=== PATIENT | male | born 1945 | race Caucasian/White ===

== ENCOUNTER 2016-06-16 13:46 | Emergency (ER) | payer MEDICARE, OTHER ==
[2016-06-16 14:13] VITALS: BP 124/55
[2016-06-16] MEDS ORDERED: methylPREDNISolone 125 MG* 2 ML VIAL IV ONE (15:58)
[2016-06-16] MEDS ORDERED: fentaNYL* 50 MCG/ML 2 ML VIAL (100 MCG VIAL) IV SLOW PU ONE (15:58)
[2016-06-16] MEDS ORDERED: fentaNYL PATCH 25 MCG/HR TRANSDERM ONE (15:58)
[2016-06-16] MEDS ORDERED: fentaNYL Patch Check Q Shift 1 NOTE SCH (19:00)
--- NOTE | 2016-06-16 22:25 | ED ---
Arleen Curtis Rebecca, scribed for Saqib Meier MD on 06/16/16 at 1510 . Complex/Multi-Sys Presentation - HPI Summary HPI Summary: Pt is a 70 y/o M BIBA who presents to ED c/o diffuse arthritic joint pain. Pain has been chronic and constant since the 1969's, particularly worse bilaterally in the hand, elbow, ankle and hip joints. Pain is currently severe, ranked 10/ 10 and typical of his prior arthritic pain. Has tried Methotrexate, Oxycodone, Extra Strength Excedrin and Prednisone in the past. 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 Oxycodone is very slightly alleviating sx. Sx aggravated by nothing. Denies any CP, fever or red-hot joints. PMHx reactive arthritis. Grip is Dr. Mac, who referred pt to ED today. Pt repeatedly reported that he has major responsibilities at home such as taking care of his and cat and their house. - History Of Current Complaint Chief Complaint: EDGeneral Hx Obtained From: Patient Onset/Duration: Gradual Onset, Lasting Weeks - over 40 years, Still Present Timing: Constant Severity Currently: Severe Severity Initially: Severe Location: Pain At: - Diffuse arthritic joint pain Character: Throbbing Aggravating Factor(s): Nothing Alleviating Factor(s): Oxycodone Associated Signs And Symptoms: Positive: Other - Denies red-hot joint pain. Negative: Fever Related History: Similar Episode/Diagnosed As: - Prior arthritic flareups - Allergies/Home Medications Allergies/Adverse Reactions: Allergies Allergy/AdvReac Type Severity Reaction Status Date / Time Penicillins Allergy Hives Verified 10/31/13 09:40 PMH/Surg Hx/FS Hx/Imm Hx Endocrine/Hematology History: Denies: Hx Diabetes, Hx Sickle Cell Disease Cardiovascular History: Reports: Hx Hypertension Denies: Hx Pacemaker/ICD, Other Cardiovascular Problems/Disorders Respiratory History: Denies: Other Respiratory Problems/Disorders GI History: Denies: Other GI Disorders - Gall stones, cholecystitis History: Denies: Hx Renal Disease, Other Problems/Disorders Musculoskeletal History: 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" Sensory History: Reports: Hx Contacts or Glasses Denies: Hx Cataracts, Hx Eye Injury, Hx Hearing Aid Opthamlomology History: Reports: Hx Contacts or Glasses Denies: Hx Cataracts, Hx Eye Injury Psychiatric History: Denies: Hx Panic Disorder - Surgical History Surgery Procedure, Year, and Place: CHOLECYSTOSTOMY TUBE - DRAIN INFECTION - 2014 Hx Anesthesia Reactions: Yes - BONE SPUR IN NECK -DIFFICULT TO INTUBATE Infectious Disease History: No Infectious Disease History: Denies: Traveled Outside the [place] in Last 30 Days - Family History Known Family History: Positive: Hypertension - Social History Alcohol Use: Occasionally Alcohol Amount: ONCE A MONTH Substance Use Type: Reports: None Smoking Status (MU): Current Every Day Smoker Type: Cigars Amount Used/How Often: 5 cigars/week Length of Time of Smoking/Using Tobacco: 8 YRS Have You Smoked in the Last Year: Yes Review of Systems Negative: Fever Negative: Chest Pain Positive: Arthralgia - Diffuse arthritic pain, Other - Denies red-hot joints All Other Systems Reviewed And Are Negative: Yes Physical Exam - Summary Physical Exam Summary: General: Pleasant, alert HEENT: Moist mucosa Neck: soft, supple, no adenopathy, no edema Heart: S1, S2, RRR, no murmurs, rubs, or gallops Lungs: Clear to auscultation, breathing comfortable, no wheezes or rales Abdominal: Soft, flat, nontender Extremities: No edema, no calf tenderness. Obvious discomfort with movements of all the joints, particularly of the ankles, toes, hands and wrists. Neuro: Alert and oriented x 3 Psych: Logical, coherent Triage Information Reviewed: Yes Vital Signs On Initial Exam: Initial Vitals Temp Pulse Resp BP Pulse Ox 100.4 F 59 19 124/55 96 06/16/16 14:05 06/16/16 14:05 06/16/16 14:05 06/16/16 14:05 06/16/16 14:05 Vital Signs Reviewed: Yes Diagnostics - Vital Signs Vital Signs Temp Pulse Resp BP Pulse Ox 06/16/16 14:05 100.4 F 59 19 124/55 96 - Laboratory Lab Statement: Any lab studies that have been ordered have been reviewed, and results considered in the medical decision making process. Re-Evaluation - Re-Evaluation First Eval Re-Evaluation Time: 17:12 Change: Unchanged Comment: Updated patient on his status and the current plan to treat him in the ED and eventually D/C pt. Discussed the conversation with Dr. Mac and he agrees to follow up with him in the next day or two. Second Eval Re-Evaluation Time: 20:01 Change: Improved Comment: Reports an improvement of pain. Discussed conversation with Dr. Mac and the current D/C plan. Counseled pt on Fentanyl patch and Prednisone use. Complex Multi-Symp Course/Dx Assessment/Plan: He has recurrent reactive arthritis. This is consistent with prior episodes. No signs of infection or septic arthritis. Essentially, this is a dilemma of improving the flareup and controlling his pain. We've counseled him on how to add a fentanyl patch to his regiment and PO meds for break through. He will also take Prednisone on an extended course, to be determined by Dr. Mac. For now, dispensed 30 tabs. Fever low grade on vitals but no clinical signs of infection. - Diagnoses Differential Diagnoses/HQI/PQRI: Sepsis, Urinary Tract Infection Provider Diagnoses: Reactive arthritis - Physician Notifications Discussed Care Of Patient With: Dr. Mac, military technology manager, who reviewed the case and states that a course of Prednisone may be in order at this point, agrees to follow up with pt expeditiously. Time Discussed With Above Provider: 16:00 Discharge - Discharge Plan Condition: Fair Disposition: HOME Prescriptions: fentaNYL PATCH 25 MCG/HR* [Duragesic PATCH 25 Mcg/Hr*] 25 mcg TRANSDERM Q72H # 10 patch MDD 1 predniSONE TAB* [Deltasone TAB*] 40 mg PO DAILY #30 tab Patient Education Materials: Arthralgia (ED), Swollen Joint (ED) Referrals: No Primary Care Phys,NOPCP [Primary Care Provider] - Additional Instructions: Please follow up with Dr Mac as we discussed. He can see you tomorrow. The documentation as recorded by the Arleen nuñez Rebecca accurately reflects the service I personally performed and the decisions made by me, Saqib Meier MD.
== END 2016-06-16 20:46 | disposition home or self-care (01) ==
LOC: ED 13:46
DX: M02.30 Reiter's disease, unspecified site (principal); F17.210 Nicotine dependence, cigarettes, uncomplicated
CPT/HCPCS: 96374; 96375; 99282; A9270-GY; J2930; J3010

== ENCOUNTER 2016-07-16 17:09 | Inpatient (IN) | payer MEDICARE, OTHER ==
[2016-07-16 18:37] LABS: Hematocrit 34 % (42-52); Hemoglobin 11.1 g/dl (14.0-18.0); Mean Corpuscular HGB Conc 32 g/dl (31-36); Mean Corpuscular Hemoglobin 27 pg (27-31); Mean Corpuscular Volume 84 fL (80-94); Mean Platelet Volume 8 um3 (7.4-10.4); Red Blood Count 4.09 10^6/ul (4.0-5.4); Red Cell Distribution Width 16 % (10.5-15); White Blood Count 15.6 10^3/ul (3.5-10.8)
[2016-07-16] MEDS: NS 0.9% 1000 ML* 2,000 ML IV ONE ×2 (18:37→21:12)
[2016-07-16 18:38] LABS: Add Diff/Slide Review? Slide Review Added; Comments Flag Yes
[2016-07-16 18:52] LABS: Albumin 3.2 g/dL (3.2-5.2); BUN/Creatinine Ratio 27.2 (8-20); C Reactive Protein 90.14 mg/L (< 5.00); Calcium 8.6 mg/dL (8.6-10.3); EGFR African American 51.7 (>60); EGFR Non-African American 40.2 (>60); Globulin 3.9 g/dL (2-4); Magnesium 2.2 mg/dL (1.9-2.7); Total Bilirubin 0.8 mg/dL (0.2-1.0); Total Protein 7.1 g/dL (6.4-8.9)
[2016-07-16 18:55] LABS: Troponin I 0.03 ng/mL (<0.04)
--- NOTE | 2016-07-16 19:06 | ED ---
Complex/Multi-Sys Presentation - HPI Summary HPI Summary: Patient is brought in by a friend for weakness and pain. The patient has not been eating or drinking well, and is complaining that his normal pain medications are not handling his pain. 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 He is cared for by the whipper Dr. Montiel, who has him on prednisone, oxycodone and a fentynyl patch for pain. The friend says the patient has been caring for his , who is being treated for cancer with chemo and radiation. The patient becomes tearful and says he is exhausted and doesn't have help to care for his . His friend says he doesn't appear to be caring for himself. It took his friend 2 hours to get him to stand today. Temperature 100.2. No CP, SOB, BRICEÑO or abdominal pain. His pain is most intense in his bilateral wrists, hand, ankles and feet. 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 Hx From Patient Unobtainable Due To: Other - poor historian, tangential and irritable Onset/Duration: Gradual Onset Timing: Constant Severity Currently: Severe Severity Initially: Severe Character: Sharp - hypersensitivity to light touch Aggravating Factor(s): touch or movement Associated Signs And Symptoms: Positive: Agitation, Decreased Oral Intake Related History: Similar Episode/Diagnosed As: - Apr 2016 - Allergies/Home Medications Allergies/Adverse Reactions: Allergies Allergy/AdvReac Type Severity Reaction Status Date / Time Penicillins Allergy Hives Verified 10/31/13 09:40 Home Medications: Home Medications Finasteride 5 mg PO QAM 07/16/16 [History Confirmed 07/17/16] Oxycodone HCl 10 MG 10 mg PO Q4HR 07/16/16 [History Confirmed 07/17/16] PMH/Surg Hx/FS Hx/Imm Hx Endocrine/Hematology History: Denies: Hx Diabetes, Hx Sickle Cell Disease Cardiovascular History: Reports: Hx Hypertension Denies: Hx Pacemaker/ICD, Other Cardiovascular Problems/Disorders Respiratory History: Denies: Other Respiratory Problems/Disorders GI History: Reports: Hx Gall Bladder Disease History: Denies: Hx Renal Disease, Other Problems/Disorders Musculoskeletal History: 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" Sensory History: Reports: Hx Contacts or Glasses Denies: Hx Cataracts, Hx Eye Injury, Hx Hearing Aid Opthamlomology History: Reports: Hx Contacts or Glasses Denies: Hx Cataracts, Hx Eye Injury Psychiatric History: Denies: Hx Panic Disorder - Surgical History Surgery Procedure, Year, and Place: CHOLECYSTOSTOMY TUBE - DRAIN INFECTION - 2014 Hx Anesthesia Reactions: Yes - BONE SPUR IN NECK -DIFFICULT TO INTUBATE Infectious Disease History: No Infectious Disease History: Denies: Traveled Outside the [place] in Last 30 Days - Family History Known Family History: Positive: Hypertension - Social History Occupation: Unemployed Lives: With Family Alcohol Use: Occasionally Alcohol Amount: ONCE A MONTH Substance Use Type: Reports: None Smoking Status (MU): Current Every Day Smoker Type: Cigars Amount Used/How Often: 5 cigars/week Length of Time of Smoking/Using Tobacco: 8 YRS Have You Smoked in the Last Year: Yes Cessation Counseling: Patient Advised to Stop Review of Systems Negative: Fever, Chills Negative: Sore Throat, Ear Ache Negative: Chest Pain Negative: Shortness Of Breath, Cough Negative: Vomiting, Diarrhea, Nausea Positive: no symptoms reported Positive: Arthralgia, Myalgia Negative: Rash, Bruising Positive: Weakness - subjective. Negative: Paresthesia, Numbness All Other Systems Reviewed And Are Negative: Yes Physical Exam - Summary Physical Exam Summary: Patient is unkempt, and smells of urine. Triage Information Reviewed: Yes Vital Signs On Initial Exam: Initial Vitals Temp Pulse Resp BP Pulse Ox 100.2 F 75 20 137/73 97 07/16/16 17:22 07/16/16 17:22 07/16/16 17:22 07/16/16 17:22 07/16/16 17:22 Vital Signs Reviewed: Yes Appearance: Positive: Well-Appearing, Pain Distress, Obese Skin: Positive: Warm, Skin Color Reflects Adequate Perfusion, Dry, Tender - hypersensitive to light touch in bilateral wrist, hands, ankles and feet., Soft Head/Face: Positive: Normal Head/Face Inspection Eyes: Positive: EOMI, KELVIN, Conjunctiva Clear ENT: Positive: Hearing grossly normal Neck: Positive: Supple, Nontender Respiratory/Lung Sounds: Positive: Clear to Auscultation, Breath Sounds Present Cardiovascular: Positive: RRR Abdomen Description: Positive: Nontender, Soft. Negative: CVA Tenderness (R), CVA Tenderness (L), Distended, Guarding Bowel Sounds: Positive: Present Musculoskeletal: Positive: Pain @ - severe pain with light touch to bilateral feet, ankles, wrists and hands. Neurological: Positive: Sensory/Motor Intact, Alert, Oriented to Person Place, Time - tangential, CN Intact II-III, NV Bundle Intact Distally, Unable to Assess Gait Psychiatric: Positive: Affect/Mood Appropriate - patient is irritable AVPU Assessment: Alert - [place] Coma Scale Coma Scale Total: 15 Diagnostics - Vital Signs Vital Signs Temp Pulse Resp BP Pulse Ox 07/16/16 18:30 71 120/66 95 07/16/16 17:22 100.2 F 75 20 137/73 97 - Laboratory Lab Results: Lab Results 07/16/16 07/16/16 07/16/16 Range/Units 18:25 18:25 18:25 WBC 15.6 H (3.5-10.8) 10^3/ul RBC 4.09 (4.0-5.4) 10^6/ul Hgb 11.1 L (14.0-18.0) g/dl Hct 34 L (42-52) % MCV 84 (80-94) fL MCH 27 (27-31) pg MCHC 32 (31-36) g/dl RDW 16 H (10.5-15) % Plt Count 177 (150-450) 10^3/ul MPV 8 (7.4-10.4) um3 Neut % (Auto) 79.0 (38-83) % Lymph % (Auto) 12.9 L (25-47) % [place] % (Auto) 7.3 (1-9) % Eos % (Auto) 0.2 (0-6) % Baso % (Auto) 0.6 (0-2) % Absolute Neuts (auto) 12.3 H (1.5-7.7) 10^3/ul Absolute Lymphs (auto) 2.0 (1.0-4.8) 10^3/ul Absolute Monos (auto) 1.1 H (0-0.8) 10^3/ul Absolute Eos (auto) 0 (0-0.6) 10^3/ul Absolute Basos (auto) 0.1 (0-0.2) 10^3/ul Absolute Nucleated RBC 0.01 10^3/ul Nucleated RBC % 0.1 Sodium 128 L (133-145) mmol/L Potassium 5.0 (3.5-5.0) mmol/L Chloride 98 L (101-111) mmol/L Carbon Dioxide 22 (22-32) mmol/L Anion Gap 8 (2-11) mmol/L BUN 46 H (6-24) mg/dL Creatinine 1.69 H (0.67-1.17) mg/dL Est GFR ( Amer) 51.7 (>60) Est GFR (Non-Af Amer) 40.2 (>60) BUN/Creatinine Ratio 27.2 H (8-20) Glucose 98 (70-100) mg/dL Lactic Acid 0.6 (0.5-2.0) mmol/L Uric Acid Pending Calcium 8.6 (8.6-10.3) mg/dL Magnesium 2.2 (1.9-2.7) mg/dL Total Bilirubin 0.80 (0.2-1.0) mg/dL AST 28 (13-39) U/L ALT 29 (7-52) U/L Alkaline Phosphatase 60 (34-104) U/L Troponin I 0.03 (<0.04) ng/mL C-Reactive Protein 90.14 H (< 5.00) mg/L Total Protein 7.1 (6.4-8.9) g/dL Albumin 3.2 (3.2-5.2) g/dL Globulin 3.9 (2-4) g/dL Albumin/Globulin Ratio 0.8 L (1-3) TSH Pending Result Diagrams: 07/16/16 18:25 07/16/16 18:25 Lab Statement: Any lab studies that have been ordered have been reviewed, and results considered in the medical decision making process. Complex Multi-Symp Course/Dx Course Of Treatment: Patient refuses to move for his chest x-ray to be performed. He will be admitted for IV antibiotics and observation. - Diagnoses Differential Diagnoses/HQI/PQRI: Aspiration, Closed Cranial Trauma, CVA, Sepsis , Urinary Tract Infection Provider Diagnoses: UTI (urinary tract infection) - Physician Notifications Discussed Care Of Patient With: Dr. Rausch, ED attending; Dr. Amaya, [facility] medicine. Time Discussed With Above Provider: 20:00 Instructed by Provider To: Admit As Inpatient Discharge - Discharge Plan Condition: Stable Disposition: ADMITTED TO [facility]
[2016-07-16 19:22] LABS: Uric Acid 8.7 mg/dL (4.4-7.6)
[2016-07-16 19:31] LABS: TSH (Thyroid Stimulating Horm) 0.5 mcIU/mL (0.34-5.60)
[2016-07-16 19:54] LABS: Urine Bacteria 1+ (Absent); Urine Bilirubin Negative (Negative); Urine Glucose Negative (Negative); Urine Nitrite Positive (Negative)
--- NOTE | 2016-07-16 20:37 | HP ---
H&P (Free Text) History and Physical: PCP: Dr Greenberg Date/Time of Evaluation: 07/16/20162029 CC: generalized pain HPI: Mr Pineda is a 70YO obese male who is a very poor & tangential historian. 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 As I was examining him, he reports his hands are very painful due to arthritis and that "if you touch my hand again, I won't be responsible for what happens." He then removes his own L hand from underneath the blanket which is obviously painful and states, "OK you're not listening. Get out." and refused to speak further or submit to further exam. Per ED records he presented for uncontrolled arthritis pain of the legs and hands, but was unable to tolerate having XRYs taken and was found to have an elevated WBC count and a UTI. The remainder of the history was obtained from the medical record. 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; full 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 status FamHx: positive for CAD, DM ROS: as above, otherwise reviewed and all were negative Constitutional: NAD, normally developed, morbidly obese white male vitals: Vital Signs Temp 37.9 C 07/16/16 17:22 Pulse 82 07/16/16 19:50 Resp 20 07/16/16 17:22 BP 157/103 07/16/16 20:00 Pulse Ox 97 07/16/16 19:50 Intake & Output 07/15/16 07/16/16 07/16/16 23:59 11:59 23:59 Intake Total 1000 Balance 1000 Weight 129.274 kg Intake: IV Fluids 1000 HEENM: atraumatic; sclera/conjunctiva: non-icteric/clear; hearing: clinically intact; oropharynx: clear, mucosa moist Neck: refused exam Pulmonary: refused exam CV: trace B ankle edema; otherwise refused exam Abdominal: refused exam Lymph: refused exam Musculoskeletal: general: grossly intact; gait: refused exam Integumental: normal appearance and texture Psychiatric orientation: AA&O to PP, uncertain to ST affect: irritable mood: uncooperative, unpleasant eye contact: poor content: unreliable, tangential memory: unable to assess responses: timely insight: poor Testing: Lab Results 07/16/16 07/16/16 07/16/16 Range/Units 18:25 18:25 18:25 WBC 15.6 H (3.5-10.8) 10^3/ul RBC 4.09 (4.0-5.4) 10^6/ul Hgb 11.1 L (14.0-18.0) g/dl Hct 34 L (42-52) % MCV 84 (80-94) fL MCH 27 (27-31) pg MCHC 32 (31-36) g/dl RDW 16 H (10.5-15) % Plt Count 177 (150-450) 10^3/ul MPV 8 (7.4-10.4) um3 Neut % (Auto) 79.0 (38-83) % Lymph % (Auto) 12.9 L (25-47) % [place] % (Auto) 7.3 (1-9) % Eos % (Auto) 0.2 (0-6) % Baso % (Auto) 0.6 (0-2) % Absolute Neuts (auto) 12.3 H (1.5-7.7) 10^3/ul Absolute Lymphs (auto) 2.0 (1.0-4.8) 10^3/ul Absolute Monos (auto) 1.1 H (0-0.8) 10^3/ul Absolute Eos (auto) 0 (0-0.6) 10^3/ul Absolute Basos (auto) 0.1 (0-0.2) 10^3/ul Absolute Nucleated RBC 0.01 10^3/ul Nucleated RBC % 0.1 Sodium 128 L (133-145) mmol/L Potassium 5.0 (3.5-5.0) mmol/L Chloride 98 L (101-111) mmol/L Carbon Dioxide 22 (22-32) mmol/L Anion Gap 8 (2-11) mmol/L BUN 46 H (6-24) mg/dL Creatinine 1.69 H (0.67-1.17) mg/dL Est GFR ( Amer) 51.7 (>60) Est GFR (Non-Af Amer) 40.2 (>60) BUN/Creatinine Ratio 27.2 H (8-20) Glucose 98 (70-100) mg/dL Lactic Acid 0.6 (0.5-2.0) mmol/L Uric Acid 8.7 H (4.4-7.6) mg/dL Calcium 8.6 (8.6-10.3) mg/dL Magnesium 2.2 (1.9-2.7) mg/dL Total Bilirubin 0.80 (0.2-1.0) mg/dL AST 28 (13-39) U/L ALT 29 (7-52) U/L Alkaline Phosphatase 60 (34-104) U/L Troponin I 0.03 (<0.04) ng/mL C-Reactive Protein 90.14 H (< 5.00) mg/L Total Protein 7.1 (6.4-8.9) g/dL Albumin 3.2 (3.2-5.2) g/dL Globulin 3.9 (2-4) g/dL Albumin/Globulin Ratio 0.8 L (1-3) TSH 0.50 (0.34-5.60) mcIU/mL Urine Color Urine Appearance Urine pH (5-9) Ur Specific [place] (1.010-1.030) Urine Protein (Negative) Urine Ketones (Negative) Urine Blood (Negative) Urine Nitrate (Negative) Urine Bilirubin (Negative) Urine Urobilinogen (Negative) Ur Leukocyte Esterase (Negative) Urine WBC (Auto) (Absent) Urine RBC (Auto) (Absent) Ur Squamous Epith Cells (Absent) Urine Bacteria (Absent) Urine Glucose (Negative) 03/09/17 Range/Units 19:35 WBC (3.5-10.8) 10^3/ul RBC (4.0-5.4) 10^6/ul Hgb (14.0-18.0) g/dl Hct (42-52) % MCV (80-94) fL MCH (27-31) pg MCHC (31-36) g/dl RDW (10.5-15) % Plt Count (150-450) 10^3/ul MPV (7.4-10.4) um3 Neut % (Auto) (38-83) % Lymph % (Auto) (25-47) % [place] % (Auto) (1-9) % Eos % (Auto) (0-6) % Baso % (Auto) (0-2) % Absolute Neuts (auto) (1.5-7.7) 10^3/ul Absolute Lymphs (auto) (1.0-4.8) 10^3/ul Absolute Monos (auto) (0-0.8) 10^3/ul Absolute Eos (auto) (0-0.6) 10^3/ul Absolute Basos (auto) (0-0.2) 10^3/ul Absolute Nucleated RBC 10^3/ul Nucleated RBC % Sodium (133-145) mmol/L Potassium (3.5-5.0) mmol/L Chloride (101-111) mmol/L Carbon Dioxide (22-32) mmol/L Anion Gap (2-11) mmol/L BUN (6-24) mg/dL Creatinine (0.67-1.17) mg/dL Est GFR ( Amer) (>60) Est GFR (Non-Af Amer) (>60) BUN/Creatinine Ratio (8-20) Glucose (70-100) mg/dL Lactic Acid (0.5-2.0) mmol/L Uric Acid (4.4-7.6) mg/dL Calcium (8.6-10.3) mg/dL Magnesium (1.9-2.7) mg/dL Total Bilirubin (0.2-1.0) mg/dL AST (13-39) U/L ALT (7-52) U/L Alkaline Phosphatase (34-104) U/L Troponin I (<0.04) ng/mL C-Reactive Protein (< 5.00) mg/L Total Protein (6.4-8.9) g/dL Albumin (3.2-5.2) g/dL Globulin (2-4) g/dL Albumin/Globulin Ratio (1-3) TSH (0.34-5.60) mcIU/mL Urine Color Yellow Urine Appearance Cloudy Urine pH 5.0 (5-9) Ur Specific [place] 1.014 (1.010-1.030) Urine Protein Negative (Negative) Urine Ketones Negative (Negative) Urine Blood Negative (Negative) Urine Nitrate Positive H (Negative) Urine Bilirubin Negative (Negative) Urine Urobilinogen Negative (Negative) Ur Leukocyte Esterase 3+ H (Negative) Urine WBC (Auto) 3+(>20/hpf) H (Absent) Urine RBC (Auto) Trace(0-2/hpf) (Absent) Ur Squamous Epith Cells Present H (Absent) Urine Bacteria 1+ H (Absent) Urine Glucose Negative (Negative) Impression: 70M presenting for uncontrolled OA pain with finding of UTI & leukocytosis DIAGNOSIS & PLAN Primary UTI : IV levofloxacin : IVFs : observation for initiation of ABX OA pain, not intractable : pain control : continue fentanyl patch Secondary HTN : review meds once reconciled Rosemary syndrome : continue prednisone PO BPH : continue finasteride Admission Rational: observation for initiation of ABX for UTI DVTp: heparin SQ Code Status: full HCP:
[2016-07-16] MEDS ORDERED: Nicotine Inhaler* 10 MG AMP INH PRN (21:05)
[2016-07-16] MEDS ORDERED: Acetaminophen TAB* 325 MG PO PRN (21:05)
[2016-07-16] MEDS ORDERED: traMADol TAB* 50 MG PO PRN (21:05)
[2016-07-16] MEDS ORDERED: hydrALAZINE IV* 20 MG/ML VIAL IV PRN (21:05)
[2016-07-16] MEDS ORDERED: Melatonin (NF) 3 MG TAB PO PRN (21:05)
[2016-07-16] MEDS ORDERED: Ondansetron INJ* 2 MG/ML VIAL IV PRN (21:05)
[2016-07-16] MEDS ORDERED: Mouth Piece, Nicotine* 1 EACH CARTRIDGE INH PRN (21:19)
[2016-07-16] MEDS: HYDROmorphone INJ* 1 MG/ML CARPUJECT SYRINGE IV PRN (22:31)
[2016-07-16] MEDS: cefTRIAXone VIAL(*) 1,000 MG in NS 0.9% 50 ML* 50 ML IVPB SCH (22:31)
[2016-07-16] MEDS: NS 0.9% 1000 ML* 1,000 ML IV SCH (22:44)
[2016-07-17] MEDS: oxyCODONE TAB* 5 MG TAB PO PRN ×3 (00:14→11:26)
[2016-07-17] MEDS ORDERED: fentaNYL PATCH 25 MCG/HR TRANSDERM SCH (02:00)
[2016-07-17] MEDS: Heparin VIAL(*) 5000 UNITS/ML VIAL (FIVE THOUSAND) SUBCUT SCH ×3 (06:14→21:04)
[2016-07-17] MEDS: Omeprazole CAP* 20 MG PO SCH (06:14)
[2016-07-17] MEDS: fentaNYL Patch Check Q Shift 1 NOTE SCH ×2 (07:37→20:35)
[2016-07-17] MEDS: NS 0.9% 1000 ML* 1,000 ML IV SCH ×2 (08:05→08:09)
[2016-07-17] MEDS: HYDROmorphone INJ* 1 MG/ML CARPUJECT SYRINGE IV PRN (08:06)
[2016-07-17] MEDS: Finasteride TAB* 5 MG PO SCH (08:07)
[2016-07-17] MEDS: Metoprolol Succinate XL TAB* 50 MG PO SCH (08:07)
[2016-07-17] MEDS: Docusate CAP* 100 MG PO SCH ×2 (08:07→21:04)
[2016-07-17] MEDS ORDERED: predniSONE TAB* 20 MG PO SCH (09:00)
--- NOTE | 2016-07-17 10:16 | PN ---
Subjective Date of Service: 07/17/16 Interval History: Patient says that at home he was unable to stand up due to arthralgia. He hasn' t tried to get out of bed today yet. No x/o. Objective Active Medications: Acetaminophen (Tylenol Tab*) 650 mg PO Q6H PRN PRN Reason: FEVER/PAIN Device (Nicotine Mouth Piece*) 1 each INH ONCE PRN PRN Reason: CRAVINGS Docusate Sodium (Colace Cap*) 200 mg PO BID [facility] Last Admin: 07/17/16 08:07 Dose: 200 mg Fentanyl (Duragesic Patch 25 Mcg/Hr*) 25 mcg TRANSDERM Q72H [facility] Last Admin: 07/17/16 02:04 Dose: 25 mcg Finasteride (Proscar Tab*) 5 mg PO QAM [facility] Last Admin: 07/17/16 08:07 Dose: 5 mg Heparin Sodium (Porcine) (Heparin Vial(*)) 5,000 units SUBCUT Q8HR [facility] Last Admin: 07/17/16 06:14 Dose: 5,000 units Hydralazine HCl (Apresoline Iv*) 10 mg IV Q4H PRN PRN Reason: Systolic >170 Hydromorphone HCl (Dilaudid Iv*) 0.5 mg IV Q4H PRN PRN Reason: PAIN Last Admin: 07/17/16 08:06 Dose: 0.5 mg Ceftriaxone Sodium 1,000 mg/ (Sodium Chloride) 50 mls @ 200 mls/hr IVPB Q24H [facility] Last Admin: 07/16/16 22:31 Dose: 200 mls/hr Melatonin (Melatonin (Nf)) 3 mg PO BEDTIME PRN; Protocol PRN Reason: Sleep Metoprolol Succinate (Toprol Xl Tab*) 50 mg PO DAILY [facility] Last Admin: 07/17/16 08:07 Dose: 50 mg Nicotine (Nicotine Inhaler*) 10 mg INH Q2H PRN PRN Reason: CRAVING Omeprazole (Prilosec Cap*) 20 mg PO DAILY@0600 [facility] Last Admin: 07/17/16 06:14 Dose: 20 mg Ondansetron HCl (Zofran Inj*) 4 mg IV Q6H PRN PRN Reason: NAUSEA Oxycodone HCl (Roxycodone Tab*) 5 mg PO Q4H PRN PRN Reason: PAIN Last Admin: 07/17/16 06:14 Dose: 5 mg Pharmacy Profile Note (Fentanyl Patch Check Q Shift) 1 note N/A 0700,1900 [facility] Last Admin: 07/17/16 07:37 Dose: 1 note Prednisone (Deltasone Tab*) 40 mg PO DAILY [facility] Last Admin: 07/17/16 08:07 Dose: 40 mg Tramadol HCl (Ultram*) 50 mg PO Q6H PRN PRN Reason: PAIN Last Admin: 07/17/16 08:06 Dose: 50 mg Vital Signs 07/16/16 07/16/16 07/16/16 20:30 21:25 22:31 Temperature 98.7 F Pulse Rate 83 78 Respiratory 20 18 Rate Blood Pressure 129/67 129/67 (mmHg) O2 Sat by Pulse 94 Oximetry 07/16/16 07/16/16 07/17/16 22:48 22:50 00:14 Temperature 98.0 F Pulse Rate 74 Respiratory 18 20 16 Rate Blood Pressure 136/63 (mmHg) O2 Sat by Pulse 99 Oximetry 07/17/16 07/17/16 07/17/16 00:31 02:04 02:14 Temperature Pulse Rate Respiratory 16 20 20 Rate Blood Pressure (mmHg) O2 Sat by Pulse Oximetry 07/17/16 07/17/16 07/17/16 04:17 06:14 07:59 Temperature 98.2 F Pulse Rate 62 Respiratory 16 18 18 Rate Blood Pressure 103/47 (mmHg) O2 Sat by Pulse 97 Oximetry 07/17/16 08:06 Temperature Pulse Rate Respiratory 16 Rate Blood Pressure (mmHg) O2 Sat by Pulse Oximetry Oxygen Devices in Use Now: None Appearance: Alert, partly up in bed. In good spirits. Looks comfortable. Eyes: No Scleral Icterus Ears/Nose/Mouth/Throat: Clear Oropharnyx, Mucous Membranes Moist Neck: NL Appearance and Movements; NL JVP, No Thyroid Enlargement, Masses Respiratory: Symmetrical Chest Expansion and Respiratory Effort, Clear to Auscultation, Clear to Percussion Abdominal: NL Sounds; No Tenderness; No Distention, No Hepatosplenomegaly, - Extremities: No Edema, No Clubbing, Cyanosis, - - mulitple joint deformities/ swelling. Skin: No Rash or Ulcers, No Nodules or Sclerosis, - Neurological: Alert and Oriented x 3, NL Sensation Result Diagrams: 07/16/16 18:25 07/16/16 18:25 Additional Lab and Data: Lab Results 07/16/16 07/16/16 07/16/16 Range/Units 18:25 18:25 18:25 WBC 15.6 H (3.5-10.8) 10^3/ul RBC 4.09 (4.0-5.4) 10^6/ul Hgb 11.1 L (14.0-18.0) g/dl Hct 34 L (42-52) % MCV 84 (80-94) fL MCH 27 (27-31) pg MCHC 32 (31-36) g/dl RDW 16 H (10.5-15) % Plt Count 177 (150-450) 10^3/ul MPV 8 (7.4-10.4) um3 Neut % (Auto) 79.0 (38-83) % Lymph % (Auto) 12.9 L (25-47) % [place] % (Auto) 7.3 (1-9) % Eos % (Auto) 0.2 (0-6) % Baso % (Auto) 0.6 (0-2) % Absolute Neuts (auto) 12.3 H (1.5-7.7) 10^3/ul Absolute Lymphs (auto) 2.0 (1.0-4.8) 10^3/ul Absolute Monos (auto) 1.1 H (0-0.8) 10^3/ul Absolute Eos (auto) 0 (0-0.6) 10^3/ul Absolute Basos (auto) 0.1 (0-0.2) 10^3/ul Absolute Nucleated RBC 0.01 10^3/ul Nucleated RBC % 0.1 Sodium 128 L (133-145) mmol/L Potassium 5.0 (3.5-5.0) mmol/L Chloride 98 L (101-111) mmol/L Carbon Dioxide 22 (22-32) mmol/L Anion Gap 8 (2-11) mmol/L BUN 46 H (6-24) mg/dL Creatinine 1.69 H (0.67-1.17) mg/dL Est GFR ( Amer) 51.7 (>60) Est GFR (Non-Af Amer) 40.2 (>60) BUN/Creatinine Ratio 27.2 H (8-20) Glucose 98 (70-100) mg/dL Lactic Acid 0.6 (0.5-2.0) mmol/L Uric Acid Pending Calcium 8.6 (8.6-10.3) mg/dL Magnesium 2.2 (1.9-2.7) mg/dL Total Bilirubin 0.80 (0.2-1.0) mg/dL AST 28 (13-39) U/L ALT 29 (7-52) U/L Alkaline Phosphatase 60 (34-104) U/L Troponin I 0.03 (<0.04) ng/mL C-Reactive Protein 90.14 H (< 5.00) mg/L Total Protein 7.1 (6.4-8.9) g/dL Albumin 3.2 (3.2-5.2) g/dL Globulin 3.9 (2-4) g/dL Albumin/Globulin Ratio 0.8 L (1-3) TSH Pending Assess/Plan/Problems-Billing Assessment: - Patient Problems (1) Urinary tract infection Current Visit: Yes Status: Acute Comment: Possible UTI. PVR by bladder scan ordered. Continue ceftriaxone. 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 I spoke with Dr. Mac who will see pt 07/17. The plan was to taper prednisone, but this possibly will need to be changed. Continue fentqnyl patch. Oxycodone 5 mg q 4 hr PRN. (3) HTN (hypertension) Current Visit: Yes Status: Acute Code(s): I10 - ESSENTIAL (PRIMARY) HYPERTENSION SNOMED Code(s): 83914495 Comment: Continue metoprolol. (4) BPH (benign prostatic hyperplasia) Current Visit: No Status: Chronic Code(s): N40.0 - BENIGN PROSTATIC HYPERPLASIA WITHOUT LOWER URINRY TRACT SYMP SNOMED Code(s): 181555674 Comment: Continue finasteride.
[2016-07-17] MEDS ORDERED: oxyCODONE TAB* 5 MG TAB PO PRN (10:20)
--- NOTE | 2016-07-17 14:51 | CONSULT ---
Consult Consult: See full dictated note. Mr. 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 He was admitted with diffuse pain, subjective weakness, swelling of his joints and inability to mobilize. He is slightly improved now, but he still has synovitis of his PIP joints and MCP joints. He is undergoing OT evaluation. As an outpatient, he was treated with Methotrexate and Humira. He has used prednisone on occasion for flares. As he is having a flare today, consider increasing his prednisone to 60mg daily ; this will need to be tapered over the next 1 to 2 weeks. 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
[2016-07-17 15:47] LABS: Hematocrit 32 % (42-52); Hemoglobin 10.4 g/dl (14.0-18.0); Mean Corpuscular HGB Conc 32 g/dl (31-36); Mean Corpuscular Hemoglobin 27 pg (27-31); Mean Corpuscular Volume 84 fL (80-94); Mean Platelet Volume 7 um3 (7.4-10.4); Red Blood Count 3.87 10^6/ul (4.0-5.4); Red Cell Distribution Width 16 % (10.5-15); White Blood Count 16.4 10^3/ul (3.5-10.8)
[2016-07-17 16:02] LABS: BUN/Creatinine Ratio 27.4 (8-20); Calcium 8.6 mg/dL (8.6-10.3); EGFR African American 73.9 (>60); EGFR Non-African American 57.5 (>60); Potassium 4.8 mmol/L (3.5-5.0)
--- NOTE | 2016-07-17 16:29 | RAD ---
INDICATION: Gout versus psoriatic arthritis COMPARISON: None TECHNIQUE: 3 views of each hand were obtained. FINDINGS: There is osteopenia. There is IP and MCP joint space narrowing laterally there is bony spur patient about the IP joint of the left and right thumb. There is minor, bilateral, first carpometacarpal osteoarthritis with narrowing and mild sclerosis. There are no bony erosive changes to suggest an inflammatory component. IMPRESSION: MILD, BILATERAL, SYMMETRIC OSTEOARTHRITIS. NO BONY EROSIVE CHANGE
[2016-07-17 16:38] LABS: Erythrocyte Sed Rate 93 mm/Hr (0-40)
[2016-07-17] MEDS ORDERED: predniSONE TAB* 20 MG PO ONE (17:37)
--- NOTE | 2016-07-17 21:27 | CONS ---
CONSULTATION REPORT: DATE OF CONSULT: 07/17/16 CONSULTING PHYSICIAN: Dr. Ibanez. REASON FOR CONSULTATION: Evaluate for flare of inflammatory arthritis. HISTORY OF PRESENT ILLNESS: Mr. Pineda is a 70-year-old male with a history of reactive arthritis with features of psoriatic arthritis that is longstanding in nature. He has a history of an inflammatory process involving his hands with his PIP joints. He has been in chronic pain. He has also been under a lot of stress recently as his has suffered from some health issues. As an outpatient, he has been on Iliana 40 mg every 2 weeks which he noted that he is adherent to and for pain control, he has been on fentanyl patch, which was started on a recent ER visit. He is also on hydroxychloroquine and methotrexate. He has been admitted with severe pain, significant restriction, and inability to ambulate. He has been on prednisone which he has taken doses between 10 and 40 mg daily as an outpatient, but he was also found to have a UTI and he is currently being treated with IV levofloxacin. He is noticing some mild improvement, but he still has a lot restriction and pain in his joints. He is currently having occupational therapy. He notes that his hands have been very sensitive and it is difficult to control his pain even when they are lightly touched. He continues to have significant symptoms with restriction and swelling of his joint. In terms of his history, it dates back to 1970 in terms of his musculoskeletal symptoms. He initially was felt to be gout many years ago. Subsequently, he was diagnosed with the Rosemary syndrome or reactive arthritis. I felt based on his labs and x-rays even though there is some paucity of skin disease that he had features of psoriatic arthritis as he had some telescoping of his digits with synovitis. In 2013 of note, he had a severe gallbladder problem with an infection leading to an ICU admission and he was treated with IV antibiotics. He was given oral antibiotics on discharge and this seemed to help his arthritis. For a year, he had no significant pain; however, when I saw him beginning in July of last year, he was complaining of significant joint discomfort and swelling of his joints. More recently, his joint pain has been difficult to get under control. In part, I think there has been a lot of stress related to his 's illness and that has lowered his defenses perhaps a little bit, but he also has had dramatic swelling of his joints. He has had involvement of his feet as well as his spine, but these are improved right now, but he still is very weak. PAST MEDICAL PROBLEMS: Include: 1. Cholecystitis. 2. Renal insufficiency. 3. Reactive arthritis with now psoriatic arthritis. 4. Hypertension. SURGICAL HISTORY: None. HOSPITALIZATIONS: Include this one. Also, there was a hospitalization in 2014 for a cholecystectomy and he had cardiac complications as well as infectious complications. CURRENT MEDICATIONS: He is on: 1. Nicotine patch. 2. Omeprazole. 3. Ondansetron. 4. Oxycodone which has been filled as an outpatient. 5. Fentanyl patch every 72 hours. 6. Also ceftriaxone. 7. Acetaminophen. 8. Prednisone 40 mg daily. ALLERGIES: Include PENICILLIN. FAMILY HISTORY: Notable for his maternal grandfather of a myocardial infarction and otherwise, no cardiac problems. SOCIAL HISTORY: He lives with his . 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 He has smoked in the past, but he has cut down on this. He occasionally consumes alcohol, but only rarely, no more than 2 cups of regular coffee per day. REVIEW OF SYSTEMS: He has been sleeping well. Eyes: Denies discharge, dryness , or irritation. ENT: He denies dry mouth or swallowing problems. Cardiac: Denies chest wall pain or shortness of breath. Respiratory: Denies cough, congestion, or night sweats. GI: Denies abdominal pain, anorexia, or colitis. Musculoskeletal: He has had deformities from his arthritis. Skin: He denies any rash or Raynaud's. He has had no nail changes recently, but his hands are often cold. Neurologic: He has had some diffuse weakness and difficulty with ambulation, but no headaches or lightheadedness. Other 14-point review of systems were reviewed and were otherwise negative. PHYSICAL EXAM: He is pleasant, in no acute distress. Temperature is 37.9 degrees Celsius, pulse of 82, blood pressure 157/103. He is afebrile. Pulse ox 97%. In general, he is pleasant, in no acute distress, sitting up. Lungs are clear to auscultation bilaterally. Cardiovascular exam revealed a regular rate and rhythm. Normal S1 and S2. Extremities: Minimal edema. Mild venostasis changes. Abdomen: Soft, nontender, nondistended. No organomegaly. No hepatosplenomegaly. Lymph: No adenopathy. Musculoskeletal: He had mild osteoarthritic deformities of the knees. He also had PIP synovitis, 2+ in his PIP joints as well as the MCP joints with mild MCP varus deformities as well as subluxation of the carpometacarpal joint. Integument: No rash. He did have some mild pitting of the nails. Psychiatric: Alert and oriented. Endocrine: No glandular swelling. : No CVA tenderness. He had, as noted above, synovitis of the proximal interphalangeal joint as well as DIP joins and MCP joints. It was quite prominent with some redness over the third PIP joint. Otherwise, cranial nerves II through XII are intact. Motor strength was intact with 4+/5 strength in the quad region. DIAGNOSTIC STUDIES/LAB DATA: He had a white count of 15.6, hemoglobin of 11.1, hematocrit 34,000, creatinine of 1.69, BUN 46. Uric acid of 8.7. Prior x-rays included a wrist x-ray, which showed osteoarthritis. Hand films have been requested in May 2016, but not done. MRI of the cervical spine in 2014 revealed degenerative disk changes, multilevel neuroforaminal narrowing , and right- sided disk protrusion with osteophytes at C6 and C7. His creatinine was 1.54 in January. Currently, methotrexate is on hold. ASSESSMENT: He has a flare of reactive arthritis with features of psoriatic arthritis. Also consider gouty arthropathy. We will check hand x-rays which have been ordered as an outpatient. Consider switching his biologic to Remicade as an outpatient. In the meantime, the prednisone will be increased to 60 mg daily to help the flare that he is going through. In regards to his renal insufficiency, hold NSAIDs or other nephrotoxic agents. I will check for the pattern of erosive disease on hand films and I would also follow the inflammatory markers although in part it could be related to his urinary tract infection. Agree with a trial of physical therapy and occupational therapy. Would also check a vitamin D given that he has been on chronic steroids as well. We will continue to follow daily. [id number]/[facility] #: [id number] [facility]
[2016-07-17] MEDS: cefTRIAXone VIAL(*) 1,000 MG in NS 0.9% 50 ML* 50 ML IVPB SCH (21:35)
[2016-07-18] MEDS: Heparin VIAL(*) 5000 UNITS/ML VIAL (FIVE THOUSAND) SUBCUT SCH ×3 (07:45→21:58)
[2016-07-18] MEDS: Docusate CAP* 100 MG PO SCH ×2 (08:29→21:13)
[2016-07-18] MEDS: Metoprolol Succinate XL TAB* 50 MG PO SCH (08:30)
[2016-07-18] MEDS: predniSONE TAB* 20 MG PO SCH (08:30)
[2016-07-18 08:31] LABS: Hematocrit 31 % (42-52); Mean Corpuscular HGB Conc 32 g/dl (31-36); Mean Corpuscular Hemoglobin 27 pg (27-31); Mean Corpuscular Volume 84 fL (80-94); Mean Platelet Volume 8 um3 (7.4-10.4); Red Blood Count 3.67 10^6/ul (4.0-5.4); Red Cell Distribution Width 16 % (10.5-15); White Blood Count 15.5 10^3/ul (3.5-10.8)
[2016-07-18] MEDS: Finasteride TAB* 5 MG PO SCH (08:31)
[2016-07-18] MEDS: Omeprazole CAP* 20 MG PO SCH (08:32)
[2016-07-18 08:43] LABS: BUN/Creatinine Ratio 27.1 (8-20); Calcium 8.7 mg/dL (8.6-10.3); EGFR African American 78.3 (>60); EGFR Non-African American 60.9 (>60); Potassium 4.7 mmol/L (3.5-5.0)
[2016-07-18] MEDS: fentaNYL Patch Check Q Shift 1 NOTE SCH ×2 (08:46→20:02)
[2016-07-18] MEDS: Levofloxacin 500 MG IVPREMIX(* 500 MG/100 ML BAG IVPB SCH (10:17)
--- NOTE | 2016-07-18 10:25 | CONSULT ---
Consult Consult: Progress Note Consult follow up note Patient: GOKUL FUNES /Age: 06 1945 70 Medical Record#: [id number] Admission Date: 07/16/16 Provider: Norm Mac Chief complaint: Joint pain Subjective Date of Service: 07/18/16 Interval History: Patient says that he is overall improved; there is still some swelling in his PIP joints; he has been working with PT and OT. He still has some restriction in his hands but he is much better.. He hasn't tried to get out of bed today yet. No x/o. Objective Active Medications: Acetaminophen (Tylenol Tab*) 650 mg PO Q6H PRN PRN Reason: FEVER/PAIN Device (Nicotine Mouth Piece*) 1 each INH ONCE PRN PRN Reason: CRAVINGS Docusate Sodium (Colace Cap*) 200 mg PO BID [facility] Last Admin: 07/17/16 08:07 Dose: 200 mg Fentanyl (Duragesic Patch 25 Mcg/Hr*) 25 mcg TRANSDERM Q72H [facility] Last Admin: 07/17/16 02:04 Dose: 25 mcg Finasteride (Proscar Tab*) 5 mg PO QAM [facility] Last Admin: 07/17/16 08:07 Dose: 5 mg Heparin Sodium (Porcine) (Heparin Vial(*)) 5,000 units SUBCUT Q8HR [facility] Last Admin: 07/17/16 06:14 Dose: 5,000 units Hydralazine HCl (Apresoline Iv*) 10 mg IV Q4H PRN PRN Reason: Systolic >170 Hydromorphone HCl (Dilaudid Iv*) 0.5 mg IV Q4H PRN PRN Reason: PAIN Last Admin: 07/17/16 08:06 Dose: 0.5 mg Ceftriaxone Sodium 1,000 mg/ (Sodium Chloride) 50 mls @ 200 mls/hr IVPB Q24H [facility] Last Admin: 07/16/16 22:31 Dose: 200 mls/hr Melatonin (Melatonin (Nf)) 3 mg PO BEDTIME PRN; Protocol PRN Reason: Sleep Metoprolol Succinate (Toprol Xl Tab*) 50 mg PO DAILY [facility] Last Admin: 07/17/16 08:07 Dose: 50 mg Nicotine (Nicotine Inhaler*) 10 mg INH Q2H PRN PRN Reason: CRAVING Omeprazole (Prilosec Cap*) 20 mg PO DAILY@0600 [facility] Last Admin: 07/17/16 06:14 Dose: 20 mg Ondansetron HCl (Zofran Inj*) 4 mg IV Q6H PRN Progress Note GOKUL FUNES [id number] 07/16/16 PRN Reason: NAUSEA Oxycodone HCl (Roxycodone Tab*) 5 mg PO Q4H PRN PRN Reason: PAIN Last Admin: 07/17/16 06:14 Dose: 5 mg Pharmacy Profile Note (Fentanyl Patch Check Q Shift) 1 note N/A 0700,1900 [facility] Last Admin: 07/17/16 07:37 Dose: 1 note Prednisone (Deltasone Tab*) 40 mg PO DAILY [facility] Last Admin: 07/17/16 08:07 Dose: 40 mg Tramadol HCl (Ultram*) 50 mg PO Q6H PRN PRN Reason: PAIN Last Admin: 07/17/16 08:06 Dose: 50 mg Vital Signs 07/16/16 07/16/16 20:30 21:25 22:31 Temperature 98.7 F Pulse Rate 83 78 Respiratory 20 18 Rate Blood Pressure 129/67 129/67 (mmHg) O2 Sat by Pulse 94 Oximetry 07/16/16 07/17/16 22:48 22:50 00:14 Temperature 98.0 F Pulse Rate 74 Respiratory 18 20 16 Rate Blood Pressure 136/63 (mmHg) O2 Sat by Pulse 99 Oximetry 07/17/16 07/17/16 00:31 02:04 02:14 Temperature Pulse Rate Respiratory 16 20 20 Rate Blood Pressure (mmHg) O2 Sat by Pulse Oximetry 07/17/16 07/17/16 04:17 06:14 07:59 Temperature 98.2 F Pulse Rate 62 Progress Note GOKUL FUNES [id number] 07/16/16 Respiratory 16 18 18 Rate Blood Pressure 103/47 (mmHg) O2 Sat by Pulse 97 Oximetry 07/17/16 08:06 Temperature Pulse Rate Respiratory 16 Rate Blood Pressure ( mmHg) O2 Sat by Pulse Oximetry Oxygen Devices in Use Now: None Appearance: Alert, partly up in bed. In good spirits. Looks comfortable. Eyes: No Scleral Icterus Ears/Nose/Mouth/Throat: Clear Oropharnyx, Mucous Membranes Moist Neck: NL Appearance and Movements; NL JVP, No Thyroid Enlargement, Masses Respiratory: Symmetrical Chest Expansion and Respiratory Effort, Clear to Auscultation, Clear to Percussion Abdominal: NL Sounds; No Tenderness; No Distention, No Hepatosplenomegaly, - Extremities: No Edema, No Clubbing, Cyanosis, - - Musculoskeletal: PIP joint 1 plus synovitis along the 4th PIP joint bilaterally and 1 plus synovitis of 3rd IP joint; mulitple joint deformities/swelling. Skin: No Rash or Ulcers, No Nodules or Sclerosis, - Neurological: Alert and Oriented x 3, NL Sensation Result Diagrams: 18:25 18:25 Additional Lab and Data: Lab Results 07/16/16 07/16/16 07/16/16 Range/Units 18:25 18:25 18:25 WBC 15.6 H (3.5-10.8) 10^3/ul RBC 4.09 (4.0-5.4) 10^6/ul Hgb 11.1 L (14.0-18.0) g/dl Hct 34 L (42-52) % MCV 84 (80-94) fL MCH 27 (27-31) pg MCHC 32 (31-36) g/dl RDW 16 H (10.5-15) % Plt Count 177 (150-450) 10^3/ul Progress Note GOKUL FUNES [id number] 07/16/16 MPV 8 (7.4-10.4) um3 Neut % (Auto) 79.0 (38-83) % Lymph % (Auto) 12.9 L (25-47) % [place] % (Auto) 7.3 (1-9) % Eos % (Auto) 0.2 (0-6) % Baso % (Auto) 0.6 (0-2) % Absolute Neuts (auto) 12.3 H (1.5-7.7) 10^3/ul Absolute Lymphs (auto) 2.0 (1.0-4.8) 10^3/ul Absolute Monos (auto) 1.1 H (0-0.8) 10^3/ul Absolute Eos (auto) 0 (0-0.6) 10^3/ul Absolute Basos (auto) 0.1 (0-0.2) 10^3/ul Absolute Nucleated RBC 0.01 10^3/ul Nucleated RBC % 0.1 Sodium 128 L (133-145) mmol/L Potassium 5.0 (3.5-5.0) mmol/L Chloride 98 L (101-111) mmol/L Carbon Dioxide 22 (22-32) mmol/L Anion Gap 8 (2-11) mmol/L BUN 46 H (6-24) mg/dL Creatinine 1.69 H (0.67-1.17) mg/dL Est GFR ( Amer) 51.7 (>60) Est GFR (Non-Af Amer) 40.2 (>60) BUN/Creatinine Ratio 27.2 H (8-20) Glucose 98 (70-100) mg/dL Lactic Acid 0.6 (0.5-2.0) mmol/L Uric Acid Pending Calcium 8.6 (8.6-10.3) mg/dL Magnesium 2.2 (1.9-2.7) mg/dL Total Bilirubin 0.80 (0.2-1.0) mg/dL AST 28 (13-39) U/L ALT 29 (7-52) U/L Alkaline Phosphatase 60 (34-104) U/L Troponin I 0.03 (<0.04) ng/mL C-Reactive Protein 90.14 H (< 5.00) mg/L Total Protein 7.1 (6.4-8.9) g/dL Albumin 3.2 (3.2-5.2) g/dL Globulin 3.9 (2-4) g/dL Albumin/Globulin Ratio 0.8 L (1-3) TSH Pending Assess/Plan/Problems Assessment: - Patient Problems (1) Joint synovitis. I have personally reviewed his hand films (which we had been trying to get as an outpatient), which in my opinion showed small erosions with overhanging ledges along his 1st IP joint. Although no joint was swollen enough today to aspirate for confirmation, I think that this chronic hand deformities and elevated uric acid are at least in part consistent with gouty arthropathy. He has not completely benefited from immunosuppressive therapy. I advised a trial of low dose allopurinol; he is already on a high dose of steroids so this should cover any gout flare that occur while on it; discussed side effects including rash and GI effects; we will initiate a low dose of allopurinol 100mg daily. Low purine diet discussed in detail. 2) Steroid Use; Overall improved; consider tapering prednisone by 10mg every 2 days to make it a quick taper as we transition to allopurinol. 3)Psoriatic arthritis/ reactive arthritis: Humira has not helped; prior to trying Remicade we will see if Allopurinol helps his symptoms. He is not on Methotrexate and at this point I advised him to avoid taking it as we will approach this as gout. 4) Chronic pain syndrome: on Fentanyl 5) UTI: continue antibiotics and supportive care
--- NOTE | 2016-07-18 17:48 | PN ---
Subjective Date of Service: 07/18/16 Interval History: Patient is feeling better today. Objective Active Medications: Acetaminophen (Tylenol Tab*) 650 mg PO Q6H PRN PRN Reason: FEVER/PAIN Allopurinol (Zyloprim Tab*) 100 mg PO DAILY [facility] Device (Nicotine Mouth Piece*) 1 each INH ONCE PRN PRN Reason: CRAVINGS Docusate Sodium (Colace Cap*) 200 mg PO BID [facility] Last Admin: 07/18/16 08:29 Dose: 200 mg Fentanyl (Duragesic Patch 25 Mcg/Hr*) 25 mcg TRANSDERM Q72H [facility] Last Admin: 07/17/16 02:04 Dose: 25 mcg Finasteride (Proscar Tab*) 5 mg PO QAM [facility] Last Admin: 07/18/16 08:31 Dose: 5 mg Heparin Sodium (Porcine) (Heparin Vial(*)) 5,000 units SUBCUT Q8HR [facility] Last Admin: 07/18/16 14:33 Dose: 5,000 units Hydralazine HCl (Apresoline Iv*) 10 mg IV Q4H PRN PRN Reason: Systolic >170 Levofloxacin/Dextrose (Levaquin 500 Mg Ivpremix(*)) 500 mg in 100 mls @ 100 mls /hr IVPB Q24H [facility] Last Admin: 07/18/16 10:17 Dose: 100 mls/hr Melatonin (Melatonin (Nf)) 3 mg PO BEDTIME PRN; Protocol PRN Reason: Sleep Metoprolol Succinate (Toprol Xl Tab*) 50 mg PO DAILY [facility] Last Admin: 07/18/16 08:30 Dose: 50 mg Nicotine (Nicotine Inhaler*) 10 mg INH Q2H PRN PRN Reason: CRAVING Omeprazole (Prilosec Cap*) 20 mg PO DAILY@0600 [facility] Last Admin: 07/18/16 08:32 Dose: Not Given Ondansetron HCl (Zofran Inj*) 4 mg IV Q6H PRN PRN Reason: NAUSEA Oxycodone HCl (Roxycodone Tab*) 5 mg PO Q3H PRN PRN Reason: PAIN Last Admin: 07/17/16 11:26 Dose: 5 mg Pharmacy Profile Note (Fentanyl Patch Check Q Shift) 1 note N/A 0700,1900 [facility] Last Admin: 07/18/16 08:46 Dose: 1 note Prednisone (Deltasone Tab*) 60 mg PO DAILY WITH [facility] Last Admin: 07/18/16 08:30 Dose: 60 mg Vital Signs 07/17/16 07/17/16 07/18/16 19:45 20:12 08:00 Temperature 97.5 F Pulse Rate 56 Respiratory 18 12 16 Rate Blood Pressure 130/60 (mmHg) O2 Sat by Pulse 96 Oximetry 07/18/16 07/18/16 08:25 09:26 Temperature 97.8 F Pulse Rate 49 68 Respiratory 18 Rate Blood Pressure 150/64 (mmHg) O2 Sat by Pulse 97 Oximetry Oxygen Devices in Use Now: None Appearance: Elderly man lying in bed in NAD Eyes: No Scleral Icterus Ears/Nose/Mouth/Throat: NL Teeth, Lips, Gums Neck: No Thyroid Enlargement, Masses Respiratory: Clear to Auscultation Cardiovascular: - - S1S2 denisha Abdominal: NL Sounds; No Tenderness; No Distention, No Hepatosplenomegaly Lymphatic: No Cervical Adenopathy Extremities: No Edema Skin: No Rash or Ulcers Neurological: Alert and Oriented x 3 Result Diagrams: 07/18/16 07:52 07/18/16 07:59 Additional Lab and Data: Lab Results 07/16/16 07/16/16 07/16/16 Range/Units 18:25 18:25 18:25 WBC 15.6 H (3.5-10.8) 10^3/ul RBC 4.09 (4.0-5.4) 10^6/ul Hgb 11.1 L (14.0-18.0) g/dl Hct 34 L (42-52) % MCV 84 (80-94) fL MCH 27 (27-31) pg MCHC 32 (31-36) g/dl RDW 16 H (10.5-15) % Plt Count 177 (150-450) 10^3/ul MPV 8 (7.4-10.4) um3 Neut % (Auto) 79.0 (38-83) % Lymph % (Auto) 12.9 L (25-47) % [place] % (Auto) 7.3 (1-9) % Eos % (Auto) 0.2 (0-6) % Baso % (Auto) 0.6 (0-2) % Absolute Neuts (auto) 12.3 H (1.5-7.7) 10^3/ul Absolute Lymphs (auto) 2.0 (1.0-4.8) 10^3/ul Absolute Monos (auto) 1.1 H (0-0.8) 10^3/ul Absolute Eos (auto) 0 (0-0.6) 10^3/ul Absolute Basos (auto) 0.1 (0-0.2) 10^3/ul Absolute Nucleated RBC 0.01 10^3/ul Nucleated RBC % 0.1 Sodium 128 L (133-145) mmol/L Potassium 5.0 (3.5-5.0) mmol/L Chloride 98 L (101-111) mmol/L Carbon Dioxide 22 (22-32) mmol/L Anion Gap 8 (2-11) mmol/L BUN 46 H (6-24) mg/dL Creatinine 1.69 H (0.67-1.17) mg/dL Est GFR ( Amer) 51.7 (>60) Est GFR (Non-Af Amer) 40.2 (>60) BUN/Creatinine Ratio 27.2 H (8-20) Glucose 98 (70-100) mg/dL Lactic Acid 0.6 (0.5-2.0) mmol/L Uric Acid Pending Calcium 8.6 (8.6-10.3) mg/dL Magnesium 2.2 (1.9-2.7) mg/dL Total Bilirubin 0.80 (0.2-1.0) mg/dL AST 28 (13-39) U/L ALT 29 (7-52) U/L Alkaline Phosphatase 60 (34-104) U/L Troponin I 0.03 (<0.04) ng/mL C-Reactive Protein 90.14 H (< 5.00) mg/L Total Protein 7.1 (6.4-8.9) g/dL Albumin 3.2 (3.2-5.2) g/dL Globulin 3.9 (2-4) g/dL Albumin/Globulin Ratio 0.8 L (1-3) TSH Pending Assess/Plan/Problems-Billing Assessment: 70 year old admitted with worsening arthritic pain and uti. - Patient Problems (1) Arthritis Current Visit: Yes Status: Acute Code(s): M19.90 - UNSPECIFIED OSTEOARTHRITIS, UNSPECIFIED SITE SNOMED Code(s): 0255794 Comment: Reactive arthritis and Dr. shukla increased patient's prednisone to 60 mg. Feels better today. (2) Urinary tract infection Current Visit: Yes Status: Acute Comment: + Pseudomonas. Changed to Levaquin (3) HTN (hypertension) Current Visit: Yes Status: Acute Code(s): I10 - ESSENTIAL (PRIMARY) HYPERTENSION SNOMED Code(s): 32721413 Comment: Borderline control. Continue current treatment and adjust meds accordingly. (4) BPH (benign prostatic hyperplasia) Current Visit: No Status: Chronic Code(s): N40.0 - BENIGN PROSTATIC HYPERPLASIA WITHOUT LOWER URINRY TRACT SYMP SNOMED Code(s): 211761516 Comment: Stable.Continue finasteride. (5) DVT prophylaxis Current Visit: No Status: Acute Code(s): SDF8623 - SNOMED Code(s): 581201706 Comment: hep SQ (6) Full code status Current Visit: Yes Status: Acute Code(s): Z78.9 - OTHER SPECIFIED HEALTH STATUS SNOMED Code(s): 807105900
[2016-07-19] MEDS: Heparin VIAL(*) 5000 UNITS/ML VIAL (FIVE THOUSAND) SUBCUT SCH (05:33)
[2016-07-19] MEDS: Omeprazole CAP* 20 MG PO SCH (05:33)
[2016-07-19] MEDS: oxyCODONE TAB* 5 MG TAB PO PRN ×2 (08:43→12:45)
[2016-07-19] MEDS: predniSONE TAB* 20 MG PO SCH (08:45)
[2016-07-19] MEDS: Finasteride TAB* 5 MG PO SCH (08:45)
[2016-07-19] MEDS: Docusate CAP* 100 MG PO SCH (08:46)
[2016-07-19] MEDS: Metoprolol Succinate XL TAB* 50 MG PO SCH (08:46)
[2016-07-19] MEDS ORDERED: Allopurinol TAB* 100 MG PO SCH (09:00)
[2016-07-19 09:37] VITALS: BP 154/58
[2016-07-19] MEDS: Levofloxacin 500 MG IVPREMIX(* 500 MG/100 ML BAG IVPB SCH (09:53)
--- NOTE | 2016-07-19 23:52 | DS ---
DISCHARGE SUMMARY: DATE OF ADMISSION: 07/16/16 DATE OF DISCHARGE: 07/19/16 PCP: Jarett Barnett MD ADMISSION DIAGNOSES: 1. Urinary tract infection. 2. Reactive arthritis. 3. Hypertension. 4. Benign prostatic hypertrophy. DISCHARGE DIAGNOSES: 1. Urinary tract infection. 2. Reactive arthritis. 3. Hypertension. 4. Benign prostatic hypertrophy. HOSPITAL COURSE: The patient is a 70-year-old gentleman who presented to [facility] with a chief complaint of painful hands that says it is worse than usual. He has a history of reactive arthritis, but says that it is much worse at this time. He was also found while being evaluated to have a UTI , was placed on Levaquin. Rheumatology saw the patient. Also increased his prednisone. The patient improved dramatically over the next couple of days. His infection was caused by pseudomonas and he was placed on Levaquin. The patient was stable for discharge on 07/19/16. PHYSICAL EXAMINATION: On the date of discharge, a well-developed, well- nourished gentleman, sitting up in bed, in no acute distress. Vital signs: Temperature 97.6 degrees, heart rate 62 beats per minute, respiratory rate 21 breaths per minute, pulse ox 99%, blood pressure 154/58. HEENT: Normocephalic , atraumatic. Pupils equal, round, and reactive to light. Moist mucous membranes. Neck: Supple. No JVD, no bruits, no palpable thyroid, no lymphadenopathy. Chest: Clear to auscultation and percussion bilaterally. Cardiovascular Exam: S1, S2 appreciated. Abdomen: Positive bowel sounds in all 4 quadrants. Soft, nontender, nondistended. Extremities: No cyanosis, clubbing or edema. Neuro: Alert and oriented x3. Moves all extremities. Skin : No rashes or abnormalities. STUDIES DONE WHILE IN THE HOSPITAL: Hand x-ray, 07/17/16. Impression: Mild bilateral symmetrical osteoarthritis, no bony erosive change. DISCHARGE MEDICATIONS: 1. Finasteride 5 mg daily. 2. Oxycodone 10 mg every 4 hours. 4. Metoprolol succinate 50 mg daily. 5. Duragesic patch 25 mcg an hour. 6. Prednisone 60 mg daily, to be tapered by Dr. Mac as an outpatient. 7. Levaquin 500 mg daily for 8 more days. 8. Allopurinol 100 mg daily. DISCHARGE PLAN: The patient will be discharged home. He will follow up with the PCP within one week. He is to follow up with Dr. Mac within one week as well. The patient should return to the ED if symptoms recur. TIME SPENT: Over 40 minutes was spent on this discharge, more than 25 minutes of which was spent in direct [id number] contact with the patient in evaluation , physical exam, counseling and coordination of care. CC: Jarett Barnett MD; Dr. Mac * [id number]/[facility] #: [id number] MTDD
== END 2016-07-19 17:13 | disposition home or self-care (01) | DRG 546 ==
LOC: ED 17:09 → MED 20:28 → OBSVTOIN 07-17 09:00
PROVIDERS: ADMIT Hospitalist; ATTEND Internal Medicine
DX: M02.30 Reiter's disease, unspecified site (principal); N39.0 Urinary tract infection, site not specified; N18.4 Chronic kidney disease, stage 4 (severe); I13.0 Hypertensive heart and chronic kidney disease with heart failure and stage 1 through stage 4 chronic kidney disease, or unspecified chronic kidney disease; I50.9 Heart failure, unspecified; Z68.41 Body mass index [BMI] 40.0-44.9, adult; B96.5 Pseudomonas (aeruginosa) (mallei) (pseudomallei) as the cause of diseases classified elsewhere; F17.210 Nicotine dependence, cigarettes, uncomplicated; E66.01 Morbid (severe) obesity due to excess calories; N40.0 Benign prostatic hyperplasia without lower urinary tract symptoms; M65.9 Synovitis and tenosynovitis, unspecified; M19.042 Primary osteoarthritis, left hand; M19.041 Primary osteoarthritis, right hand; G89.4 Chronic pain syndrome; L40.50 Arthropathic psoriasis, unspecified; Z88.0 Allergy status to penicillin; Z82.49 Family history of ischemic heart disease and other diseases of the circulatory system; Z72.89 Other problems related to lifestyle; Z83.3 Family history of diabetes mellitus; Z90.49 Acquired absence of other specified parts of digestive tract; Z79.52 Long term (current) use of systemic steroids
CPT/HCPCS: 36415; 80048; 80053; 81003; 81015; 83605; 83735; 84443; 84484; 84550; 85025; 85652; 86140; 87077; 87086; 87186; 99406; A9270-GY; G0378; J0696; J1170; J1644; J1956; J7512

== ENCOUNTER 2016-07-21 12:30 | Inpatient (IN) | payer MEDICARE, OTHER ==
[2016-07-21 13:25] LABS: Hematocrit 34 % (42-52); Hemoglobin 11.1 g/dl (14.0-18.0); Mean Corpuscular HGB Conc 33 g/dl (31-36); Mean Corpuscular Hemoglobin 28 pg (27-31); Mean Corpuscular Volume 84 fL (80-94); Mean Platelet Volume 7 um3 (7.4-10.4); Red Blood Count 4.03 10^6/ul (4.0-5.4); Red Cell Distribution Width 17 % (10.5-15); White Blood Count 15.6 10^3/ul (3.5-10.8)
[2016-07-21 13:30] LABS: Add Diff/Slide Review? Slide Review Added; Comments Flag Yes
[2016-07-21 13:55] LABS: Urine Bacteria Absent (Absent); Urine Bilirubin Negative (Negative); Urine Glucose Negative (Negative); Urine Nitrite Negative (Negative)
[2016-07-21 14:06] LABS: Albumin 3.1 g/dL (3.2-5.2); BUN/Creatinine Ratio 26.6 (8-20); C Reactive Protein 138.33 mg/L (< 5.00); Calcium 8.9 mg/dL (8.6-10.3); EGFR African American 57.6 (>60); EGFR Non-African American 44.8 (>60); Globulin 3.4 g/dL (2-4); Total Bilirubin 0.7 mg/dL (0.2-1.0); Total Protein 6.5 g/dL (6.4-8.9)
[2016-07-21] MEDS ORDERED: Ondansetron INJ* 2 MG/ML VIAL IV PRN (15:10)
[2016-07-21] MEDS ORDERED: NS 0.9% 1000 ML* 1,000 ML IV ONE (15:10)
[2016-07-21] MEDS ORDERED: Acetaminophen TAB* 325 MG PO PRN (15:10)
[2016-07-21] MEDS ORDERED: Morphine INJ* 2 MG/ML 1 ML SYRINGE IV PRN (15:10)
[2016-07-21] MEDS ORDERED: oxyCODONE TAB* 5 MG TAB PO PRN (15:13)
--- NOTE | 2016-07-21 15:51 | RAD ---
INDICATION: Leukocytosis, back pain. COMPARISON: Comparison is made with a prior chest x-ray study from November 05, 2014. TECHNIQUE: A portable view of the chest was obtained. The left costophrenic angle is cut off on the film limiting the study. FINDINGS: Cardiac and mediastinal contours appear to be within normal limits. The lungs are clear. No pleural effusion is seen. IMPRESSION: NO EVIDENCE FOR ACUTE DISEASE.
[2016-07-21] MEDS ORDERED: predniSONE TAB* 20 MG PO SCH (16:00)
[2016-07-21] MEDS ORDERED: fentaNYL PATCH 25 MCG/HR TRANSDERM SCH (16:00)
[2016-07-21] MEDS: Allopurinol TAB* 100 MG PO SCH (16:23)
[2016-07-21] MEDS: Finasteride TAB* 5 MG PO SCH (16:23)
[2016-07-21] MEDS: predniSONE TAB* 20 MG PO SCH (16:23)
[2016-07-21] MEDS: Cefepime(*) 2 GM in NS 0.9% 50 ML* 50 ML IVPB SCH (17:23)
[2016-07-21] MEDS: NS 0.9% 1000 ML* 1,000 ML IV SCH (17:24)
--- NOTE | 2016-07-21 18:01 | RAD ---
INDICATION: Urinary tract infection. COMPARISON: Comparison is made with a prior renal ultrasound from November 05, 2014. TECHNIQUE: Multiple real-time images of the kidneys were obtained. FINDINGS: The kidneys are normal in size shape and echogenicity. The right kidney measured 10.3 x 5.4 x 6.1 cm and the left kidney measured 10.8 x 5.5 x 4.5 cm. No hydronephrosis is seen. There is suggestion of a small amount of perinephric fluid adjacent to the left kidney. There is a small complex cyst in the midportion of the left kidney measuring 1.0 x 0.8 x 0.8 cm. This is not seen on the prior study. IMPRESSION: 1. NO EVIDENCE FOR HYDRONEPHROSIS. 2. SMALL COMPLEX LEFT RENAL CYST. RECOMMEND A FOLLOW-UP RENAL ULTRASOUND IN 6 MONTHS TIME TO DEMONSTRATE STABILITY.
[2016-07-21] MEDS: fentaNYL Patch Check Q Shift 1 NOTE SCH (19:17)
--- NOTE | 2016-07-21 20:39 | ED ---
Karina Curtis Anna, scribed for Mitchel Mendoza MD on 07/21/16 at 1258 . Abdominal Pain/Male - HPI Summary HPI Summary: Patient is a 70 y/o male BIBA to [facility] presenting with gradual onset of constant left CVA pain that began a few days ago. He cant get up or feed himself because of the pain. He reports that he has had reactive arthritis since 1970, sometimes in remission, which he thinks has flared up. When his arthritis flares up, he reports he cant pull himself around and has difficulty ambulating. His left foot is swollen and has been for weeks. His left hand becomes particularly difficult to move because of pain when his arthritis flares up. He was seen in the hospital for a UTI and discharged 07/19/2016, for which he has been taking Levaquin. - History of Current Complaint Chief Complaint: EDFlankPain Stated Complaint: FLANK PAIN Time Seen by Provider: 07/21/16 12:34 Hx Obtained From: Patient Onset/Duration: Gradual Onset - Allergies/Home Medications Allergies/Adverse Reactions: Allergies Allergy/AdvReac Type Severity Reaction Status Date / Time Penicillins Allergy Hives Verified 10/31/13 09:40 Home Medications: Home Medications Finasteride TAB* [Proscar TAB*] 5 mg PO QAM 07/21/16 [History Confirmed 07/21/16 ] Folic Acid TAB* [Folvite TAB*] 1 mg PO DAILY 07/21/16 [History Confirmed ] Metoprolol Succinate XL TAB* [Toprol XL TAB*] 25 mg PO BEDTIME 07/21/16 [ History Confirmed 07/21/16] PMH/Surg Hx/FS Hx/Imm Hx Endocrine/Hematology History: Denies: Hx Diabetes, Hx Sickle Cell Disease Cardiovascular History: Reports: Hx Hypertension Denies: Hx Pacemaker/ICD, Other Cardiovascular Problems/Disorders Respiratory History: Reports: Hx Pneumonia - at 3 Denies: Other Respiratory Problems/Disorders GI History: Reports: Hx Gall Bladder Disease Denies: Other GI Disorders - Gall stones, cholecystitis History: Denies: Hx Renal Disease, Other Problems/Disorders Musculoskeletal History: 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" Sensory History: Reports: Hx Contacts or Glasses, Hx Hearing Problem - [place] Denies: Hx Cataracts, Hx Eye Injury, Hx Hearing Aid Opthamlomology History: Reports: Hx Contacts or Glasses Denies: Hx Cataracts, Hx Eye Injury Psychiatric History: Denies: Hx Panic Disorder - Surgical History Surgery Procedure, Year, and Place: CHOLECYSTOSTOMY TUBE - DRAIN INFECTION - 2014 Hx Anesthesia Reactions: Yes - BONE SPUR IN NECK -DIFFICULT TO INTUBATE Infectious Disease History: No Infectious Disease History: Denies: Traveled Outside the [place] in Last 30 Days - Family History Known Family History: Positive: Hypertension - Social History Occupation: Retired Lives: With Family Alcohol Use: Occasionally Alcohol Amount: ONCE A MONTH Substance Use Type: Reports: None Smoking Status (MU): Current Every Day Smoker Type: Cigars Amount Used/How Often: 5 cigars/week Length of Time of Smoking/Using Tobacco: 8 YRS Have You Smoked in the Last Year: Yes Review of Systems Positive: Abdominal Pain - Left CVA pain Positive: Arthralgia, Edema - left foot, baseline All Other Systems Reviewed And Are Negative: Yes Physical Exam Triage Information Reviewed: Yes Vital Signs On Initial Exam: Initial Vitals Temp Pulse Resp BP Pulse Ox 97.8 F 63 16 134/81 98 07/21/16 12:48 07/21/16 12:48 07/21/16 12:48 07/21/16 12:48 07/21/16 12:48 Vital Signs Reviewed: Yes Appearance: Positive: Well-Appearing, No Pain Distress, Obese Skin: Positive: Warm, Skin Color Reflects Adequate Perfusion, Dry Head/Face: Positive: Normal Head/Face Inspection Eyes: Positive: Normal ENT: Positive: Normal ENT inspection Neck: Positive: Supple, Nontender Respiratory/Lung Sounds: Positive: Clear to Auscultation, Breath Sounds Present Cardiovascular: Positive: RRR Abdomen Description: Positive: Soft Bowel Sounds: Positive: Present Musculoskeletal: Positive: Normal Neurological: Positive: Normal Psychiatric: Positive: Affect/Mood Appropriate Diagnostics - Vital Signs Vital Signs Temp Pulse Resp BP Pulse Ox 07/21/16 12:48 97.8 F 63 16 134/81 98 - Laboratory Lab Results: Lab Results 07/21/16 07/21/16 07/21/16 Range/Units 13:15 13:15 13:22 WBC 15.6 H (3.5-10.8) 10^3/ul RBC 4.03 (4.0-5.4) 10^6/ul Hgb 11.1 L (14.0-18.0) g/dl Hct 34 L (42-52) % MCV 84 (80-94) fL MCH 28 (27-31) pg MCHC 33 (31-36) g/dl RDW 17 H (10.5-15) % Plt Count 173 (150-450) 10^3/ul MPV 7 L (7.4-10.4) um3 Neut % (Auto) 96.0 H (38-83) % Lymph % (Auto) 2.9 L (25-47) % [place] % (Auto) 1.1 (1-9) % Eos % (Auto) 0 (0-6) % Baso % (Auto) 0 (0-2) % Absolute Neuts (auto) 14.9 H (1.5-7.7) 10^3/ul Absolute Lymphs (auto) 0.5 L (1.0-4.8) 10^3/ul Absolute Monos (auto) 0.2 (0-0.8) 10^3/ul Absolute Eos (auto) 0 (0-0.6) 10^3/ul Absolute Basos (auto) 0 (0-0.2) 10^3/ul Absolute Nucleated RBC 0 10^3/ul Nucleated RBC % 0 Sodium 130 L (133-145) mmol/L Potassium 5.0 (3.5-5.0) mmol/L Chloride 101 (101-111) mmol/L Carbon Dioxide 23 (22-32) mmol/L Anion Gap 6 (2-11) mmol/L BUN 41 H (6-24) mg/dL Creatinine 1.54 H (0.67-1.17) mg/dL Est GFR ( Amer) 57.6 (>60) Est GFR (Non-Af Amer) 44.8 (>60) BUN/Creatinine Ratio 26.6 H (8-20) Glucose 175 H (70-100) mg/dL Calcium 8.9 (8.6-10.3) mg/dL Total Bilirubin 0.70 (0.2-1.0) mg/dL AST 70 H (13-39) U/L ALT 75 H (7-52) U/L Alkaline Phosphatase 97 (34-104) U/L C-Reactive Protein 138.33 H (< 5.00) mg/L Total Protein 6.5 (6.4-8.9) g/dL Albumin 3.1 L (3.2-5.2) g/dL Globulin 3.4 (2-4) g/dL Albumin/Globulin Ratio 0.9 L (1-3) Urine Color Yellow Urine Appearance Clear Urine pH 5.0 (5-9) Ur Specific [place] 1.014 (1.010-1.030) Urine Protein Negative (Negative) Urine Ketones Negative (Negative) Urine Blood Negative (Negative) Urine Nitrate Negative (Negative) Urine Bilirubin Negative (Negative) Urine Urobilinogen Negative (Negative) Ur Leukocyte Esterase 1+ H (Negative) Urine WBC (Auto) 3+(>20/hpf) H (Absent) Urine RBC (Auto) Absent (Absent) Ur Squamous Epith Cells Present H (Absent) Urine Bacteria Absent (Absent) Urine Glucose Negative (Negative) Urine Ascorbic Acid * H (Negative) Result Diagrams: 07/21/16 13:15 07/21/16 13:15 Lab Statement: Any lab studies that have been ordered have been reviewed, and results considered in the medical decision making process. Abdominal Pain Fem Course/Dx - Diagnoses Provider Diagnoses: REACTIVE ARTHRITIS, UTI (urinary tract infection) - Provider Notifications Discussed Care Of Patient With: Dr. Andrew (hospitalist) at 1410. Agrees to accept patient for admission. Discharge - Discharge Plan Condition: Stable Disposition: ADMITTED TO [facility] documentation as recorded by the Karina nuñez Anna accurately reflects the service I personally performed and the decisions made by , Mitchel Mendoza MD.
[2016-07-21] MEDS: Metoprolol Succinate XL TAB* 25 MG PO SCH (22:05)
[2016-07-21] MEDS: Heparin VIAL(*) 5000 UNITS/ML VIAL (FIVE THOUSAND) SUBCUT SCH (22:06)
--- NOTE | 2016-07-21 22:21 | HP ---
HISTORY AND PHYSICAL: DATE OF ADMISSION: 07/21/16 PRIMARY CARE PROVIDER: Dr. Barnett. ATTENDING PHYSICIAN: Dr. Jay Jay Andrew* (this report is being dictated by Matthew Noland NP) CHIEF COMPLAINT: 1. Hand pain. 2. Flank pain. HISTORY OF PRESENT ILLNESS: Mr. Pineda is a 70-year-old male patient with history of reactive arthritis. He recently was just discharged 2 days ago with similar complaints with the exception of the flank pain is now new. He was seen by Dr. Mac. He was found ultimately to have a UTI that grew out pseudomonas, it was sensitive to Levaquin, which he was sent home on, but despite this, him being treated appropriately and him having his steroids increased, he still continued to have hand pain. He could not open his pill bottles. He said he started having some flank pain on both sides and kidney pain is what he calls it. He was concerned because he could not physically take his medications and he felt like he was getting worse. So, he decided to come in to the hospital today to be evaluated. He says that he did not have any chest pain or shortness of breath. There has been no nausea or vomiting. He has had no abdominal discomfort and he denies having any dysuria or frequency. There has been no change in his urinary pattern. He was concerned and was evaluated in the ER today and it was noted that his renal function appeared to be slightly worse. In addition of this, his white cell count is about 15,000 and his CRP was going up. So the hospitalist service was asked to evaluate and admission. PAST MEDICAL HISTORY: Significant for: 1. Reactive arthritis. 2. Hypertension. 3. Cardiomyopathy. 4. Osteoarthritis. 5. BPH. 6. Last echo was from 3 years ago that I have access to, it shows an EF of 55% to 60%. PAST SURGICAL HISTORY: Denied. HOME MEDICATIONS: According to a list in his phone, include: 1. Prednisone 60 mg daily, recently increased. 2. Oxycodone 10 mg every 4 hours as needed. 3. Fentanyl 25 mcg transdermally every 72 hours. 4. Toprol-XL 25 mg at bedtime, 50 mg in the morning. 5. Levaquin 500 mg daily. 6. Folic acid 1 mg daily. 7. Proscar 5 mg daily. 8. Allopurinol 100 mg daily. ALLERGIES TO MEDICATIONS: PENICILLIN. FAMILY HISTORY: His mother had esophageal cancer. Father had a history of COPD. SOCIAL HISTORY: He used to be a cigar smoker, one cigar a day. He does not drink alcohol. Surrogate decision maker is his , Elyssa. REVIEW OF SYSTEMS: There is no documented fevers. No significant weight changes. He denied having any double vision. No ear discharge. He denies having any rhinorrhea. No sore throat. No thyroid enlargement. Denied having any chest pain. There is no orthopnea. There is no nocturnal dyspnea. There is no abdominal pain. There was some flank pain. He denied having any dysuria. There was no frequency. There was no seizure. No loss of consciousness. No pruritus. No skin ulcerations. Review of 14 systems was completed, all others negative. PHYSICAL EXAMINATION GENERAL: At this time, Mr. Pineda is a 70-year-old male patient, he is sitting in the ER stretcher. He does not appear to be in any acute distress. HEENT: Head is atraumatic and normocephalic. Eyes: EOMs are intact. Sclerae anicteric and not pale. Throat: Oral mucosa appeared to be dry. No oropharyngeal erythema. NECK: Supple. LUNGS: Clear to auscultation bilaterally. No wheezes, rales, or rhonchi. HEART: Heart sounds S1 and S2. Regular rate and rhythm. No murmurs, rubs, or gallops. ABDOMEN: Soft and flat. BACK: There was no CVA tenderness. EXTREMITIES: Pulses are 2+ throughout. He is able to move all four extremities with 5/5 strength. SKIN: Intact. NEUROLOGIC: The patient is awake, he is alert, he is oriented x3. Tongue midline, offset platemaker were equal, no gross focal deficits. LABORATORY DATA: The labs today revealed a WBC of 15.6, RBC of 4.03, hemoglobin of 11.1, hematocrit of 34, platelet count of 173. The sodium was 130 , potassium 5.0, chloride 101, bicarb of 23, BUN 41, his creatinine was 1.54. At discharge it was 1.18. His glucose was 175, his calcium 8.9, total bili 0.7 , AST 70, ALT 75. His CRP was 138, albumin was 3.1. Urine showed 1+ leukocyte esterases, 2+ wbc. Old medical records were reviewed. ASSESSMENT AND PLAN: Mr. Pineda is a 70-year-old male patient, coming into the ER today with complaints of flank pain and worsening hand pain. On evaluation in the ER, it was noted that his CRP was up and his kidney function was up as well. He will be admitted under observation status for: 1. Reactive arthritis. Again, probably secondary to the urinary tract infection. We will go ahead and continue him on 50 mg prednisone, touch base with Dr. Mac in the morning to see if we should be doing any other steroid treatment. We will go ahead and I have switched his antibiotics to cefepime to see if this will help him. With IV antibiotics and steroids the last time, he improved dramatically and we will continue his allopurinol per the recommendations on Dr. Mac's last consultation and we will continue to follow. I am hopeful that the fact that he had not been able to take his pills in the last 24 hours, that this may be the culprit, and with reinstating them, he may feel better. 2. Acute renal failure. We will go ahead and hydrate the patient. We will get a FENa and I am also going to get a renal ultrasound to assess for any hydronephrosis. Should there be any issues, obviously we will get a Urology consult. 3. Hypertension. Continue his metoprolol as prescribed. 4. History of cardiomyopathy. Last EF was normal. We will follow. 5. Osteoarthritis. Will follow with Dr. Mac. 6. Benign prostatic hypertrophy. Continue with Flomax and Proscar. 7. Leukocytosis. Probably secondary to the prednisone that is at 60 mg, but I am going to go ahead and panculture him. He is not having any respiratory symptoms at this point that would make me believe he has a pneumonia, but he has certainly been compromised. So I am going to get a chest x-ray just to make sure that we are not missing anything like in pneumonia, which I do not think that we will be. We will get blood cultures, urine cultures in addition to this. We will hydrate the patient and we will continue him on cefepime. We will continue to follow. 8. DVT prophylaxis. He is high risk. We have placed him on heparin subcu. 9. Fluid, electrolyte, nutrition. He can have a regular diet. 10. Code status. Full code. TIME SPENT: Time spent on the admission was 60 minutes; greater than half the time was spent [id number] with the patient obtaining my history and physical; other half the time was spent going over the plan of care with the patient and implementing the plan of care. I discussed the plan of care with my attending, Dr. Andrew; he is in agreement. MATTHEW NOLAND NP CC: Dr. Barnett* [id number]/[facility] #: [id number] [place]RISTIAN[place]
[2016-07-22] MEDS: Cefepime(*) 2 GM in NS 0.9% 50 ML* 50 ML IVPB SCH ×2 (03:56→17:08)
[2016-07-22] MEDS: NS 0.9% 1000 ML* 1,000 ML IV SCH ×2 (04:08→15:13)
[2016-07-22] MEDS: Metoprolol Succinate XL TAB* 50 MG PO SCH (09:13)
[2016-07-22] MEDS: predniSONE TAB* 20 MG PO SCH (09:13)
[2016-07-22] MEDS: Finasteride TAB* 5 MG PO SCH (09:13)
[2016-07-22] MEDS: Allopurinol TAB* 100 MG PO SCH (09:14)
[2016-07-22] MEDS: Folic Acid TAB* 1 MG PO SCH (09:14)
[2016-07-22] MEDS: Heparin VIAL(*) 5000 UNITS/ML VIAL (FIVE THOUSAND) SUBCUT SCH ×3 (09:33→21:34)
[2016-07-22] MEDS: fentaNYL Patch Check Q Shift 1 NOTE SCH ×2 (09:35→20:30)
[2016-07-22 09:55] LABS: Hematocrit 31 % (42-52); Hemoglobin 10.2 g/dl (14.0-18.0); Mean Corpuscular HGB Conc 33 g/dl (31-36); Mean Corpuscular Hemoglobin 27 pg (27-31); Mean Corpuscular Volume 84 fL (80-94); Mean Platelet Volume 8 um3 (7.4-10.4); Red Blood Count 3.73 10^6/ul (4.0-5.4); Red Cell Distribution Width 17 % (10.5-15)
[2016-07-22 10:06] LABS: Albumin 2.8 g/dL (3.2-5.2); BUN/Creatinine Ratio 26.1 (8-20); Calcium 8.7 mg/dL (8.6-10.3); Direct Bilirubin 0.3 mg/dL (0.03-0.18); EGFR African American 77.5 (>60); EGFR Non-African American 60.3 (>60); Globulin 3.6 g/dL (2-4); Indirect Bilirubin 0.4 mg/dL (0.3-1.0); Potassium 4.1 mmol/L (3.5-5.0); Total Bilirubin 0.7 mg/dL (0.2-1.0); Total Protein 6.4 g/dL (6.4-8.9)
--- NOTE | 2016-07-22 16:43 | PN ---
Subjective Date of Service: 07/22/16 Interval History: Pain in hands somewhat better. Flank pain gone. No new c/o. Objective Active Medications: Acetaminophen (Tylenol Tab*) 650 mg PO Q4H PRN PRN Reason: FEVER/PAIN Allopurinol (Zyloprim Tab*) 100 mg PO DAILY [facility] Last Admin: 07/22/16 09:14 Dose: 100 mg Fentanyl (Duragesic Patch 25 Mcg/Hr*) 25 mcg TRANSDERM Q72H [facility] Last Admin: 07/21/16 16:23 Dose: 25 mcg Finasteride (Proscar Tab*) 5 mg PO QAM [facility] Last Admin: 07/22/16 09:13 Dose: 5 mg Folic Acid (Folvite Tab*) 1 mg PO DAILY [facility] Last Admin: 07/22/16 09:14 Dose: 1 mg Heparin Sodium (Porcine) (Heparin Vial(*)) 5,000 units SUBCUT Q8HR [facility] Last Admin: 07/22/16 09:33 Dose: 5,000 units Metoprolol Succinate (Toprol Xl Tab*) 50 mg PO DAILY [facility] Last Admin: 07/22/16 09:13 Dose: 50 mg Metoprolol Succinate (Toprol Xl Tab*) 25 mg PO BEDTIME [facility] Last Admin: 07/21/16 22:05 Dose: 25 mg Morphine Sulfate (Morphine Inj (Syringe)*) 2 mg IV Q4H PRN PRN Reason: PAIN - MILD Ondansetron HCl (Zofran Inj*) 4 mg IV Q6H PRN PRN Reason: NAUSEA Oxycodone HCl (Roxycodone Tab*) 10 mg PO Q4HR PRN PRN Reason: PAIN Pharmacy Profile Note (Fentanyl Patch Check Q Shift) 1 note N/A 0700,1900 [facility] Last Admin: 07/22/16 09:35 Dose: 1 note Prednisone (Deltasone Tab*) 60 mg PO DAILY WITH MEAL [facility] Last Admin: 07/22/16 09:13 Dose: 60 mg Tamsulosin HCl (Flomax Cap*) 0.4 mg PO DAILY [facility] Vital Signs 07/21/16 07/21/16 07/21/16 19:23 20:00 23:27 Temperature 97.8 F Pulse Rate 52 Respiratory 16 20 20 Rate Blood Pressure 153/66 (mmHg) O2 Sat by Pulse 98 Oximetry 07/22/16 08:00 Temperature Pulse Rate Respiratory 20 Rate Blood Pressure (mmHg) O2 Sat by Pulse Oximetry Oxygen Devices in Use Now: None Appearance: Alert, partly up in bed. In good spirits, looks comfortable. Eyes: No Scleral Icterus Respiratory: Symmetrical Chest Expansion and Respiratory Effort, Clear to Auscultation, Clear to Percussion Cardiovascular: NL Sounds; No Murmurs; No JVD, RRR, No Edema, - Extremities: No Edema, No Clubbing, Cyanosis, - - Some i;nterphalangeal joint swelling Skin: No Rash or Ulcers, No Nodules or Sclerosis, - Neurological: Alert and Oriented x 3, NL Sensation Result Diagrams: 07/22/16 09:28 07/22/16 09:28 Additional Lab and Data: Lab Results 07/21/16 07/21/16 07/21/16 Range/Units 13:15 13:15 13:22 WBC 15.6 H (3.5-10.8) 10^3/ul RBC 4.03 (4.0-5.4) 10^6/ul Hgb 11.1 L (14.0-18.0) g/dl Hct 34 L (42-52) % MCV 84 (80-94) fL MCH 28 (27-31) pg MCHC 33 (31-36) g/dl RDW 17 H (10.5-15) % Plt Count 173 (150-450) 10^3/ul MPV 7 L (7.4-10.4) um3 Neut % (Auto) 96.0 H (38-83) % Lymph % (Auto) 2.9 L (25-47) % [place] % (Auto) 1.1 (1-9) % Eos % (Auto) 0 (0-6) % Baso % (Auto) 0 (0-2) % Absolute Neuts (auto) 14.9 H (1.5-7.7) 10^3/ul Absolute Lymphs (auto) 0.5 L (1.0-4.8) 10^3/ul Absolute Monos (auto) 0.2 (0-0.8) 10^3/ul Absolute Eos (auto) 0 (0-0.6) 10^3/ul Absolute Basos (auto) 0 (0-0.2) 10^3/ul Absolute Nucleated RBC 0 10^3/ul Nucleated RBC % 0 Sodium 130 L (133-145) mmol/L Potassium 5.0 (3.5-5.0) mmol/L Chloride 101 (101-111) mmol/L Carbon Dioxide 23 (22-32) mmol/L Anion Gap 6 (2-11) mmol/L BUN 41 H (6-24) mg/dL Creatinine 1.54 H (0.67-1.17) mg/dL Est GFR ( Amer) 57.6 (>60) Est GFR (Non-Af Amer) 44.8 (>60) BUN/Creatinine Ratio 26.6 H (8-20) Glucose 175 H (70-100) mg/dL Calcium 8.9 (8.6-10.3) mg/dL Total Bilirubin 0.70 (0.2-1.0) mg/dL AST 70 H (13-39) U/L ALT 75 H (7-52) U/L Alkaline Phosphatase 97 (34-104) U/L C-Reactive Protein 138.33 H (< 5.00) mg/L Total Protein 6.5 (6.4-8.9) g/dL Albumin 3.1 L (3.2-5.2) g/dL Globulin 3.4 (2-4) g/dL Albumin/Globulin Ratio 0.9 L (1-3) Urine Color Yellow Urine Appearance Clear Urine pH 5.0 (5-9) Ur Specific [place] 1.014 (1.010-1.030) Urine Protein Negative (Negative) Urine Ketones Negative (Negative) Urine Blood Negative (Negative) Urine Nitrate Negative (Negative) Urine Bilirubin Negative (Negative) Urine Urobilinogen Negative (Negative) Ur Leukocyte Esterase 1+ H (Negative) Urine WBC (Auto) 3+(>20/hpf) H (Absent) Urine RBC (Auto) Absent (Absent) Ur Squamous Epith Cells Present H (Absent) Urine Bacteria Absent (Absent) Urine Glucose Negative (Negative) Urine Ascorbic Acid * H (Negative) Assess/Plan/Problems-Billing Assessment: - Patient Problems (1) Arthritis Current Visit: No Status: Acute Code(s): M19.90 - UNSPECIFIED OSTEOARTHRITIS , UNSPECIFIED SITE SNOMED Code(s): 2925196 Comment: Reactive arthritis and Dr. Mac increased patient's prednisone to 60 mg. Feels better 07/22. I will try to reach Dr. Mac about this. (2) HTN (hypertension) Current Visit: No Status: Acute Code(s): I10 - ESSENTIAL (PRIMARY) HYPERTENSION SNOMED Code(s): 66673802 Comment: Continue metoprolol.
--- NOTE | 2016-07-22 18:12 | CONSULT ---
Consult Consult: Mr. Pineda is a 70 year old man known to me with a history of reactive arthritis/gout, recently discharged for a UTI, now readmitted for similiar symptoms. His inflammatory arthritis is improved. I therefore decreased his prednisone to 30mg daily. I recommend tapering this by 10mg every 3 days until he is finished with this taper. For reduction of his uric acid, he should maintain allopurinol 100mg daily and uric acid should be followed.
[2016-07-22] MEDS: Tamsulosin CAP* 0.4 MG PO SCH (18:25)
[2016-07-22] MEDS: Metoprolol Succinate XL TAB* 25 MG PO SCH (21:00)
--- NOTE | 2016-07-22 22:28 | CONS ---
CONSULTATION: DATE OF CONSULT: 07/22/16 JANITOR HELPER PHYSICIAN: Dr. Ibanez. REASON FOR CONSULT: Polyarthritis. HISTORY OF PRESENT ILLNESS: Mr. Pineda is a 70-year-old male, well known to me , with a longstanding history of reactive arthritis with features of psoriatic arthritis and gout. He was recently discharged for complications of a urinary tract infection as well as a flare of his polyarthritis. He has been under extreme emotional distress as his was found to have malignancy, which seems to have progressed. In terms of his arthropathy, he did note some improvement with prednisone which was started during his prior admission at 60 mg daily with a goal of gradually reducing his dose. However, he had called me yesterday stating that he could not get up or feed himself because of the intense pain. He was also worried about recurrence of his urinary tract symptoms as he also reported flank pain. As noted above, he has a longstanding history of reactive arthritis dating back to 1969, occasionally has been doing well, but more recently, he has had significant flares. He has tried several disease-modifying agents for this including methotrexate, which he is currently not taking as well as Humira 40 mg every 2 weeks which is also on hold given his recent urinary tract infection. More recently, it was felt that he had radiographic features consistent with gout and his elevated uric acid supported this as well, so he was started on allopurinol 100 mg daily during his prior admission. He has noted some improvement but more recently, he could not pull himself up or get around. He had difficulty ambulating. He also had some swelling in the left foot, but this has improved today. His left hand was also very swollen and his right hand was swollen too and he had difficulty moving because of the flare-up of his arthritis. As noted above, he was discharged on the of this month, but then readmitted on the . I have been asked to evaluate and manage his steroid therapy. He is currently feeling better on prednisone 60 mg daily and I have been asked to assist with the taper. He has been able to ambulate currently and he is currently planning to visit his , who is also in the hospital with complications of breast cancer. He has been taking Levaquin as an outpatient. PAST SURGICAL HISTORY: Includes a infection in 2013. He had a history of a bone spur in his neck which was difficult to intubate, which had an anesthesia reaction, but this was in the distant past. No recent infectious history. No recent travel outside of the [place] in the last 30 days. HOME MEDICATIONS: Include: 1. Finasteride 5 mg daily. 2. Folic acid 1 mg daily. 3. Metoprolol 25 mg daily. 4. He is also on allopurinol 100 mg daily. 5. Prednisone taper which as an outpatient, he was down to 30 mg daily. ALLERGIES: Include PENICILLIN. FAMILY HISTORY: Notable for hypertension. SOCIAL HISTORY: He is retired. Lives with his family. Occasional alcohol use once a month. No substance abuse. He does smoke cigars and he was advised to cut down. He only smokes about 5 cigars per week and it has been going on for about 8 years. REVIEW OF SYSTEMS: Endocrine: Denies diabetes or history of sickle cell disease. Hematologic: No bruising or bleeding. Cardiovascular: Denies any pacemaker placement or cardiovascular problems. Respiratory: He does have a history of pneumonia at the age of 3. He also in the distant past had a septic complication of a gallbladder issue, but otherwise he feels well now with no respiratory complaints or disorders. GI: He has a history of gallbladder disease, but denies other GI disorders. No cholecystitis. : He has had recent urinary tract infection, but has no recent complications. Musculoskeletal: As noted above with reactive arthritis. Neurologic history: No recent cataracts, eye injuries, or hearing aids. Ophthalmologic: He has a history of glasses, but denies history of cataracts or eye injury. Psychiatric history: Denies history of panic disorder. He has been under some distress related to his 's illness. Endocrine: No glandular swelling or lymph node swelling. Vascular: As noted above. Other 14-point review of systems were reviewed and were otherwise negative. Otherwise, all other review of systems were reviewed and were otherwise negative. PHYSICAL EXAM: Temperature of 97.8, pulse of 63, respiratory rate of 16, blood pressure 134/81, pulse ox 98%. In general, he was pleasant, in no acute distress, ambulating. Skin was warm, adequate perfusion, dry. Head: Normo- cephalic, atraumatic. Eyes: Pupils equal, round, and reactive to light and accommodate. Eyes were intact. ENT: Normal ENT inspection. Neck: Supple with no lymphadenopathy. Lymph: No adenopathy. Lungs: Clear to auscultation bilaterally. Positive breath sounds. No organomegaly. Cardiovascular exam revealed a regular rate and rhythm. Normal S1 and S2. No S3 or S4. Abdomen: Soft, nontender, nondistended. Positive bowel sounds with no organomegaly. No distention. Musculoskeletal: Notable for extensive deformities in the PIP joints and DIP joints. No active synovitis or redness of the joints. He had mild knee restriction. Neurologic: Nonfocal. Motor strength was 5/5 in the upper and lower extremities. Cranial nerves II through XII are intact. Psychiatric: Normal affect. DIAGNOSTIC STUDIES/LAB DATA: He had a white count of 15.6, hemoglobin of 11.1, hematocrit of 34,000, platelet count of 173,000. Urinalysis was negative except for 3+ wbc's. He had a creatinine of 1.54. ASSESSMENT: 1. Reactive polyarthritis: Recently felt to have a gouty component. He is much improved. I would recommend decreasing his prednisone down to 30 mg daily and I have currently done this. I would recommend decreasing his prednisone by 10 mg every 3 or 4 days with a goal of titrating off of this. In regards to his uric acid, that should be followed up as he has initiated allopurinol at 100 mg daily and we should follow this carefully given his renal insufficiency with a goal of getting his uric acid less than 6. 2. Renal insufficiency: Continue supportive care. 3. Hypertension: Continue supportive care. 4. Urinary tract infection: Continue supportive management and antibiotics per Hospitalist and in terms of his psoriatic arthritis, immunosuppressive medications are on hold at this time. TIME SPENT: Time spent with the patient was greater than 60 minutes with greater than 50% of the time spent counseling the patient. [id number]/[facility] #: [id number] CHRISTIANO
[2016-07-22] MEDS ORDERED: Hydroxychloroquine TAB* 200 MG PO SCH (23:00)
[2016-07-23] MEDS: Heparin VIAL(*) 5000 UNITS/ML VIAL (FIVE THOUSAND) SUBCUT SCH ×2 (05:22→14:30)
[2016-07-23] MEDS ORDERED: predniSONE TAB* 10 MG PO ONE (08:00)
[2016-07-23 08:16] VITALS: BP 159/65
[2016-07-23] MEDS: fentaNYL Patch Check Q Shift 1 NOTE SCH (09:23)
[2016-07-23] MEDS: Metoprolol Succinate XL TAB* 50 MG PO SCH (09:59)
[2016-07-23] MEDS: Allopurinol TAB* 100 MG PO SCH (09:59)
[2016-07-23] MEDS: Finasteride TAB* 5 MG PO SCH (09:59)
[2016-07-23] MEDS: Folic Acid TAB* 1 MG PO SCH (10:00)
[2016-07-23] MEDS: Tamsulosin CAP* 0.4 MG PO SCH (10:00)
--- NOTE | 2016-07-23 11:51 | DCNOTE ---
Subjective Date of Service: 07/23/16 Interval History: Little subjective change. Walks in [place] easily. Objective Active Medications: Acetaminophen (Tylenol Tab*) 650 mg PO Q4H PRN PRN Reason: FEVER/PAIN Allopurinol (Zyloprim Tab*) 100 mg PO DAILY [facility] Last Admin: 07/23/16 09:59 Dose: 100 mg Fentanyl (Duragesic Patch 25 Mcg/Hr*) 25 mcg TRANSDERM Q72H [facility] Last Admin: 07/21/16 16:23 Dose: 25 mcg Finasteride (Proscar Tab*) 5 mg PO QAM [facility] Last Admin: 07/23/16 09:59 Dose: 5 mg Folic Acid (Folvite Tab*) 1 mg PO DAILY [facility] Last Admin: 07/23/16 10:00 Dose: 1 mg Heparin Sodium (Porcine) (Heparin Vial(*)) 5,000 units SUBCUT Q8HR [facility] Last Admin: 07/23/16 05:22 Dose: Not Given Hydroxychloroquine Sulfate (Plaquenil Tab*) 200 mg PO DAILY@2300 [facility] Last Admin: 07/22/16 21:32 Dose: 200 mg Metoprolol Succinate (Toprol Xl Tab*) 50 mg PO DAILY [facility] Last Admin: 07/23/16 09:59 Dose: 50 mg Metoprolol Succinate (Toprol Xl Tab*) 25 mg PO BEDTIME [facility] Last Admin: 07/22/16 21:00 Dose: 25 mg Morphine Sulfate (Morphine Inj (Syringe)*) 2 mg IV Q4H PRN PRN Reason: PAIN - MILD Ondansetron HCl (Zofran Inj*) 4 mg IV Q6H PRN PRN Reason: NAUSEA Oxycodone HCl (Roxycodone Tab*) 10 mg PO Q4HR PRN PRN Reason: PAIN Pharmacy Profile Note (Fentanyl Patch Check Q Shift) 1 note N/A 0700,1900 [facility] Last Admin: 07/23/16 09:23 Dose: 1 note Tamsulosin HCl (Flomax Cap*) 0.4 mg PO DAILY [facility] Last Admin: 07/23/16 10:00 Dose: 0.4 mg Vital Signs 07/22/16 07/22/16 07/23/16 19:32 20:00 07:32 Temperature 97.9 F 97.8 F Pulse Rate 58 48 Respiratory 15 18 15 Rate Blood Pressure 156/65 159/65 (mmHg) O2 Sat by Pulse 97 98 Oximetry Oxygen Devices in Use Now: None Appearance: Alert, partly up in bed. In good spirits. Looks comfortable. Eyes: No Scleral Icterus Extremities: No Edema, No Clubbing, Cyanosis, - - mild joint swelling Skin: No Rash or Ulcers, No Nodules or Sclerosis, - Neurological: Alert and Oriented x 3, NL Sensation Result Diagrams: 07/22/16 09:28 07/22/16 09:28 Additional Lab and Data: Lab Results 07/21/16 07/21/16 07/21/16 Range/Units 13:15 13:15 13:22 WBC 15.6 H (3.5-10.8) 10^3/ul RBC 4.03 (4.0-5.4) 10^6/ul Hgb 11.1 L (14.0-18.0) g/dl Hct 34 L (42-52) % MCV 84 (80-94) fL MCH 28 (27-31) pg MCHC 33 (31-36) g/dl RDW 17 H (10.5-15) % Plt Count 173 (150-450) 10^3/ul MPV 7 L (7.4-10.4) um3 Neut % (Auto) 96.0 H (38-83) % Lymph % (Auto) 2.9 L (25-47) % [place] % (Auto) 1.1 (1-9) % Eos % (Auto) 0 (0-6) % Baso % (Auto) 0 (0-2) % Absolute Neuts (auto) 14.9 H (1.5-7.7) 10^3/ul Absolute Lymphs (auto) 0.5 L (1.0-4.8) 10^3/ul Absolute Monos (auto) 0.2 (0-0.8) 10^3/ul Absolute Eos (auto) 0 (0-0.6) 10^3/ul Absolute Basos (auto) 0 (0-0.2) 10^3/ul Absolute Nucleated RBC 0 10^3/ul Nucleated RBC % 0 Sodium 130 L (133-145) mmol/L Potassium 5.0 (3.5-5.0) mmol/L Chloride 101 (101-111) mmol/L Carbon Dioxide 23 (22-32) mmol/L Anion Gap 6 (2-11) mmol/L BUN 41 H (6-24) mg/dL Creatinine 1.54 H (0.67-1.17) mg/dL Est GFR ( Amer) 57.6 (>60) Est GFR (Non-Af Amer) 44.8 (>60) BUN/Creatinine Ratio 26.6 H (8-20) Glucose 175 H (70-100) mg/dL Calcium 8.9 (8.6-10.3) mg/dL Total Bilirubin 0.70 (0.2-1.0) mg/dL AST 70 H (13-39) U/L ALT 75 H (7-52) U/L Alkaline Phosphatase 97 (34-104) U/L C-Reactive Protein 138.33 H (< 5.00) mg/L Total Protein 6.5 (6.4-8.9) g/dL Albumin 3.1 L (3.2-5.2) g/dL Globulin 3.4 (2-4) g/dL Albumin/Globulin Ratio 0.9 L (1-3) Urine Color Yellow Urine Appearance Clear Urine pH 5.0 (5-9) Ur Specific [place] 1.014 (1.010-1.030) Urine Protein Negative (Negative) Urine Ketones Negative (Negative) Urine Blood Negative (Negative) Urine Nitrate Negative (Negative) Urine Bilirubin Negative (Negative) Urine Urobilinogen Negative (Negative) Ur Leukocyte Esterase 1+ H (Negative) Urine WBC (Auto) 3+(>20/hpf) H (Absent) Urine RBC (Auto) Absent (Absent) Ur Squamous Epith Cells Present H (Absent) Urine Bacteria Absent (Absent) Urine Glucose Negative (Negative) Urine Ascorbic Acid * H (Negative) Microbiology and Other Data: Microbiology 07/21/16 15:48 Aerobic Blood Culture - Preliminary Blood Venous No Growth Day 1 Anaerobic Blood Culture - Preliminary No Growth Day 1 Assess/Plan/Problems-Billing Assessment: - Patient Problems (1) Arthritis Current Visit: No Status: Acute Code(s): M19.90 - UNSPECIFIED OSTEOARTHRITIS , UNSPECIFIED SITE SNOMED Code(s): 8746909 Comment: Dr. Mac reduced patient's prednisone to 30 mg, taper to zero in 9 days. I spoke with Dr. Mac 07/23. Uric acid level 07/24. (2) HTN (hypertension) Current Visit: No Status: Acute Code(s): I10 - ESSENTIAL (PRIMARY) HYPERTENSION SNOMED Code(s): 04910200 Comment: Continue metoprolol. (3) Renal cyst Current Visit: Yes Status: Acute Code(s): N28.1 - CYST OF KIDNEY, ACQUIRED SNOMED Code(s): 13690166 Comment: Renal cyst noted on US, fup recommended in 6 months. Status and Disposition: Discharge now. Uric acid level 07/24. Fup Dr. Mac.
--- NOTE | 2016-07-23 12:13 | PN ---
Progress Note - Progress Note Note: Time spent on discharge 50 minutes.
--- NOTE | 2016-07-23 13:33 | DS ---
DATE OF ADMISSION: 07/21/2016. DATE OF DISCHARGE: 07/23/2016. HISTORY: This 70-year-old man presented with hand pain and flank pain. He was discharged two days ago with similar complaints, but the flank pain was new on this admission. On July 16, the patient had a urine culture that grew out pseudomonas. The patient did receive Levofloxacin for this. The urine culture done on this admission on July 21 was no growth. One blood culture was reported as no growth on day one. The patient initially had his Prednisone dose increased from [address] Mac came to the hospital on July 22 and reduced his dose to 30 mg to taper by 10 mg every three days until he was off Prednisone. The patient seemed to do quite well in the hospital. He was walking around easily. He does have some pain in this hands. I transmitted a prescription for 10 mg dose of Prednisone to taper as described above. The patient will have an outpatient uric acid level on July 24. The patient had an ultrasound of the kidney which showed a small complex left renal cyst measuring 1.0 x 0.8 x 0.8 cm, not seen on the prior study. Follow- up renal ultrasound in six months' time was recommended to demonstrate stability. DISCHARGE DIAGNOSES: 1. Reactive arthritis. 2. Hypertension. 3. Renal cyst. 4. Hypouricemia. DISCHARGE MEDICATIONS: 1. Prednisone 10 mg three daily for 3 days, two daily for 3 days, then one daily for 3 days, then stop. 2. Metoprolol Succinate 50 mg daily. 3. Fentanyl patch 25 mcg per hour every 72 hours. 4. Oxycodone 10 mg every 4 hours prn. 5. Allopurinol 100 mg daily. 6. Folic acid 1 mg daily. 7. Finasteride 5 mg daily. 8. Metoprolol Succinate 25 mg at bedtime. CC: Dr. Mac* [id number]/[facility] #: [id number] [facility] HOSPITALRuth
== END 2016-07-23 15:30 | disposition home or self-care (01) | DRG 546 ==
LOC: ED 12:30 → MED 14:38
PROVIDERS: ADMIT Hospitalist; ATTEND Internal Medicine
DX: M02.30 Reiter's disease, unspecified site (principal); I42.9 Cardiomyopathy, unspecified; N17.9 Acute kidney failure, unspecified; N28.1 Cyst of kidney, acquired; I10 Essential (primary) hypertension; D72.829 Elevated white blood cell count, unspecified; M19.90 Unspecified osteoarthritis, unspecified site; N40.0 Benign prostatic hyperplasia without lower urinary tract symptoms; L40.50 Arthropathic psoriasis, unspecified; F17.210 Nicotine dependence, cigarettes, uncomplicated; R79.89 Other specified abnormal findings of blood chemistry; H91.90 Unspecified hearing loss, unspecified ear; Z80.0 Family history of malignant neoplasm of digestive organs; Z88.0 Allergy status to penicillin; Z82.5 Family history of asthma and other chronic lower respiratory diseases; Z87.01 Personal history of pneumonia (recurrent); Z82.49 Family history of ischemic heart disease and other diseases of the circulatory system; Z72.89 Other problems related to lifestyle
CPT/HCPCS: 36415; 71010; 76775; 80048; 80053; 80076; 81003; 81015; 82570; 84300; 85025; 85610; 86140; 87040; 87086; 99406; A9270-GY; J0692; J1644; J7512

== ENCOUNTER 2016-08-07 18:32 | Observation (INO) | payer MEDICARE, OTHER ==
[2016-08-07] MEDS ORDERED: NS 0.9% 1000 ML* 2,000 ML IV ONE (19:53)
[2016-08-07] MEDS ORDERED: Acetaminop/Codeine 30 MG TAB* 1 TAB (300 MG/30 MG) PO ONE (19:55)
--- NOTE | 2016-08-07 20:30 | RAD ---
HISTORY: Weakness COMPARISONS: July 21, 2016 VIEWS: 2: Frontal and lateral views of the chest. The right costophrenic angle is partially cut off FINDINGS: CARDIOMEDIASTINAL SILHOUETTE: The cardiomediastinal silhouette is normal. ALEX: The alex are normal. PLEURA: The costophrenic angles are sharp. No pleural abnormalities are noted. LUNG PARENCHYMA: The lungs are clear. ABDOMEN: The upper abdomen is clear. There is no subphrenic gas. BONES AND SOFT TISSUES: Degenerative changes are noted OTHER: None. IMPRESSION: NO ACTIVE CARDIOPULMONARY DISEASE.
[2016-08-07 20:31] LABS: Urine Bilirubin Negative (Negative); Urine Glucose Negative (Negative); Urine Nitrite Negative (Negative)
[2016-08-07 20:48] LABS: Hematocrit 33 % (42-52); Hemoglobin 10.5 g/dl (14.0-18.0); Mean Corpuscular HGB Conc 32 g/dl (31-36); Mean Corpuscular Hemoglobin 27 pg (27-31); Mean Corpuscular Volume 85 fL (80-94); Mean Platelet Volume 8 um3 (7.4-10.4); Red Blood Count 3.87 10^6/ul (4.0-5.4); Red Cell Distribution Width 17 % (10.5-15); White Blood Count 15.2 10^3/ul (3.5-10.8)
[2016-08-07 20:50] LABS: Add Diff/Slide Review? Slide Review Added; Comments Flag Yes
[2016-08-07 21:06] LABS: Troponin I 0.03 ng/mL (<0.04)
[2016-08-07 21:12] LABS: Albumin 3.1 g/dL (3.2-5.2); BUN/Creatinine Ratio 19.6 (8-20); C Reactive Protein 116.97 mg/L (< 5.00); Calcium 8.6 mg/dL (8.6-10.3); EGFR African American 60.3 (>60); EGFR Non-African American 46.9 (>60); Globulin 3.3 g/dL (2-4); Potassium 4.6 mmol/L (3.5-5.0); Total Protein 6.4 g/dL (6.4-8.9)
[2016-08-07 21:13] LABS: TSH (Thyroid Stimulating Horm) 0.68 mcIU/mL (0.34-5.60)
[2016-08-07 21:35] LABS: Immature Granulocytes 3 % (0-9); Myelocytes % 1 % (0-1); Neutrophil % 80 % (38-83); Promyelocytes % 2 %; Reactive Lymph % 1 % (0-6)
[2016-08-07 21:36] LABS: Basophilic Stippling 1+; Microcytosis 1+; Stomatocytes 2+
[2016-08-07] MEDS ORDERED: Acetaminophen TAB* 325 MG PO PRN (23:16)
[2016-08-07] MEDS ORDERED: Ondansetron INJ* 2 MG/ML VIAL IV PRN (23:16)
[2016-08-07] MEDS ORDERED: HYDROmorphone* 1 MG/ML 1 ML SYR IV SLOW PU PRN (23:17)
[2016-08-07] MEDS ORDERED: fentaNYL PATCH 25 MCG/HR TRANSDERM SCH (23:45)
--- NOTE | 2016-08-08 00:05 | ED ---
Lower Extremity - HPI Summary HPI Summary: Patient arrives to ED 2 days s/p his passing away from [place] and he states he has not been able to walk for approx 2 days. He states the reason is d/t his arthritis. He was BIBA after calling a friend and expressing that he has not gotten out of a chair in >24 hours and he urinated on himself. He states he is too weak to walk and needs to be "taken care of." He states his took care of him, and now that she is gone, he doesn't have nayone to take care of him. He has chronic arthritis and gout and takes a number of cardiac medications. He is very tearful on examination and is very short with questions. He denies depression or anxiety, denies HI/SI. He refuses MHE. Denies recent illness or other reasons his arthritis may have flared. - History of Current Complaint Chief Complaint: EDGeneral Stated Complaint: ARTHRITIS PAIN Time Seen by Provider: 08/07/16 19:05 Hx Obtained From: Patient Onset of Pain: Prior to Arrival Onset/Duration: Worse Since - wifes passing Severity Initially: Severe Severity Currently: Severe Pain Intensity: 9 Pain Scale Used: 0-10 Numeric Timing: Constant Location: Is Diffuse Associated Signs And Symptoms: Positive: Negative Aggravating Factor(s): Standing, Ambulation Alleviating Factor(s): Rest, Elevation, Nothing Able to Bear Weight: No - Risk Factors Gout Risk Factors: Age Over 40, Male, Diabetes, Hypertension, Hyperlipidemia, Obesity, Peripherial Vascular Disease DVT Risk Factors: Negative Septic Arthritis Risk Factor: Extremes of Age - Allergies/Home Medications Allergies/Adverse Reactions: Allergies Allergy/AdvReac Type Severity Reaction Status Date / Time Penicillins Allergy Hives Verified 10/31/13 09:40 PMH/Surg Hx/FS Hx/Imm Hx Previously Healthy: Yes Endocrine/Hematology History: Denies: Hx Diabetes, Hx Sickle Cell Disease Cardiovascular History: Reports: Hx Hypertension Denies: Hx Pacemaker/ICD, Other Cardiovascular Problems/Disorders Respiratory History: Reports: Hx Pneumonia - at 3 Denies: Other Respiratory Problems/Disorders GI History: Reports: Hx Gall Bladder Disease Denies: Other GI Disorders - Gall stones, cholecystitis History: Reports: Hx Benign Prostatic Hyperplasia Denies: Hx Renal Disease, Other Problems/Disorders Musculoskeletal History: 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" Sensory History: Reports: Hx Contacts or Glasses, Hx Hearing Problem - [place] Denies: Hx Cataracts, Hx Eye Injury, Hx Hearing Aid Opthamlomology History: Reports: Hx Contacts or Glasses Denies: Hx Cataracts, Hx Eye Injury Psychiatric History: Denies: Hx Panic Disorder - Surgical History Surgery Procedure, Year, and Place: CHOLECYSTOSTOMY TUBE - DRAIN INFECTION - 2014 Hx Anesthesia Reactions: Yes - BONE SPUR IN NECK -DIFFICULT TO INTUBATE Infectious Disease History: Yes Infectious Disease History: Denies: Traveled Outside the [place] in Last 30 Days - Family History Known Family History: Positive: Hypertension - Social History Occupation: Unemployed Lives: Alone Alcohol Use: Rare Alcohol Amount: ONCE A MONTH Hx Substance Use: No Substance Use Type: Reports: None Hx Tobacco Use: Yes Smoking Status (MU): Former Smoker Type: Cigars Amount Used/How Often: 5 cigars/week Length of Time of Smoking/Using Tobacco: 8 YRS Have You Smoked in the Last Year: Yes Review of Systems Positive: Fatigue Eyes: Negative ENT: Negative Cardiovascular: Negative Respiratory: Negative Gastrointestinal: Negative Positive: no symptoms reported, see HPI Positive: Arthralgia, Myalgia Skin: Negative Positive: Weakness Positive: Anxious, Depressed All Other Systems Reviewed And Are Negative: Yes Physical Exam Triage Information Reviewed: Yes Vital Signs On Initial Exam: Initial Vitals Temp Resp BP Pulse Ox 98.6 F 20 115/60 98 08/07/16 18:36 08/07/16 18:36 08/07/16 18:36 08/07/16 18:36 Vital Signs Reviewed: Yes Appearance: Positive: Ill-Appearing, Pain Distress, Obese, Thin, Signs of Trauma Skin: Positive: Warm, Skin Color Reflects Adequate Perfusion Head/Face: Positive: Normal Head/Face Inspection Eyes: Positive: EOMI, KELVIN, Conjunctiva Clear Neck: Positive: Supple, No Lymphadenopathy Respiratory/Lung Sounds: Positive: Clear to Auscultation Cardiovascular: Positive: Normal, RRR Musculoskeletal: Positive: Normal, Strength/ROM Intact Neurological: Positive: Normal, Sensory/Motor Intact, Alert, Oriented to Person Place, Time, Facial Symmetry, Speech Normal Psychiatric: Positive: Normal AVPU Assessment: Alert - [place] Coma Scale Best Eye Response: 4 - Spontaneous Best Motor Response: 6 - Obeys Commands Best Verbal Response: 5 - Oriented Coma Scale Total: 15 Diagnostics - Vital Signs Vital Signs Temp Pulse Resp BP Pulse Ox 08/07/16 18:54 99.3 F 78 16 125/65 95 08/07/16 18:36 98.6 F 20 115/60 98 - Laboratory Lab Results: Lab Results 08/07/16 08/07/16 08/07/16 Range/Units 20:20 20:20 20:20 WBC 15.2 H (3.5-10.8) 10^3/ul RBC 3.87 L (4.0-5.4) 10^6/ul Hgb 10.5 L (14.0-18.0) g/dl Hct 33 L (42-52) % MCV 85 (80-94) fL MCH 27 (27-31) pg MCHC 32 (31-36) g/dl RDW 17 H (10.5-15) % Plt Count 149 L (150-450) 10^3/ul MPV 8 (7.4-10.4) um3 Immature Gran % (Auto) 3 (0-9) % Neut % (Auto) 75.9 (38-83) % Lymph % (Auto) 15.5 L (25-47) % [place] % (Auto) 7.5 (1-9) % Eos % (Auto) 0.3 (0-6) % Baso % (Auto) 0.8 (0-2) % Absolute Neuts (auto) 11.5 H (1.5-7.7) 10^3/ul Absolute Lymphs (auto) 2.4 (1.0-4.8) 10^3/ul Absolute Monos (auto) 1.1 H (0-0.8) 10^3/ul Absolute Eos (auto) 0.1 (0-0.6) 10^3/ul Absolute Basos (auto) 0.1 (0-0.2) 10^3/ul Absolute Nucleated RBC 0.01 10^3/ul Neutrophils % 80 (38-83) % Lymphocytes % 12 L (25-47) % Reactive Lymphs % 1 (0-6) % Monocytes % 4 (0-13) % Myelocytes % 1 (0-1) % Promyelocytes % 2 % Nucleated RBC % 0 Normal RBC Morphology Not Reportable Basophilic Stippling 1+ Microcytosis 1+ Stomatocytes 2+ Sodium 130 L (133-145) mmol/L Potassium 4.6 (3.5-5.0) mmol/L Chloride 97 L (101-111) mmol/L Carbon Dioxide 26 (22-32) mmol/L Anion Gap 7 (2-11) mmol/L BUN 29 H (6-24) mg/dL Creatinine 1.48 H (0.67-1.17) mg/dL Est GFR ( Amer) 60.3 (>60) Est GFR (Non-Af Amer) 46.9 (>60) BUN/Creatinine Ratio 19.6 (8-20) Glucose 100 (70-100) mg/dL Lactic Acid 0.8 (0.5-2.0) mmol/L Calcium 8.6 (8.6-10.3) mg/dL Magnesium 2.0 (1.9-2.7) mg/dL Total Bilirubin 1.00 (0.2-1.0) mg/dL AST 21 (13-39) U/L ALT 21 (7-52) U/L Alkaline Phosphatase 49 (34-104) U/L Troponin I 0.03 (<0.04) ng/mL C-Reactive Protein 116.97 H (< 5.00) mg/L Total Protein 6.4 (6.4-8.9) g/dL Albumin 3.1 L (3.2-5.2) g/dL Globulin 3.3 (2-4) g/dL Albumin/Globulin Ratio 0.9 L (1-3) TSH 0.68 (0.34-5.60) mcIU/mL Urine Color Urine Appearance Urine pH (5-9) Ur Specific [place] (1.010-1.030) Urine Protein (Negative) Urine Ketones (Negative) Urine Blood (Negative) Urine Nitrate (Negative) Urine Bilirubin (Negative) Urine Urobilinogen (Negative) Ur Leukocyte Esterase (Negative) Urine Glucose (Negative) 08/07/16 Range/Units 20:22 WBC (3.5-10.8) 10^3/ul RBC (4.0-5.4) 10^6/ul Hgb (14.0-18.0) g/dl Hct (42-52) % MCV (80-94) fL MCH (27-31) pg MCHC (31-36) g/dl RDW (10.5-15) % Plt Count (150-450) 10^3/ul MPV (7.4-10.4) um3 Immature Gran % (Auto) (0-9) % Neut % (Auto) (38-83) % Lymph % (Auto) (25-47) % [place] % (Auto) (1-9) % Eos % (Auto) (0-6) % Baso % (Auto) (0-2) % Absolute Neuts (auto) (1.5-7.7) 10^3/ul Absolute Lymphs (auto) (1.0-4.8) 10^3/ul Absolute Monos (auto) (0-0.8) 10^3/ul Absolute Eos (auto) (0-0.6) 10^3/ul Absolute Basos (auto) (0-0.2) 10^3/ul Absolute Nucleated RBC 10^3/ul Neutrophils % (38-83) % Lymphocytes % (25-47) % Reactive Lymphs % (0-6) % Monocytes % (0-13) % Myelocytes % (0-1) % Promyelocytes % % Nucleated RBC % Normal RBC Morphology Basophilic Stippling Microcytosis Stomatocytes Sodium (133-145) mmol/L Potassium (3.5-5.0) mmol/L Chloride (101-111) mmol/L Carbon Dioxide (22-32) mmol/L Anion Gap (2-11) mmol/L BUN (6-24) mg/dL Creatinine (0.67-1.17) mg/dL Est GFR ( Amer) (>60) Est GFR (Non-Af Amer) (>60) BUN/Creatinine Ratio (8-20) Glucose (70-100) mg/dL Lactic Acid (0.5-2.0) mmol/L Calcium (8.6-10.3) mg/dL Magnesium (1.9-2.7) mg/dL Total Bilirubin (0.2-1.0) mg/dL AST (13-39) U/L ALT (7-52) U/L Alkaline Phosphatase (34-104) U/L Troponin I (<0.04) ng/mL C-Reactive Protein (< 5.00) mg/L Total Protein (6.4-8.9) g/dL Albumin (3.2-5.2) g/dL Globulin (2-4) g/dL Albumin/Globulin Ratio (1-3) TSH (0.34-5.60) mcIU/mL Urine Color Yellow Urine Appearance Clear Urine pH 7.0 (5-9) Ur Specific [place] 1.011 (1.010-1.030) Urine Protein Negative (Negative) Urine Ketones Negative (Negative) Urine Blood Negative (Negative) Urine Nitrate Negative (Negative) Urine Bilirubin Negative (Negative) Urine Urobilinogen Negative (Negative) Ur Leukocyte Esterase Negative (Negative) Urine Glucose Negative (Negative) Result Diagrams: 08/07/16 20:20 08/07/16 20:20 Lab Statement: Any lab studies that have been ordered have been reviewed, and results considered in the medical decision making process. Lower Extremity Course/Dx - Course Course Of Treatment: Counseled patient on encouragement to speak with mental health psych counselor. He refuses. Patient very tearful and somewhat short with questions. Spoke with Dr. Storm at 9pm who agrees to see patient for social admit d/t patient refusing to walk. Spole with who agrees to see him tomorrow for a consult and try to find placement on Wednesday. Patient informed and OK with plan. - Diagnoses Differential Diagnosis/HQI/PQRI: Positive: Arthritis, Bursitis, Cellulitis, Gout , Other - depression, arthritis Provider Diagnoses: Depression Discharge - Discharge Plan Condition: Stable Disposition: ADMITTED TO [facility] Discharge Disposition Comment: good. Dr. Storm agrees to admit patient.
[2016-08-08] MEDS: oxyCODONE TAB* 5 MG TAB PO PRN ×2 (03:23→08:31)
[2016-08-08] MEDS: Heparin VIAL(*) 5000 UNITS/ML VIAL (FIVE THOUSAND) SUBCUT SCH ×3 (05:32→20:12)
[2016-08-08] MEDS: fentaNYL Patch Check Q Shift 1 NOTE SCH ×2 (06:48→19:07)
[2016-08-08] MEDS: Finasteride TAB* 5 MG PO SCH (08:31)
[2016-08-08] MEDS: predniSONE TAB* 20 MG PO SCH (08:31)
[2016-08-08] MEDS: Allopurinol TAB* 100 MG PO SCH (08:32)
[2016-08-08] MEDS: Metoprolol Succinate XL TAB* 25 MG PO SCH (08:32)
[2016-08-08] MEDS: Tamsulosin CAP* 0.4 MG PO SCH (08:33)
--- NOTE | 2016-08-08 08:43 | PN ---
Subjective Date of Service: 08/08/16 Interval History: Patient seen and examined at bedside. Mr. Pineda is visibly distraught and tearful, stating, "I just lost my . I don't know what I'm going to do." He denies wanting to kill himself or harm anyone else. He states he tried to call [facility] Wednesday afternoon, but the office was already closed. He has been at home sitting in a chair, unable to get up due to weakness. He wants to see what help is available for him so he can return home. He states he has no other family but that he does have " friends." He does not want to go to a longterm and is willing to work with physical therapy. He states, "I need to plan out the rest of my life." He denies any new specific complaints, such as CP, SOB, abd pain, n/v. He does have polyarthritis and states that his hands have been "hurting so bad that I can't even push myself up." Family History: Unchanged from Admission Social History: Unchanged from Admission Past Medical History: Unchanged from Admission Objective Active Medications: Acetaminophen (Tylenol Tab*) 650 mg PO Q4H PRN PRN Reason: FEVER/PAIN Allopurinol (Zyloprim Tab*) 100 mg PO DAILY [facility] Last Admin: 08/08/16 08:32 Dose: 100 mg Fentanyl (Duragesic Patch 25 Mcg/Hr*) 25 mcg TRANSDERM Q72H [facility] Last Admin: 08/08/16 01:12 Dose: 25 mcg Finasteride (Proscar Tab*) 5 mg PO QAM [facility] Last Admin: 08/08/16 08:31 Dose: 5 mg Heparin Sodium (Porcine) (Heparin Vial(*)) 5,000 units SUBCUT Q8HR [facility] Last Admin: 08/08/16 05:32 Dose: 5,000 units Hydromorphone HCl (Dilaudid Iv*) 1 mg IV SLOW PU Q4H PRN PRN Reason: PAIN Sodium Chloride (Ns 0.9% 1000 Ml*) 1,000 mls @ 100 mls/hr IV PER RATE [facility] Metoprolol Succinate (Toprol Xl Tab*) 25 mg PO BEDTIME [facility] Metoprolol Succinate (Toprol Xl Tab*) 50 mg PO DAILY [facility] Last Admin: 08/08/16 08:32 Dose: 50 mg Ondansetron HCl (Zofran Inj*) 4 mg IV Q4H PRN PRN Reason: NAUSEA Oxycodone HCl (Roxycodone Tab*) 10 mg PO Q4H PRN PRN Reason: PAIN Last Admin: 08/08/16 08:31 Dose: 10 mg Pharmacy Profile Note (Fentanyl Patch Check Q Shift) 1 note N/A 0700,1900 [facility] Last Admin: 08/08/16 06:48 Dose: 1 note Prednisone (Deltasone Tab*) 20 mg PO DAILY WITH MEAL [facility] Last Admin: 08/08/16 08:31 Dose: 20 mg Tamsulosin HCl (Flomax Cap*) 0.8 mg PO DAILY [facility] Last Admin: 08/08/16 08:33 Dose: 0.8 mg Vital Signs 08/08/16 08/08/16 08/08/16 00:10 00:40 01:12 Temperature 98.2 F 98.2 F Pulse Rate 80 107 Respiratory 16 20 20 Rate Blood Pressure 97/54 107/44 (mmHg) O2 Sat by Pulse 97 97 Oximetry 08/08/16 08/08/16 08/08/16 01:34 03:23 05:23 Temperature Pulse Rate Respiratory 20 20 18 Rate Blood Pressure (mmHg) O2 Sat by Pulse Oximetry 08/08/16 08/08/16 07:52 08:31 Temperature 99.4 F Pulse Rate 73 Respiratory 16 18 Rate Blood Pressure 127/73 (mmHg) O2 Sat by Pulse 94 Oximetry Oxygen Devices in Use Now: None Appearance: Older male patient, tearful, lying in bed Eyes: PERRLA Ears/Nose/Mouth/Throat: Clear Oropharnyx, Mucous Membranes Moist Neck: NL Appearance and Movements; NL JVP Respiratory: Symmetrical Chest Expansion and Respiratory Effort, Clear to Auscultation Cardiovascular: NL Sounds; No Murmurs; No JVD, RRR Abdominal: NL Sounds; No Tenderness; No Distention Extremities: - - joint swelling and arthritic changes to bilateral hands Skin: No Rash or Ulcers Neurological: Alert and Oriented x 3 Lines/Tubes/Other Access: Clean, Dry and Intact Peripheral IV Nutrition: Taking PO's Result Diagrams: 08/07/16 20:20 08/07/16 20:20 Additional Lab and Data: Lab Results 08/07/16 08/07/1608/07/17 Range/Units 20:20 20:20 20:20 WBC 15.2 H (3.5-10.8) 10^3/ul RBC 3.87 L (4.0-5.4) 10^6/ul Hgb 10.5 L (14.0-18.0) g/dl Hct 33 L (42-52) % MCV 85 (80-94) fL MCH 27 (27-31) pg MCHC 32 (31-36) g/dl RDW 17 H (10.5-15) % Plt Count 149 L (150-450) 10^3/ul MPV 8 (7.4-10.4) um3 Immature Gran % (Auto) 3 (0-9) % Neut % (Auto) 75.9 (38-83) % Lymph % (Auto) 15.5 L (25-47) % [place] % (Auto) 7.5 (1-9) % Eos % (Auto) 0.3 (0-6) % Baso % (Auto) 0.8 (0-2) % Absolute Neuts (auto) 11.5 H (1.5-7.7) 10^3/ul Absolute Lymphs (auto) 2.4 (1.0-4.8) 10^3/ul Absolute Monos (auto) 1.1 H (0-0.8) 10^3/ul Absolute Eos (auto) 0.1 (0-0.6) 10^3/ul Absolute Basos (auto) 0.1 (0-0.2) 10^3/ul Absolute Nucleated RBC 0.01 10^3/ul Neutrophils % 80 (38-83) % Lymphocytes % 12 L (25-47) % Reactive Lymphs % 1 (0-6) % Monocytes % 4 (0-13) % Myelocytes % 1 (0-1) % Promyelocytes % 2 % Nucleated RBC % 0 Normal RBC Morphology Not Reportable Basophilic Stippling 1+ Microcytosis 1+ Stomatocytes 2+ Sodium 130 L (133-145) mmol/L Potassium 4.6 (3.5-5.0) mmol/L Chloride 97 L (101-111) mmol/L Carbon Dioxide 26 (22-32) mmol/L Anion Gap 7 (2-11) mmol/L BUN 29 H (6-24) mg/dL Creatinine 1.48 H (0.67-1.17) mg/dL Est GFR ( Amer) 60.3 (>60) Est GFR (Non-Af Amer) 46.9 (>60) BUN/Creatinine Ratio 19.6 (8-20) Glucose 100 (70-100) mg/dL Lactic Acid 0.8 (0.5-2.0) mmol/L Calcium 8.6 (8.6-10.3) mg/dL Magnesium 2.0 (1.9-2.7) mg/dL Total Bilirubin 1.00 (0.2-1.0) mg/dL AST 21 (13-39) U/L ALT 21 (7-52) U/L Alkaline Phosphatase 49 (34-104) U/L Troponin I 0.03 (<0.04) ng/mL C-Reactive Protein 116.97 H (< 5.00) mg/L Total Protein 6.4 (6.4-8.9) g/dL Albumin 3.1 L (3.2-5.2) g/dL Globulin 3.3 (2-4) g/dL Albumin/Globulin Ratio 0.9 L (1-3) TSH 0.68 (0.34-5.60) mcIU/mL Urine Color Urine Appearance Urine pH (5-9) Ur Specific [place] (1.010-1.030) Urine Protein (Negative) Urine Ketones (Negative) Urine Blood (Negative) Urine Nitrate (Negative) Urine Bilirubin (Negative) Urine Urobilinogen (Negative) Ur Leukocyte Esterase (Negative) Urine Glucose (Negative) 08/07/16 Range/Units 20:22 WBC (3.5-10.8) 10^3/ul RBC (4.0-5.4) 10^6/ul Hgb (14.0-18.0) g/dl Hct (42-52) % MCV (80-94) fL MCH (27-31) pg MCHC (31-36) g/dl RDW (10.5-15) % Plt Count (150-450) 10^3/ul MPV (7.4-10.4) um3 Immature Gran % (Auto) (0-9) % Neut % (Auto) (38-83) % Lymph % (Auto) (25-47) % [place] % (Auto) (1-9) % Eos % (Auto) (0-6) % Baso % (Auto) (0-2) % Absolute Neuts (auto) (1.5-7.7) 10^3/ul Absolute Lymphs (auto) (1.0-4.8) 10^3/ul Absolute Monos (auto) (0-0.8) 10^3/ul Absolute Eos (auto) (0-0.6) 10^3/ul Absolute Basos (auto) (0-0.2) 10^3/ul Absolute Nucleated RBC 10^3/ul Neutrophils % (38-83) % Lymphocytes % (25-47) % Reactive Lymphs % (0-6) % Monocytes % (0-13) % Myelocytes % (0-1) % Promyelocytes % % Nucleated RBC % Normal RBC Morphology Basophilic Stippling Microcytosis Stomatocytes Sodium (133-145) mmol/L Potassium (3.5-5.0) mmol/L Chloride (101-111) mmol/L Carbon Dioxide (22-32) mmol/L Anion Gap (2-11) mmol/L BUN (6-24) mg/dL Creatinine (0.67-1.17) mg/dL Est GFR ( Amer) (>60) Est GFR (Non-Af Amer) (>60) BUN/Creatinine Ratio (8-20) Glucose (70-100) mg/dL Lactic Acid (0.5-2.0) mmol/L Calcium (8.6-10.3) mg/dL Magnesium (1.9-2.7) mg/dL Total Bilirubin (0.2-1.0) mg/dL AST (13-39) U/L ALT (7-52) U/L Alkaline Phosphatase (34-104) U/L Troponin I (<0.04) ng/mL C-Reactive Protein (< 5.00) mg/L Total Protein (6.4-8.9) g/dL Albumin (3.2-5.2) g/dL Globulin (2-4) g/dL Albumin/Globulin Ratio (1-3) TSH (0.34-5.60) mcIU/mL Urine Color Yellow Urine Appearance Clear Urine pH 7.0 (5-9) Ur Specific [place] 1.011 (1.010-1.030) Urine Protein Negative (Negative) Urine Ketones Negative (Negative) Urine Blood Negative (Negative) Urine Nitrate Negative (Negative) Urine Bilirubin Negative (Negative) Urine Urobilinogen Negative (Negative) Ur Leukocyte Esterase Negative (Negative) Urine Glucose Negative (Negative) Microbiology and Other Data: Microbiology 08/08/16 01:00 Nasal Screen MRSA (PCR)(ARPAN) - Final Nasal Mrsa Negative Assess/Plan/Problems-Billing Assessment: Mr. Pineda is a 70 yo male with a PMH of reactive arthritis, HTN, OA, cardiomyopathy, and BPH who presented to the ED last evening with inability to ambulate and increased arthritic pain; patient's recently here at the hospital. - Patient Problems (1) Weakness Code(s): R53.1 - WEAKNESS Comment: Unclear etiology, though appears to be psychosomatic secondary to patient's grief from losing his . Patient with elevated WBC and CRP, though they are within baseline of previous labs this month, afebrile. PT consult and supportive care SW and CM following to assist with home needs or potential placement. (2) Arthritis Code(s): M19.90 - UNSPECIFIED OSTEOARTHRITIS, UNSPECIFIED SITE Comment: With history of reactive arthritis Patient's prednisone recently tapered off. Patient restarted on prednisone at 20 mg this admission. (3) HTN (hypertension) Code(s): I10 - ESSENTIAL (PRIMARY) HYPERTENSION Comment: Normotensive. Continue metoprolol. (4) Renal cyst Code(s): N28.1 - CYST OF KIDNEY, ACQUIRED Comment: Renal cyst noted on US, f/u recommended in 6 months. (5) BPH (benign prostatic hyperplasia) Code(s): N40.0 - BENIGN PROSTATIC HYPERPLASIA WITHOUT LOWER URINRY TRACT SYMP Comment: Continue tamsulosin and finasteride. (6) DVT prophylaxis Code(s): RDT1322 - Comment: SQ heparin (7) Full code status Code(s): Z78.9 - OTHER SPECIFIED HEALTH STATUS Status and Disposition: OBV admit. Anticipate discharge in 2-3 days, depending on patient's ability to demonstrate safe ambulation vs. need for NH placement.
--- NOTE | 2016-08-08 09:06 | HP ---
HISTORY AND PHYSICAL: DATE OF ADMISSION: PRIMARY CARE PHYSICIAN: Jarett Barnett MD CHIEF COMPLAINT: "I'm in pain. I can't walk and get out of my chair." HISTORY OF PRESENT ILLNESS: The patient is a 70-year-old gentleman recently discharged from [facility], who presents with a chief complaint that he cannot get out of his own chair to go the bathroom. Of note, his just a couple of days ago of cancer. He is quite depressed and readily admits he has been noncompliant and not taking his medications. He states he cannot even bend his fingers to push down and getting up out of the chair. He has a combination of increased weakness and pain. He gets teary eyed when talking about trying to get along with his life without his . He feels he can no longer care for himself. PAST MEDICAL HISTORY: He has a past medical history significant for reactive arthritis, hypertension, cardiomyopathy, osteoarthritis, and BPH. CURRENT MEDICATIONS: As follows: 1. Metoprolol succinate 25 mg at bedtime and 50 mg daily. 2. Flomax 0.8 mg daily. 3. Finasteride 5 mg in the morning. 4. Allopurinol 100 mg daily. 5. Fentanyl patch 25 mcg q.72 hours. 6. Oxycodone 10 mg every 4 hours as needed for pain. 7. Folic acid 1 mg daily. ALLERGIES: He has allergies/adverse reaction to PENICILLIN. FAMILY HISTORY: Mother has esophageal cancer. Father had COPD. SOCIAL HISTORY: Ex-cigar smoker. No alcohol. He does not have a surrogate decision maker since his 2 days ago. REVIEW OF SYSTEMS: A 14-point review of systems was completed with the patient. All pertinent positives and negatives are in the history of present illness, otherwise it is negative. PHYSICAL EXAMINATION GENERAL: A pleasant gentleman, lying in bed, in no acute distress. VITAL SIGNS: Temperature 99.3 degrees, heart rate 78 beats per minute, respiratory rate 16 breaths per minute, pulse ox 95%, and blood pressure 125/65. HEENT: Normocephalic, atraumatic. Pupils are equal, round, and reactive to light. Moist mucous membranes. NECK: Supple. No JVD, bruits, palpable thyroid, or lymphadenopathy. CHEST: Clear to auscultation and percussion bilaterally. CARDIOVASCULAR: S1, S2 appreciated. ABDOMEN: Positive bowel sounds in all 4 quadrants. Soft, nontender, and nondistended. EXTREMITIES: No cyanosis, clubbing, or edema. NEURO: Alert and oriented x3. Moves all extremities. SKIN: No rashes or other abnormalities. DIAGNOSTIC STUDIES/LAB DATA: White count 15.2, hemoglobin 10.5, hematocrit 33 , and platelets 145. His sodium 130, potassium 4.6, chloride 97, CO2 of 26, BUN 29, creatinine 1.48, and glucose 100. CRP is 116.97. Urinalysis is unremarkable. Chest x-rays shows no active cardiopulmonary disease. ASSESSMENT AND PLAN: 1. Reactive arthritis: It is unclear if the patient was taking prednisone or not on discharge. We will start him on prednisone 20 mg a day for now. We will continue his pain medications. We will ask PT to see him and ask social work to see him as he may need to be in a snf facility as he is no longer care for himself. 2. Gout: Continue allopurinol. 3. Benign prostatic hyperplasia: Continue Proscar and Flomax. 4. Hypertension: Continue metoprolol. 5. DVT prophylaxis: Heparin subcu. 6. FEN: Regular diet. 8. Code status: The patient is a full code. TIME SPENT: Over 75 minutes was spent on this H and P; more than 40 minutes of which was spent in direct [id number] contact with the patient, evaluation, physical exam, counseling, and coordination of care. CC: Jarett Barnett MD * [id number]/CPS #: [id number] [id number]
[2016-08-08] MEDS ORDERED: Simethicone CHEW TAB* 80 MG PO PRN (10:43)
[2016-08-08] MEDS ORDERED: Senna TAB PO PRN (10:43)
[2016-08-08] MEDS ORDERED: Docusate CAP* 100 MG PO PRN (10:43)
[2016-08-08] MEDS ORDERED: Magnesium Hydroxide LIQ* 30 ML UDC PO PRN (10:43)
[2016-08-08] MEDS: NS 0.9% 1000 ML* 1,000 ML IV SCH ×2 (11:00→21:06)
[2016-08-08] MEDS: Polyethylene Glycol 3350* 17 GM PACKET PO SCH (11:32)
[2016-08-08] MEDS ORDERED: Metoprolol Succinate XL TAB* 25 MG PO SCH (21:00)
[2016-08-09] MEDS: Heparin VIAL(*) 5000 UNITS/ML VIAL (FIVE THOUSAND) SUBCUT SCH (06:18)
[2016-08-09] MEDS: fentaNYL Patch Check Q Shift 1 NOTE SCH (06:57)
[2016-08-09 07:38] VITALS: BP 141/58
[2016-08-09] MEDS: Metoprolol Succinate XL TAB* 25 MG PO SCH (07:39)
[2016-08-09] MEDS: predniSONE TAB* 20 MG PO SCH (07:40)
[2016-08-09] MEDS: Finasteride TAB* 5 MG PO SCH (07:40)
[2016-08-09] MEDS: Tamsulosin CAP* 0.4 MG PO SCH (07:40)
[2016-08-09] MEDS: Allopurinol TAB* 100 MG PO SCH (07:40)
[2016-08-09] MEDS: Polyethylene Glycol 3350* 17 GM PACKET PO SCH (07:40)
[2016-08-09] MEDS: oxyCODONE TAB* 5 MG TAB PO PRN (08:46)
--- NOTE | 2016-08-09 10:38 | PN ---
Subjective Date of Service: 08/09/16 Interval History: Mr. Pineda seen ambulating in room. He is in better spirits today and states that his hands feel better. He was not previously taking his medication as prescribed and states he will call Dr. Mac for follow-up regarding his arthritis. Denies CP, SOB, abd pain, n/v. He has plans to have a ride pick him up and take him home this afternoon. No acute concerns from patient or nursing staff. Family History: Unchanged from Admission Social History: Unchanged from Admission Past Medical History: Unchanged from Admission Objective Active Medications: Acetaminophen (Tylenol Tab*) 650 mg PO Q4H PRN PRN Reason: FEVER/PAIN Allopurinol (Zyloprim Tab*) 100 mg PO DAILY [facility] Last Admin: 08/09/16 07:40 Dose: 100 mg Docusate Sodium (Colace Cap*) 100 mg PO BID PRN PRN Reason: CONSTIPATION Last Admin: 08/08/16 13:52 Dose: 100 mg Fentanyl (Duragesic Patch 25 Mcg/Hr*) 25 mcg TRANSDERM Q72H [facility] Last Admin: 08/08/16 01:12 Dose: 25 mcg Finasteride (Proscar Tab*) 5 mg PO QAM [facility] Last Admin: 08/09/16 07:40 Dose: 5 mg Heparin Sodium (Porcine) (Heparin Vial(*)) 5,000 units SUBCUT Q8HR [facility] Last Admin: 08/09/16 06:18 Dose: 5,000 units Hydromorphone HCl (Dilaudid Iv*) 1 mg IV SLOW PU Q4H PRN PRN Reason: PAIN Sodium Chloride (Ns 0.9% 1000 Ml*) 1,000 mls @ 100 mls/hr IV PER RATE [facility] Last Admin: 08/08/16 21:06 Dose: 100 mls/hr Magnesium Hydroxide (Milk Of Magnesia Liq*) 30 ml PO Q4H PRN PRN Reason: CONSTIPATION Metoprolol Succinate (Toprol Xl Tab*) 25 mg PO BEDTIME [facility] Last Admin: 08/08/16 20:12 Dose: 25 mg Metoprolol Succinate (Toprol Xl Tab*) 50 mg PO DAILY [facility] Last Admin: 08/09/16 07:39 Dose: 50 mg Ondansetron HCl (Zofran Inj*) 4 mg IV Q4H PRN PRN Reason: NAUSEA Oxycodone HCl (Roxycodone Tab*) 10 mg PO Q4H PRN PRN Reason: PAIN Last Admin: 08/09/16 08:46 Dose: 10 mg Pharmacy Profile Note (Fentanyl Patch Check Q Shift) 1 note N/A 0700,1900 [facility] Last Admin: 08/09/16 06:57 Dose: 1 note Polyethylene Glycol/Electrolytes (Miralax*) 17 gm PO DAILY [facility] Last Admin: 08/09/16 07:40 Dose: 17 gm Prednisone (Deltasone Tab*) 20 mg PO DAILY WITH MEAL [facility] Last Admin: 08/09/16 07:40 Dose: 20 mg Senna (Senokot Tab*) 2 tab PO BEDTIME PRN PRN Reason: CONSTIPATION Simethicone (Mylicon*) 80 mg PO Q6H PRN PRN Reason: DYSPEPSIA Last Admin: 08/08/16 11:33 Dose: 80 mg Tamsulosin HCl (Flomax Cap*) 0.8 mg PO DAILY [facility] Last Admin: 08/09/16 07:40 Dose: 0.8 mg Vital Signs 08/08/16 08/08/16 08/08/16 11:30 16:18 19:40 Temperature 99.2 F 98.2 F 98.2 F Pulse Rate 71 64 57 Respiratory 16 16 16 Rate Blood Pressure 132/61 140/74 137/60 (mmHg) O2 Sat by Pulse 96 98 98 Oximetry 08/08/16 08/08/16 08/09/16 20:00 23:47 03:41 Temperature 97.4 F 97.3 F Pulse Rate 51 55 Respiratory 16 16 16 Rate Blood Pressure 131/62 131/63 (mmHg) O2 Sat by Pulse 97 99 Oximetry 08/09/16 08/09/16 08/09/16 07:33 07:55 08:46 Temperature 97.5 F Pulse Rate 44 56 Respiratory 16 16 Rate Blood Pressure 141/58 (mmHg) O2 Sat by Pulse 97 Oximetry 08/09/16 10:32 Temperature Pulse Rate Respiratory 16 Rate Blood Pressure (mmHg) O2 Sat by Pulse Oximetry Oxygen Devices in Use Now: None Appearance: Male patient, lying in bed, in NAD Eyes: PERRLA Ears/Nose/Mouth/Throat: Clear Oropharnyx, Mucous Membranes Moist Neck: NL Appearance and Movements; NL JVP Respiratory: Symmetrical Chest Expansion and Respiratory Effort, Clear to Auscultation Cardiovascular: NL Sounds; No Murmurs; No JVD, RRR Abdominal: NL Sounds; No Tenderness; No Distention Extremities: No Edema, - - arthritic changes to hands Skin: No Rash or Ulcers Neurological: Alert and Oriented x 3 Lines/Tubes/Other Access: Clean, Dry and Intact Peripheral IV Nutrition: Taking PO's Result Diagrams: 08/07/16 20:20 08/07/16 20:20 Additional Lab and Data: Lab Results 08/07/16 08/07/16 08/07/16 Range/Units 20:20 20:20 20:20 WBC 15.2 H (3.5-10.8) 10^3/ul RBC 3.87 L (4.0-5.4) 10^6/ul Hgb 10.5 L (14.0-18.0) g/dl Hct 33 L (42-52) % MCV 85 (80-94) fL MCH 27 (27-31) pg MCHC 32 (31-36) g/dl RDW 17 H (10.5-15) % Plt Count 149 L (150-450) 10^3/ul MPV 8 (7.4-10.4) um3 Immature Gran % (Auto) 3 (0-9) % Neut % (Auto) 75.9 (38-83) % Lymph % (Auto) 15.5 L (25-47) % Taylor % (Auto) 7.5 (1-9) % Eos % (Auto) 0.3 (0-6) % Baso % (Auto) 0.8 (0-2) % Absolute Neuts (auto) 11.5 H (1.5-7.7) 10^3/ul Absolute Lymphs (auto) 2.4 (1.0-4.8) 10^3/ul Absolute Monos (auto) 1.1 H (0-0.8) 10^3/ul Absolute Eos (auto) 0.1 (0-0.6) 10^3/ul Absolute Basos (auto) 0.1 (0-0.2) 10^3/ul Absolute Nucleated RBC 0.01 10^3/ul Neutrophils % 80 (38-83) % Lymphocytes % 12 L (25-47) % Reactive Lymphs % 1 (0-6) % Monocytes % 4 (0-13) % Myelocytes % 1 (0-1) % Promyelocytes % 2 % Nucleated RBC % 0 Normal RBC Morphology Not Reportable Basophilic Stippling 1+ Microcytosis 1+ Stomatocytes 2+ Sodium 130 L (133-145) mmol/L Potassium 4.6 (3.5-5.0) mmol/L Chloride 97 L (101-111) mmol/L Carbon Dioxide 26 (22-32) mmol/L Anion Gap 7 (2-11) mmol/L BUN 29 H (6-24) mg/dL Creatinine 1.48 H (0.67-1.17) mg/dL Est GFR ( Amer) 60.3 (>60) Est GFR (Non-Af Amer) 46.9 (>60) BUN/Creatinine Ratio 19.6 (8-20) Glucose 100 (70-100) mg/dL Lactic Acid 0.8 (0.5-2.0) mmol/L Calcium 8.6 (8.6-10.3) mg/dL Magnesium 2.0 (1.9-2.7) mg/dL Total Bilirubin 1.00 (0.2-1.0) mg/dL AST 21 (13-39) U/L ALT 21 (7-52) U/L Alkaline Phosphatase 49 (34-104) U/L Troponin I 0.03 (<0.04) ng/mL C-Reactive Protein 116.97 H (< 5.00) mg/L Total Protein 6.4 (6.4-8.9) g/dL Albumin 3.1 L (3.2-5.2) g/dL Globulin 3.3 (2-4) g/dL Albumin/Globulin Ratio 0.9 L (1-3) TSH 0.68 (0.34-5.60) mcIU/mL Urine Color Urine Appearance Urine pH (5-9) Ur Specific [place] (1.010-1.030) Urine Protein (Negative) Urine Ketones (Negative) Urine Blood (Negative) Urine Nitrate (Negative) Urine Bilirubin (Negative) Urine Urobilinogen (Negative) Ur Leukocyte Esterase (Negative) Urine Glucose (Negative) 08/07/16 Range/Units 20:22 WBC (3.5-10.8) 10^3/ul RBC (4.0-5.4) 10^6/ul Hgb (14.0-18.0) g/dl Hct (42-52) % MCV (80-94) fL MCH (27-31) pg MCHC (31-36) g/dl RDW (10.5-15) % Plt Count (150-450) 10^3/ul MPV (7.4-10.4) um3 Immature Gran % (Auto) (0-9) % Neut % (Auto) (38-83) % Lymph % (Auto) (25-47) % Taylor % (Auto) (1-9) % Eos % (Auto) (0-6) % Baso % (Auto) (0-2) % Absolute Neuts (auto) (1.5-7.7) 10^3/ul Absolute Lymphs (auto) (1.0-4.8) 10^3/ul Absolute Monos (auto) (0-0.8) 10^3/ul Absolute Eos (auto) (0-0.6) 10^3/ul Absolute Basos (auto) (0-0.2) 10^3/ul Absolute Nucleated RBC 10^3/ul Neutrophils % (38-83) % Lymphocytes % (25-47) % Reactive Lymphs % (0-6) % Monocytes % (0-13) % Myelocytes % (0-1) % Promyelocytes % % Nucleated RBC % Normal RBC Morphology Basophilic Stippling Microcytosis Stomatocytes Sodium (133-145) mmol/L Potassium (3.5-5.0) mmol/L Chloride (101-111) mmol/L Carbon Dioxide (22-32) mmol/L Anion Gap (2-11) mmol/L BUN (6-24) mg/dL Creatinine (0.67-1.17) mg/dL Est GFR ( Amer) (>60) Est GFR (Non-Af Amer) (>60) BUN/Creatinine Ratio (8-20) Glucose (70-100) mg/dL Lactic Acid (0.5-2.0) mmol/L Calcium (8.6-10.3) mg/dL Magnesium (1.9-2.7) mg/dL Total Bilirubin (0.2-1.0) mg/dL AST (13-39) U/L ALT (7-52) U/L Alkaline Phosphatase (34-104) U/L Troponin I (<0.04) ng/mL C-Reactive Protein (< 5.00) mg/L Total Protein (6.4-8.9) g/dL Albumin (3.2-5.2) g/dL Globulin (2-4) g/dL Albumin/Globulin Ratio (1-3) TSH (0.34-5.60) mcIU/mL Urine Color Yellow Urine Appearance Clear Urine pH 7.0 (5-9) Ur Specific [place] 1.011 (1.010-1.030) Urine Protein Negative (Negative) Urine Ketones Negative (Negative) Urine Blood Negative (Negative) Urine Nitrate Negative (Negative) Urine Bilirubin Negative (Negative) Urine Urobilinogen Negative (Negative) Ur Leukocyte Esterase Negative (Negative) Urine Glucose Negative (Negative) Microbiology and Other Data: Microbiology 08/08/16 01:00 Nasal Screen MRSA (PCR)([facility]) - Final Nasal Mrsa Negative Assess/Plan/Problems-Billing Assessment: Mr. Pineda is a 70 yo male with a PMH of reactive arthritis, HTN, OA, cardiomyopathy, and BPH who presented to the ED last evening with inability to ambulate and increased arthritic pain; patient's recently here at the hospital. - Patient Problems (1) Weakness Code(s): R53.1 - WEAKNESS Comment: Improved today Unclear etiology, though appears to be psychosomatic secondary to patient's grief from losing his . Patient also reports medication non-compliance in the week leading up to and following 's . Patient with elevated WBC and CRP, though they are within baseline of previous labs this month, afebrile. PT signed off, no acute PT needs. Patient wishes to go home, CM to discuss home care. (2) Arthritis Code(s): M19.90 - UNSPECIFIED OSTEOARTHRITIS, UNSPECIFIED SITE Comment: With history of reactive arthritis Patient's prednisone recently tapered off. Patient restarted on prednisone at 20 mg this admission. Taper to 10 mg starting tomorrow; pt should follow-up with Dr. Mac. (3) HTN (hypertension) Code(s): I10 - ESSENTIAL (PRIMARY) HYPERTENSION Comment: Normotensive. Continue metoprolol. (4) Renal cyst Code(s): N28.1 - CYST OF KIDNEY, ACQUIRED Comment: Renal cyst noted on US, f/u recommended in 6 months. (5) BPH (benign prostatic hyperplasia) Code(s): N40.0 - BENIGN PROSTATIC HYPERPLASIA WITHOUT LOWER URINRY TRACT SYMP Comment: Continue tamsulosin and finasteride. (6) DVT prophylaxis Code(s): VHN4950 - Comment: SQ heparin (7) Full code status Code(s): Z78.9 - OTHER SPECIFIED HEALTH STATUS Status and Disposition: OBV admit. D/c to home.
--- NOTE | 2016-08-10 06:25 | DS ---
MEDICINE DISCHARGE SUMMARY: DATE OF ADMISSION: 08/07/16 DATE OF DISCHARGE: 08/09/16 PROVIDER: Melissa Garcia NP ATTENDING PHYSICIAN: Dr. Samantha Pittman *(as dictated by Melissa Garcia NP). PRIMARY CARE PHYSICIANS: Dr. Jarett Barnett and Dr. Ronald Mac. PRIMARY DISCHARGE DIAGNOSES: 1. Weakness. 2. Arthritis flare. 3. Medication noncompliance. SECONDARY DISCHARGE DIAGNOSES: 1. History of reactive arthritis. 2. Hypertension. 3. Cardiomyopathy. 4. Osteoarthritis. 5. Benign prostatic hypertrophy. MEDICATIONS AT DISCHARGE: 1. Prednisone 10 mg daily. A 5-day script was sent with the patient. He has been instructed to follow up with Rheumatology. 2. Metoprolol succinate XL 50 mg daily and 25 mg at bedtime. 3. Flomax 0.8 mg daily. 4. Finasteride 5 mg q.a.m. 5. Allopurinol 100 mg daily. 6. Fentanyl patch 25 mcg transdermally q.72 hours. 7. Oxycodone 10 mg q.4 hours. 8. Plaquenil 200 mg daily. 9. Folic acid 1 mg daily. HOSPITAL COURSE AND STAY: For full details, please refer to the H and P provided by Dr. Storm on 08/07/16. In summary, Mr. Pineda is a 70-year-old gentleman who was previously seen earlier in July at [facility] for arthritic pain and has recently lost his and presented with a chief complaint that he is unable to get out of his chair to get to the bathroom at home. He admitted to significant depression and noncompliance with taking his medications on the days surrounding and following his 's . He denied any SI, HI, and refused to have a mental health evaluation in the ER. However, he did express concern for his safety at home. Due to the uncertainty of whether or not the patient was taking his medications, including his prednisone from his last discharge, he was started back on 20 mg here in the hospital and continued on his usual pain medications. We had a Social Work and Physical Therapy evaluation ordered for the patient to determine if he has any acute needs for placement. The following morning, the patient was willing to talk with this provider regarding his grief and his concerns. He did express a desire to not go to a half-way or a subacute rehab. We did discuss the need for him to be able to demonstrate that he is able to safely care for himself at home, which he agrees with. He was seen by Physical Therapy and it was determined that he is safe for ambulation. Again, he did tell me that he was inconsistently taking his medications prior to his Marva's , and it appears that he was not taking them after, which most likely led to this arthritic flare. He states that he was taking pain medication as needed and would take prednisone tablet, as he thought about it, with his pain medications. On 08/09/16, the patient was notably in better spirits, was able to provide and perform his own self-care, and ambulate in the room safely. He has asked to go home and has a plan to sign on with home care services that has been arranged through case management. We discussed the need to taper him off from his prednisone as previously discussed and recommended by Dr. Mac. He states that he will call Dr. Mac this week and discuss this with him. In the meantime, I have decreased this from 20 to 10 mg and sent him home with a 5-day prescription for 10 mg of prednisone. He is to call Dr. Mac and determine whether or not he should continue the prednisone or allow it to be tapered off. He is in agreement with this plan. There are no other acute concerns. The patient was advised to see his PCP as well as given resources to discuss his grief and needs in the days following his 's . CONCERNS AT DISCHARGE: Mr. Pineda will be discharged to home on 08/09/16. He will call his PCP and Dr. Mac for followup appointments this week. DIET: Resume regular diet. ACTIVITY: As tolerated. CONDITION: Stable. DISPOSITION: To home. TIME SPENT: Time spent on this discharge was approximately 45 minutes. Again, this is only a brief summary of the patient's hospital course of stay. For full details, please refer to the full medical record. If you have any further questions or need further assistance, please feel free to contact me at . MELISSA GARCIA NP CC: Dr. Barnett; Dr. Mac* [id number]/[facility] #: [id number] CHRISTIANO
== END 2016-08-09 13:30 | disposition home or self-care (01) ==
LOC: ED 18:32 → MED 23:17
PROVIDERS: ADMIT Internal Medicine; ATTEND Internal Medicine
DX: R53.1 Weakness (principal); M19.90 Unspecified osteoarthritis, unspecified site; N40.0 Benign prostatic hyperplasia without lower urinary tract symptoms; I10 Essential (primary) hypertension; I42.9 Cardiomyopathy, unspecified; N28.1 Cyst of kidney, acquired; Z79.899 Other long term (current) drug therapy; Z87.891 Personal history of nicotine dependence
CPT/HCPCS: 36415; 71020; 80053; 81003; 83605; 83735; 84443; 84484; 85025; 86140; 87641; 96360; 96361; 96372; 99284; A9270-GY; G0378; G8978-GP-CI; G8979-GP-CI; G8980-GP-CI; J1644; J7512

== ENCOUNTER 2016-08-29 07:32 | Emergency (ER) | payer MEDICARE, OTHER ==
[2016-08-29] MEDS ORDERED: NS 0.9% 1000 ML* 1,000 ML IV ONE ×2 (11:00→12:34)
--- NOTE | 2016-08-29 11:04 | ED ---
Complaint/Male - History of Current Complaint Chief Complaint: EDUrogenitalProblems Time Seen by Provider: 08/29/16 09:53 Hx Obtained From: Patient - 70 male presents with complaints of feeling like he has a urinary infection. Patient states he has been experiencing cloudy urine for the past 8 days. He also has been urinating less frequently. Goes to the bathroom often but only a small amount of urine. Last urination was approximately around 6am. He does not have the urge to urinate now. He also complains of being dehydrated from not eating and drinking. Patient states he has been dealing with some "psychiatric issues" after losing his ~3 weeks ago. Patient has had decreased appetite and feels weak. Denies fever/chills, abdominal pain, back pain, flank pain, heamturia, and genitalia symptoms. Patient has arthrits, HTN and BPH that he takes medication for. Bowel movements have been normal. Denies any pain. Denies trouble voiding. Onset/Duration: Sudden Onset, Lasting Days, Still Present Timing: Constant Severity Initially: Mild Severity Currently: Mild Location: None Aggravating Factor(s): Voiding Alleviating Factor(s): Nothing Associated Signs And Symptoms: Dysuria - Allergies/Home Medications Allergies/Adverse Reactions: Allergies Allergy/AdvReac Type Severity Reaction Status Date / Time Penicillins Allergy Hives Verified 08/29/16 07:36 PMH/Surg Hx/FS Hx/Imm Hx Endocrine/Hematology History: Denies: Hx Diabetes, Hx Sickle Cell Disease Cardiovascular History: Reports: Hx Congestive Heart Failure, Hx Hypertension Denies: Hx Pacemaker/ICD, Other Cardiovascular Problems/Disorders Respiratory History: Reports: Hx Pneumonia - at 3 Denies: Other Respiratory Problems/Disorders GI History: Reports: Hx Gall Bladder Disease Denies: Other GI Disorders - Gall stones, cholecystitis History: Reports: Hx Benign Prostatic Hyperplasia Denies: Hx Renal Disease, Other Problems/Disorders Musculoskeletal History: 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" Sensory History: Reports: Hx Contacts or Glasses, Hx Hearing Problem - [place] Denies: Hx Cataracts, Hx Eye Injury, Hx Hearing Aid Opthamlomology History: Reports: Hx Contacts or Glasses Denies: Hx Cataracts, Hx Eye Injury Psychiatric History: Denies: Hx Panic Disorder - Surgical History Surgery Procedure, Year, and Place: CHOLECYSTOSTOMY TUBE - DRAIN INFECTION - 2014 Hx Anesthesia Reactions: Yes - BONE SPUR IN NECK -DIFFICULT TO INTUBATE - Immunization History Immunizations Up to Date: Yes Infectious Disease History: No Infectious Disease History: Denies: Hx of Known/Suspected MRSA - SUSPECT EXPOSURE FROM , Traveled Outside the [place] in Last 30 Days - Family History Known Family History: Positive: Hypertension - Social History Alcohol Use: None Alcohol Amount: ONCE A MONTH Hx Substance Use: No Substance Use Type: Reports: None Hx Tobacco Use: Yes Smoking Status (MU): Former Smoker Type: Cigars Amount Used/How Often: 5 cigars/week Length of Time of Smoking/Using Tobacco: 8 YRS Have You Smoked in the Last Year: Yes Review Of Systems Constitutional: Positive: Negative Skin: Positive: Negative Respiratory: Positive: Negative Cardiovascular: Positive: Negative Gastrointestinal: Positive: Negative Genitourinary: Positive: Dysuria, Frequency - decreased frequency, Urgency, Other - cloudy urine Musculoskeletal: Positive: Negative Neurological: Positive: Weakness - diffuse due to dehydration/depression All Other Systems Reviewed And Are Negative: Yes Physical Exam Triage Information Reviewed: Yes Vital Signs On Initial Exam: Initial Vitals Temp Pulse Resp BP Pulse Ox 96.7 F 77 18 113/70 99 08/29/16 07:37 08/29/16 07:37 08/29/16 07:37 08/29/16 07:37 08/29/16 07:37 afebrile Vital Signs Reviewed: Yes Appearance: Positive: Well-Appearing - appears very comfortable, drinking water , No Pain Distress, Well-Nourished Skin: Positive: Warm, Skin Color Reflects Adequate Perfusion, Dry Head/Face: Positive: Normal Head/Face Inspection Eyes: Positive: Normal, Conjunctiva Clear ENT: Positive: Normal ENT inspection, Hearing grossly normal, Pharynx normal Neck: Positive: Supple, Nontender, No Lymphadenopathy Respiratory/Lung Sounds: Positive: Clear to Auscultation, Breath Sounds Present. Negative: Rales, Rhonchi, Wheezes Cardiovascular: Positive: Normal, RRR, Pulses are Symmetrical in both Upper and Lower Extremities. Negative: Leg Edema Left, Leg Edema Right Abdomen Description: Positive: Nontender, No Organomegaly, Soft. Negative: Bruit, CVA Tenderness (R), CVA Tenderness (L), Distended, Guarding, Peritoneal Signs Bowel Sounds: Positive: Present Male Genital Exam: Positive: normal genitalia - per patient Musculoskeletal: Positive: Normal, Strength/ROM Intact Neurological: Positive: Normal, Sensory/Motor Intact, Alert, Oriented to Person Place, Time, CN Intact II-III, Reflexes Intact, NV Bundle Intact Distally, Normal Gait Psychiatric: Positive: Normal, Affect/Mood Appropriate AVPU Assessment: Alert Diagnostics - Vital Signs Vital Signs Temp Pulse Resp BP Pulse Ox 08/29/16 07:40 96.7 F 77 18 113/70 99 08/29/16 07:37 96.7 F 77 18 113/70 99 - Laboratory Result Diagrams: 08/29/16 11:38 08/29/16 11:38 Lab Statement: Any lab studies that have been ordered have been reviewed, and results considered in the medical decision making process. Complaint Male Course/Dx - Course Course Of Treatment: Labs, UA and bladder scan obtained. Bladder scan did show 216mL however, patient was able to urinate without a problem on his own. Given fluids. Due to no pain, no medications and imaging done at this time. Labs show UTI, H&H were low and compared to previous visits which is his norm. Does not appear to be a pyelonephritis at this time due to PE and lab findings. Patient was feeling better after treatment with fluids. Given first dose of Cipro while in ED, while finishing fluids. Patient was also eating food and states his weakness has significantly improved. Will be sent home with cipro to take until culture results obtained. Ibuprofen/Aleve for pain and discomfort. Drink plenty of fluids. Aware of worsening signs and symptoms to watch out for. - Differential Dx/Diagnosis Differential Diagnosis/HQI/PQRI: Prostatitis, Pyelonephritis, Ureteral Calculi, Urinary Tract Infection, Other Provider Diagnoses: Urinary Tract Infection
[2016-08-29 11:52] LABS: Hematocrit 31 % (42-52); Hemoglobin 10.3 g/dl (14.0-18.0); Mean Corpuscular HGB Conc 33 g/dl (31-36); Mean Corpuscular Hemoglobin 27 pg (27-31); Mean Corpuscular Volume 83 fL (80-94); Mean Platelet Volume 7 um3 (7.4-10.4); Red Blood Count 3.74 10^6/ul (4.0-5.4); Red Cell Distribution Width 17 % (10.5-15); White Blood Count 11.1 10^3/ul (3.5-10.8)
[2016-08-29 11:58] LABS: Add Diff/Slide Review? Slide Review Added; Comments Flag Yes
[2016-08-29 12:03] LABS: Urine Bacteria 2+ (Absent); Urine Bilirubin Negative (Negative); Urine Glucose Negative (Negative); Urine Nitrite Negative (Negative)
[2016-08-29 12:11] LABS: Albumin 3.1 g/dL (3.2-5.2); BUN/Creatinine Ratio 22.2 (8-20); Calcium 8.7 mg/dL (8.6-10.3); EGFR African American 52.4 (>60); EGFR Non-African American 40.8 (>60); Globulin 3.7 g/dL (2-4); Potassium 4.2 mmol/L (3.5-5.0); Total Bilirubin 0.6 mg/dL (0.2-1.0); Total Protein 6.8 g/dL (6.4-8.9)
[2016-08-29 12:22] VITALS: BP 136/66
[2016-08-29] MEDS ORDERED: Ciprofloxacin 400MG IVPREMIX(* 400 MG/200 ML BAG IVPB ONE (12:36)
--- NOTE | 2016-08-31 07:35 | PN ---
Progress Note - Progress Note Note: Patient urine culture grew Pseudoonas aeroginosa. placed on cipro at d/c will wait for final cultures.
--- NOTE | 2016-09-01 07:06 | PN ---
Progress Note - Progress Note Note: Patient placed on cipro which final cultures shows is sensitive to.
== END 2016-08-29 13:48 | disposition home or self-care (01) ==
LOC: ED 07:32
DX: N39.0 Urinary tract infection, site not specified (principal); Z87.891 Personal history of nicotine dependence; R30.0 Dysuria
CPT/HCPCS: 36415; 80053; 81003; 81015; 83605; 85025; 87077; 87086; 87186; 99283; J0744

== ENCOUNTER 2016-09-01 21:43 | Emergency (ER) | payer MEDICARE, OTHER ==
[2016-09-01] MEDS ORDERED: Ondansetron INJ* 2 MG/ML VIAL IV ONE (21:52)
[2016-09-01] MEDS ORDERED: NS 0.9% 1000 ML* 1,000 ML IV ONE (21:52)
[2016-09-01 21:57] VITALS: BP 138/86
--- NOTE | 2016-09-01 22:00 | ED ---
Gypsy Curtis Matthew, scribed for Kev Melchor MD on 09/01/16 at 2200 . Complex/Multi-Sys Presentation - HPI Summary HPI Summary: A 70 y/o male presents to the ED with arthritic pain since this morning. The pain is rated 9/10 in severity. Associated symptoms include general weakness, decreased appetite, dehydration, and nausea. The patient has chronic arthritic pain. He has a recent Hx of UTI and his last BM was 1.5 weeks ago. Per EMS, the patent uses oxycodone at home. - History Of Current Complaint Chief Complaint: EDGeneral Time Seen by Provider: 09/01/16 21:46 Hx Obtained From: Patient Onset/Duration: Lasting Hours, Still Present Timing: Constant Severity Currently: Moderate Severity Initially: Moderate Location: Pain At: - Diffuse Arthritic pain of extremities Associated Signs And Symptoms: Positive: Weakness - general, Nausea, Decreased Oral Intake, Other - Dehydration - Allergies/Home Medications Allergies/Adverse Reactions: Allergies Allergy/AdvReac Type Severity Reaction Status Date / Time Penicillins Allergy Hives Verified 08/29/16 07:36 PMH/Surg Hx/FS Hx/Imm Hx Endocrine/Hematology History: Denies: Hx Diabetes, Hx Sickle Cell Disease Cardiovascular History: Reports: Hx Congestive Heart Failure, Hx Hypertension Denies: Hx Pacemaker/ICD, Other Cardiovascular Problems/Disorders Respiratory History: Reports: Hx Pneumonia - at 3 Denies: Other Respiratory Problems/Disorders GI History: Reports: Hx Gall Bladder Disease Denies: Other GI Disorders - Gall stones, cholecystitis History: Reports: Hx Benign Prostatic Hyperplasia Denies: Hx Renal Disease, Other Problems/Disorders Musculoskeletal History: 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" Sensory History: Reports: Hx Contacts or Glasses, Hx Hearing Problem - [place] Denies: Hx Cataracts, Hx Eye Injury, Hx Hearing Aid Opthamlomology History: Reports: Hx Contacts or Glasses Denies: Hx Cataracts, Hx Eye Injury Psychiatric History: Denies: Hx Panic Disorder - Surgical History Surgery Procedure, Year, and Place: CHOLECYSTOSTOMY TUBE - DRAIN INFECTION - 2014 Hx Anesthesia Reactions: Yes - BONE SPUR IN NECK -DIFFICULT TO INTUBATE Infectious Disease History: Denies: Hx of Known/Suspected MRSA - SUSPECT EXPOSURE FROM , Traveled Outside the [place] in Last 30 Days - Family History Known Family History: Positive: Hypertension - Social History Alcohol Use: None Alcohol Amount: ONCE A MONTH Hx Substance Use: No Substance Use Type: Reports: None Hx Tobacco Use: Yes Smoking Status (MU): Former Smoker Type: Cigars Amount Used/How Often: 5 cigars/week Length of Time of Smoking/Using Tobacco: 8 YRS Have You Smoked in the Last Year: Yes Review of Systems Constitutional: Other - decreased appetite; dehydration Eyes: Negative ENT: Negative Cardiovascular: Negative Respiratory: Negative Positive: Nausea Genitourinary: Negative Positive: Myalgia - Arthritic pain of the extremities Skin: Negative Positive: Weakness - general Psychological: Normal All Other Systems Reviewed And Are Negative: Yes Physical Exam Triage Information Reviewed: Yes Vital Signs On Initial Exam: Initial Vitals Temp Pulse Resp BP Pulse Ox 99.0 F 80 17 138/86 97 09/01/16 21:52 09/01/16 21:52 09/01/16 21:52 09/01/16 21:52 09/01/16 21:52 Vital Signs Reviewed: Yes Appearance: Positive: Pain Distress - mild discomfort, Obese Skin: Positive: Warm Head/Face: Positive: Normal Head/Face Inspection Eyes: Positive: KELVIN ENT: Positive: Hearing grossly normal Neck: Positive: Supple Respiratory/Lung Sounds: Positive: Clear to Auscultation, Breath Sounds Present Cardiovascular: Positive: RRR Abdomen Description: Positive: Nontender, Soft Bowel Sounds: Positive: Present Musculoskeletal: Positive: Strength/ROM Intact Neurological: Positive: Sensory/Motor Intact, Alert, Oriented to Person Place, Time Diagnostics - Vital Signs Vital Signs Temp Pulse Resp BP Pulse Ox 09/01/16 21:52 99.0 F 80 17 138/86 97 - Laboratory Result Diagrams: 09/01/16 22:10 09/01/16 22:10 Lab Statement: Any lab studies that have been ordered have been reviewed, and results considered in the medical decision making process. Re-Evaluation - Re-Evaluation First Eval Re-Evaluation Time: 23:00 - results d/w pt, explained would need to contact pcp in am for refill of oxycodone Complex Multi-Symp Course/Dx Assessment/Plan: A 70 y/o male presents to the ED with arthritic pain since this morning. The pain is rated 9/10 in severity. Associated symptoms include general weakness, decreased appetite, dehydration, and nausea. The patient has chronic arthritic pain. He has a recent Hx of UTI and his last BM was 1.5 weeks ago. Labs were reviewed. In the ED course, the patient was given 1L of IV fluids , and Zofran. He did well in the ED and will be discharged home with PCP follow- up. - Diagnoses Provider Diagnoses: Weakness, Arthritis Discharge - Discharge Plan Condition: Stable Disposition: HOME Patient Education Materials: Weakness (ED), Arthritis (ED) Referrals: Jarett Barnett MD [Primary Care Provider] - 1 Day Additional Instructions: Please follow-up with your primary care physician tomorrow for additional prescriptions. The documentation as recorded by the Gypsy nuñez Matthew accurately reflects the service I personally performed and the decisions made by me, Kev Melchor MD.
[2016-09-01 22:27] LABS: Hematocrit 31 % (42-52); Hemoglobin 9.9 g/dl (14.0-18.0); Mean Corpuscular HGB Conc 32 g/dl (31-36); Mean Corpuscular Hemoglobin 27 pg (27-31); Mean Corpuscular Volume 83 fL (80-94); Mean Platelet Volume 7 um3 (7.4-10.4); Red Blood Count 3.73 10^6/ul (4.0-5.4); Red Cell Distribution Width 17 % (10.5-15); White Blood Count 11.5 10^3/ul (3.5-10.8)
[2016-09-01 22:36] LABS: Urine Bacteria Absent (Absent); Urine Bilirubin Negative (Negative); Urine Glucose Negative (Negative); Urine Nitrite Negative (Negative)
[2016-09-01 22:43] LABS: Albumin 3.2 g/dL (3.2-5.2); BUN/Creatinine Ratio 11.7 (8-20); Calcium 8.7 mg/dL (8.6-10.3); EGFR African American 53.9 (>60); EGFR Non-African American 41.9 (>60); Globulin 3.8 g/dL (2-4); Magnesium 1.9 mg/dL (1.9-2.7); Potassium 4.4 mmol/L (3.5-5.0); Total Bilirubin 0.5 mg/dL (0.2-1.0)
== END 2016-09-02 00:28 | disposition home or self-care (01) ==
LOC: ED 21:43
DX: M19.90 Unspecified osteoarthritis, unspecified site (principal); R53.1 Weakness; R11.0 Nausea; Z87.891 Personal history of nicotine dependence
CPT/HCPCS: 36415; 80053; 81003; 81015; 83605; 83735; 85025; 87086; 96374; 99282; J2405

== ENCOUNTER 2017-03-06 13:37 | Emergency (ER) | payer MEDICARE, OTHER ==
[2017-03-06] MEDS ORDERED: NS 0.9% 1000 ML* 1,000 ML IV SCH (14:00)
[2017-03-06 14:34] LABS: Hematocrit 36 % (42-52); Hemoglobin 11.9 g/dl (14.0-18.0); Mean Corpuscular HGB Conc 33 g/dl (31-36); Mean Corpuscular Hemoglobin 27 pg (27-31); Mean Corpuscular Volume 82 fL (80-94); Mean Platelet Volume 7 um3 (7.4-10.4); Red Blood Count 4.44 10^6/ul (4.0-5.4); Red Cell Distribution Width 17 % (10.5-15); White Blood Count 11.3 10^3/ul (3.5-10.8)
[2017-03-06 14:52] LABS: Albumin 3.6 g/dL (3.2-5.2); BUN/Creatinine Ratio 17.4 (8-20); C Reactive Protein 58.03 mg/L (< 5.00); Calcium 9.4 mg/dL (8.6-10.3); EGFR African American 68.6 (>60); EGFR Non-African American 53.3 (>60); Globulin 4.6 g/dL (2-4); Potassium 3.9 mmol/L (3.5-5.0); Total Bilirubin 0.6 mg/dL (0.2-1.0); Total Protein 8.2 g/dL (6.4-8.9)
[2017-03-06] MEDS ORDERED: Iodixanol* (CONTRAST) 320 MG/ML 100 ML SDV IV ONE (15:34)
--- NOTE | 2017-03-06 16:41 | RAD ---
CLINICAL HISTORY: Lower abdominal pain, constipation COMPARISON: October 28, 2016 TECHNIQUE: Multiple contiguous axial CT scans were obtained of the abdomen and pelvis after the administration of intravenous contrast. Coronal and sagittal multiplanar reformations are submitted for review. Oral contrast was administered. Delayed images were obtained through the abdomen and pelvis. FINDINGS: LUNG BASES: The lung bases are clear. LIVER: The liver is normal in shape, size, contour, and attenuation. BILE DUCTS: There is no intrahepatic or extrahepatic biliary dilatation. GALLBLADDER: The gallbladder is not clearly visualized. PANCREAS: The pancreas is normal, without mass or ductal dilatation. SPLEEN: Normal in size and appearance. UPPER GI TRACT: Evaluation of the gastrointestinal tract is limited by incomplete gastric distention. The upper GI tract is unremarkable. SMALL BOWEL AND MESENTERY: The small bowel is normal in contour, course, and caliber. There is no obstruction or dilatation. COLON: There is extensive diverticulosis of the descending and sigmoid colon. There is a pericolonic abscess that is adherent to the wall of bladder, similar to the previous examination but increased in size. This measures 6.5 x 4 x 3.6 cm in size. There is a gas-fluid level within the abscess. ADRENALS: Normal bilaterally. KIDNEYS: The kidneys are normal in shape, size, contour, and axis. There is no hydronephrosis or nephrolithiasis. BLADDER: As noted above, there is a peridiverticular left chest that is adherent to the wall the bladder. There is a gas-fluid level within the bladder. PELVIC ORGANS: The pelvic organs are not visualized. AORTA: There is calcific atherosclerotic disease of the abdominal aorta and its branches, without aneurysmal dilatation IVC: Unremarkable LYMPH NODES: There is no lymphadenopathy by size criteria. ABDOMINAL WALL: There is no evidence for abdominal wall hernia. BONES AND SOFT TISSUES: Degenerative changes are noted of the spine OTHER: None IMPRESSION: 1. THERE IS DIVERTICULITIS WITH A 6.5 CM PERIDIVERTICULAR ABSCESS THAT IS ADHERENT TO THE WALL THE BLADDER. THIS IS EITHER RECURRENT OR PROGRESSED WHEN COMPARED TO OCTOBER 28, 2016 EXAMINATION. THERE ARE GAS FLUID LEVELS WITHIN THE ABSCESS AND WITHIN THE BLADDER, CONCERNING FOR COMMUNICATION BETWEEN THE ABSCESS AND THE BLADDER LUMEN. 2. PRELIMINARY FINDINGS WERE DISCUSSED WITH DR. ORTEGA IN THE EMERGENCY DEPARTMENT AT APPROXIMATELY 4:36 PM ON MARCH 06, 2017.
[2017-03-06] MEDS ORDERED: Lidocaine 1%* 5 ML VIAL INJ ONE (18:24)
[2017-03-06] MEDS ORDERED: Vancomycin(*) 1,000 MG in NS 0.9% 250 ML* 250 ML IVPB ONE (18:34)
[2017-03-06] MEDS ORDERED: NS 0.9% 250 ML* 250 ML ONE (19:41)
[2017-03-06] MEDS ORDERED: Vancomycin(*) 1,000 MG - ED ONCE IVPB ONE ×2 (20:00)
[2017-03-06 20:46] LABS: Urine Bacteria 1+ (Absent); Urine Bilirubin Negative (Negative); Urine Glucose Negative (Negative); Urine Nitrite Negative (Negative)
[2017-03-06] MEDS ORDERED: Ciprofloxacin 400MG IVPREMIX(* 400 MG/200 ML BAG IVPB ONE (21:05)
--- NOTE | 2017-03-06 21:30 | ED ---
Tin Curtis Thomas, scribed for Avinash Shoemaker MD on 03/06/17 at 1359 . Abdominal Pain/Male - HPI Summary HPI Summary: The pt is a 71 y/o F presenting to the ED c/o abd pain and constipation that began three days ago. The pain is constant. The pain is described as secondary to constipation. The pain is aggravated by nothing and is alleviated by nothing. 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 Pt denies any other complaints at this time. Prior CT Abd/Pel reviewed. - History of Current Complaint Stated Complaint: ABD PAIN Time Seen by Provider: 03/06/17 13:45 Hx Obtained From: Patient Onset/Duration: Lasting Days - onset three days ago, Still Present Timing: Constant Location: Diffuse Radiates: No Character: Other: - constipation Aggravating Factor(s): Nothing Alleviating Factor(s): Nothing Associated Signs And Symptoms: Positive: Other - Constipation - Allergies/Home Medications Allergies/Adverse Reactions: Allergies Allergy/AdvReac Type Severity Reaction Status Date / Time Penicillins Allergy Hives Verified 10/28/16 13:07 PMH/Surg Hx/FS Hx/Imm Hx Previously Healthy: No Endocrine/Hematology History: Denies: Hx Diabetes, Hx Sickle Cell Disease Cardiovascular History: Reports: Hx Congestive Heart Failure, Hx Hypertension Denies: Hx Pacemaker/ICD, Other Cardiovascular Problems/Disorders Respiratory History: Reports: Hx Pneumonia - at 3 Denies: Other Respiratory Problems/Disorders GI History: Reports: Hx Gall Bladder Disease Denies: Other GI Disorders - Gall stones, cholecystitis History: Reports: Hx Benign Prostatic Hyperplasia Denies: Hx Renal Disease, Other Problems/Disorders Musculoskeletal History: 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" Sensory History: Reports: Hx Contacts or Glasses, Hx Hearing Problem - [place] Denies: Hx Cataracts, Hx Eye Injury, Hx Hearing Aid Opthamlomology History: Reports: Hx Contacts or Glasses Denies: Hx Cataracts, Hx Eye Injury Psychiatric History: Denies: Hx Panic Disorder - Surgical History Surgery Procedure, Year, and Place: CHOLECYSTOSTOMY TUBE - DRAIN INFECTION - 2013 Hx Anesthesia Reactions: Yes - BONE SPUR IN NECK -DIFFICULT TO INTUBATE Infectious Disease History: Denies: Hx of Known/Suspected MRSA - SUSPECT EXPOSURE FROM - Family History Known Family History: Positive: Hypertension - Social History Alcohol Use: Rare Alcohol Amount: ONCE A MONTH Hx Substance Use: No Substance Use Type: Reports: None Smoking Status (MU): Former Smoker Type: Cigars Amount Used/How Often: 5 cigars/week Length of Time of Smoking/Using Tobacco: 8 YRS Have You Smoked in the Last Year: Yes Review of Systems Negative: Fever Positive: Abdominal Pain, Other - Constipation All Other Systems Reviewed And Are Negative: Yes Physical Exam - Summary Physical Exam Summary: General: well-appearing, no pain distress Skin: warm, color reflects adequate perfusion, dry Head: normal Eyes: EOMI, KELVIN ENT: normal Neck: supple, nontender Respiratory: CTA, breath sounds present Cardiovascular: RRR Abdomen: soft, nontender to the anterior abdomen. Bowel: present Musculoskeletal: normal, strength/ROM intact Neurological: normal, sensory/motor intact, A&O x3 Psychological: affect/mood appropriate RECTAL: There is light brown stool, no blood is noted. Patient requested that anal canal stool not be disimpacted secondary to pain. Triage Information Reviewed: Yes Vital Signs On Initial Exam: Temp Pulse Resp BP Pulse Ox 97.7 F 69 20 136/65 99 03/06/17 13:42 03/06/17 13:42 03/06/17 13:42 03/06/17 13:42 03/06/17 13:42 Vital Signs Reviewed: Yes Diagnostics - Vital Signs Temp Pulse Resp BP Pulse Ox 97.7 F 69 20 136/65 99 03/06/17 13:42 03/06/17 13:42 03/06/17 13:42 03/06/17 13:42 03/06/17 13:42 - Laboratory Lab Results: Lab Results 03/06/17 03/06/17 03/06/17 Range/Units 14:25 14:25 14:25 WBC 11.3 H (3.5-10.8) 10^3/ul RBC 4.44 (4.0-5.4) 10^6/ul Hgb 11.9 L (14.0-18.0) g/dl Hct 36 L (42-52) % MCV 82 (80-94) fL MCH 27 (27-31) pg MCHC 33 (31-36) g/dl RDW 17 H (10.5-15) % Plt Count 261 (150-450) 10^3/ul MPV 7 L (7.4-10.4) um3 Neut % (Auto) 80.2 (38-83) % Lymph % (Auto) 12.7 L (25-47) % Shelby % (Auto) 6.6 (1-9) % Eos % (Auto) 0.1 (0-6) % Baso % (Auto) 0.4 (0-2) % Absolute Neuts (auto) 9.1 H (1.5-7.7) 10^3/ul Absolute Lymphs (auto) 1.4 (1.0-4.8) 10^3/ul Absolute Monos (auto) 0.7 (0-0.8) 10^3/ul Absolute Eos (auto) 0 (0-0.6) 10^3/ul Absolute Basos (auto) 0 (0-0.2) 10^3/ul Absolute Nucleated RBC 0 10^3/ul Nucleated RBC % 0 INR (Anticoag Therapy) 1.07 (0.89-1.11) Sodium 135 (133-145) mmol/L Potassium 3.9 (3.5-5.0) mmol/L Chloride 102 (101-111) mmol/L Carbon Dioxide 20 L (22-32) mmol/L Anion Gap 13 H (2-11) mmol/L BUN 23 (6-24) mg/dL Creatinine 1.32 H (0.67-1.17) mg/dL Est GFR ( Amer) 68.6 (>60) Est GFR (Non-Af Amer) 53.3 (>60) BUN/Creatinine Ratio 17.4 (8-20) Glucose 82 (70-100) mg/dL Lactic Acid (0.5-2.0) mmol/L Calcium 9.4 (8.6-10.3) mg/dL Total Bilirubin 0.60 (0.2-1.0) mg/dL AST 14 (13-39) U/L ALT 8 (7-52) U/L Alkaline Phosphatase 67 (34-104) U/L C-Reactive Protein 58.03 H (< 5.00) mg/L Total Protein 8.2 (6.4-8.9) g/dL Albumin 3.6 (3.2-5.2) g/dL Globulin 4.6 H (2-4) g/dL Albumin/Globulin Ratio 0.8 L (1-3) Lipase 16 (11.0-82.0) U/L Urine Color Urine Appearance Urine pH (5-9) Ur Specific Hugo (1.010-1.030) Urine Protein (Negative) Urine Ketones (Negative) Urine Blood (Negative) Urine Nitrate (Negative) Urine Bilirubin (Negative) Urine Urobilinogen (Negative) Ur Leukocyte Esterase (Negative) Urine WBC (Auto) (Absent) Urine RBC (Auto) (Absent) Urine Bacteria (Absent) Urine Glucose (Negative) 03/06/17 03/06/17 Range/Units 14:25 19:05 WBC (3.5-10.8) 10^3/ul RBC (4.0-5.4) 10^6/ul Hgb (14.0-18.0) g/dl Hct (42-52) % MCV (80-94) fL MCH (27-31) pg MCHC (31-36) g/dl RDW (10.5-15) % Plt Count (150-450) 10^3/ul MPV (7.4-10.4) um3 Neut % (Auto) (38-83) % Lymph % (Auto) (25-47) % Shelby % (Auto) (1-9) % Eos % (Auto) (0-6) % Baso % (Auto) (0-2) % Absolute Neuts (auto) (1.5-7.7) 10^3/ul Absolute Lymphs (auto) (1.0-4.8) 10^3/ul Absolute Monos (auto) (0-0.8) 10^3/ul Absolute Eos (auto) (0-0.6) 10^3/ul Absolute Basos (auto) (0-0.2) 10^3/ul Absolute Nucleated RBC 10^3/ul Nucleated RBC % INR (Anticoag Therapy) (0.89-1.11) Sodium (133-145) mmol/L Potassium (3.5-5.0) mmol/L Chloride (101-111) mmol/L Carbon Dioxide (22-32) mmol/L Anion Gap (2-11) mmol/L BUN (6-24) mg/dL Creatinine (0.67-1.17) mg/dL Est GFR ( Amer) (>60) Est GFR (Non-Af Amer) (>60) BUN/Creatinine Ratio (8-20) Glucose (70-100) mg/dL Lactic Acid 1.3 (0.5-2.0) mmol/L Calcium (8.6-10.3) mg/dL Total Bilirubin (0.2-1.0) mg/dL AST (13-39) U/L ALT (7-52) U/L Alkaline Phosphatase (34-104) U/L C-Reactive Protein (< 5.00) mg/L Total Protein (6.4-8.9) g/dL Albumin (3.2-5.2) g/dL Globulin (2-4) g/dL Albumin/Globulin Ratio (1-3) Lipase (11.0-82.0) U/L Urine Color Caitlyn Urine Appearance Turbid Urine pH 7.0 (5-9) Ur Specific Hugo 1.047 H (1.010-1.030) Urine Protein 2+(100 mg/dl) H (Negative) Urine Ketones 1+ H (Negative) Urine Blood 3+ H (Negative) Urine Nitrate Negative (Negative) Urine Bilirubin Negative (Negative) Urine Urobilinogen Positive H (Negative) Ur Leukocyte Esterase 3+ H (Negative) Urine WBC (Auto) 3+(>20/hpf) H (Absent) Urine RBC (Auto) 3+(>10/hpf) H (Absent) Urine Bacteria 1+ H (Absent) Urine Glucose Negative (Negative) Result Diagrams: 03/06/17 14:25 03/06/17 14:25 Lab Statement: Any lab studies that have been ordered have been reviewed, and results considered in the medical decision making process. - CT CT Abd/Pel CT Interpretation: Positive (See Comments) - 1. THERE IS DIVERTICULITIS WITH A 6.5 CM PERIDIVERTICULAR ABSCESS THAT IS ADHERENT TO THE WALL THE BLADDER. THIS IS EITHER RECURRENT OR PROGRESSED WHEN COMPARED TO OCTOBER 28, 2016 EXAMINATION. THERE ARE GAS FLUID LEVELS WITHIN THE ABSCESS AND WITHIN THE BLADDER, CONCERNING FOR COMMUNICATION BETWEEN THE ABSCESS AND THE BLADDER LUMEN. ED physician has reviewed this report and agrees. CT Interpretation Completed By: Radiologist Abdominal Pain Fem Course/Dx - Course Course Of Treatment: Medications reviewed. BP noted and advised to follow up with PCP. Allergies noted. DISCUSSED WITH SURGERY, DR PURVIS, AND UROLOGY, DR COURTNEY. DUE TO THE COMPLEXITY OF SUGERY NEEDED WILL TRANSFER PATIENT TO A HIGHER LEVEL OF CARE OF COLO RECTAL SURGERY AT [facility]. ACCEPTED IN TRANSFER AT [facility] BY DR MIR. CRITICAL CARE TIME LESS THAN 30 MINUTES. - Diagnoses Provider Diagnoses: Intestinovesical fistula, Colonic diverticular abscess - Provider Notifications Discussed Care Of Patient With: Edith Purvis Time Discussed With Above Provider: 18:18 Instructed by Provider To: Other - I consulted with Dr. Purvis, surgery, who recommends admission. I further consulted with Dr. Courtney, urology, at 18:30, who recommends catheter insertion, antibiotics, and relay the gravity of the situation to the surgeons. I consulted Dr. Purvis, surgery, at 18:50, who recommends transfer. I consulted again with Dr. Courtney at 20:21. Dr. Mir from [facility] accepts the patient for transfer. Discharge - Discharge Plan Condition: Stable Disposition: TRANS HIGHER LVL OF CARE FAC Discharge Disposition Comment: Transferred to [facility] Referrals: Jarett Barnett MD [Primary Care Provider] - The documentation as recorded by the Tin nuñez Thomas accurately reflects the service I personally performed and the decisions made by me, Avinash Shoemaker MD.
[2017-03-06 22:25] VITALS: BP 148/82
--- NOTE | 2017-03-09 08:32 | ED ---
Progress - Progress Note Progress Note: Pt's blood cx is (-) MRSA and Staph Aureus however (+) for staph hominis. Prelim urine cx reveals enterococcus avium >100,000. Pt was transfered to [facility]. Will forward results for comprehensive care. da Ramirez clerk, aware. Course/Dx - Course Course Of Treatment: Medications reviewed. BP noted and advised to follow up with PCP. Allergies noted. DISCUSSED WITH SURGERY, DR PURVIS, AND UROLOGY, DR COURTNEY. DUE TO THE COMPLEXITY OF SUGERY NEEDED WILL TRANSFER PATIENT TO A HIGHER LEVEL OF CARE OF COLO RECTAL SURGERY AT [facility]. ACCEPTED IN TRANSFER AT [facility] BY DR MIR. CRITICAL CARE TIME LESS THAN 30 MINUTES. - Diagnoses Provider Diagnoses: Intestinovesical fistula, Colonic diverticular abscess - Provider Notifications Time Discussed With Above Provider: 18:18 Instructed by Provider To: Other - I consulted with Dr. Purvis, surgery, who recommends admission. I further consulted with Dr. Courtney, urology, at 18:30, who recommends catheter insertion, antibiotics, and relay the gravity of the situation to the surgeons. I consulted Dr. Purvis, surgery, at 18:50, who recommends transfer. I consulted again with Dr. Courtney at 20:21. Dr. Mir from [facility] accepts the patient for transfer.
== END 2017-03-06 22:24 | disposition short-term general hospital (02) ==
LOC: ED 13:37
DX: N32.1 Vesicointestinal fistula (principal); K57.20 Diverticulitis of large intestine with perforation and abscess without bleeding; K59.00 Constipation, unspecified; I50.9 Heart failure, unspecified; I10 Essential (primary) hypertension; N40.0 Benign prostatic hyperplasia without lower urinary tract symptoms; Z88.0 Allergy status to penicillin; Z87.891 Personal history of nicotine dependence
CPT/HCPCS: 36415; 74177; 80053; 81003; 81015; 83605; 83690; 85025; 85610; 86140; 87040; 87077; 87086; 87150; 87186; 87205; 96365; 99283; J0744; J3370; Q9967

== ENCOUNTER 2017-12-09 09:58 | Inpatient (IN) | payer MEDICARE, OTHER ==
[2017-12-09 10:37] LABS: ABS Basophils 0 10^3/ul (0-0.2); ABS Eosinophils 0 10^3/ul (0-0.6); ABS Lymphocytes 1.4 10^3/ul (1.0-4.8); ABS Monocytes 1.3 10^3/ul (0-0.8); ABS Neutrophils 14.7 10^3/ul (1.5-7.7); ABS Nucleated RBC 0 10^3/ul; Eosinophil % 0 % (0-6); Hematocrit 37 % (42-52); Hemoglobin 12.4 g/dl (14.0-18.0); Lymphocyte % 7.9 % (25-47); Mean Corpuscular HGB Conc 33 g/dl (31-36); Mean Corpuscular Hemoglobin 28 pg (27-31); Mean Corpuscular Volume 84 fL (80-94); Mean Platelet Volume 7.8 um3 (7.4-10.4); Nucleated Red Blood Cells % 0; Platelet Count 122 10^3/ul (150-450); Red Cell Distribution Width 16 % (10.5-15); White Blood Count 17.3 10^3/ul (3.5-10.8)
[2017-12-09] MEDS ORDERED: Ondansetron ODT TAB* 4 MG PO ONE (10:38)
[2017-12-09] MEDS ORDERED: Morphine VIAL* 10 MG/ML 1 ML VIAL IV ONE (10:38)
--- NOTE | 2017-12-09 10:51 | ED ---
Abdominal Pain/Male - HPI Summary HPI Summary: This is joaquin Parham documenting for attending Dae Mcqueen MD. This patient is a 72 year old M BIBA to [facility] with a chief complaint of constant abdominal pain since two weeks ago. The patient rates the pain 4/10 in severity currently. The pain level has not fluctuated. Patient reports increased falls at home, loose and watery diarrhea (which does not alleviate his pain), and difficulty ambulating. Patient denies blood in stool, fever, being around others who are sick, vomiting, testicular pain, burning in pee, frequent urination, and hematuria. Patient is not on any antibiotics and does not live in a senior living.The pt has a PMHx of diverticulitis with colon resection, gallbladder infection, and no PMHx of hernia or kidney stones. - History of Current Complaint Chief Complaint: EDAbdPain Stated Complaint: ABD PAIN Hx Obtained From: Patient Onset/Duration: Sudden Onset, Lasting Weeks - 2 weeks Timing: Constant, Lasting Weeks - 2 weeks Severity Initially: Moderate Severity Currently: Moderate Pain Intensity: 4 Pain Scale Used: 0-10 Numeric Aggravating Factor(s): Nothing Alleviating Factor(s): Nothing Associated Signs And Symptoms: Positive: Diarrhea. Negative: Fever, Blood in Stool, Urinary Symptoms - denies burning in pee, frequent urination, and hematuria, Vomiting - Allergies/Home Medications Allergies/Adverse Reactions: Allergies Allergy/AdvReac Type Severity Reaction Status Date / Time Penicillins Allergy Hives Verified 12/09/17 10:10 Home Medications: Home Medications Adalimumab (NF) [Humira Pen (NF)] 40 mg SUBCUT Q14D 12/09/17 [History Confirmed 12/09/17] Allopurinol TAB* [Zyloprim 100 MG TAB*] 200 mg PO DAILY 12/09/17 [History Confirmed 12/09/17] Aspirin/Acetaminophen/Caffeine [Excedrin Extra Strength Caplet] 1 tab PO Q6HR PRN 12/09/17 [History Confirmed 12/09/17] Metoprolol Succinate XL TAB* [Toprol XL TAB*] 75 mg PO DAILY 12/09/17 [History Confirmed 12/09/17] Tamsulosin CAP* [Flomax CAP*] 0.8 mg PO DAILY 12/09/17 [History Confirmed ] PMH/Surg Hx/FS Hx/Imm Hx Endocrine/Hematology History: Denies: Hx Diabetes, Hx Sickle Cell Disease Cardiovascular History: Reports: Hx Congestive Heart Failure, Hx Hypertension Denies: Hx Pacemaker/ICD, Other Cardiovascular Problems/Disorders Respiratory History: Reports: Hx Pneumonia - at 3 Denies: Other Respiratory Problems/Disorders GI History: Reports: Hx Gall Bladder Disease Denies: Other GI Disorders - Gall stones, cholecystitis History: Reports: Hx Benign Prostatic Hyperplasia Denies: Hx Renal Disease, Other Problems/Disorders Musculoskeletal History: 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" Sensory History: Reports: Hx Contacts or Glasses, Hx Hearing Problem - [place] Denies: Hx Cataracts, Hx Eye Injury, Hx Hearing Aid Opthamlomology History: Reports: Hx Contacts or Glasses Denies: Hx Cataracts, Hx Eye Injury Psychiatric History: Denies: Hx Panic Disorder - Surgical History Surgery Procedure, Year, and Place: CHOLECYSTOSTOMY TUBE - DRAIN INFECTION - 2013 Hx Anesthesia Reactions: Yes - BONE SPUR IN NECK -DIFFICULT TO INTUBATE Infectious Disease History: No Infectious Disease History: Denies: Hx of Known/Suspected MRSA - SUSPECT EXPOSURE FROM , Traveled Outside the [place] in Last 30 Days - Family History Known Family History: Positive: Hypertension - Social History Occupation: Retired Lives: With Family Alcohol Use: Rare Alcohol Amount: ONCE A MONTH Hx Substance Use: No Substance Use Type: Reports: None Hx Tobacco Use: Yes Smoking Status (MU): Former Smoker Type: Cigars Amount Used/How Often: 5 cigars/week Length of Time of Smoking/Using Tobacco: 8 YRS Have You Smoked in the Last Year: Yes Review of Systems Negative: Fever, Chills Negative: Erythema Negative: Sore Throat Negative: Chest Pain Negative: Shortness Of Breath, Cough Positive: Abdominal Pain, Diarrhea - loose and watery, which does not alleviate his pain. Negative: Vomiting, Nausea Negative: dysuria, hematuria, pain - denies testicular pain, burning in pee, frequent urinatino Positive: Other - difficulty ambulating and increased falls at home. Negative: Myalgia, Edema Negative: Rash Negative: Other - dizziness All Other Systems Reviewed And Are Negative: Yes Physical Exam - Summary Physical Exam Summary: Constitutional: Well-developed, Well-nourished, Alert. (-) Distressed Skin: Warm, Dry HENT: Normocephalic; Atraumatic Eyes: Conjunctiva normal Neck: Musculoskeletal ROM normal neck. (-) JVD, (-) Stridor, (-) Tracheal deviation Cardio: Rhythm regular, rate normal, Heart sounds normal; Intact distal pulses; The pedal pulses are 2+ and symmetric. Radial pulses are 2+ and symmetric. (-) Murmur Pulmonary/Chest wall: Effort normal. (-) Respiratory distress, (-) Wheezes, (-) Rales Abd: Soft, (+), exquisite RLQ tenderness, (-) Distension, (-) Guarding, (-) Rebound, (-) CVA tenderness Musculoskeletal: (-) Edema Lymph: (-) Cervical adenopathy Neuro: Alert, Oriented x3, Psych: Mood and affect Normal Triage Information Reviewed: Yes Vital Signs On Initial Exam: Initial Vitals Temp Pulse Resp BP Pulse Ox 99.6 F 80 18 148/83 96 12/09/17 10:06 12/09/17 10:06 12/09/17 10:06 12/09/17 10:06 12/09/17 10:06 Vital Signs Reviewed: Yes Diagnostics - Vital Signs Vital Signs Temp Pulse Resp BP Pulse Ox 12/09/17 10:06 99.6 F 80 18 148/83 96 - Laboratory Lab Results: Lab Results 12/09/17 Range/Units 10:27 WBC 17.3 H (3.5-10.8) 10^3/ul RBC 4.40 (4.00-5.40) 10^6/ul Hgb 12.4 L (14.0-18.0) g/dl Hct 37 L (42-52) % MCV 84 (80-94) fL MCH 28 (27-31) pg MCHC 33 (31-36) g/dl RDW 16 H (10.5-15) % Plt Count 122 L (150-450) 10^3/ul MPV 7.8 (7.4-10.4) um3 Neut % (Auto) 84.6 H (38-83) % Lymph % (Auto) 7.9 L (25-47) % Bond % (Auto) 7.2 H (0-7) % Eos % (Auto) 0 (0-6) % Baso % (Auto) 0.3 (0-2) % Absolute Neuts (auto) 14.7 H (1.5-7.7) 10^3/ul Absolute Lymphs (auto) 1.4 (1.0-4.8) 10^3/ul Absolute Monos (auto) 1.3 H (0-0.8) 10^3/ul Absolute Eos (auto) 0 (0-0.6) 10^3/ul Absolute Basos (auto) 0 (0-0.2) 10^3/ul Absolute Nucleated RBC 0 10^3/ul Nucleated RBC % 0 Result Diagrams: 12/09/17 10:27 12/09/17 10:27 Lab Statement: Any lab studies that have been ordered have been reviewed, and results considered in the medical decision making process. - CT Abd/Pelvis CT CT Interpretation Completed By: Radiologist - Dilated appendix with periappendiceal infiltration of fat consistent with acute appendicitis. Multiple appendicoliths are noted. Physician has reviewed this report. - EKG No standard instances Cardiac Rate: NL - 81 BPM EKG Rhythm: Sinus Rhythm EKG Interpretation: mild ST depression in V3-V6. Reviewed by physician 2017 10:30 Re-Evaluation - Re-Evaluation 1 Re-Evaluation Time: 14:17 Comment: Updating patient on results. Abdominal Pain Fem Course/Dx - Diagnoses Provider Diagnoses: Appendicitis - Provider Notifications Discussed Care Of Patient With: Roxanne Torres - Radiology Instructed by Provider To: Other - Notified at 14:00 by radiology that the patient has appendicitis Discharge - Sign-Out/Discharge Documenting (check all that apply): Patient Departure - admit - Discharge Plan Consult Consult: 14:10 with RONALD Anthony who will see the patient in the ED
[2017-12-09 11:03] LABS: EGFR Non-African American 31.3 (>60)
[2017-12-09] MEDS ORDERED: Iodixanol* (CONTRAST) 320 MG/ML 100 ML SDV IV ONE (13:11)
[2017-12-09] MEDS ORDERED: ceFOXitin 2 GM IVPREMIX* 2 GM/50 ML BAG IVPB ONE (14:03)
--- NOTE | 2017-12-09 14:06 | RAD ---
Indication: Right lower quadrant pain and tenderness. Contrast: Administered 114.1 ml of VISAPAQUE 320 mg/ml CT of the abdomen and pelvis was performed after oral and IV contrast administration. Coronal and sagittal reconstructed images were obtained. Lung bases demonstrate no pleural fluid, nodules or masses. Heart is of normal size without evidence of pericardial effusion. The liver is normal in size. There is lobulated contour of the liver consistent with cirrhosis. Enlarged caudate lobe is noted. Common duct is not dilated. The patient is status post cholecystectomy. Pancreas demonstrates no mass or pancreatic duct dilatation. The spleen is normal in size. No adrenal lesions are noted. The kidneys demonstrate symmetric nephrograms without focal lesions or hydronephrosis. No retroperitoneal lymphadenopathy is noted. There is a dilated appendix in the right lower quadrant with periappendiceal infiltration of fat. Multiple appendicoliths are noted in the appendix. No evidence of peridiverticular abscess is noted. Small bowel demonstrates no abnormal dilatation. No hernias are noted. The urinary bladder is unremarkable. IMPRESSION: Dilated appendix with periappendiceal infiltration of fat consistent with acute appendicitis. Multiple appendicoliths are noted. There is likely cirrhosis of the liver.
[2017-12-09] MEDS ORDERED: NS 0.9% 1000 ML* 3,000 ML IV ONE (14:09)
[2017-12-09] MEDS ORDERED: Acetaminophen TAB* 325 MG PO ONE (14:18)
--- NOTE | 2017-12-09 15:56 | HP ---
CC: Dr. Jarett Barnett; Dr. Mac * DATE OF ADMISSION: 12/09/2017. ATTENDING PHYSICIAN: Dr. Kev Felix * (RONALD Altman dictating). CHIEF COMPLAINT: Right lower quadrant abdominal pain. HISTORY OF PRESENT ILLNESS: This is a 72-year-old male who states that for the past two weeks or so he has experienced right lower quadrant abdominal pain. He has difficulty giving details of the recent history secondary to interruptions of pain and hiccuping. He states that the pain has been steady and has been unassociated with any nausea or vomiting. I was unable to determine if he had had any fever or chills, or any recent change in genitourinary symptoms. He presented to the ED. See findings below. PAST MEDICAL HISTORY: Hypertension, gout, BPH, rheumatoid arthritis (followed by Dr. Mac). PAST SURGICAL HISTORY: Include what sounds like sigmoid resection with primary anastomosis for diverticular disease done at [facility], and cataract extraction. He also had undergone percutaneous drainage of acute cholecystitis, apparently in 2013. He states that he still has his gallbladder. CURRENT MEDICATIONS: 1. Finasteride 5 mg once daily. 2. Tamsulosin 0.4 mg two tablets once daily. 3. Metoprolol Succinate XL 75 mg once daily. 4. Adalimumab (Humira) 40 mg subcutaneously q.2 weeks (he is due next week). 5. Allopurinol 200 mg once daily. 6. Oxycodone 10 mg prn pain (he uses infrequently). DRUG ALLERGIES: PENICILLIN (ITCHING). FAMILY HISTORY: Negative for anesthesia problems, bleeding or clotting disorders. SOCIAL HISTORY: The patient lives alone. He is a smoker of approximately one cigar per day. He drinks a couple of alcoholic drinks per month, but denies any excess past alcohol use. He denies any other recreational drug use. REVIEW OF SYSTEMS: General: No additions to the HPI, other than that the patient was able to give limited additional information as noted above. He is followed by Dr. Mac for rheumatology. He has never undergone colonoscopy. Eyes: He did recently undergo left cataract surgery and is awaiting surgery for the right eye. PHYSICAL EXAMINATION GENERAL: Well-developed male in mild distress with interview punctuated by episodes of pain and/or hiccups. VITAL SIGNS: Height 5'9", weight 200 pounds. Temperature 100.6, blood pressure 128/68, pulse 79, respirations 20, room air saturation 96 percent. HEENT: Head atraumatic. Eyes: Right pupil small, left dilated, which he states was secondary to his recent surgery. Conjunctivae pink. Oropharynx: Mucus membranes dry. Some missing teeth, some in poor repair. No obvious intraoral abnormalities. NECK: No lymphadenopathy, thyromegaly, or masses. LUNGS: Lungs clear to auscultation. No rales or wheezes. HEART: Regular rate and rhythm. No murmur appreciated. ABDOMEN: Flat, soft with moderate to severe tenderness in the right lower quadrant at McBurney's point. There is some lesser tenderness in the right upper quadrant. Right lower quadrant is firm. Left abdomen is soft, nontender and without referred tenderness. No palpable inguinal hernias. No palpable masses. There is a well- healed lower midline incision. EXTREMITIES: No edema. There are some areas of excoriation. No evidence of infection. NEUROLOGIC: Grossly intact. LABORATORY DATA: White blood cell count 17,300 with a left shift, hemoglobin 12.4, platelet count 122, BUN 32, creatinine 2.09 (verses his baseline average of approximately 1.5), lactic acid 1.6, lipase 28, CRP 160. CT scan of the abdomen and pelvis with oral contrast was reviewed. The radiologist notes some nodular changes of the liver, possibly consistent with cirrhosis, though his history would not suggest the same. The appendix is dilated with periappendiceal inflammatory changes and at least two appendicoliths. IMPRESSION: Acute appendicitis. PLAN: Laparoscopic appendectomy pending review of work-up and exam by Dr. Felix. ADDENDUM: Further review of the past record reveals a history of cardiomyopathy. He has seen Dr Hennessy in the past. I will ask him to consult prior to surgery. RONALD ALMTAN [id number]/[facility] #: [id number] MTDRuth
[2017-12-09] MEDS ORDERED: Bupivacaine 0.25% W/EPI* 10 ML SDV ONE (16:02)
[2017-12-09] MEDS ORDERED: Morphine INJ* 2 MG/ML 1 ML SYRINGE (TWO MG - NEW SYRINGE VERSION) ONE (16:04)
[2017-12-09] MEDS ORDERED: Famotidine IV* 10 MG/ML 2 ML (20 mg) ONE (16:36)
[2017-12-09] MEDS ORDERED: Sodium Citrate/Citric Acid* 15 ML UDC ONE (16:36)
[2017-12-09] MEDS ORDERED: fentaNYL* 50 MCG/ML 2 ML VIAL (100 MCG VIAL) ONE ×3 (16:40→20:44)
[2017-12-09] MEDS ORDERED: Succinylcholine* 20 MG/ML 10 ML VIAL ONE (16:40)
[2017-12-09] MEDS ORDERED: Lidocaine 2% PF * 5 ML VIAL ONE (16:40)
[2017-12-09] MEDS ORDERED: Morphine INJ* 2 MG/ML 1 ML SYRINGE (TWO MG - NEW SYRINGE VERSION) IV PRN (16:47)
[2017-12-09] MEDS ORDERED: Sodium Citrate/Citric Acid* 15 ML UDC PO ONE (16:48)
[2017-12-09] MEDS ORDERED: Famotidine IV* 10 MG/ML 2 ML (20 mg) IV SLOW PU ONE (16:48)
[2017-12-09] MEDS ORDERED: Midazolam* 1 MG/ML 2 ML VIAL (2 MG) ONE (17:09)
[2017-12-09] MEDS ORDERED: EPHEDrine (Pressors)* 50 MG/ML VIAL ONE (17:34)
[2017-12-09] MEDS ORDERED: Ondansetron INJ* 2 MG/ML VIAL ONE (17:55)
[2017-12-09] MEDS ORDERED: Propofol* 10 MG/ML 20 ML BTL IV PUSH ONE (17:55)
[2017-12-09] MEDS ORDERED: Mivacurium Chloride* 20 MG/10 ML VIAL IV ONE (18:05)
[2017-12-09] MEDS ORDERED: Neostigmine Methylsulfate* 1 MG/ML 10 ML VIAL (1 mg/ml) ONE (18:41)
[2017-12-09] MEDS ORDERED: Glycopyrrolate IV* 0.2 MG/ML 1 ML VIAL ONE (18:41)
[2017-12-09] MEDS ORDERED: Metoprolol Tartrate IV* 1 MG/ML 5 ML VIAL ONE (18:46)
[2017-12-09] MEDS ORDERED: Naloxone* 0.4 MG/ML 1 ML VIAL IV PRN (19:24)
[2017-12-09] MEDS ORDERED: PROCHLORPERAZINE INJ 5 MG/ML 2 ML VIAL IV PRN (19:24)
[2017-12-09] MEDS ORDERED: Acetaminophen IV 1GM/100ML * 1,000 MG/100 ML VIAL IVPB ONE (19:24)
[2017-12-09] MEDS ORDERED: oxyCODONE TAB* 5 MG TAB PO PRN (19:24)
[2017-12-09] MEDS ORDERED: ceFOXitin 2 GM IVPREMIX* 2 GM/50 ML BAG IVPB SCH (20:00)
[2017-12-09] MEDS ORDERED: Acetaminophen IV 1GM/100ML * 100 ML ONE (20:25)
[2017-12-09] MEDS: fentaNYL* 50 MCG/ML 2 ML VIAL (100 MCG VIAL) IV PRN ×2 (20:45→22:15)
[2017-12-09] MEDS ORDERED: Phenylephrine IV* 40 MCG/ML 10 ML SYRINGE ONE (20:54)
[2017-12-09] MEDS ORDERED: NS 0.9% 1000 ML* 2,000 ML IV ONE (21:24)
--- NOTE | 2017-12-09 21:30 | CONS ---
CC: Dr. Hennessy; Dr. Felix; Dr. Barnett * CARDIOLOGY CONSULT: DATE OF CONSULT: 12/09/17. HISTORY OF PRESENT ILLNESS: I was asked by Dr. Felix to see this 72-year-old male patient, who presented to the hospital with right lower quadrant abdominal pain. He was found to have acute appendicitis. He is known to me from before cardiology followup. Cardiology consult was further requested to do preop risk stratification for him before he goes for his surgery, which appears to be urgent. The patient does have history of nonischemic cardiomyopathy that recovered and felt to be secondary to sepsis and cholecystitis with hospitalization back in 2013. His last echo was in May 2015, EF recovered to 50%. He does have history of trace mitral insufficiency, trace tricuspid insufficiency, and aortic valve sclerosis without significant stenosis. He has done well with his followup, last seen in my office in July 2016. He has been maintained on outpatient beta-kareem treatment. He had a cardiac catheterization in November 2013 done at [facility] in [place] secondary to his at that time severe cardiomyopathy, EF of 25% and only found him to have at most 50% noncritical disease of the right coronary artery. He does have history of systemic arterial hypertension, history of palpitations, history of PACs as well as some PVCs, but he has been cardiac almendarez hemodynamically stable. He has been active and doing his daily activities without any limiting symptoms of chest pain, shortness of breath, dizziness, syncope. No swelling of the lower extremities. No signs of congestive heart failure. He said a week ago or two, he started to have diarrhea and he started to have abdominal pain and apparently upon presentation he was found to have acute appendicitis after CT scan of the abdomen and pelvis was done today. The appendix appears to be dilated. PAST MEDICAL HISTORY: As outlined above. Other history includes cholecystitis , renal insufficiency, hypertension. Cardiac history as outlined above as well. MEDICATIONS: As an outpatient include: 1. Metoprolol succinate 75 mg daily. 2. Finasteride 5 mg once daily. 3. Allopurinol 200 mg daily. 4. Oxycodone 10 mg p.r.n. for pain. ALLERGIES: He has allergy to PENICILLIN, gives him itching. FAMILY HISTORY: No family history of premature coronary artery disease. SOCIAL HISTORY: He lives alone. He does smoke about 1 cigar per day. Couple of drinks of alcohol monthly. No history of illicit drug abuse. REVIEW OF SYSTEMS: His review of all other systems is essentially negative. PHYSICAL EXAM: He is in pain, which appears to be significant in the right lower quadrant area, but he gives no symptoms of chest pain and he is not tachypneic. His blood pressure is 137/80; temperature 99.9, initially in the emergency room 100.6; pulse 90; respiratory rate 20. Head and Neck Exam: Normocephalic, atraumatic. Ears, nose, and throat essentially benign. Neck: Supple. JVP is not elevated. No carotid bruits. No masses in the neck are appreciated. Chest: Clear to auscultation. No rales, no wheeze. No added sounds appreciated. Heart: Normal, regular, S1, S2. No added sounds. No gallops, no rubs. No significant murmurs appreciated. Abdomen: Significant tenderness in the right lower quadrant area. Soft. Positive bowel sounds. Extremities: No edema, no cyanosis, no clubbing. Skin exam is normal. Psych: Appears to be intact. BULB PACKER: No focal deficits appreciated. DIAGNOSTIC STUDIES/LAB DATA: His white blood cells of 18.3, hemoglobin 12.4, hematocrit 37, platelets 122. Sodium 134, potassium 4.2, chloride 103, BUN 32, creatinine 2.09. He does have history of renal insufficiency probably in the past. Lactic acid 1.6, CRP 160. His EKG showed him to be in sinus rhythm, heart rate 81 beats per minute. There are ST-T abnormalities borderline inferolaterally as well, which are unchanged from previous EKGs. In comparing his EKGs, there are no acute significant ST-T changes. There is a very subtle borderline isolated in V3 that was not actually appreciated on previous EKG in a borderline flattened ST segment, but that was only isolated in lead V3. The patient has no chest pain. IMPRESSION: The patient is a 72-year-old male patient with: 1. Presentation with acute appendicitis. 2. History of nonischemic cardiomyopathy with recovering EF 50% by an echo done May 2015. 3. Diffuse ST-T abnormalities, which are unchanged overtly from previous EKGs. 4. History of coronary artery disease. Cardiac cath in 2013 at most single vessel 50% mild disease of the right coronary artery. 5. Obesity. 6. Systemic arterial hypertension. 7. History of PACs and PVCs. PLAN: Currently, he has no angina and he is not in congestive heart failure. His major concern is his abdominal pain. Given that he has been cardiac almendarez stable since he has followed up and active until his acute abdominal illness and diarrhea without limiting symptoms cardiac almendarez and given the urgency for his appendicitis, I am clearing him from cardiac standpoint to proceed for his surgery. I have discussed this with Dr. Felix. Aggressive hydration and keep a close eye on his electrolytes, especially his potassium and his magnesium. Definitely beta-kareem treatment to be continued perioperatively, postoperatively IV if needed. We will monitor him closely postop for any decompensated congestive heart failure or arrhythmias. We will obtain a followup echocardiogram and his left ventricular systolic function. We will follow EKG as well and troponins. [id number]/[facility] #: [id number] [place]STIAN[place]
[2017-12-09 21:44] LABS: ABS Basophils 0.1 10^3/ul (0-0.2); ABS Eosinophils 0 10^3/ul (0-0.6); ABS Monocytes 1.1 10^3/ul (0-0.8); ABS Neutrophils 16.1 10^3/ul (1.5-7.7); ABS Nucleated RBC 0 10^3/ul; Eosinophil % 0 % (0-6); Hematocrit 27 % (42-52); Hemoglobin 8.5 g/dl (14.0-18.0); Lymphocyte % 10.3 % (25-47); Mean Corpuscular HGB Conc 32 g/dl (31-36); Mean Corpuscular Hemoglobin 28 pg (27-31); Mean Corpuscular Volume 86 fL (80-94); Mean Platelet Volume 8.1 um3 (7.4-10.4); Nucleated Red Blood Cells % 0; Platelet Count 157 10^3/ul (150-450); Red Blood Count 3.08 10^6/ul (4.00-5.40); Red Cell Distribution Width 17 % (10.5-15); White Blood Count 19.2 10^3/ul (3.5-10.8)
[2017-12-09] MEDS: Norepinephrine 16MCG/ML IVPRE* 4,000 MCG/250 ML BAG IV SCH (21:44)
[2017-12-09] MEDS ORDERED: CEFEPIME* 2 GM in Dextrose* 50 ml IV ONE (22:00)
[2017-12-09 22:01] LABS: EGFR Non-African American 30.9 (>60)
[2017-12-09] MEDS ORDERED: metroNIDAZOLE IV 500 MG/100ML* 500 MG/100 ML BAG IVPB ONE (22:30)
[2017-12-09] MEDS ORDERED: NS 0.9% 1000 ML* 1,000 ML IV ONE (23:01)
[2017-12-09] MEDS: HYDROmorphone INJ* 0.5 MG/0.5 ML SYRINGE IV PRN (23:37)
--- NOTE | 2017-12-10 01:05 | CONS ---
CC: Dr. Barnett; Dr. Felix; Dr. Ashraf * CONSULTATION REPORT: DATE OF CONSULT: 12/09/17 PRIMARY CARE PROVIDER: Dr. Barnett. REQUESTING PHYSICIAN FOR CONSULT: Dr. Felix. ATTENDING PHYSICIAN WHILE IN THE HOSPITAL: Dr. Nguyen (report dictated by Matthew Noland NP). CONSULTING NEWS INTERN: Dr. Ashraf. REASON FOR MEDICAL CONSULTATION: Evaluation of comorbid medical conditions and management. HISTORY OF PRESENT ILLNESS: I will refer you to [facility] for further details. In short, Mr. Pineda is a 72-year-old male patient. He presented to the ER today with complaints of right lower quadrant abdominal pain that he had been having for the last 2 weeks. He has been having associated diarrhea and he states that he just had not been feeling well. He ultimately was worked up in the ED, was found to have an acute appendicitis. He was taken to the OR today. Dr. Felix performed a laparoscopic appendectomy. It was noted that the appendix appeared to be perforated. There is noted to be scarring throughout the case. In addition, there was some purulent drainage as well. The patient was evaluated in the PACU. It was noted that he appeared to be hypotensive. He had just received fentanyl prior to me seeing him and he was drowsy. He did awaken to his name and respond to pain. I did ask him at one point if his abdomen was tender, but again really hard to get a good history from him as given the amount of drowsiness he is having from the recent anesthetics and the fact that he did have some fentanyl. PAST MEDICAL HISTORY: According to records include: 1. Hypertension. 2. Gout. 3. Rheumatoid arthritis. 4. BPH. 5. Cardiomyopathy in the setting of sepsis in 2013. His EF did recover to 50% in 2016. PAST SURGICAL HISTORY: 1. He has had a sigmoid colon resection. 2. Cataract extraction. 3. Percutaneous draining of the gallbladder. 4. Laparoscopic appendectomy. HOME MEDICATIONS: According to the preop labs include: 1. Humira 40 mg subcu every 14 days. 2. Excedrin 1 tablet every 6 hours as needed. 3. Allopurinol 200 mg p.o. daily. 4. Flomax 0.8 mg p.o. daily. 5. Proscar 5 mg daily. 6. Oxycodone 10 mg every 4 hours as needed. 7. Toprol XL 75 mg p.o. daily. ALLERGIES TO MEDICATIONS: Include PENICILLIN. FAMILY HISTORY: Unable to be obtained. SOCIAL HISTORY: He does smoke cigars daily. He rarely drinks alcohol. Surrogate decision maker is unable to be obtained at this point. REVIEW OF SYSTEMS: Unable to be obtained directly from the patient given his current mentation. PHYSICAL EXAM: Vital signs again when he initially presented to the ER reveals 149/72. Initially, in PACU, he was 124/71 and then he drifted down to the low 100s/90s and then again in the ED, in 70s. Despite 160 mcg of phenylephrine, he only came up to 84/53. Respirations are 20, his O2 saturations are 95%, his temperature was 96.8. Generally, at this time, Mr. Pineda is a 72-year-old male patient. He is being evaluated in PACU. He is chronically ill-appearing. He does not appear to be in any acute distress. HEENT: Head: Atraumatic, normocephalic. Eyes: EOMs intact. Sclerae anicteric and not pale. Neck was supple. Throat: Oral mucosa appears to be dry. No oropharyngeal erythema. Heart: Sounds S1, S2. No murmurs, rubs, or gallops. Lungs are clear to auscultation bilaterally. No wheezes, rales, or rhonchi. Abdomen was mildly distended. LUCILA drain was intact with a small amount of serosanguineous fluid. Dressings appear to be intact. Bowel sounds were hypoactive. Extremities: Pulses were 2+ throughout. No peripheral edema. Neurologically, he is drowsy, but he awakens to his name. He is oriented to himself. Speech is clear. Tongue is midline. Electric Tape Slitter were equal. No gross focal deficits. Skin: Intact with the exception he does have laparoscopic incision to his abdomen. DIAGNOSTIC STUDIES/LAB DATA: WBC is 17.3, RBC of 4.40, hemoglobin 12.4, hematocrit 37, platelet count of 122. Sodium 134, potassium of 4.2, chloride of 103, bicarb 20, BUN is 32, creatinine 2.09, glucose 104. Lactic 1.6. Calcium 9.3. Total bili 0.9, AST 16, ALT 8, alk phos 52. CRP 159. Lipase 22. EKG shows a normal sinus rhythm with a rate of 81, no ST elevations or T wave inversions, he did have some mild depression in V5, which he has had previously. Old medical records were reviewed. ASSESSMENT AND PLAN: Mr. Pineda is a 72-year-old male patient coming into the ER today with complaints of abdominal pain, found to have acute appendicitis. He was taken to the OR for laparoscopic appendectomy. We were asked to evaluate in consult. Recommendations at this point are: 1. Status post laparoscopic appendectomy. We will defer management to Dr. Felix. 2. Postoperative hypotension. Again, I am concerned and given the perforation of the appendix, he certainly could be bacteremic and he could be experiencing severe sepsis, septic shock, possibly hypovolemic shocks from bleeding. Dr. Felix is back to evaluate the patient. My plan at this point is to increase his antibiotic coverage to cefepime, Flagyl, give him an additional 2 L of fluids, repeat his lactic acid now. He did have blood cultures obtained on admission. I did touch base with Dr. Ashraf because he has already received 3 L of fluid. I am starting Levophed peripherally. He was okay with this, we will start at 2 mcg. I have requested central line. I did touch base with Dr. Nguyen as well as she will be following with the patient throughout the night and I will continue with aggressive hydration, peripheral Levophed for the time being and again continue to follow. 3. Hypertension. In the setting of this acute illness and the possible sepsis , I am going to hold his blood pressure meds. 4. Gout. Hold medications until he stabilizes. 5. Rheumatoid arthritis. Hold his Humira in the setting of acute illness. 6. History of cardiomyopathy. Repeat echo is pending tomorrow. He does have a cardiology consult. 7. Benign prostatic hypertrophy. He has a Son placed. 8. Acute kidney injury. It is probably secondary to the acute infection and probably secondary to some dehydration, possibly ATN. I am going to get a urine random creatinine and sodium and urinalysis to calculate FENa. We will continue to hydrate him and follow his BNPs in the morning. 9. DVT prophylaxis. We will defer to the primary team. 10. Fluids, electrolytes, and nutrition. At this point, he is n.p.o. 11. Code status. Full code. TIME SPENT: Time spent on admission, which was critical care time, which was 70 minutes, greater than half the time was spent [id number] with the patient obtaining my history and physical; other half time was spent going over the plan of care with the patient and implementing plan of care. I did discuss the plan of care with Dr. Felix, Dr. Ashraf. MATTHEW NOLAND, GERSON [id number]/CPS #: [id number] CHRISTIANO
[2017-12-10 01:24] LABS: Urine Appearance Cloudy; Urine Blood Negative (Negative); Urine Color Amber; Urine Ketones Trace (Negative); Urine Protein Negative (Negative); Urine Specific Gravity 1.049 (1.010-1.030); Urine Urobilinogen Negative (Negative)
--- NOTE | 2017-12-10 01:50 | PN ---
Sepsis Event Evaluation Date of Evaluation: 12/10/17 Time of Evaluation: 02:01 - He c/o mild abdominal pain. Denies chest pain or dyspnea. Current Stage of Sepsis: Septic Shock Vital Signs - Last 12 Hours: Vital Signs - 12 hr Temp Pulse Resp BP Pulse Ox 12/10/17 01:15 94 18 90/50 100 12/10/17 01:00 111 19 64/45 100 12/10/17 00:45 108 6 89/51 100 12/10/17 00:41 17 12/10/17 00:30 98 19 95/53 100 12/10/17 00:22 100 12/10/17 00:15 107 21 96/59 100 12/10/17 00:01 109 21 100 12/10/17 00:00 108 13 94/54 100 12/09/17 23:53 111 23 73/43 100 12/09/17 23:45 114 23 68/42 100 12/09/17 23:37 22 12/09/17 23:30 89 18 94/56 100 12/09/17 23:25 97.9 F 111 22 99/66 100 12/09/17 23:21 110 24 99/66 98 12/09/17 23:17 109 99 12/09/17 23:00 105 15 96/65 100 12/09/17 22:55 108 15 97/63 100 12/09/17 22:50 109 19 94/59 100 12/09/17 22:45 107 16 95/63 100 12/09/17 22:40 108 22 87/65 100 12/09/17 22:35 108 16 82/58 100 12/09/17 22:30 109 15 87/61 100 12/09/17 22:20 110 17 92/62 100 12/09/17 22:15 98.1 F 107 14 86/62 100 12/09/17 22:10 106 17 106/60 100 12/09/17 22:05 110 28 85/56 100 12/09/17 22:00 109 27 88/62 100 12/09/17 21:55 108 17 91/60 99 12/09/17 21:50 104 16 96/62 100 12/09/17 21:45 101 8 101/62 100 12/09/17 21:43 13 93/62 12/09/17 21:41 108 9 64/43 97 08/02/18 21:31 106 17 103/58 96 12/09/17 21:15 101 20 70/45 97 12/09/17 21:11 88 17 73/47 96 12/09/17 21:02 100 15 96 12/09/17 21:00 94 15 84/53 94 12/09/17 20:59 100 15 80/55 96 12/09/17 20:57 100 17 78/49 96 12/09/17 20:53 87 15 71/46 95 12/09/17 20:47 81 18 82/52 96 12/09/17 20:46 81 24 72/49 96 12/09/17 20:45 23 12/09/17 20:43 77 26 92/51 95 12/09/17 20:30 75 24 95/56 95 12/09/17 20:01 81 17 109/59 97 12/09/17 20:00 78 17 97 12/09/17 19:46 81 20 107/58 99 12/09/17 19:45 96.8 F 12/09/17 19:31 80 13 114/65 99 12/09/17 19:16 80 16 132/68 99 12/09/17 19:10 97.3 F 85 18 124/71 99 12/09/17 15:10 99.9 F 90 20 137/80 96 12/09/17 14:05 100.5 F 79 20 128/68 96 Lactic Acid: 12/09/17 12/09/17 12/10/17 10:27 21:25 01:07 Lactic Acid 1.6 4.7 H* 2.1 H* - Cardiopulmonary Exam Capillary Refill: Immediate Respiratory: Symmetrical Chest Expansion and Respiratory Effort, Clear to Auscultation Cardiovascular: NL Sounds; No Murmurs; No JVD, RRR - Peripheral Pulse Exam Radial Pulses: Bilateral Normal Pedal Pulses: Bilateral Normal - Skin Exam Skin Exam: Normal Turgor - Polo Coma Scale Best Eye Response: 4 - Spontaneous Best Motor Response: 6 - Obeys Commands Best Verbal Response: 5 - Oriented Coma Scale Total: 15 Assess/Plan/Problems-Billing Assessment: Mr Pineda is a 72yo M with PMH of RA, HTN, Gout, BPH, non ischemic CMP in the setting of sepsis in 2013 (with LV function recovery) who presented to ED with c /o abdominal pain, found to have appendicitis, complicated by Septic shock. Lactic acidosis is improved, he has good perfusion, BP is holding with Levophed at 10mcg, but urine output is sluggish. Will increase IVF to LR 150ml/h, continue Levophed/antibiotics, and close monitoring in ICU.
[2017-12-10] MEDS: oxyCODONE/Acetamin 5/325 MG* TAB PO PRN ×2 (02:05→07:46)
[2017-12-10] MEDS: HYDROmorphone INJ* 0.5 MG/0.5 ML SYRINGE IV PRN ×4 (04:19→21:33)
[2017-12-10] MEDS: metroNIDAZOLE IV 500 MG/100ML* 500 MG/100 ML BAG IVPB SCH ×3 (04:20→22:08)
[2017-12-10] MEDS: Norepinephrine 16MCG/ML IVPRE* 4,000 MCG/250 ML BAG IV SCH ×2 (05:05→21:29)
[2017-12-10 06:09] LABS: ABS Basophils 0 10^3/ul (0-0.2); ABS Eosinophils 0 10^3/ul (0-0.6); ABS Lymphocytes 0.7 10^3/ul (1.0-4.8); ABS Monocytes 0.8 10^3/ul (0-0.8); ABS Neutrophils 10.3 10^3/ul (1.5-7.7); ABS Nucleated RBC 0 10^3/ul; Eosinophil % 0 % (0-6); Hematocrit 39 % (42-52); Hemoglobin 12.6 g/dl (14.0-18.0); Lymphocyte % 6.2 % (25-47); Mean Corpuscular HGB Conc 33 g/dl (31-36); Mean Corpuscular Hemoglobin 28 pg (27-31); Mean Corpuscular Volume 86 fL (80-94); Mean Platelet Volume 8.3 um3 (7.4-10.4); Nucleated Red Blood Cells % 0; Platelet Count 103 10^3/ul (150-450); Red Blood Count 4.51 10^6/ul (4.00-5.40); Red Cell Distribution Width 17 % (10.5-15); White Blood Count 11.8 10^3/ul (3.5-10.8)
[2017-12-10 06:27] LABS: EGFR Non-African American 25.7 (>60)
--- NOTE | 2017-12-10 07:37 | RAD ---
HISTORY: sp cvp COMPARISONS: August 07, 2016 VIEWS: 1: frontal portable view of the chest at a central venous catheter is noted from a left subclavian approach with the tip overlying the superior vena cava. FINDINGS: LINES AND TUBES: None. CARDIOMEDIASTINAL SILHOUETTE: The cardiomediastinal silhouette is normal for portable technique. PLEURA: The costophrenic angles are sharp. No pleural abnormalities are noted. There is no appreciable pneumothorax. LUNG PARENCHYMA: The lung volumes are low. The lungs are clear accounting for the phase of respiration. ABDOMEN: The upper abdomen is clear. There is no subphrenic gas. BONES AND SOFT TISSUES: No bone or soft tissue abnormalities are noted. IMPRESSION: LINES AND TUBES ABOVE. NO APPRECIABLE PNEUMOTHORAX. NO ACTIVE CARDIOPULMONARY DISEASE.
--- NOTE | 2017-12-10 08:14 | PN ---
Progress Note - Progress Note Date of Service: 12/10/17 Note: POD#1 s/p Appy Afeb, BP still a little soft, still a little tachy Making some urine Alert and coherent, mild pain, no dyspnea, No N/V Abd obese, soft tender right side LUCILA bloody Impr: S/P perf appy, sepsis Lactic acid down from last night Hgb 12 Cont Abx Cont hydration, watch renal fxn
--- NOTE | 2017-12-10 09:05 | PN ---
Date of Service: 12/10/17 Critical Care Services: 72M with htn, gout, bph, RA, non-ischemic cardiomyopathy with recovered EF admitted with perforated appendicitis. S/p Lab appy. Now septic shock. Vital Signs: Temp Pulse Resp BP SpO2 FiO2 98.5 F 104 28 96/62 94 12/10/17 07:46 12/10/17 08:00 12/10/17 08:59 12/10/17 08:00 12/10/17 08:00 Physical Exam: Gen - acutely ill HEENT - NCAT, EOMI Neck - no jvd, no thyromegaly CV - s1/s2, tachy Pulm - cta, no wheeze Abd - soft, +drain in place, +tenderness Ext - no edema Neuro - non-focal Fluid Balance (Past 24 Hours): I= O= Net Intake & Output 12/08/17 12/09/17 12/10/17 12/11/17 06:59 06:59 06:59 06:59 Intake Total 5897 20 Output Total 590 30 Balance 5307 -10 Weight 107 kg Intake: IV Fluids 5090 LR 1989 lr 2100 Medicated IV 287 CC - Norepinephrine/ 287 Levophed Oral 520 20 Output: LUCILA #1 190 Son 100 30 Straight Cath 250 Estimated Blood Loss 50 Other: Date of Last Bowel 12/09/17 Movement Labs: Laboratory Results - last 24 hr 12/09/17 12/09/17 12/09/17 10:27 10:27 10:27 WBC 17.3 H RBC 4.40 Hgb 12.4 L Hct 37 L MCV 84 MCH 28 MCHC 33 RDW 16 H Plt Count 122 L MPV 7.8 Neut % (Auto) 84.6 H Lymph % (Auto) 7.9 L [place] % (Auto) 7.2 H Eos % (Auto) 0 Baso % (Auto) 0.3 Absolute Neuts (auto) 14.7 H Absolute Lymphs (auto) 1.4 Absolute Monos (auto) 1.3 H Absolute Eos (auto) 0 Absolute Basos (auto) 0 Absolute Nucleated RBC 0 Nucleated RBC % 0 Sodium 134 L Potassium 4.2 Chloride 103 Carbon Dioxide 20 L Anion Gap 11 BUN 32 H Creatinine 2.09 H Est GFR ( Amer) 37.9 Est GFR (Non-Af Amer) 31.3 BUN/Creatinine Ratio 15.3 Glucose 104 H Lactic Acid 1.6 Calcium 9.3 Total Bilirubin 0.90 AST 16 ALT 8 Alkaline Phosphatase 52 C-Reactive Protein 159.84 H Total Protein 8.0 Albumin 3.8 Globulin 4.2 H Albumin/Globulin Ratio 0.9 L Lipase 28 Urine Color Urine Appearance Urine pH Ur Specific [place] Urine Protein Urine Ketones Urine Blood Urine Nitrate Urine Bilirubin Urine Urobilinogen Ur Leukocyte Esterase Ur Random Creatinine Ur Random Sodium Urine Glucose 12/09/17 12/09/17 12/09/17 21:25 21:25 21:25 WBC 19.2 H RBC 3.08 L Hgb 8.5 L Hct 27 L MCV 86 MCH 28 MCHC 32 RDW 17 H Plt Count 157 MPV 8.1 Neut % (Auto) 83.6 H Lymph % (Auto) 10.3 L [place] % (Auto) 5.7 Eos % (Auto) 0 Baso % (Auto) 0.4 Absolute Neuts (auto) 16.1 H Absolute Lymphs (auto) 2.0 Absolute Monos (auto) 1.1 H Absolute Eos (auto) 0 Absolute Basos (auto) 0.1 Absolute Nucleated RBC 0 Nucleated RBC % 0 Sodium 134 L Potassium 4.6 Chloride 105 Carbon Dioxide 19 L Anion Gap 10 BUN 32 H Creatinine 2.11 H Est GFR ( Amer) 37.4 Est GFR (Non-Af Amer) 30.9 BUN/Creatinine Ratio 15.2 Glucose 103 H Lactic Acid 4.7 H* Calcium 7.5 L Total Bilirubin 1.00 AST 24 ALT 12 Alkaline Phosphatase 43 C-Reactive Protein Total Protein 5.0 L Albumin 2.4 L Globulin 2.6 Albumin/Globulin Ratio 0.9 L Lipase Urine Color Urine Appearance Urine pH Ur Specific [place] Urine Protein Urine Ketones Urine Blood Urine Nitrate Urine Bilirubin Urine Urobilinogen Ur Leukocyte Esterase Ur Random Creatinine Ur Random Sodium Urine Glucose 12/10/17 12/10/17 12/10/17 01:07 01:07 01:09 WBC RBC Hgb Hct MCV MCH MCHC RDW Plt Count MPV Neut % (Auto) Lymph % (Auto) [place] % (Auto) Eos % (Auto) Baso % (Auto) Absolute Neuts (auto) Absolute Lymphs (auto) Absolute Monos (auto) Absolute Eos (auto) Absolute Basos (auto) Absolute Nucleated RBC Nucleated RBC % Sodium Potassium Chloride Carbon Dioxide Anion Gap BUN Creatinine Est GFR ( Amer) Est GFR (Non-Af Amer) BUN/Creatinine Ratio Glucose Lactic Acid 2.1 H* Calcium Total Bilirubin AST ALT Alkaline Phosphatase C-Reactive Protein Total Protein Albumin Globulin Albumin/Globulin Ratio Lipase Urine Color Caitlyn Urine Appearance Cloudy Urine pH 5.0 Ur Specific [place] 1.049 H Urine Protein Negative Urine Ketones Trace A Urine Blood Negative Urine Nitrate Negative Urine Bilirubin Negative Urine Urobilinogen Negative Ur Leukocyte Esterase Negative Ur Random Creatinine 191.72 Ur Random Sodium < 18 Urine Glucose Negative 12/10/17 12/10/17 12/10/17 05:55 05:55 05:55 WBC 11.8 H RBC 4.51 Hgb 12.6 L Hct 39 L MCV 86 MCH 28 MCHC 33 RDW 17 H Plt Count 103 L MPV 8.3 Neut % (Auto) 86.9 H Lymph % (Auto) 6.2 L [place] % (Auto) 6.6 Eos % (Auto) 0 Baso % (Auto) 0.3 Absolute Neuts (auto) 10.3 H Absolute Lymphs (auto) 0.7 L Absolute Monos (auto) 0.8 Absolute Eos (auto) 0 Absolute Basos (auto) 0 Absolute Nucleated RBC 0 Nucleated RBC % 0 Sodium 133 L Potassium 5.3 H Chloride 107 Carbon Dioxide 19 L Anion Gap 7 BUN 37 H Creatinine 2.48 H Est GFR ( Amer) 31.1 Est GFR (Non-Af Amer) 25.7 BUN/Creatinine Ratio 14.9 Glucose 113 H Lactic Acid 2.3 H* Calcium 7.1 L Total Bilirubin AST ALT Alkaline Phosphatase C-Reactive Protein Total Protein Albumin Globulin Albumin/Globulin Ratio Lipase Urine Color Urine Appearance Urine pH Ur Specific [place] Urine Protein Urine Ketones Urine Blood Urine Nitrate Urine Bilirubin Urine Urobilinogen Ur Leukocyte Esterase Ur Random Creatinine Ur Random Sodium Urine Glucose Studies: 12/09/17: CT abd/pel Impression: Perforated appendicitis Impression: 72M with htn, gout, bph, RA, non-ischemic cardiomyopathy with recovered EF admitted with perforated appendicitis. S/p Lab appy. Now septic shock. Plan: Neuro - Pain control CV - shock - 2/2 sepsis - last tte normal ef as per cardio - seen by cardiology yesterday - levophed for bp support Pulm - oxygenation ok on room air ID - septic shock - 2/2 perforated appendicitis - s/p lap appy - on cefpime/flagyl - f/u cultures - wbc improving - afebrile - serial lactates GI - npo for now Renal - ckd, gout - monitor i/o - monitor lytes - potassium 5.3 this am - repeat now Heme - monitor cbc Rheum - RA - on humira at home Endo - check fs, niss Lines - L subclav TLC (12/09), Son PPx - gi/dvt Full Code Critical Care Time: 50 mins
[2017-12-10 09:47] LABS: EGFR Non-African American 23.5 (>60)
[2017-12-10] MEDS ORDERED: Magnesium Sulfate 2 GM IV* 2 GM/50 ML BAG IVPB ONE (10:04)
[2017-12-10] MEDS: NS 0.9% 1000 ML* 1,000 ML IV SCH ×2 (10:36→19:47)
--- NOTE | 2017-12-10 14:46 | ECHO ---
Patient: GOKUL FUNES [facility] Rec#: [id number] : 1945 Date: 12/10/2017 Age: 72y Height: 175 cm / 68.9 in Weight: 107 kg / 235.8 lbs Sex: M BSA: 2.21 Room#: [facility] Admit Date#: 12/09/2017 Type: Inpatient Referring: Kirt Hennessy MD Reading: Kirt Hennessy MD Client Advisor: Richelle CabelloBRUNILDA CC: Jarett Barnett MD Transthoracic Echocardiogram Indication: Septic shock BP: 111/59 HR: 90 Rhythm: NSR Findings History: HTN, RA, cigar smoker, non-ischemic cardiomyopathy with recovered EF, obesity. Technical Comments: The study quality is fair. The study is technically limited due to poor acoustic windows. Completed at 1400. Left Ventricle: The left ventricular chamber size is normal. Mild concentric left ventricular hypertrophy is observed. Global left ventricular wall motion and contractility are within normal limits. There is normal left ventricular systolic function. The estimated ejection fraction is 60-65%. There is septal flattening of the interventricular septum consistent with right ventricular volume or pressure overload. Abnormal left ventricular diastolic function is observed. Abnormal left ventricular diastolic filling is observed, consistent with impaired relaxation. Left Atrium: The left atrium is mildly dilated. Right Ventricle: Moderator Band present. The right ventricle is mildly dilated. The right ventricular global systolic function is mildly reduced. Right Atrium: The right atrial cavity size is normal. Aortic Valve: The aortic valve is trileaflet. The aortic valve leaflets are moderately thickened. There is evidence of aortic sclerosis without stenosis. There is a trace of aortic regurgitation. There is no evidence of aortic stenosis. Mitral Valve: There is mitral annular calcification. The mitral valve leaflets are mildly thickened. There is a trace of mitral regurgitation. There is no evidence of mitral stenosis. Tricuspid Valve: The tricuspid valve leaflets are normal. There is mild to moderate tricuspid regurgitation. The right ventricular systolic pressure is estimated at 46 mmHg. There is evidence of moderate pulmonary hypertension. There is no tricuspid stenosis. Pulmonic Valve: The pulmonic valve structure is not well visualized. There is no pulmonic stenosis. Pericardium: There is no significant pericardial effusion. A pericardial fat pad is visualized. Aorta: There is no dilatation of the ascending aorta. The aortic arch is not well visualized. The aortic root is normal in size. Pulmonary Artery: The main pulmonary artery is not well visualized. Venous: The inferior vena cava is not visualized. Summary: There are changes noted when compared to the previous study done on 05/30/2015, LV EF now 60-65% instead of 45-50% then. Conclusions The left ventricular chamber size is normal. Mild concentric left ventricular hypertrophy is observed. There is normal left ventricular systolic function. The estimated ejection fraction is 60-65%. There is septal flattening of the interventricular septum consistent with right ventricular volume or pressure overload. Abnormal left ventricular diastolic function is observed. Abnormal left ventricular diastolic filling is observed, consistent with impaired relaxation. The left atrium is mildly dilated. There is a trace of aortic regurgitation. There is a trace of mitral regurgitation. There is mild to moderate tricuspid regurgitation. The right ventricular systolic pressure is estimated at 46 mmHg. Measurements Name Value Normal Range RVIDd (AP) 2D 3.3 cm (0.9 - 2.6) RVDdMajor (2D) 4.5 cm (2.2 - 4.4) RAd ISD 4CH 4.8 cm (3.4 - 4.9) RA (A4C)W 4.5 cm (2.9 - 4.6) IVSd (2D) 1.2 cm (0.6 - 1) LVPWd (2D) 1.2 cm (0.6 - 1) LVIDd (2D) 3.6 cm (3.6 - 5.4) LVIDs (2D) 2.2 cm - LV FS (2D) 39 % (25 - 45) Aortic Annulus 2.2 cm (1.4 - 2.6) Ao root diameter (2D) 3.4 cm (2.1 - 3.5) Ascending Ao 3.3 cm (2.1 - 3.4) LA dimension (AP) 2D 3.7 cm (2.3 - 3.8) LAd ISD 4CH 5.7 cm (2.9 - 5.3) LA ISD 4CH W 4.8 cm (2.5 - 4.5) Name Value Normal Range LA ESV BP (A/L) index 26 ml/m2 - Name Value Normal Range MV E-wave Vmax 0.75 m/sec - MV deceleration time 63 msec - MV A-wave Vmax 1 m/sec - MV E:A ratio 0.7 ratio - LV septal e' Vmax 0.07 m/sec - LV lateral e' Vmax 0.08 m/sec - LV E:e' septal ratio 10.7 ratio - LV E:e' lateral ratio 9.3 ratio - Name Value Normal Range AV Vmax 1.8 m/sec - AV VTI 30.7 cm - AV peak gradient 13 mmHg - AV mean gradient 8 mmHg - LVOT Vmax 1.1 m/sec - LVOT VTI 19.2 cm - LVOT peak gradient 4 mmHg - LVOT mean gradient 3 mmHg - DOI (VTI) 0.6 ratio - Name Value Normal Range TR Vmax 3.1 m/sec - TR peak gradient 38 mmHg - RAP 8 mmHg - RVSP 46 mmHg - Name Value Normal Range PV Vmax 1.26 m/sec - PV peak gradient 6 mmHg -
--- NOTE | 2017-12-10 15:28 | OP ---
CC: Dr. Felix; Dr. Hennessy; Dr. Mac * DATE OF OPERATION: 12/09/17 - ROOM #ICU-09 DATE OF : 43 SURGEON: Kev Felix MD [employer] SUPERINTENDENT: None. ANESTHESIOLOGIST: Matilda Nj MD ANESTHESIA: General anesthetic, local infiltration. PRE-OP DIAGNOSIS: Acute appendicitis. POST-OP DIAGNOSIS: Acute appendicitis with perforation. OPERATIVE PROCEDURE: Laparoscopic appendectomy. DESCRIPTION OF PROCEDURE: The patient was supine on the operating room table. After adequate general anesthetic, compression stockings, and Lanette Hugger warmer , the abdomen was prepped with antiseptic and draped in a sterile fashion. The previous midline incision was entered above the umbilicus. An approximately 1- inch incision was created and dissection carried down bit by bit until the peritoneal cavity was entered. I was able to get my finger and sweep the area and there were just a few light filmy adhesions in that area, so a 12-mm cannula was placed and the scope was placed and most of the adhesions were on the left abdomen and down low in the abdomen, so a right upper quadrant cannula was placed and from this vantage point, I was able to take down some of the adhesions in the infraumbilical region and then an infraumbilical cannula was placed as well. These were both 5-mm cannulas. The appendix appeared to be perforated. There was a lot of inflammatory reaction surrounding it, but ultimately I was able to dissect it up off the retroperitoneum and off the ileal mesentery and the mesoappendix was divided using a castillo load of the Endo SUZANNA stapler due to the amount of edema and then 2 additional castillo loads were used to divide the appendix off the cecum where there was not so much inflammation. This was placed in a retrieval bag and brought out through the umbilical site and sent in formalin for pathological evaluation. The operative field was well irrigated with warm saline solution. Free fluid was suctioned out. A LUCILA drain was left in the abdominal cavity, brought out through the suprapubic site, and placed down into the pelvis and up into the right gutter, and the umbilical site was closed with interrupted pelrth-cv-poecc sutures of 0 Vicryl followed by 5-0 Vicryl for the skin in all cases followed by Steri- Strips. He tolerated the procedure well, was awakened, extubated, and brought to Recovery in good condition. There were no complications. Drain was Juan- Umanzor. Sponge and instrument counts correct. Estimated blood loss less 100 mL. Specimen was appendix. Note: This procedure was substantially more difficult and time consuming than usual both due to the severity of the infection of the appendix as well as the adhesions from his previous surgery. [id number]/[facility] #: [id number] [facility]
[2017-12-10 16:03] LABS: Hematocrit 21 % (42-52); Hemoglobin 6.8 g/dl (14.0-18.0); Mean Corpuscular HGB Conc 33 g/dl (31-36); Mean Corpuscular Hemoglobin 28 pg (27-31); Mean Corpuscular Volume 85 fL (80-94); Mean Platelet Volume 8.3 um3 (7.4-10.4); Platelet Count 128 10^3/ul (150-450); Red Blood Count 2.44 10^6/ul (4.00-5.40); Red Cell Distribution Width 17 % (10.5-15); White Blood Count 17.5 10^3/ul (3.5-10.8)
[2017-12-10 16:14] LABS: EGFR Non-African American 19.8 (>60)
[2017-12-10 16:30] LABS: ABS Basophils 0 10^3/ul (0-0.2); ABS Eosinophils 0 10^3/ul (0-0.6); ABS Lymphocytes 1.4 10^3/ul (1.0-4.8); ABS Monocytes 1.7 10^3/ul (0-0.8); ABS Neutrophils 14.4 10^3/ul (1.5-7.7); ABS Nucleated RBC 0 10^3/ul; Eosinophil % 0.1 % (0-6); Nucleated Red Blood Cells % 0
[2017-12-10 17:04] LABS: Hematocrit 21 % (42-52); Hemoglobin 6.9 g/dl (14.0-18.0); Mean Corpuscular HGB Conc 33 g/dl (31-36); Mean Corpuscular Hemoglobin 28 pg (27-31); Mean Corpuscular Volume 85 fL (80-94); Mean Platelet Volume 8.2 um3 (7.4-10.4); Platelet Count 135 10^3/ul (150-450); Red Blood Count 2.47 10^6/ul (4.00-5.40); Red Cell Distribution Width 17 % (10.5-15); White Blood Count 18.3 10^3/ul (3.5-10.8)
[2017-12-10 17:46] LABS: ABS Basophils 0 10^3/ul (0-0.2); ABS Neutrophils 14.7 10^3/ul (1.5-7.7); Monocytes % 3 % (0-7)
--- NOTE | 2017-12-10 18:52 | OP ---
DATE OF OPERATION: 12/09/17 - ROOM #ICU-09 DATE OF : 43 SURGEON: Kev Felix MD PRE-OP DIAGNOSES: 1. Sepsis. 2. Hypotension. POST-OP DIAGNOSES: 1. Sepsis. 2. Hypotension. OPERATIVE PROCEDURE: Placement of left subclavian triple-lumen central venous catheter. DESCRIPTION OF PROCEDURE: The patient was supine in the recovery room on the stretcher. The left chest was prepped with antiseptic and draped in a sterile fashion. Sterile gown, gloves, and mask were utilized and local infiltrative anesthesia 1% plain lidocaine was administered. Subclavian venipuncture was carried out and guidewire was passed, and the triple-lumen catheter was passed over the guidewire. It was sutured at the skin. There was good blood return. This was flushed with saline solution and a sterile dressing was placed. He tolerated this well. Followup chest x-ray shows catheter in good position. [id number]/[facility] #: [id number] [facility]
[2017-12-10] MEDS: Cefepime 2 GM in Dextrose(*) 2 GM/50 ML BAG IV SCH (21:29)
[2017-12-11 00:45] LABS: Hematocrit 22 % (42-52); Hemoglobin 7.5 g/dl (14.0-18.0); Mean Corpuscular HGB Conc 34 g/dl (31-36); Mean Corpuscular Hemoglobin 29 pg (27-31); Mean Corpuscular Volume 85 fL (80-94); Mean Platelet Volume 8.2 um3 (7.4-10.4); Platelet Count 142 10^3/ul (150-450); Red Cell Distribution Width 16 % (10.5-15)
[2017-12-11 00:46] LABS: ABS Basophils 0.1 10^3/ul (0-0.2); ABS Eosinophils 0 10^3/ul (0-0.6); ABS Lymphocytes 1.7 10^3/ul (1.0-4.8); ABS Monocytes 2.1 10^3/ul (0-0.8); ABS Neutrophils 16.1 10^3/ul (1.5-7.7); ABS Nucleated RBC 0 10^3/ul; Eosinophil % 0.2 % (0-6); Lymphocyte % 8.7 % (25-47); Nucleated Red Blood Cells % 0.1
[2017-12-11] MEDS: Ondansetron INJ* 2 MG/ML VIAL IV PRN (00:56)
[2017-12-11] MEDS: HYDROmorphone INJ* 0.5 MG/0.5 ML SYRINGE IV PRN ×4 (04:11→20:42)
[2017-12-11] MEDS: NS 0.9% 1000 ML* 1,000 ML IV SCH (04:56)
[2017-12-11] MEDS: metroNIDAZOLE IV 500 MG/100ML* 500 MG/100 ML BAG IVPB SCH ×3 (05:00→20:59)
[2017-12-11 06:37] LABS: Hematocrit 24 % (42-52); Hemoglobin 7.9 g/dl (14.0-18.0); Mean Corpuscular HGB Conc 33 g/dl (31-36); Mean Corpuscular Hemoglobin 29 pg (27-31); Mean Corpuscular Volume 86 fL (80-94); Mean Platelet Volume 8.1 um3 (7.4-10.4); Platelet Count 142 10^3/ul (150-450); Red Blood Count 2.78 10^6/ul (4.00-5.40); Red Cell Distribution Width 16 % (10.5-15); White Blood Count 18.2 10^3/ul (3.5-10.8)
[2017-12-11 06:38] LABS: ABS Basophils 0 10^3/ul (0-0.2); ABS Eosinophils 0 10^3/ul (0-0.6); ABS Lymphocytes 1.3 10^3/ul (1.0-4.8); ABS Monocytes 1.7 10^3/ul (0-0.8); ABS Neutrophils 15.2 10^3/ul (1.5-7.7); ABS Nucleated RBC 0 10^3/ul; Eosinophil % 0.2 % (0-6); Nucleated Red Blood Cells % 0
[2017-12-11 06:54] LABS: EGFR Non-African American 19.4 (>60)
[2017-12-11] MEDS ORDERED: Alteplase (CATHFLO)* 2 MG VIAL IV ONE (08:31)
[2017-12-11] MEDS ORDERED: Furosemide IV* 10 MG/ML VIAL (40 MG) IV ONE (08:33)
--- NOTE | 2017-12-11 09:15 | PN ---
Date of Service: 12/11/17 Critical Care Services: 72M with htn, gout, bph, RA, non-ischemic cardiomyopathy with recovered EF admitted with perforated appendicitis. S/p Lab appy. Now septic shock. 12/11: hgb dropped. bloody output from donna drain. s/p 2 units prbc. remains on low dose levophed. Vital Signs: Temp Pulse Resp BP SpO2 FiO2 98.9 F 110 16 112/70 100 12/11/17 08:00 12/11/17 08:00 12/11/17 08:00 12/11/17 08:00 12/11/17 08:00 Physical Exam: Gen - acutely ill HEENT - NCAT, EOMI Neck - no jvd, no thyromegaly CV - s1/s2, tachy Pulm - cta, no wheeze Abd - soft, +drain in place with bloody output Ext - no edema Neuro - non-focal Fluid Balance (Past 24 Hours): I= O= Net Intake & Output 12/09/17 12/10/17 12/11/17 12/12/17 06:59 06:59 06:59 06:59 Intake Total 5897 3684.5 Output Total 590 647 155 Balance 5307 3037.5 -155 Weight 107 kg 113.8 kg Intake: IV Fluids 5090 2308 LR 1990 NS (0.9%) 2308 lr 2100 IVPB 372 NS (0.9%) 372 Medicated IV 287 294.5 CC - Norepinephrine/ 287 294.5 Levophed Oral 520 440 Packed Cells 270 Output: DONNA #1 190 225 50 Son 100 422 105 Straight Cath 250 Estimated Blood Loss 50 Other: Date of Last Bowel 12/09/17 Movement Labs: Laboratory Results - last 24 hr 12/10/17 12/10/17 12/10/17 09:19 09:19 15:47 WBC RBC Hgb Hct MCV MCH MCHC RDW Plt Count MPV Neut % (Auto) Lymph % (Auto) [place] % (Auto) Eos % (Auto) Baso % (Auto) Absolute Neuts (auto) Absolute Lymphs (auto) Absolute Monos (auto) Absolute Eos (auto) Absolute Basos (auto) Absolute Nucleated RBC Immature Gran % Neutrophils % Band Neutrophils % Lymphocytes % Monocytes % Eosinophils % Basophils % Nucleated RBC % Abs Neuts (Manual) Abs Lymphs (Manual) Abs Monocytes (Manual) Absolute Eos (Manual) Abs Basophils (Manual) Normal RBC Morphology Hypochromasia Anisocytosis Sodium 132 L 131 L Potassium 5.4 H 5.2 H Chloride 106 106 Carbon Dioxide 18 L 16 L Anion Gap 8 9 BUN 39 H 43 H Creatinine 2.68 H 3.10 H Est GFR ( Amer) 28.4 24.0 Est GFR (Non-Af Amer) 23.5 19.8 BUN/Creatinine Ratio 14.6 13.9 Glucose 111 H 104 H Lactic Acid 2.3 H* Calcium 7.2 L 7.2 L Phosphorus 4.2 4.3 Magnesium 1.5 L 2.0 Blood Type Antibody Screen Crossmatch 12/10/17 12/10/17 12/10/17 15:47 15:47 16:55 WBC 17.5 H RBC 2.44 L Hgb 6.8 L Hct 21 L MCV 85 MCH 28 MCHC 33 RDW 17 H Plt Count 128 L MPV 8.3 Neut % (Auto) 82.1 Lymph % (Auto) 8.0 L [place] % (Auto) 9.6 H Eos % (Auto) 0.1 Baso % (Auto) 0.2 Absolute Neuts (auto) 14.4 H Absolute Lymphs (auto) 1.4 Absolute Monos (auto) 1.7 H Absolute Eos (auto) 0 Absolute Basos (auto) 0 Absolute Nucleated RBC 0 Immature Gran % Neutrophils % Band Neutrophils % Lymphocytes % Monocytes % Eosinophils % Basophils % Nucleated RBC % 0 Abs Neuts (Manual) Abs Lymphs (Manual) Abs Monocytes (Manual) Absolute Eos (Manual) Abs Basophils (Manual) Normal RBC Morphology Hypochromasia Anisocytosis Sodium Potassium Chloride Carbon Dioxide Anion Gap BUN Creatinine Est GFR ( Amer) Est GFR (Non-Af Amer) BUN/Creatinine Ratio Glucose Lactic Acid 2.1 H* Calcium Phosphorus Magnesium Blood Type O Positive Antibody Screen Negative Crossmatch See Detail 12/10/17 12/11/17 12/11/17 16:55 00:31 06:26 WBC 18.3 H 20.0 H RBC 2.47 L 2.60 L Hgb 6.9 L 7.5 L Hct 21 L 22 L MCV 85 85 MCH 28 29 MCHC 33 34 RDW 17 H 16 H Plt Count 135 L 142 L MPV 8.2 8.2 Neut % (Auto) Not Reportable 80.3 Lymph % (Auto) Not Reportable 8.7 L [place] % (Auto) Not Reportable 10.3 H Eos % (Auto) Not Reportable 0.2 Baso % (Auto) Not Reportable 0.5 Absolute Neuts (auto) Not Reportable 16.1 H Absolute Lymphs (auto) Not Reportable 1.7 Absolute Monos (auto) Not Reportable 2.1 H Absolute Eos (auto) Not Reportable 0 Absolute Basos (auto) Not Reportable 0.1 Absolute Nucleated RBC Not Reportable 0 Immature Gran % 6 Neutrophils % 81 Band Neutrophils % 6 Lymphocytes % 10 L Monocytes % 3 Eosinophils % 0 Basophils % 0 Nucleated RBC % Not Reportable 0.1 Abs Neuts (Manual) 14.7 H Abs Lymphs (Manual) 1.8 Abs Monocytes (Manual) 0.5 Absolute Eos (Manual) 0 Abs Basophils (Manual) 0 Normal RBC Morphology Not Reportable Hypochromasia 2+ Anisocytosis 2+ Sodium 130 L Potassium 5.4 H Chloride 105 Carbon Dioxide 19 L Anion Gap 6 BUN 49 H Creatinine 3.16 H Est GFR ( Amer) 23.5 Est GFR (Non-Af Amer) 19.4 BUN/Creatinine Ratio 15.5 Glucose 108 H Lactic Acid Calcium 7.1 L Phosphorus Magnesium Blood Type Antibody Screen Crossmatch 12/11/17 12/11/17 06:26 06:26 WBC 18.2 H RBC 2.78 L Hgb 7.9 L Hct 24 L MCV 86 MCH 29 MCHC 33 RDW 16 H Plt Count 142 L MPV 8.1 Neut % (Auto) 83.1 H Lymph % (Auto) 7.0 L [place] % (Auto) 9.5 H Eos % (Auto) 0.2 Baso % (Auto) 0.2 Absolute Neuts (auto) 15.2 H Absolute Lymphs (auto) 1.3 Absolute Monos (auto) 1.7 H Absolute Eos (auto) 0 Absolute Basos (auto) 0 Absolute Nucleated RBC 0 Immature Gran % Neutrophils % Band Neutrophils % Lymphocytes % Monocytes % Eosinophils % Basophils % Nucleated RBC % 0 Abs Neuts (Manual) Abs Lymphs (Manual) Abs Monocytes (Manual) Absolute Eos (Manual) Abs Basophils (Manual) Normal RBC Morphology Hypochromasia Anisocytosis Sodium Potassium Chloride Carbon Dioxide Anion Gap BUN Creatinine Est GFR ( Amer) Est GFR (Non-Af Amer) BUN/Creatinine Ratio Glucose Lactic Acid 0.9 Calcium Phosphorus Magnesium Blood Type Antibody Screen Crossmatch Studies: 12/09/17: CT abd/pel Impression: Perforated appendicitis Impression: 72M with htn, gout, bph, RA, non-ischemic cardiomyopathy with recovered EF admitted with perforated appendicitis. S/p Lab appy. Now shock 2/2 sepsis/ hemorrage/volume depletion. Plan: Neuro - Pain control CV - shock - 2/2 sepsis/hemorrage - TTE with normal ef, diastolic dysfunction yesterday - levophed for bp support Pulm - oxygenation slightly worse - likely 2/2 iv fluid resuscitation - will give iv lasix 40mg x 1 ID - septic shock - 2/2 perforated appendicitis - s/p lap appy - on cefpime/flagyl - f/u cultures - wbc remains elevated - afebrile - lactate has cleared GI - npo for now Renal - ckd, gout - monitor i/o - monitor lytes - potassium borderline Heme - anemia - unknown baseline - bloody output from donna drain - will continue to transfuse - discussed with Dr. Shahid at bedside - CT scan unlikely to be helpful Rheum - RA - on humira at home Endo - check fs, niss Lines - L subclav TLC (12/09), Son PPx - gi/dvt Full Code Critical Care Time: 55 mins
--- NOTE | 2017-12-11 09:52 | PN ---
Progress Note - Progress Note Date of Service: 12/11/17 SOAP: Subjective: Events of last 48 hours noted and discussed with Dr. Felix and Dr. Ashraf Received 2 U PRBC's last night On levophed Awake and alert Objective: Temp Pulse Resp BP Pulse Ox 98.9 F 110 16 119/69 100 12/11/17 08:00 12/11/17 09:38 12/11/17 09:38 12/11/17 09:38 12/11/17 09:38 Intake & Output 12/09/17 12/10/17 12/11/17 12/12/17 06:59 06:59 06:59 06:59 Intake Total 5897 3684.5 Output Total 590 647 365 Balance 5307 3037.5 -365 Weight 235 lb 14.314 oz 250 lb 14.177 oz Intake: IV Fluids 5090 2308 LR 1990 NS (0.9%) 2308 lr 2100 IVPB 372 NS (0.9%) 372 Medicated IV 287 294.5 CC - Norepinephrine/ 287 294.5 Levophed Oral 520 440 Packed Cells 270 Output: LUCILA #1 190 225 50 Son 100 422 315 Straight Cath 250 Estimated Blood Loss 50 Other: Date of Last Bowel 12/09/17 Movement PEX: Awake and alert Abd is distended and slightly firm LUCILA in place with some sanguinous drainage-40cc's last 4 hours Incision CDI, no bowel sounds Laboratory Results - last 24 hr 12/10/17 12/10/17 12/10/17 09:19 09:19 15:47 WBC RBC Hgb Hct MCV MCH MCHC RDW Plt Count MPV Neut % (Auto) Lymph % (Auto) [place] % (Auto) Eos % (Auto) Baso % (Auto) Absolute Neuts (auto) Absolute Lymphs (auto) Absolute Monos (auto) Absolute Eos (auto) Absolute Basos (auto) Absolute Nucleated RBC Immature Gran % Neutrophils % Band Neutrophils % Lymphocytes % Monocytes % Eosinophils % Basophils % Nucleated RBC % Abs Neuts (Manual) Abs Lymphs (Manual) Abs Monocytes (Manual) Absolute Eos (Manual) Abs Basophils (Manual) Normal RBC Morphology Hypochromasia Anisocytosis Sodium 131 L Potassium 5.4 H 5.2 H Chloride 106 Carbon Dioxide 16 L Anion Gap 8 9 BUN 43 H Creatinine 3.10 H Est GFR ( Amer) 24.0 Est GFR (Non-Af Amer) 19.8 BUN/Creatinine Ratio 13.9 Glucose 104 H Lactic Acid 2.3 H* Calcium 7.2 L Phosphorus 4.3 Magnesium 2.0 Blood Type Antibody Screen Crossmatch 12/10/17 12/10/17 12/10/17 15:47 15:47 16:55 WBC 17.5 H RBC 2.44 L Hgb 6.8 L Hct 21 L MCV 85 MCH 28 MCHC 33 RDW 17 H Plt Count 128 L MPV 8.3 Neut % (Auto) 82.1 Lymph % (Auto) 8.0 L [place] % (Auto) 9.6 H Eos % (Auto) 0.1 Baso % (Auto) 0.2 Absolute Neuts (auto) 14.4 H Absolute Lymphs (auto) 1.4 Absolute Monos (auto) 1.7 H Absolute Eos (auto) 0 Absolute Basos (auto) 0 Absolute Nucleated RBC 0 Immature Gran % Neutrophils % Band Neutrophils % Lymphocytes % Monocytes % Eosinophils % Basophils % Nucleated RBC % 0 Abs Neuts (Manual) Abs Lymphs (Manual) Abs Monocytes (Manual) Absolute Eos (Manual) Abs Basophils (Manual) Normal RBC Morphology Hypochromasia Anisocytosis Sodium Potassium Chloride Carbon Dioxide Anion Gap BUN Creatinine Est GFR ( Amer) Est GFR (Non-Af Amer) BUN/Creatinine Ratio Glucose Lactic Acid 2.1 H* Calcium Phosphorus Magnesium Blood Type O Positive Antibody Screen Negative Crossmatch See Detail 12/10/17 12/11/17 12/11/17 16:55 00:31 06:26 WBC 18.3 H 20.0 H RBC 2.47 L 2.60 L Hgb 6.9 L 7.5 L Hct 21 L 22 L MCV 85 85 MCH 28 29 MCHC 33 34 RDW 17 H 16 H Plt Count 135 L 142 L MPV 8.2 8.2 Neut % (Auto) Not Reportable 80.3 Lymph % (Auto) Not Reportable 8.7 L [place] % (Auto) Not Reportable 10.3 H Eos % (Auto) Not Reportable 0.2 Baso % (Auto) Not Reportable 0.5 Absolute Neuts (auto) Not Reportable 16.1 H Absolute Lymphs (auto) Not Reportable 1.7 Absolute Monos (auto) Not Reportable 2.1 H Absolute Eos (auto) Not Reportable 0 Absolute Basos (auto) Not Reportable 0.1 Absolute Nucleated RBC Not Reportable 0 Immature Gran % 6 Neutrophils % 81 Band Neutrophils % 6 Lymphocytes % 10 L Monocytes % 3 Eosinophils % 0 Basophils % 0 Nucleated RBC % Not Reportable 0.1 Abs Neuts (Manual) 14.7 H Abs Lymphs (Manual) 1.8 Abs Monocytes (Manual) 0.5 Absolute Eos (Manual) 0 Abs Basophils (Manual) 0 Normal RBC Morphology Not Reportable Hypochromasia 2+ Anisocytosis 2+ Sodium 130 L Potassium 5.4 H Chloride 105 Carbon Dioxide 19 L Anion Gap 6 BUN 49 H Creatinine 3.16 H Est GFR ( Amer) 23.5 Est GFR (Non-Af Amer) 19.4 BUN/Creatinine Ratio 15.5 Glucose 108 H Lactic Acid Calcium 7.1 L Phosphorus Magnesium Blood Type Antibody Screen Crossmatch 18 12/11/17 06:26 06:26 WBC 18.2 H RBC 2.78 L Hgb 7.9 L Hct 24 L MCV 86 MCH 29 MCHC 33 RDW 16 H Plt Count 142 L MPV 8.1 Neut % (Auto) 83.1 H Lymph % (Auto) 7.0 L [place] % (Auto) 9.5 H Eos % (Auto) 0.2 Baso % (Auto) 0.2 Absolute Neuts (auto) 15.2 H Absolute Lymphs (auto) 1.3 Absolute Monos (auto) 1.7 H Absolute Eos (auto) 0 Absolute Basos (auto) 0 Absolute Nucleated RBC 0 Immature Gran % Neutrophils % Band Neutrophils % Lymphocytes % Monocytes % Eosinophils % Basophils % Nucleated RBC % 0 Abs Neuts (Manual) Abs Lymphs (Manual) Abs Monocytes (Manual) Absolute Eos (Manual) Abs Basophils (Manual) Normal RBC Morphology Hypochromasia Anisocytosis Sodium Potassium Chloride Carbon Dioxide Anion Gap BUN Creatinine Est GFR ( Amer) Est GFR (Non-Af Amer) BUN/Creatinine Ratio Glucose Lactic Acid 0.9 Calcium Phosphorus Magnesium Blood Type Antibody Screen Crossmatch Assessment: POD# 2 s/p lap appy for acute appendicitis Sepsis Post-op hemorrhage RH arthritis History of cardiomyopathy-nl EF now Plan: Follow H/H for now and transfuse as needed. Return to OR with increased risk of GA and is hemodyamically stable at present. IV abx Wean levophed Check INR Lasix
[2017-12-11 09:59] LABS: INR 1.15 (0.77-1.02)
[2017-12-11] MEDS: oxyCODONE/Acetamin 5/325 MG* TAB PO PRN (12:02)
[2017-12-11 14:38] LABS: ABS Basophils 0 10^3/ul (0-0.2); ABS Eosinophils 0 10^3/ul (0-0.6); ABS Lymphocytes 0.9 10^3/ul (1.0-4.8); ABS Monocytes 1.4 10^3/ul (0-0.8); ABS Nucleated RBC 0 10^3/ul; Eosinophil % 0.3 % (0-6); Hematocrit 26 % (42-52); Hemoglobin 8.8 g/dl (14.0-18.0); Lymphocyte % 5.7 % (25-47); Mean Corpuscular HGB Conc 34 g/dl (31-36); Mean Corpuscular Hemoglobin 29 pg (27-31); Mean Corpuscular Volume 87 fL (80-94); Mean Platelet Volume 8.1 um3 (7.4-10.4); Nucleated Red Blood Cells % 0; Platelet Count 124 10^3/ul (150-450); Red Cell Distribution Width 16 % (10.5-15); White Blood Count 16.4 10^3/ul (3.5-10.8)
[2017-12-11 20:25] LABS: Hematocrit 26 % (42-52); Hemoglobin 8.7 g/dl (14.0-18.0); Mean Corpuscular HGB Conc 33 g/dl (31-36); Mean Corpuscular Hemoglobin 29 pg (27-31); Mean Corpuscular Volume 86 fL (80-94); Mean Platelet Volume 7.8 um3 (7.4-10.4); Platelet Count 128 10^3/ul (150-450); Red Blood Count 3.05 10^6/ul (4.00-5.40); Red Cell Distribution Width 16 % (10.5-15); White Blood Count 18.3 10^3/ul (3.5-10.8)
[2017-12-11 20:48] LABS: ABS Basophils 0 10^3/ul (0-0.2); ABS Eosinophils 0.1 10^3/ul (0-0.6); ABS Lymphocytes 0.8 10^3/ul (1.0-4.8); ABS Monocytes 1.3 10^3/ul (0-0.8); ABS Neutrophils 16.1 10^3/ul (1.5-7.7); ABS Nucleated RBC 0 10^3/ul; Eosinophil % 0.3 % (0-6); Lymphocyte % 4.6 % (25-47); Nucleated Red Blood Cells % 0
[2017-12-11] MEDS: Cefepime 2 GM in Dextrose(*) 2 GM/50 ML BAG IV SCH (22:10)
[2017-12-12] MEDS: HYDROmorphone INJ* 0.5 MG/0.5 ML SYRINGE IV PRN ×4 (00:57→09:16)
[2017-12-12] MEDS: NS 0.9% 1000 ML* 1,000 ML IV SCH ×2 (04:56→20:02)
[2017-12-12] MEDS: metroNIDAZOLE IV 500 MG/100ML* 500 MG/100 ML BAG IVPB SCH (05:18)
[2017-12-12 05:35] LABS: Hematocrit 28 % (42-52); Hemoglobin 9.2 g/dl (14.0-18.0); Mean Corpuscular HGB Conc 33 g/dl (31-36); Mean Corpuscular Hemoglobin 29 pg (27-31); Mean Corpuscular Volume 87 fL (80-94); Mean Platelet Volume 7.7 um3 (7.4-10.4); Platelet Count 150 10^3/ul (150-450); Red Blood Count 3.17 10^6/ul (4.00-5.40); Red Cell Distribution Width 16 % (10.5-15); White Blood Count 18.6 10^3/ul (3.5-10.8)
[2017-12-12 05:51] LABS: EGFR Non-African American 26.4 (>60)
[2017-12-12 06:10] LABS: ABS Basophils 0.1 10^3/ul (0-0.2); ABS Eosinophils 0.1 10^3/ul (0-0.6); ABS Lymphocytes 0.9 10^3/ul (1.0-4.8); ABS Monocytes 1.2 10^3/ul (0-0.8); ABS Neutrophils 16.6 10^3/ul (1.5-7.7); ABS Nucleated RBC 0 10^3/ul
[2017-12-12 06:54] LABS: Eosinophil % 0.3 % (0-6); Lymphocyte % 4.8 % (25-47); Nucleated Red Blood Cells % 0
[2017-12-12] MEDS: Ondansetron INJ* 2 MG/ML VIAL IV PRN (07:42)
[2017-12-12] MEDS ORDERED: Piperacillin/Tazobac ADVAN(*) 3.375 GM in NS 0.9% 100 ML* 100 ML IVPB ONE (08:34)
[2017-12-12] MEDS ORDERED: Zosyn per Pharmacy* NOTE FOLLOW UP SCH (09:00)
--- NOTE | 2017-12-12 09:47 | PN ---
Date of Service: 12/12/17 Critical Care Services: 72M with htn, gout, bph, RA, non-ischemic cardiomyopathy with recovered EF admitted with perforated appendicitis. S/p Lab appy. Now septic shock. 12/11: hgb dropped. bloody output from donna drain. s/p 2 units prbc. remains on low dose levophed. 12/12: off levophed. hgb stable. wbc remains elevated. still has significant pain. Vital Signs: Temp Pulse Resp BP SpO2 FiO2 97.4 F 101 19 116/87 94 12/12/17 07:39 12/12/17 09:00 12/12/17 09:16 12/12/17 09:00 12/12/17 09:00 Physical Exam: Gen - acutely ill HEENT - NCAT, EOMI Neck - no jvd, no thyromegaly CV - s1/s2, tachy Pulm - cta, no wheeze Abd - soft, +drain in place with bloody output Ext - no edema Neuro - non-focal Fluid Balance (Past 24 Hours): I= O= Net Intake & Output 12/10/17 12/11/17 12/12/17 12/13/17 06:59 06:59 06:59 06:59 Intake Total 5897 3684.5 1986.3 340 Output Total 389 616 4276 590 Balance 5307 3037.5 -1103.7 -250 Weight 107 kg 113.8 kg 112 kg Intake: IV Fluids 5090 2308 917 232 ABX - FLAGYL 232 LR 1990 NS (0.9%) 2308 917 lr 2100 IVPB 372 284 108 ABX - CEFEPIME 66 ABX - FLAGYL 108 NS (0.9%) 372 218 Medicated IV 287 294.5 25.3 CC - Norepinephrine/ 287 294.5 25.3 Levophed Oral 520 440 450 Packed Cells 270 310 Output: DONNA #1 190 225 375 280 Urine 90 Son 728 800 2179 310 Straight Cath 250 Estimated Blood Loss 50 Other: Date of Last Bowel 12/09/17 Movement Labs: Laboratory Results - last 24 hr 12/10/17 12/11/17 12/11/17 16:55 09:38 14:15 WBC 16.4 H RBC 3.00 L Hgb 8.8 L Hct 26 L MCV 87 MCH 29 MCHC 34 RDW 16 H Plt Count 124 L MPV 8.1 Neut % (Auto) 85.4 H Lymph % (Auto) 5.7 L [place] % (Auto) 8.4 H Eos % (Auto) 0.3 Baso % (Auto) 0.2 Absolute Neuts (auto) 14.0 H Absolute Lymphs (auto) 0.9 L Absolute Monos (auto) 1.4 H Absolute Eos (auto) 0 Absolute Basos (auto) 0 Absolute Nucleated RBC 0 Nucleated RBC % 0 INR (Anticoag Therapy) 1.15 H APTT 32.2 Sodium Potassium Chloride Carbon Dioxide Anion Gap BUN Creatinine Est GFR ( Amer) Est GFR (Non-Af Amer) BUN/Creatinine Ratio Glucose Calcium Phosphorus Magnesium Blood Type O Positive Antibody Screen Negative Crossmatch See Detail 12/11/17 12/12/17 12/12/17 20:00 05:18 05:18 WBC 18.3 H 18.6 H RBC 3.05 L 3.17 L Hgb 8.7 L 9.2 L Hct 26 L 28 L MCV 86 87 MCH 29 29 MCHC 33 33 RDW 16 H 16 H Plt Count 128 L 150 MPV 7.8 7.7 Neut % (Auto) 88.0 H 88.3 H Lymph % (Auto) 4.6 L 4.8 L [place] % (Auto) 6.9 6.2 Eos % (Auto) 0.3 0.3 Baso % (Auto) 0.2 0.4 Absolute Neuts (auto) 16.1 H 16.6 H Absolute Lymphs (auto) 0.8 L 0.9 L Absolute Monos (auto) 1.3 H 1.2 H Absolute Eos (auto) 0.1 0.1 Absolute Basos (auto) 0 0.1 Absolute Nucleated RBC 0 0 Nucleated RBC % 0 0 INR (Anticoag Therapy) APTT Sodium 132 L Potassium 5.2 H Chloride 106 Carbon Dioxide 17 L Anion Gap 9 BUN 46 H Creatinine 2.42 H Est GFR ( Amer) 32.0 Est GFR (Non-Af Amer) 26.4 BUN/Creatinine Ratio 19.0 Glucose 109 H Calcium 7.6 L Phosphorus 3.8 Magnesium 2.3 Blood Type Antibody Screen Crossmatch Studies: 12/09/17: CT abd/pel Impression: Perforated appendicitis Impression: 72M with htn, gout, bph, RA, non-ischemic cardiomyopathy with recovered EF admitted with perforated appendicitis. S/p Lab appy. septic shock improved. hgb stable. Plan: Neuro - Pain control CV - shock - 2/2 sepsis/hemorrage - resolving - TTE with normal ef, diastolic dysfunction yesterday - off levophed Pulm - oxygenating ok ID - septic shock - 2/2 perforated appendicitis - s/p lap appy - f/u cultures - wbc remains elevated - afebrile - lactate has cleared - will changed to zosyn given lack of improvement on cefepime/flagyl GI - npo for now Renal - ckd, gout - monitor i/o - monitor lytes - potassium borderline Heme - anemia - unknown baseline - bloody output from donna drain is slightly improved - will continue to transfuse as needed Rheum - RA - on humira at home Endo - check fs, niss Lines - L subclav TLC (12/09), Son PPx - gi/dvt Full Code Critical Care Time: 40 mins
--- NOTE | 2017-12-12 10:06 | PN ---
Progress Note - Progress Note Date of Service: 12/12/17 SOAP: Subjective: A little anxious this morning, alert but sometimes slow in responding to questions Complaining of some abdominal pain Tachycardia overnight-off levophed Objective: Temp Pulse Resp BP Pulse Ox 97.4 F 101 19 116/87 94 12/12/17 07:39 12/12/17 09:00 12/12/17 09:16 12/12/17 09:00 12/12/17 09:00 Intake & Output 12/10/17 12/11/17 12/12/17 12/13/17 06:59 06:59 06:59 06:59 Intake Total 5897 3684.5 1986.3 340 Output Total 086 249 9126 590 Balance 5307 3037.5 -1103.7 -250 Weight 235 lb 14.314 oz 250 lb 14.177 oz 246 lb 14.684 oz Intake: IV Fluids 5090 2308 917 232 ABX - FLAGYL 232 LR 1990 NS (0.9%) 2308 917 lr 2100 IVPB 372 284 108 ABX - CEFEPIME 66 ABX - FLAGYL 108 NS (0.9%) 372 218 Medicated IV 287 294.5 25.3 CC - Norepinephrine/ 287 294.5 25.3 Levophed Oral 520 440 450 Packed Cells 270 310 Output: LUCILA #1 190 225 375 280 Urine 90 Son 827 283 7531 310 Straight Cath 250 Estimated Blood Loss 50 Other: Date of Last Bowel 12/09/17 Movement PEX: Comfortable Lungs are clear with some expiratory wheezing, no rales. Decreased breath sounds at the bases. Incisions are clean and dry LUCILA with some sanguinous fluid in bulb, much thinner and less viscous than yesterday. Laboratory Results - last 24 hr 12/10/17 12/11/17 12/11/17 16:55 09:38 14:15 WBC 16.4 H RBC 3.00 L Hgb 8.8 L Hct 26 L MCV 87 MCH 29 MCHC 34 RDW 16 H Plt Count 124 L MPV 8.1 Neut % (Auto) 85.4 H Lymph % (Auto) 5.7 L [place] % (Auto) 8.4 H Eos % (Auto) 0.3 Baso % (Auto) 0.2 Absolute Neuts (auto) 14.0 H Absolute Lymphs (auto) 0.9 L Absolute Monos (auto) 1.4 H Absolute Eos (auto) 0 Absolute Basos (auto) 0 Absolute Nucleated RBC 0 Nucleated RBC % 0 INR (Anticoag Therapy) 1.15 H APTT 32.2 Sodium Potassium Chloride Carbon Dioxide Anion Gap BUN Creatinine Est GFR ( Amer) Est GFR (Non-Af Amer) BUN/Creatinine Ratio Glucose Calcium Phosphorus Magnesium Blood Type O Positive Antibody Screen Negative Crossmatch See Detail 12/11/17 12/12/17 12/12/17 20:00 05:18 05:18 WBC 18.3 H 18.6 H RBC 3.05 L 3.17 L Hgb 8.7 L 9.2 L Hct 26 L 28 L MCV 86 87 MCH 29 29 MCHC 33 33 RDW 16 H 16 H Plt Count 128 L 150 MPV 7.8 7.7 Neut % (Auto) 88.0 H 88.3 H Lymph % (Auto) 4.6 L 4.8 L [place] % (Auto) 6.9 6.2 Eos % (Auto) 0.3 0.3 Baso % (Auto) 0.2 0.4 Absolute Neuts (auto) 16.1 H 16.6 H Absolute Lymphs (auto) 0.8 L 0.9 L Absolute Monos (auto) 1.3 H 1.2 H Absolute Eos (auto) 0.1 0.1 Absolute Basos (auto) 0 0.1 Absolute Nucleated RBC 0 0 Nucleated RBC % 0 0 INR (Anticoag Therapy) APTT Sodium 132 L Potassium 5.2 H Chloride 106 Carbon Dioxide 17 L Anion Gap 9 BUN 46 H Creatinine 2.42 H Est GFR ( Amer) 32.0 Est GFR (Non-Af Amer) 26.4 BUN/Creatinine Ratio 19.0 Glucose 109 H Calcium 7.6 L Phosphorus 3.8 Magnesium 2.3 Blood Type Antibody Screen Crossmatch Assessment: POD# 3 s/p lap appy for acute appendicitis Sepsis--off levophed Tachycardia CKD-BUN/Cr improved and making adequate amounts of urine. Did receive one dose of lasix yesterday. Anemia-operative and post-operative blood loss--received one U PRBC's yesterday- -H/H stable at present. Leukocytosis-WBC remains elevated--he has come off levophed and BP remains stable with good urine output, no fever; LUCILA drain non-bilious. Plan: Switch to Zosyn for possible better coverage Restart beta kareem that he is regularly on-follow heart rate Repeat H/H this afternoon LUCILA drainage Hold on heparin Repeat labs in AM Care discussed with Dr. Ashraf, ICU
[2017-12-12] MEDS: Acetaminophen TAB* 325 MG PO PRN ×2 (10:32→12:00)
[2017-12-12] MEDS: oxyCODONE/Acetamin 5/325 MG* TAB PO PRN (12:00)
[2017-12-12] MEDS: ZOSYN 3.375 GM Q8H per EXTENDED INFUSION IVPB SCH ×4 (13:07→21:03)
[2017-12-12] MEDS: Metoprolol Succinate XL TAB* 50 MG PO SCH ×2 (13:54→14:21)
[2017-12-12] MEDS: Metoprolol Succinate XL TAB* 25 MG PO SCH ×2 (13:55→14:21)
[2017-12-12] MEDS: Morphine INJ* 2 MG/ML 1 ML SYRINGE (TWO MG - NEW SYRINGE VERSION) IV PRN ×2 (14:38→16:54)
[2017-12-12 15:22] LABS: ABS Basophils 0 10^3/ul (0-0.2); ABS Eosinophils 0.1 10^3/ul (0-0.6); ABS Lymphocytes 0.6 10^3/ul (1.0-4.8); ABS Monocytes 1.2 10^3/ul (0-0.8); ABS Neutrophils 14.7 10^3/ul (1.5-7.7); ABS Nucleated RBC 0 10^3/ul; Eosinophil % 0.4 % (0-6); Hematocrit 28 % (42-52); Hemoglobin 9.1 g/dl (14.0-18.0); Lymphocyte % 3.4 % (25-47); Mean Corpuscular HGB Conc 33 g/dl (31-36); Mean Corpuscular Hemoglobin 29 pg (27-31); Mean Corpuscular Volume 87 fL (80-94); Mean Platelet Volume 7.1 um3 (7.4-10.4); Nucleated Red Blood Cells % 0; Platelet Count 148 10^3/ul (150-450); Red Blood Count 3.19 10^6/ul (4.00-5.40); Red Cell Distribution Width 16 % (10.5-15); White Blood Count 16.5 10^3/ul (3.5-10.8)
[2017-12-12] MEDS ORDERED: HYDROmorphone INJ* 0.5 MG/0.5 ML SYRINGE IV SLOW PU ONE (15:23)
[2017-12-12] MEDS: Metoprolol Tartrate IV* 1 MG/ML 5 ML VIAL IV SCH ×2 (15:53→20:16)
[2017-12-12] MEDS: Allopurinol TAB* 100 MG PO SCH (16:14)
[2017-12-12] MEDS: HYDROmorphone INJ* 0.5 MG/0.5 ML SYRINGE IV SLOW PU PRN ×3 (17:54→22:40)
[2017-12-12] MEDS: Haloperidol INJ IV/IM* 5 MG/ML AMP IV SLOW PU PRN (18:40)
[2017-12-13] MEDS: HYDROmorphone INJ* 0.5 MG/0.5 ML SYRINGE IV SLOW PU PRN ×4 (00:48→12:31)
[2017-12-13] MEDS: Metoprolol Tartrate IV* 1 MG/ML 5 ML VIAL IV SCH ×4 (03:15→20:05)
[2017-12-13] MEDS: Haloperidol INJ IV/IM* 5 MG/ML AMP IV SLOW PU PRN (03:53)
[2017-12-13] MEDS: ZOSYN 3.375 GM Q8H per EXTENDED INFUSION IVPB SCH ×6 (05:52→21:21)
[2017-12-13 06:04] LABS: Hematocrit 28 % (42-52); Hemoglobin 9.3 g/dl (14.0-18.0); Mean Corpuscular HGB Conc 33 g/dl (31-36); Mean Corpuscular Hemoglobin 29 pg (27-31); Mean Corpuscular Volume 87 fL (80-94); Mean Platelet Volume 7.4 um3 (7.4-10.4); Platelet Count 169 10^3/ul (150-450); Red Blood Count 3.22 10^6/ul (4.00-5.40); Red Cell Distribution Width 16 % (10.5-15); White Blood Count 15.9 10^3/ul (3.5-10.8)
[2017-12-13 06:15] LABS: EGFR Non-African American 38.7 (>60)
[2017-12-13 06:17] LABS: ABS Basophils 0 10^3/ul (0-0.2); ABS Eosinophils 0.2 10^3/ul (0-0.6); ABS Monocytes 1.3 10^3/ul (0-0.8); ABS Nucleated RBC 0 10^3/ul; Eosinophil % 1.3 % (0-6); Lymphocyte % 6.5 % (25-47); Nucleated Red Blood Cells % 0
[2017-12-13] MEDS ORDERED: methylPREDNISolone SOD 40 MG* 1 ML VIAL IV SCH (08:00)
[2017-12-13] MEDS: Albuterol/Ipratropium NEB.SOL* Albuterol 2.5 MG/Ipratropium 0.5 MG 3 ML INH SCH ×2 (08:12→11:43)
--- NOTE | 2017-12-13 08:36 | PN ---
Date of Service: 12/13/17 Critical Care Services: 72M with htn, gout, bph, RA, non-ischemic cardiomyopathy with recovered EF admitted with perforated appendicitis. S/p Lab appy. Now septic shock. 12/11: hgb dropped. bloody output from donan drain. s/p 2 units prbc. remains on low dose levophed. 12/12: off levophed. hgb stable. wbc remains elevated. still has significant pain. 12/13: upper airway wheezing this am, stridor? slightly delirious. Vital Signs: Temp Pulse Resp BP SpO2 FiO2 98 F 76 14 147/74 100 12/13/17 08:00 12/13/17 08:12 12/13/17 08:12 12/13/17 08:00 12/13/17 08:12 Physical Exam: Gen - acutely ill HEENT - NCAT, EOMI Neck - no jvd, no thyromegaly, stridor? CV - s1/s2, tachy Pulm - cta, +wheeze Abd - soft, +drain in place with bloody output Ext - no edema Neuro - non-focal Fluid Balance (Past 24 Hours): I= O= Net Intake & Output 12/11/17 12/12/17 12/13/17 12/14/17 06:59 06:59 06:59 06:59 Intake Total 3684.5 1986.3 2145 Output Total 647 3090 3120 190 Balance 3037.5 -1103.7 -975 -190 Weight 113.8 kg 112 kg 112.7 kg Intake: IV Fluids 2308 917 1703 ABX - FLAGYL 232 ABX - ZOSYN 391 NS (0.9%) 2308 917 1080 IVPB 372 284 442 ABX - CEFEPIME 66 ABX - FLAGYL 108 ABX - ZOSYN 334 NS (0.9%) 372 218 Medicated IV 294.5 25.3 CC - Norepinephrine/ 294.5 25.3 Levophed Oral 440 450 Packed Cells 270 310 Output: DONNA #1 225 375 940 Urine 90 Son 422 2625 2180 190 Labs: Laboratory Results - last 24 hr 12/12/17 12/13/17 12/13/17 15:14 05:40 05:40 WBC 16.5 H 15.9 H RBC 3.19 L 3.22 L Hgb 9.1 L 9.3 L Hct 28 L 28 L MCV 87 87 MCH 29 29 MCHC 33 33 RDW 16 H 16 H Plt Count 148 L 169 MPV 7.1 L 7.4 Neut % (Auto) 88.9 H 83.5 H Lymph % (Auto) 3.4 L 6.5 L [place] % (Auto) 7.0 8.4 H Eos % (Auto) 0.4 1.3 Baso % (Auto) 0.3 0.3 Absolute Neuts (auto) 14.7 H 13.0 H Absolute Lymphs (auto) 0.6 L 1.0 Absolute Monos (auto) 1.2 H 1.3 H Absolute Eos (auto) 0.1 0.2 Absolute Basos (auto) 0 0 Absolute Nucleated RBC 0 0 Nucleated RBC % 0 0 Sodium 137 Potassium 4.7 Chloride 109 Carbon Dioxide 21 L Anion Gap 7 BUN 40 H Creatinine 1.74 H Est GFR ( Amer) 46.8 Est GFR (Non-Af Amer) 38.7 BUN/Creatinine Ratio 23.0 H Glucose 99 Calcium 7.9 L Phosphorus 2.6 Magnesium 2.0 Impression: 72M with htn, gout, bph, RA, non-ischemic cardiomyopathy with recovered EF admitted with perforated appendicitis. S/p Lab appy. septic shock improved. hgb stable. Plan: Neuro - delirium - haldol prn - re-direct as needed CV - shock - 2/2 sepsis/hemorrage - resolving - TTE with normal ef, diastolic dysfunction yesterday - off levophed - qtc < 500 Pulm - stridor? - started on steroids and nebulizers - cxr ordered - will monitor closely ID - septic shock - 2/2 perforated appendicitis - s/p lap appy - f/u cultures - wbc remains elevated - afebrile - lactate has cleared - c/w zosyn GI - trial of clear liquid - advance as tolerated Renal - ckd, gout - monitor i/o - monitor lytes - potassium improved Heme - anemia - unknown baseline - bloody output from donna drain is slightly improved - will continue to transfuse as needed Rheum - RA - on humira at home Endo - check fs, niss Lines - L subclav TLC (12/09), Son PPx - gi/dvt Full Code Critical Care Time: 40 mins
--- NOTE | 2017-12-13 08:46 | PN ---
Progress Note - Progress Note Date of Service: 12/13/17 Note: POD#4 s/p perf appy Afeb, VS noted Uo large Awake and alert C/O mod pain Abd soft, tender, distended LUCILA serosanguinous Labs noted Impr: S/P perf appy, sepsis, renal failure Renal function normalizing WBC coming down, cont abx H/H stable Cont LUCILA Start po's
[2017-12-13] MEDS ORDERED: Metoprolol Succinate XL TAB* 50 MG PO SCH (09:00)
[2017-12-13] MEDS ORDERED: Metoprolol Succinate XL TAB* 25 MG PO SCH (09:00)
[2017-12-13] MEDS: NS 0.9% 1000 ML* 1,000 ML IV SCH ×2 (09:27→22:12)
[2017-12-13] MEDS ORDERED: Albuterol 2.5 MG/3 ML NEB.SOL* (0.083%) INH PRN (11:42)
[2017-12-13 15:38] LABS: ABS Basophils 0 10^3/ul (0-0.2); ABS Eosinophils 0 10^3/ul (0-0.6); ABS Lymphocytes 0.3 10^3/ul (1.0-4.8); ABS Monocytes 0.1 10^3/ul (0-0.8); ABS Neutrophils 15.1 10^3/ul (1.5-7.7); ABS Nucleated RBC 0 10^3/ul; Eosinophil % 0.1 % (0-6); Hematocrit 31 % (42-52); Hemoglobin 10.3 g/dl (14.0-18.0); Lymphocyte % 1.8 % (25-47); Mean Corpuscular HGB Conc 33 g/dl (31-36); Mean Corpuscular Hemoglobin 29 pg (27-31); Mean Corpuscular Volume 87 fL (80-94); Mean Platelet Volume 7.3 um3 (7.4-10.4); Nucleated Red Blood Cells % 0; Platelet Count 206 10^3/ul (150-450); Red Blood Count 3.61 10^6/ul (4.00-5.40); Red Cell Distribution Width 17 % (10.5-15); White Blood Count 15.5 10^3/ul (3.5-10.8)
[2017-12-13 16:02] LABS: EGFR Non-African American 42.6 (>60)
[2017-12-13] MEDS: Allopurinol TAB* 100 MG PO SCH (17:57)
[2017-12-13] MEDS: HYDROmorphone INJ* 0.5 MG/0.5 ML SYRINGE IV PRN ×2 (20:02→22:25)
[2017-12-13] MEDS ORDERED: HYDROmorphone INJ* 0.5 MG/0.5 ML SYRINGE ONE (23:46)
[2017-12-13] MEDS: HYDROmorphone INJ* 0.5 MG/0.5 ML SYRINGE IV ONE ×2 (23:48→23:52)
[2017-12-13] MEDS ORDERED: Metoprolol Tartrate IV* 1 MG/ML 5 ML VIAL IV ONE (23:53)
[2017-12-14] MEDS: HYDROmorphone INJ* 0.5 MG/0.5 ML SYRINGE IV PRN ×4 (02:59→16:43)
[2017-12-14] MEDS: Metoprolol Tartrate IV* 1 MG/ML 5 ML VIAL IV SCH ×4 (05:02→20:56)
[2017-12-14] MEDS: ZOSYN 3.375 GM Q8H per EXTENDED INFUSION IVPB SCH ×6 (05:03→21:01)
[2017-12-14 05:31] LABS: Hematocrit 31 % (42-52); Hemoglobin 10.2 g/dl (14.0-18.0); Mean Corpuscular HGB Conc 33 g/dl (31-36); Mean Corpuscular Hemoglobin 29 pg (27-31); Mean Corpuscular Volume 87 fL (80-94); Mean Platelet Volume 7.3 um3 (7.4-10.4); Platelet Count 293 10^3/ul (150-450); Red Blood Count 3.57 10^6/ul (4.00-5.40); Red Cell Distribution Width 16 % (10.5-15); White Blood Count 21.3 10^3/ul (3.5-10.8)
[2017-12-14 05:33] LABS: ABS Basophils 0 10^3/ul (0-0.2); ABS Eosinophils 0 10^3/ul (0-0.6); ABS Monocytes 1.8 10^3/ul (0-0.8); ABS Neutrophils 18.4 10^3/ul (1.5-7.7); ABS Nucleated RBC 0 10^3/ul
[2017-12-14 05:58] LABS: EGFR Non-African American 42.3 (>60)
[2017-12-14 06:15] LABS: ABS Basophils 0 10^3/ul (0-0.2); ABS Neutrophils 18.1 10^3/ul (1.5-7.7); Monocytes % 12 % (0-7)
--- NOTE | 2017-12-14 10:16 | RAD ---
INDICATION: Nasogastric tube placement COMPARISON: December 09, 2017 TECHNIQUE: An AP portable view obtained at 0950 hours is submitted. FINDINGS: Bones/Soft Tissues: There are no acute bony findings. There is nasogastric tube projected over the left upper quadrant. This is likely in the body the stomach Cardiomediastinal: The cardiomediastinal silhouette is normal. Lungs: There is right basilar hypoventilation most consistent with atelectasis. Pleura: There are no pleural effusions. Other: None IMPRESSION: THE NASOGASTRIC TUBE IS IN EXPECTED POSITION. THERE IS BIBASILAR HYPOVENTILATION.
--- NOTE | 2017-12-14 11:53 | PN ---
Date of Service: 12/14/17 Critical Care Services: 72M with htn, gout, bph, RA, non-ischemic cardiomyopathy with recovered EF admitted with perforated appendicitis. S/p Lab appy. Now septic shock. 12/11: hgb dropped. bloody output from donna drain. s/p 2 units prbc. remains on low dose levophed. 12/12: off levophed. hgb stable. wbc remains elevated. still has significant pain. 12/13: upper airway wheezing this am, stridor? slightly delirious. 12/14: Patient with persistent pain. NG tube placed 4L dark brown fluid aspirated. CT scan ordered. Vital Signs: Temp Pulse Resp BP SpO2 FiO2 97.6 F 75 17 145/90 97 12/14/17 11:12/14/17 11:00 12/14/17 11:00 12/14/17 11:00 12/14/17 11:00 Physical Exam: Gen - acutely ill HEENT - NCAT, EOMI Neck - no jvd, no thyromegaly, stridor? CV - s1/s2, tachy Pulm - cta, +wheeze Abd - soft, +drain in place with bloody output Ext - no edema Neuro - non-focal Fluid Balance (Past 24 Hours): I= O= Net Intake & Output 12/12/17 12/13/17 12/14/17 12/15/17 06:59 06:59 06:59 06:59 Intake Total 1986.3 2145 2078 1000 Output Total 3090 3120 2270 4235 Balance -1103.7 -975 -192 -3235 Weight 112 kg 112.7 kg 112 kg Intake: IV Fluids 917 1703 1948 ABX - FLAGYL 232 ABX - ZOSYN 391 NS (0.9%) 917 1080 1948 IVPB 284 442 110 ABX - CEFEPIME 66 ABX - FLAGYL 108 ABX - ZOSYN 334 110 NS (0.9%) 218 Medicated IV 25.3 CC - Norepinephrine/ 25.3 Levophed Oral 450 20 Tube Feeding Flush Amount 1000 Packed Cells 310 Output: NG Tube Drainage Amount 4000 DONNA #1 375 940 235 Urine 90 Son 2625 2180 2035 235 Labs: Laboratory Results - last 24 hr 12/11/17 12/13/17 12/13/17 20:00 15:24 15:24 WBC 15.5 H RBC 3.61 L Hgb 10.3 L Hct 31 L MCV 87 MCH 29 MCHC 33 RDW 17 H Plt Count 206 MPV 7.3 L Neut % (Auto) 97.3 H Lymph % (Auto) 1.8 L [place] % (Auto) 0.8 Eos % (Auto) 0.1 Baso % (Auto) 0 Absolute Neuts (auto) 15.1 H Absolute Lymphs (auto) 0.3 L Absolute Monos (auto) 0.1 Absolute Eos (auto) 0 Absolute Basos (auto) 0 Absolute Nucleated RBC 0 Neutrophils % Lymphocytes % Monocytes % Eosinophils % Basophils % Nucleated RBC % 0 Abs Neuts (Manual) Abs Lymphs (Manual) Abs Monocytes (Manual) Absolute Eos (Manual) Abs Basophils (Manual) Normal RBC Morphology Polychromasia Hem Pathologist Commnt Sodium 137 Potassium 4.9 Chloride 108 Carbon Dioxide 17 L Anion Gap 12 H BUN 34 H Creatinine 1.60 H Est GFR ( Amer) 51.5 Est GFR (Non-Af Amer) 42.6 BUN/Creatinine Ratio 21.3 H Glucose 126 H Lactic Acid Calcium 8.1 L Phosphorus 2.3 L Magnesium 2.0 Iron Total Bilirubin AST ALT Alkaline Phosphatase Total Protein Albumin Globulin Albumin/Globulin Ratio 12/13/17 12/14/17 12/14/17 15:24 05:10 05:10 WBC 21.3 H RBC 3.57 L Hgb 10.2 L Hct 31 L MCV 87 MCH 29 MCHC 33 RDW 16 H Plt Count 293 MPV 7.3 L Neut % (Auto) Not Reportable Lymph % (Auto) Not Reportable [place] % (Auto) Not Reportable Eos % (Auto) Not Reportable Baso % (Auto) Not Reportable Absolute Neuts (auto) 18.4 H Absolute Lymphs (auto) 1.0 Absolute Monos (auto) 1.8 H Absolute Eos (auto) 0 Absolute Basos (auto) 0 Absolute Nucleated RBC 0 Neutrophils % 85 H Lymphocytes % 3 L Monocytes % 12 H Eosinophils % 0 Basophils % 0 Nucleated RBC % Not Reportable Abs Neuts (Manual) 18.1 H Abs Lymphs (Manual) 0.6 L Abs Monocytes (Manual) 2.6 H Absolute Eos (Manual) 0 Abs Basophils (Manual) 0 Normal RBC Morphology Not Reportable Polychromasia 1+ Hem Pathologist Commnt Sodium 139 Potassium 4.7 Chloride 108 Carbon Dioxide 22 Anion Gap 9 BUN 37 H Creatinine 1.61 H Est GFR ( Amer) 51.2 Est GFR (Non-Af Amer) 42.3 BUN/Creatinine Ratio 23.0 H Glucose 122 H Lactic Acid 0.7 Calcium 8.2 L Phosphorus 2.6 Magnesium 2.1 Iron 19 L Total Bilirubin 0.50 AST 15 ALT 10 Alkaline Phosphatase 65 Total Protein 6.4 Albumin 2.9 L Globulin 3.5 Albumin/Globulin Ratio 0.8 L Studies: 12/09/17 CT Abd/Pel IMPRESSION: Dilated appendix with periappendiceal infiltration of fat consistent with acute appendicitis. Multiple appendicoliths are noted. There is likely cirrhosis of the liver. 12/14/17 CT abd/Pel Pending Impression: 72M with htn, gout, bph, RA, non-ischemic cardiomyopathy with recovered EF admitted with perforated appendicitis. S/p Lab appy. septic shock improved. hgb stable. Plan: Neuro - delirium - haldol prn - re-direct as needed CV - shock - 2/2 sepsis/hemorrage - resolving - TTE with normal ef, diastolic dysfunction yesterday - off levophed - qtc < 500 Pulm - stidor - resolved ID - septic shock - improved - 2/2 perforated appendicitis - s/p lap appy - f/u cultures - wbc remains elevated - afebrile - lactate has cleared - c/w zosyn GI -appendicitis, ileus? - ng tube placed and 4L dark brown fluid aspirated - repeat CT abd pending Renal - ckd, gout - monitor i/o - monitor lytes - potassium improved Heme - anemia - unknown baseline - bloody output from donna drain is slightly improved - will continue to transfuse as needed Rheum - RA - on humira at home Endo - check fs, niss Lines - L subclav TLC (12/09), Son PPx - gi/dvt Full Code Discussed with surgery at bedside Critical Care Time: 45 mins
[2017-12-14] MEDS: NS 0.9% 1000 ML* 1,000 ML IV SCH (11:54)
--- NOTE | 2017-12-14 12:10 | RAD ---
INDICATION: Post appendectomy. Assess for abscess and bowel injury. Renal failure. COMPARISON: December 09, 2017 CT TECHNIQUE: Multidetector CT images were obtained from the lung bases to the ischial tuberosities. Oral contrast administered. Assessment of the visceral limited without IV contrast. REPORT: Arms down position results in beam hardening artifact limiting image quality. VISUALIZED INFERIOR THORAX: Moderate bilateral dependent pleural effusions. Gross complete atelectasis of the RIGHT lower lobe with partial atelectasis of the LEFT lower lobe. Negative for cardiomegaly or pericardial effusion. Coronary artery calcifications. LIVER / GALLBLADDER / PANCREAS / SPLEEN: 13.7 cm cephalocaudal liver with nodular surface contour. No conspicuous focal liver lesions. Post cholecystectomy. No biliary dilatation evident. Moderately atrophic pancreas without suspicious finding. Unremarkable spleen. ALIMENTARY TRACT: Enteric contrast from the current contrast ingestion extends to the proximal ileum. Long segment mild dilatation of the proximal small bowel loops measuring up to 3.5 cm diameter. The mid through distal and terminal ilium are decompressed. No discrete transition point identified. Denser enteric contrast likely from previous contrast menstruation is noted in the colon. Postsurgical change of appendectomy. Surgical drain in place with the tip at the appendectomy bed. No perienteric abscess collection evident. Small volume of ascites predominant perihepatic and extending down the RIGHT paracolic gutter to the RIGHT lower quadrant and pelvis. No loculated peritoneal fluid collection evident. Negative for free air. Negative for significant hernias. MESENTERIC: Diffuse mild mesenteric edema. ADRENAL / GENITOURINARY: Normal adrenal glands. Mildly atrophic kidneys. Negative for urolithiasis, hydronephrosis, or suspicious focal renal lesions. The RIGHT ureter courses through the region of post appendectomy edema at the RIGHT lower quadrant. Negative for ureteral dilatation. Catheterized decompressed urinary bladder. RETROPERITONEAL: Negative for lymphadenopathy. VASCULAR: Atherosclerotic calcification of normal diameter abdominal aorta and iliac arteries. Partially decompressed IVC. 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 SOFT TISSUE: Diffuse soft tissue edema most prominent at the dependent portions. Mild bilateral gynecomastia noted. IMPRESSION: #. Postsurgical change of appendectomy. Surgical drain in place at the appendectomy bed. Small volume of ascites including at the RIGHT lower quadrant December 09, 2017 CT. No loculated RIGHT lower quadrant fluid collection to indicate abscess. #. Probable postoperative small bowel ileus. Negative for free air to indicate bowel perforation. #. Cirrhotic liver morphology. #. Moderate bilateral dependent pleural effusions with lower lobe atelectasis new compared with the December 09, 2017 CT.
--- NOTE | 2017-12-14 14:26 | PN ---
Progress Note - Progress Note Date of Service: 12/14/17 Note: POD#5 s/p perf appy Tm 100+, VS noted UO good Large NG drainage Labs noted Abd distended, sore, incis clean LUCILA serosang. CT results noted; no abscess Impr: s/p perf appy Elev WBC, uncertain etiology. ?CVL? Gastric distension? H/H stable Creat stable Ileus, await GI fxn
[2017-12-14 16:03] LABS: EGFR Non-African American 47.3 (>60)
[2017-12-14] MEDS: Ondansetron INJ* 2 MG/ML VIAL IV PRN (16:43)
[2017-12-14] MEDS: Allopurinol TAB* 100 MG PO SCH (17:12)
[2017-12-14] MEDS: Haloperidol INJ IV/IM* 5 MG/ML AMP IV SLOW PU PRN (19:47)
[2017-12-15] MEDS: NS 0.9% 1000 ML* 1,000 ML IV SCH ×2 (00:47→14:09)
[2017-12-15] MEDS: HYDROmorphone INJ* 0.5 MG/0.5 ML SYRINGE IV PRN ×2 (01:20→04:57)
[2017-12-15] MEDS: Metoprolol Tartrate IV* 1 MG/ML 5 ML VIAL IV SCH ×4 (02:24→21:42)
[2017-12-15] MEDS: Haloperidol INJ IV/IM* 5 MG/ML AMP IV SLOW PU PRN (04:16)
[2017-12-15] MEDS: ZOSYN 3.375 GM Q8H per EXTENDED INFUSION IVPB SCH ×6 (05:08→21:45)
[2017-12-15 05:19] LABS: Hematocrit 27 % (42-52); Mean Corpuscular HGB Conc 34 g/dl (31-36); Mean Corpuscular Hemoglobin 29 pg (27-31); Mean Corpuscular Volume 86 fL (80-94); Mean Platelet Volume 6.9 um3 (7.4-10.4); Platelet Count 204 10^3/ul (150-450); Red Blood Count 3.12 10^6/ul (4.00-5.40); Red Cell Distribution Width 17 % (10.5-15); White Blood Count 8.5 10^3/ul (3.5-10.8)
[2017-12-15 05:36] LABS: EGFR Non-African American 48.9 (>60)
[2017-12-15 05:58] LABS: ABS Basophils 0 10^3/ul (0-0.2); ABS Eosinophils 0.1 10^3/ul (0-0.6); ABS Lymphocytes 1.4 10^3/ul (1.0-4.8); ABS Monocytes 1.1 10^3/ul (0-0.8); ABS Nucleated RBC 0 10^3/ul; Lymphocyte % 15.9 % (25-47); Nucleated Red Blood Cells % 0.1
--- NOTE | 2017-12-15 08:13 | PN ---
Progress Note - Progress Note Date of Service: 12/15/17 Note: POD#6 s/p perf appy Afeb, VS noted UO adeq. NGT large output LUCILA 100 ml Feels much better, denies abd pain No N/V, No stool Breathing easy and unlabored Abd soft min tender, incis clean Impr: S/P perf appy WBC normal H/H stable Await GI fxn Creat stable Complete 10 day course of abx
[2017-12-16] MEDS: Metoprolol Tartrate IV* 1 MG/ML 5 ML VIAL IV SCH ×4 (02:30→20:44)
[2017-12-16] MEDS: NS 0.9% 1000 ML* 1,000 ML IV SCH (03:23)
[2017-12-16] MEDS: ZOSYN 3.375 GM Q8H per EXTENDED INFUSION IVPB SCH ×4 (05:33→13:55)
--- NOTE | 2017-12-16 12:45 | PN ---
Progress Note - Progress Note Date of Service: 12/16/17 SOAP: Subjective:POD#& s/p perf'd appy minimal pain,asking for coffee,thinks he passed a little flatus [] Objective:afeb,VSS,o2 sat 95%;lungs:clear anterior;heart:RRR;abd:quiet,soft; nondistended;LUCILA dark sanguinous;incisions intact with steristrips;ext:SCDs on, nontender Intake & Output 12/15/17 12/16/17 12/16/17 22:59 06:59 14:59 Intake Total 312 1560 0 Output Total 2610 2320 1000 Balance -2298 -760 -1000 labs reviewed:Phos 1.5;Ca8.1;NG 4850ml/24h;sykes output 1000ml [] Assessment:persistent ileus [] Plan:maintain NG spoke with Hospitalist GERSON Noland and he will see pt today for medical mgmt check labs 12/17/17 and consider TPN encourage pt to work with OT/PT []
--- NOTE | 2017-12-16 13:07 | PN ---
Subjective Date of Service: 12/16/17 Interval History: CC: Abdominal Pain HPI: Patient examined today at the bedside. Patient states that he is having some RLQ pain. Denies nausea and denies vomiting. Denies chest pain or sob. Denies lightheadedness. ROS- denies fever, denies chills, denies chest pain, denies nausea, denies vomiting, denies lightheadedness, denies loc, denies sob, admits to RLQ pain however improved, review of 11 systems completed all others negative, Objective Active Medications: Albuterol (Ventolin 2.5 Mg/3 Ml Neb.Danielle*) 2.5 mg INH Q4H PRN PRN Reason: SOB/WHEEZING Last Admin: 12/15/17 21:51 Dose: 2.5 mg Haloperidol Lactate (Haldol Inj Iv/Im*) 2 mg IV SLOW PU Q6H PRN PRN Reason: AGITATION Last Admin: 12/15/17 04:16 Dose: 2 mg Heparin Sodium (Porcine) (Heparin Flush Picc/Ml/Cvc(*)) 1 - 3 ml FLUSH 0600, 1800 [facility]; Protocol Last Admin: 12/16/17 05:36 Dose: 2 ml Hydromorphone HCl (Dilaudid Inj*) 0.5 mg IV Q2H PRN PRN Reason: PAIN Last Admin: 12/15/17 04:57 Dose: 0.5 mg Sodium Chloride (Ns 0.9% 1000 Ml*) 1,000 mls @ 75 mls/hr IV PER RATE [facility] Last Admin: 12/16/17 03:23 Dose: 75 mls/hr Piperacillin Sod/Tazobactam (Sod 3.375 gm/ Sodium Chloride) 100 mls @ 25 mls/ hr IVPB Q8H [facility] Last Admin: 12/16/17 05:33 Dose: 25 mls/hr Calcium Gluconate 1 gm/ Sodium (Chloride) 60 mls @ 60 mls/hr IVPB ONCE ONE Stop: 12/16/17 13:45 Potassium Phosphate 10 mmole/ (Sodium Chloride) 253.3333 mls @ 42 mls/hr IVPB ONCE ONE Stop: 12/16/17 18:51 Metoprolol Tartrate (Lopressor Iv*) 5 mg IV Q6H [facility] Last Admin: 12/16/17 08:49 Dose: 5 mg Ondansetron HCl (Zofran Inj*) 4 mg IV Q4H PRN PRN Reason: NAUSEA/VOMITING Last Admin: 12/14/17 16:43 Dose: 4 mg Pharmacy Consult (Zosyn Per Pharmacy*) 1 note FOLLOW UP .ZOSYN PER PHARMACY [facility] Vital Signs - 8 hr 12/16/17 07:07 Temperature 98.4 F Pulse Rate 75 Respiratory 24 Rate Blood Pressure 152/70 (mmHg) O2 Sat by Pulse 95 Oximetry Oxygen Devices in Use Now: None Appearance: 72 y/o male patient sitting in chair, NAD, Eyes: No Scleral Icterus Ears/Nose/Mouth/Throat: NL Teeth, Lips, Gums Neck: NL Appearance and Movements; NL JVP Respiratory: Symmetrical Chest Expansion and Respiratory Effort, Clear to Auscultation Cardiovascular: NL Sounds; No Murmurs; No JVD Abdominal: - - Bowel sounds hypoactive, incison to abdomen CDI, Lucila drain intact , sanginous fluid present, Lymphatic: No Cervical Adenopathy Extremities: No Edema Skin: No Rash or Ulcers Neurological: Alert and Oriented x 3 Lines/Tubes/Other Access: Clean, Dry and Intact Son, Clean, Dry and Intact Naso-enteral Tube, Clean, Dry and Intact Other Access - LUCILA drain Result Diagrams: 12/15/17 05:10 12/15/17 05:10 Additional Lab and Data: Lab Results 12/09/17 Range/Units 10:27 WBC 17.3 H (3.5-10.8) 10^3/ul RBC 4.40 (4.00-5.40) 10^6/ul Hgb 12.4 L (14.0-18.0) g/dl Hct 37 L (42-52) % MCV 84 (80-94) fL MCH 28 (27-31) pg MCHC 33 (31-36) g/dl RDW 16 H (10.5-15) % Plt Count 122 L (150-450) 10^3/ul MPV 7.8 (7.4-10.4) um3 Neut % (Auto) 84.6 H (38-83) % Lymph % (Auto) 7.9 L (25-47) % [place] % (Auto) 7.2 H (0-7) % Eos % (Auto) 0 (0-6) % Baso % (Auto) 0.3 (0-2) % Absolute Neuts (auto) 14.7 H (1.5-7.7) 10^3/ul Absolute Lymphs (auto) 1.4 (1.0-4.8) 10^3/ul Absolute Monos (auto) 1.3 H (0-0.8) 10^3/ul Absolute Eos (auto) 0 (0-0.6) 10^3/ul Absolute Basos (auto) 0 (0-0.2) 10^3/ul Absolute Nucleated RBC 0 10^3/ul Nucleated RBC % 0 Microbiology and Other Data: Microbiology 12/09/17 11:54 Aerobic Blood Culture - Final Blood Venous No Growth Day 5 Anaerobic Blood Culture - Final No Growth Day 5 12/09/17 10:55 Aerobic Blood Culture - Final Blood Venous No Growth Day 5 Anaerobic Blood Culture - Final No Growth Day 5 12/09/17 23:05 Nasal Screen MRSA (PCR) - Final Nasal Mrsa Not Detected Assess/Plan/Problems-Billing Assessment: Mr Pineda is a 72yo M with PMH of RA, HTN, Gout, BPH, non ischemic CMP in the setting of sepsis in 2013 (with LV function recovery) who presented to ED with c /o abdominal pain, found to have appendicitis, complicated by Septic shock. . - Patient Problems (1) DVT prophylaxis Current Visit: Yes Status: Acute Comment: per surgical team (2) Full code status Current Visit: Yes Status: Acute Priority: High (3) Sepsis Current Visit: Yes Status: Acute Priority: High Comment: secondary to perforated appendicitis, off levophed, continue iv zosyn, bp stable, improving, (4) Arthritis Current Visit: No Status: Chronic Code(s): M19.90 - UNSPECIFIED OSTEOARTHRITIS, UNSPECIFIED SITE SNOMED Code(s): 9142520 Comment: With history of reactive arthritis Patient's prednisone recently tapered off. Patient restarted on prednisone at 20 mg this admission. Taper to 10 mg starting tomorrow; pt should follow-up with Dr. Mac. (5) BPH (benign prostatic hyperplasia) Current Visit: Yes Status: Chronic Priority: High Comment: Son in place (6) HTN (hypertension) Current Visit: Yes Status: Chronic Priority: High Comment: stable continue iv lopressor (7) Appendicitis Current Visit: Yes Status: Acute Priority: High Comment: Compliacetd by septic shock resolved, continue zosyn manamgent per surgery (8) Adynamic ileus Current Visit: Yes Status: Acute Priority: High Comment: NG tube with high output still, surgery considering TPN, will replace lytes to day, encourage mobilaztion (9) Electrolyte abnormality Current Visit: Yes Status: Acute Priority: High Comment: Ca 8.1 Phos 1.5 replacing today, repeat lytes in am (10) Delirium Current Visit: Yes Status: Acute Priority: High Comment: improving suspect r/t sepsis and acute illness, continue with supportive care (11) Cardiomyopathy Current Visit: Yes Status: Acute Priority: High Comment: EF recovered, stable, (12) Rheumatoid arthritis Current Visit: Yes Status: Acute Priority: High Comment: humuria on hold, restarted when stable, Status and Disposition: Continue mobilization, improving, sepsis resolved, replacing lytes, delirium improving suspect r/t acute medical illness, surgery to deciding on TPN given illeus and npo status, will need HOMER at d/c
[2017-12-16 13:28] LABS: Hematocrit 31 % (42-52); Hemoglobin 10.4 g/dl (14.0-18.0); Mean Corpuscular HGB Conc 33 g/dl (31-36); Mean Corpuscular Hemoglobin 29 pg (27-31); Mean Corpuscular Volume 87 fL (80-94); Mean Platelet Volume 6.9 um3 (7.4-10.4); Platelet Count 305 10^3/ul (150-450); Red Cell Distribution Width 16 % (10.5-15); White Blood Count 9.2 10^3/ul (3.5-10.8)
[2017-12-16] MEDS ORDERED: Calcium Gluconate INJ* 1 GM in NS 0.9% 50 ML* 50 ML IVPB ONE (13:30)
[2017-12-16 13:33] LABS: ABS Basophils 0 10^3/ul (0-0.2); ABS Eosinophils 0 10^3/ul (0-0.6); ABS Lymphocytes 1.4 10^3/ul (1.0-4.8); ABS Neutrophils 6.7 10^3/ul (1.5-7.7)
[2017-12-16 13:45] LABS: EGFR Non-African American 49.3 (>60)
[2017-12-16 14:27] LABS: ABS Basophils 0.1 10^3/ul (0-0.2); ABS Neutrophils 6.6 10^3/ul (1.5-7.7); Monocytes % 6 % (0-7)
[2017-12-16] MEDS ORDERED: Potassium Phosphate IV* 10 MMOLE in NS 0.9% 250 ML* 250 ML IVPB ONE (15:00)
[2017-12-16] MEDS: NS 0.45% KCl 20 Meq 1000 ML* 1,000 ML IV SCH (16:05)
--- NOTE | 2017-12-16 16:37 | PN ---
Progress Note - Progress Note Date of Service: 12/16/17 - LUCILA drain removal Note: LUCILA drain removed from lower abdomen,exit site clean,no erythema;4x4 dressing applied. EnricoCONVEYANCER
[2017-12-16] MEDS: HYDROmorphone INJ* 0.5 MG/0.5 ML SYRINGE IV PRN (23:37)
[2017-12-17] MEDS: Metoprolol Tartrate IV* 1 MG/ML 5 ML VIAL IV SCH ×4 (02:29→21:46)
[2017-12-17] MEDS: HYDROmorphone INJ* 0.5 MG/0.5 ML SYRINGE IV PRN ×3 (02:35→20:05)
[2017-12-17] MEDS: NS 0.45% KCl 20 Meq 1000 ML* 1,000 ML IV SCH (05:14)
[2017-12-17 05:20] LABS: ABS Basophils 0 10^3/ul (0-0.2); ABS Eosinophils 0.1 10^3/ul (0-0.6); ABS Monocytes 0.8 10^3/ul (0-0.8); ABS Neutrophils 5.6 10^3/ul (1.5-7.7); ABS Nucleated RBC 0 10^3/ul; Eosinophil % 1.3 % (0-6); Hematocrit 29 % (42-52); Hemoglobin 9.5 g/dl (14.0-18.0); Lymphocyte % 23.1 % (25-47); Mean Corpuscular HGB Conc 33 g/dl (31-36); Mean Corpuscular Hemoglobin 29 pg (27-31); Mean Corpuscular Volume 87 fL (80-94); Mean Platelet Volume 6.8 um3 (7.4-10.4); Nucleated Red Blood Cells % 0.1; Platelet Count 253 10^3/ul (150-450); Red Blood Count 3.31 10^6/ul (4.00-5.40); Red Cell Distribution Width 16 % (10.5-15); White Blood Count 8.6 10^3/ul (3.5-10.8)
[2017-12-17 05:37] LABS: EGFR Non-African American 47.7 (>60)
--- NOTE | 2017-12-17 10:20 | PN ---
Progress Note - Progress Note Date of Service: 12/17/17 Note: POD#8 s/p perf appy Afeb, VS noted UO large Still with large NGT drainage, tho taking a lot of ice chips No pain, Hungry Abd soft non-tender, active BS IMPR: s/p perf appy, ileus NGT drainage dark, will add carafate Clamping trials of NGT, D/C if no nausea and low residuals D/C sykes Electrolytes per hospitalist
[2017-12-17] MEDS: Sucralfate TAB* 1 GM PO SCH ×2 (10:36→21:46)
[2017-12-17] MEDS: D5W 1000 ML BAG* 1,000 ML IV SCH ×2 (13:38→16:58)
--- NOTE | 2017-12-17 15:54 | PN ---
Subjective Date of Service: 12/17/17 Interval History: Patient seen and examined. Confused, appears to have poor insight but follows commands. Denies pain, denies n/v, remains on 1:1. Objective Active Medications: Albuterol (Ventolin 2.5 Mg/3 Ml Neb.Danielle*) 2.5 mg INH Q4H PRN PRN Reason: SOB/WHEEZING Last Admin: 12/15/17 21:51 Dose: 2.5 mg Haloperidol Lactate (Haldol Inj Iv/Im*) 2 mg IV SLOW PU Q6H PRN PRN Reason: AGITATION Last Admin: 12/15/17 04:16 Dose: 2 mg Heparin Sodium (Porcine) (Heparin Flush Picc/Ml/Cvc(*)) 1 - 3 ml FLUSH 0600, 1800 [facility]; Protocol Last Admin: 12/17/17 05:09 Dose: 2 ml Hydromorphone HCl (Dilaudid Inj*) 0.5 mg IV Q2H PRN PRN Reason: PAIN Last Admin: 12/17/17 09:59 Dose: 0.5 mg Dextrose (D5w 1000 Ml Bag*) 1,000 mls @ 300 mls/hr IV PER RATE [facility] Stop: 12/17/17 18:59 Last Admin: 12/17/17 13:38 Dose: 300 mls/hr Metoprolol Tartrate (Lopressor Iv*) 5 mg IV Q6H [facility] Last Admin: 12/17/17 09:59 Dose: 5 mg Ondansetron HCl (Zofran Inj*) 4 mg IV Q4H PRN PRN Reason: NAUSEA/VOMITING Last Admin: 12/14/17 16:43 Dose: 4 mg Pharmacy Consult (Zosyn Per Pharmacy*) 1 note FOLLOW UP .ZOSYN PER PHARMACY [facility] Sucralfate (Carafate*) 1 gm PO BID [facility] Last Admin: 12/17/17 10:36 Dose: 1 gm Vital Signs - 8 hr 12/17/17 12/17/17 12/17/17 09:59 11:22 11:32 Temperature 98.5 F Pulse Rate 63 Respiratory 16 16 18 Rate Blood Pressure 111/81 (mmHg) O2 Sat by Pulse 93 Oximetry 12/17/17 15:26 Temperature Pulse Rate 64 Respiratory 16 Rate Blood Pressure (mmHg) O2 Sat by Pulse 94 Oximetry Oxygen Devices in Use Now: None Appearance: alert, NAD Eyes: No Scleral Icterus, PERRLA Ears/Nose/Mouth/Throat: - - dry oral mucosa, NG tube to left nares Neck: NL Appearance and Movements; NL JVP, Trachea Midline Respiratory: Symmetrical Chest Expansion and Respiratory Effort, Clear to Auscultation Cardiovascular: NL Sounds; No Murmurs; No JVD, RRR Abdominal: NL Sounds; No Tenderness; No Distention Extremities: No Edema, No Clubbing, Cyanosis Skin: No Rash or Ulcers Neurological: - - confused Nutrition: - - NPO Result Diagrams: 12/17/17 05:10 12/17/17 05:10 Additional Lab and Data: Lab Results 12/09/17 Range/Units 10:27 WBC 17.3 H (3.5-10.8) 10^3/ul RBC 4.40 (4.00-5.40) 10^6/ul Hgb 12.4 L (14.0-18.0) g/dl Hct 37 L (42-52) % MCV 84 (80-94) fL MCH 28 (27-31) pg MCHC 33 (31-36) g/dl RDW 16 H (10.5-15) % Plt Count 122 L (150-450) 10^3/ul MPV 7.8 (7.4-10.4) um3 Neut % (Auto) 84.6 H (38-83) % Lymph % (Auto) 7.9 L (25-47) % [place] % (Auto) 7.2 H (0-7) % Eos % (Auto) 0 (0-6) % Baso % (Auto) 0.3 (0-2) % Absolute Neuts (auto) 14.7 H (1.5-7.7) 10^3/ul Absolute Lymphs (auto) 1.4 (1.0-4.8) 10^3/ul Absolute Monos (auto) 1.3 H (0-0.8) 10^3/ul Absolute Eos (auto) 0 (0-0.6) 10^3/ul Absolute Basos (auto) 0 (0-0.2) 10^3/ul Absolute Nucleated RBC 0 10^3/ul Nucleated RBC % 0 Microbiology and Other Data: Microbiology 12/09/17 11:54 Aerobic Blood Culture - Final Blood Venous No Growth Day 5 Anaerobic Blood Culture - Final No Growth Day 5 12/09/17 10:55 Aerobic Blood Culture - Final Blood Venous No Growth Day 5 Anaerobic Blood Culture - Final No Growth Day 5 12/09/17 23:05 Nasal Screen MRSA (PCR) - Final Nasal Mrsa Not Detected Diagnostic Imaging: Patient Name: GOKUL PINEDA Medical Record#: [id number] Ordering Physician: Ad Ashraf DO Acct.#: [id number] : 1945 Age: 72 Sex: M Location: [facility] Exam Date: 12/14/17842 ADM Status: ADM IN Order Information: CT ABD/PEL W/O Accession Number: [id number] CPT: 74931 INDICATION: Post appendectomy. Assess for abscess and bowel injury. Renal failure. COMPARISON: December 09, 2017 CT TECHNIQUE: Multidetector CT images were obtained from the lung bases to the ischial tuberosities. Oral contrast administered. Assessment of the visceral limited without IV contrast. REPORT: Arms down position results in beam hardening artifact limiting image quality. VISUALIZED INFERIOR THORAX: Moderate bilateral dependent pleural effusions. Gross complete atelectasis of the RIGHT lower lobe with partial atelectasis of the LEFT lower lobe. Negative for cardiomegaly or pericardial effusion. Coronary artery calcifications. LIVER / GALLBLADDER / PANCREAS / SPLEEN: 13.7 cm cephalocaudal liver with nodular surface contour. No conspicuous focal liver lesions. Post cholecystectomy. No biliary dilatation evident. Moderately atrophic pancreas without suspicious finding. Unremarkable spleen. ALIMENTARY TRACT: Enteric contrast from the current contrast ingestion extends to the proximal ileum. Long segment mild dilatation of the proximal small bowel loops measuring up to 3.5 cm diameter. The mid through distal and terminal ilium are decompressed. No discrete transition point identified. Denser enteric contrast likely from previous contrast menstruation is noted in the colon. Postsurgical change of appendectomy. Surgical drain in place with the tip at the appendectomy bed. No perienteric abscess collection evident. Small volume of ascites predominant perihepatic and extending down the RIGHT paracolic gutter to the RIGHT lower quadrant and pelvis. No loculated peritoneal fluid collection evident. Negative for free air. Negative for significant hernias. MESENTERIC: Diffuse mild mesenteric edema. ADRENAL / GENITOURINARY: Normal adrenal glands. Mildly atrophic kidneys. Negative for urolithiasis, hydronephrosis, or suspicious focal renal lesions. The RIGHT ureter courses through the region of post appendectomy edema at the RIGHT lower quadrant. Negative for ureteral dilatation. Catheterized decompressed urinary bladder. RETROPERITONEAL: Negative for lymphadenopathy. VASCULAR: Atherosclerotic calcification of normal diameter abdominal aorta and iliac arteries. Partially decompressed IVC. 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 SOFT TISSUE: Diffuse soft tissue edema most prominent at the dependent portions. Mild bilateral gynecomastia noted. IMPRESSION: #. Postsurgical change of appendectomy. Surgical drain in place at the appendectomy bed. Small volume of ascites including at the RIGHT lower quadrant December 09, 2017 CT. No This report is only to be considered final once signed by the Provider(s) as displayed in the "<Electronically Signed by >" field (s). Absence of a signature indicates the report is in a draft status and still needs to be finalized. In the event this document was created by someone other than the signing Provider, the individual initiating the document will be listed in the "Entered by:" or "Dictated by:" wells. [facility] Patient Name:GOKUL PINEDA MR: [id number] : 1945 loculated RIGHT lower quadrant fluid collection to indicate abscess. #. Probable postoperative small bowel ileus. Negative for free air to indicate bowel perforation. #. Cirrhotic liver morphology. #. Moderate bilateral dependent pleural effusions with lower lobe atelectasis new compared with the December 09, 2017 CT. <Electronically signed by Jarett Casanova MD in [place]> 12/14/17 1206 Dictated By: Jarett Casanova MD Dictated Date/Time: 12/14/17 1206 Transcribed Date/Time: 12/14/17 1148 Copy to: Assess/Plan/Problems-Billing Assessment: Mr. Pineda is a 72yo M with PMH of RA, HTN, Gout, CKD, BPH, non ischemic CMP in the setting of sepsis in 2013 (with LV function recovery) who presented to ED with c/o abdominal pain, found to have appendicitis, complicated by Septic shock, ileus and high output from NGT. Recently downgraded from ICU. - Patient Problems (1) Adynamic ileus Code(s): K56.0 - PARALYTIC ILEUS SNOMED Code(s): 74434758 Comment: - NG tube with high output still, intermittent clamping - May consider TPN but concerned with rising liver function - Replete lytes - Encourage mobilaztion (2) Appendicitis Code(s): K37 - UNSPECIFIED APPENDICITIS SNOMED Code(s): 18308773 Comment: - Compliacetd by septic shock resolved - Continue zosyn - Manamgent per surgery (3) Cardiomyopathy Code(s): I42.9 - CARDIOMYOPATHY, UNSPECIFIED SNOMED Code(s): 87372735 Comment: - EF recovered, stable (4) Delirium Code(s): R41.0 - DISORIENTATION, UNSPECIFIED SNOMED Code(s): 7684009 Comment: - Toxic metabolic encephalopathy 2/2 sepsis and infection - Continue with supportive care - 1:1 (5) Electrolyte abnormality Code(s): E87.8 - OTH DISORDERS OF ELECTROLYTE AND FLUID BALANCE, NEC SNOMED Code(s): 219513172 Comment: - Na increasing despite treatment with 1/2NS - Will place on D5W @ 3ml/kg/hr (approx 300ml/hr) for 6 hours - Phos recovered and is 2.6 today K is flat at 3.4 - Recheck CMP at 2000 tonight - Continue clamping NG tube if tolerated and no nausea (6) Rheumatoid arthritis Code(s): M06.9 - RHEUMATOID ARTHRITIS, UNSPECIFIED SNOMED Code(s): 86486200 Comment: - humira on hold, restart at discharge (7) Sepsis Onset Date: 11/05/14 Comment: - 2/2 perforated appendicitis, off levophed, continue iv zosyn, bp stable - Downgraded from ICU (8) HTN (hypertension) Current Visit: Yes Status: Chronic Priority: High Code(s): I10 - ESSENTIAL (PRIMARY) HYPERTENSION SNOMED Code(s): 26495982 Comment: - stable continue iv lopressor (9) DVT prophylaxis Code(s): AKC5659 - SNOMED Code(s): 408596852 Comment: - per surgical team (10) Full code status Code(s): Z78.9 - OTHER SPECIFIED HEALTH STATUS SNOMED Code(s): 746340898 Status and Disposition: Remain inpatient - goal to have NGT removed and continue mobilize/ambulation. Monitor fluid and electrolyte balance closely. PT eval for STR at DC.
[2017-12-17 20:11] LABS: EGFR Non-African American 49.7 (>60)
[2017-12-18] MEDS: HYDROmorphone INJ* 0.5 MG/0.5 ML SYRINGE IV PRN ×4 (00:50→22:35)
[2017-12-18] MEDS ORDERED: Benzocaine/Menthol LOZ* 1 LOZENGE MT PRN (01:50)
[2017-12-18] MEDS: NS 0.9% 1000 ML* 1,000 ML IV SCH ×2 (02:15→14:53)
[2017-12-18] MEDS: Metoprolol Tartrate IV* 1 MG/ML 5 ML VIAL IV SCH ×4 (02:20→19:55)
[2017-12-18] MEDS: KCL 10 MEQ/50 ML IVPREMIX* 10 MEQ/50 ML BAG IV SCH ×2 (02:26→03:46)
[2017-12-18 05:35] LABS: Hematocrit 29 % (42-52); Hemoglobin 9.6 g/dl (14.0-18.0); Mean Corpuscular HGB Conc 33 g/dl (31-36); Mean Corpuscular Hemoglobin 29 pg (27-31); Mean Corpuscular Volume 88 fL (80-94); Mean Platelet Volume 7.2 um3 (7.4-10.4); Platelet Count 247 10^3/ul (150-450); Red Blood Count 3.31 10^6/ul (4.00-5.40); Red Cell Distribution Width 17 % (10.5-15); White Blood Count 10.2 10^3/ul (3.5-10.8)
[2017-12-18 05:51] LABS: EGFR Non-African American 54.1 (>60)
[2017-12-18] MEDS: Sucralfate TAB* 1 GM PO SCH ×2 (09:35→19:55)
[2017-12-18] MEDS: KCL 20 MEQ/100 ML IVPREMIX* 20 MEQ/100 ML BAG IV SCH ×2 (10:30→12:48)
--- NOTE | 2017-12-18 11:36 | PN ---
Subjective Date of Service: 12/18/17 Interval History: Pt wants to eat and go home. C/o abd pain at 4-5 /10 , denies N/v. Has had NG clamped and residuals had been 50 ml in the past several times checked Objective Active Medications: Albuterol (Ventolin 2.5 Mg/3 Ml Neb.Danielle*) 2.5 mg INH Q4H PRN PRN Reason: SOB/WHEEZING Last Admin: 12/15/17 21:51 Dose: 2.5 mg Haloperidol Lactate (Haldol Inj Iv/Im*) 2 mg IV SLOW PU Q6H PRN PRN Reason: AGITATION Last Admin: 12/15/17 04:16 Dose: 2 mg Heparin Sodium (Porcine) (Heparin Flush Picc/Ml/Cvc(*)) 1 - 3 ml FLUSH 0600, 1800 [facility]; Protocol Last Admin: 12/18/17 05:09 Dose: 2 ml Hydromorphone HCl (Dilaudid Inj*) 0.5 mg IV Q2H PRN PRN Reason: PAIN Last Admin: 12/18/17 09:31 Dose: 0.5 mg Sodium Chloride (Ns 0.9% 1000 Ml*) 1,000 mls @ 75 mls/hr IV PER RATE [facility] Last Admin: 12/18/17 02:15 Dose: 75 mls/hr Potassium Chloride (Potassium Chloride 20 Meq/100 Ml Ivpremix*) 20 meq in 100 mls @ 50 mls/hr IV Q2H [facility] Stop: 12/18/17 13:59 Last Admin: 12/18/17 10:30 Dose: 50 mls/hr Metoprolol Tartrate (Lopressor Iv*) 5 mg IV Q6H [facility] Last Admin: 12/18/17 09:11 Dose: 5 mg Ondansetron HCl (Zofran Inj*) 4 mg IV Q4H PRN PRN Reason: NAUSEA/VOMITING Last Admin: 12/14/17 16:43 Dose: 4 mg Pharmacy Consult (Zosyn Per Pharmacy*) 1 note FOLLOW UP .ZOSYN PER [facility]ACY [facility] Sucralfate (Carafate*) 1 gm PO BID [facility] Last Admin: 12/18/17 09:35 Dose: 1 gm Throat Lozenges (Chloraseptic Felipe*) 1 felipe MT Q6H PRN PRN Reason: SORE THROAT Last Admin: 12/18/17 02:20 Dose: 1 felipe Vital Signs - 8 hr 12/18/17 12/18/17 12/18/17 04:45 05:09 07:45 Temperature Pulse Rate 65 Respiratory 16 20 18 Rate Blood Pressure (mmHg) O2 Sat by Pulse 96 96 Oximetry 12/18/17 12/18/17 12/18/17 07:50 09:31 10:34 Temperature 97.9 F Pulse Rate 78 Respiratory 17 18 18 Rate Blood Pressure 151/50 (mmHg) O2 Sat by Pulse 96 Oximetry Oxygen Devices in Use Now: None Appearance: 72 yo M in nAD, AOx3, tangential speech, but on topic Eyes: No Scleral Icterus, PERRLA Ears/Nose/Mouth/Throat: NL Teeth, Lips, Gums, Mucous Membranes Moist Neck: NL Appearance and Movements; NL JVP, Trachea Midline Respiratory: Symmetrical Chest Expansion and Respiratory Effort, Clear to Auscultation Cardiovascular: NL Sounds; No Murmurs; No JVD, RRR Abdominal: - - mild diffuse tenderness, no rebound, no guaring, BS+, midline incision not uncovered and inspected Lymphatic: No Cervical Adenopathy Extremities: No Edema, No Clubbing, Cyanosis Skin: No Rash or Ulcers, No Nodules or Sclerosis Neurological: Alert and Oriented x 3, NL Muscle Strength and Tone Result Diagrams: 12/18/17 05:27 12/18/17 05:27 Additional Lab and Data: Lab Results 12/09/17 Range/Units 10:27 WBC 17.3 H (3.5-10.8) 10^3/ul RBC 4.40 (4.00-5.40) 10^6/ul Hgb 12.4 L (14.0-18.0) g/dl Hct 37 L (42-52) % MCV 84 (80-94) fL MCH 28 (27-31) pg MCHC 33 (31-36) g/dl RDW 16 H (10.5-15) % Plt Count 122 L (150-450) 10^3/ul MPV 7.8 (7.4-10.4) um3 Neut % (Auto) 84.6 H (38-83) % Lymph % (Auto) 7.9 L (25-47) % [place] % (Auto) 7.2 H (0-7) % Eos % (Auto) 0 (0-6) % Baso % (Auto) 0.3 (0-2) % Absolute Neuts (auto) 14.7 H (1.5-7.7) 10^3/ul Absolute Lymphs (auto) 1.4 (1.0-4.8) 10^3/ul Absolute Monos (auto) 1.3 H (0-0.8) 10^3/ul Absolute Eos (auto) 0 (0-0.6) 10^3/ul Absolute Basos (auto) 0 (0-0.2) 10^3/ul Absolute Nucleated RBC 0 10^3/ul Nucleated RBC % 0 Microbiology and Other Data: Microbiology 12/09/17 11:54 Aerobic Blood Culture - Final Blood Venous No Growth Day 5 Anaerobic Blood Culture - Final No Growth Day 5 12/09/17 10:55 Aerobic Blood Culture - Final Blood Venous No Growth Day 5 Anaerobic Blood Culture - Final No Growth Day 5 12/09/17 23:05 Nasal Screen MRSA (PCR) - Final Nasal Mrsa Not Detected Diagnostic Imaging: Patient Name: GOKUL PINEDA Medical Record#: [id number] Ordering Physician: Ad Ashraf DO Acct.#: [id number] : 1945 Age: 72 Sex: M Location: [facility] Exam Date: 12/14/17842 ADM Status: ADM IN Order Information: CT ABD/PEL W/O Accession Number: [id number] CPT: 80704 INDICATION: Post appendectomy. Assess for abscess and bowel injury. Renal failure. COMPARISON: December 09, 2017 CT TECHNIQUE: Multidetector CT images were obtained from the lung bases to the ischial tuberosities. Oral contrast administered. Assessment of the visceral limited without IV contrast. REPORT: Arms down position results in beam hardening artifact limiting image quality. VISUALIZED INFERIOR THORAX: Moderate bilateral dependent pleural effusions. Gross complete atelectasis of the RIGHT lower lobe with partial atelectasis of the LEFT lower lobe. Negative for cardiomegaly or pericardial effusion. Coronary artery calcifications. LIVER / GALLBLADDER / PANCREAS / SPLEEN: 13.7 cm cephalocaudal liver with nodular surface contour. No conspicuous focal liver lesions. Post cholecystectomy. No biliary dilatation evident. Moderately atrophic pancreas without suspicious finding. Unremarkable spleen. ALIMENTARY TRACT: Enteric contrast from the current contrast ingestion extends to the proximal ileum. Long segment mild dilatation of the proximal small bowel loops measuring up to 3.5 cm diameter. The mid through distal and terminal ilium are decompressed. No discrete transition point identified. Denser enteric contrast likely from previous contrast menstruation is noted in the colon. Postsurgical change of appendectomy. Surgical drain in place with the tip at the appendectomy bed. No perienteric abscess collection evident. Small volume of ascites predominant perihepatic and extending down the RIGHT paracolic gutter to the RIGHT lower quadrant and pelvis. No loculated peritoneal fluid collection evident. Negative for free air. Negative for significant hernias. MESENTERIC: Diffuse mild mesenteric edema. ADRENAL / GENITOURINARY: Normal adrenal glands. Mildly atrophic kidneys. Negative for urolithiasis, hydronephrosis, or suspicious focal renal lesions. The RIGHT ureter courses through the region of post appendectomy edema at the RIGHT lower quadrant. Negative for ureteral dilatation. Catheterized decompressed urinary bladder. RETROPERITONEAL: Negative for lymphadenopathy. VASCULAR: Atherosclerotic calcification of normal diameter abdominal aorta and iliac arteries. Partially decompressed IVC. 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 SOFT TISSUE: Diffuse soft tissue edema most prominent at the dependent portions. Mild bilateral gynecomastia noted. IMPRESSION: #. Postsurgical change of appendectomy. Surgical drain in place at the appendectomy bed. Small volume of ascites including at the RIGHT lower quadrant December 09, 2017 CT. No This report is only to be considered final once signed by the Provider(s) as displayed in the "<Electronically Signed by >" field (s). Absence of a signature indicates the report is in a draft status and still needs to be finalized. In the event this document was created by someone other than the signing Provider, the individual initiating the document will be listed in the "Entered by:" or "Dictated by:" wells. [facility] Patient Name:GOKUL IPNEDA MR: [id number] : 1945 loculated RIGHT lower quadrant fluid collection to indicate abscess. #. Probable postoperative small bowel ileus. Negative for free air to indicate bowel perforation. #. Cirrhotic liver morphology. #. Moderate bilateral dependent pleural effusions with lower lobe atelectasis new compared with the December 09, 2017 CT. <Electronically signed by Jarett Casnaova MD in [place]> 12/14/17 1206 Dictated By: Jarett Casanova MD Dictated Date/Time: 12/14/17 1206 Transcribed Date/Time: 12/14/17 1148 Copy to: Assess/Plan/Problems-Billing Assessment: Mr. Pineda is a 72yo M with PMH of RA, HTN, Gout, CKD, BPH, non ischemic CMP in the setting of sepsis in 2013 (with LV function recovery) who presented to ED with c/o abdominal pain, found to have appendicitis, complicated by Septic shock, ileus and high output from NGT. Recently downgraded from ICU. - Patient Problems (1) Adynamic ileus Comment: - NG tube with intermittent clamping - May consider TPN, has had mild elevation LFT's will monitor - Replete lytes - Encourage mobilization(PT/OT ordered) (2) Appendicitis Comment: - Complicated by septic shock resolved - zosyn was discontinued on 12/16/17, pt had been afebrile , slowly improving as expected with no leukocytosis. catherine cont to monitor off atibiotics-d/w Dr. Moreno - Management per surgery (3) Cardiomyopathy Comment: - EF 65%, stable (4) Delirium Comment: - Toxic metabolic encephalopathy 2/2 sepsis and infection - Continue with supportive care - appears to have resolved (5) Electrolyte abnormality Comment: - Na stable - Continue clamping NG tube if tolerated and no nausea (6) Rheumatoid arthritis Comment: - humira on hold, restart at discharge (7) CKD (chronic kidney disease) stage 3, GFR 30-59 ml/min Comment: creat at baseline (8) DVT prophylaxis Comment: HSQ Status and Disposition: medicine consult, will follow daily
--- NOTE | 2017-12-18 12:04 | PN ---
Progress Note - Progress Note Date of Service: 12/18/17 SOAP: Subjective: Thirsty. Had BM and passing flatus. Denies N/V. Abdomen sore. Objective: Vital Signs Temp 97.9 F 12/18/17 07:50 Pulse 78 12/18/17 07:50 Resp 18 12/18/17 10:34 BP 151/50 12/18/17 07:50 Pulse Ox 96 12/18/17 07:50 Gen: NAD in bed; awake alert. Abd: incisions c/d/i; no erythema; tender fullness in RLQ. Intake & Output 12/17/17 12/18/17 12/18/17 18:59 06:59 18:59 Intake Total 1898 1541 30 Output Total 1475 450 50 Balance 423 1091 -20 Weight 227 lb 12.8 oz Intake: IV Fluids 1598 811 D5W 975 811 NS (0.45%) 20 meq KCL 623 IVPB 100 Potassium Chloride 100 Oral 300 630 30 Output: NG Tube Drainage Amount 875 250 50 Urine 200 Son 350 Straight Cath 250 Other: Date of Last Bowel 12/17/17 Movement # Bowel Movements 1 1 Estimated Stool Amount Small Small Laboratory Results - last 24 hr 12/16/17 12/17/17 12/18/17 13:23 19:48 05:27 WBC RBC Hgb Hct MCV MCH MCHC RDW Plt Count MPV Hem Pathologist Commnt Sodium 144 D 145 Potassium 3.1 L 3.4 L Chloride 104 106 Carbon Dioxide 32 32 Anion Gap 8 7 BUN 24 22 Creatinine 1.40 H 1.30 H Est GFR ( Amer) 60.1 65.5 Est GFR (Non-Af Amer) 49.7 54.1 BUN/Creatinine Ratio 17.1 16.9 Glucose 152 H 102 H Calcium 7.8 L 7.8 L 12/18/17 05:27 WBC 10.2 RBC 3.31 L Hgb 9.6 L Hct 29 L MCV 88 MCH 29 MCHC 33 RDW 17 H Plt Count 247 MPV 7.2 L Hem Pathologist Commnt Sodium Potassium Chloride Carbon Dioxide Anion Gap BUN Creatinine Est GFR ( Amer) Est GFR (Non-Af Amer) BUN/Creatinine Ratio Glucose Calcium Assessment: POD#9 s/p lap appy/drain placement for perf'd appendicitis. Improving. Ileus resolved. Plan: NGT d/c'd => sips; advance gradually. Monitor off abx (has been off for 2 days). Hospitalist f/u appreciated.
[2017-12-18] MEDS: Heparin VIAL(*) 5000 UNITS/ML VIAL (FIVE THOUSAND) SUBCUT SCH ×2 (14:57→22:35)
[2017-12-19] MEDS ORDERED: Bismuth Subsalicylate* 30 ML/527 MG ML PO ONE (02:55)
[2017-12-19] MEDS: Bismuth Subsalicylate* 30 ML/527 MG ML PO PRN ×3 (03:06→21:42)
[2017-12-19] MEDS: Metoprolol Tartrate IV* 1 MG/ML 5 ML VIAL IV SCH ×4 (03:07→21:18)
[2017-12-19] MEDS: NS 0.9% 1000 ML* 1,000 ML IV SCH (04:03)
[2017-12-19] MEDS: Heparin VIAL(*) 5000 UNITS/ML VIAL (FIVE THOUSAND) SUBCUT SCH ×3 (05:41→21:18)
[2017-12-19 06:01] LABS: ABS Basophils 0.1 10^3/ul (0-0.2); ABS Eosinophils 0.4 10^3/ul (0-0.6); ABS Lymphocytes 2.7 10^3/ul (1.0-4.8); ABS Monocytes 0.8 10^3/ul (0-0.8); ABS Neutrophils 7.5 10^3/ul (1.5-7.7); ABS Nucleated RBC 0 10^3/ul; Eosinophil % 3.2 % (0-6); Hematocrit 27 % (42-52); Hemoglobin 8.8 g/dl (14.0-18.0); Lymphocyte % 23.5 % (25-47); Mean Corpuscular HGB Conc 32 g/dl (31-36); Mean Corpuscular Hemoglobin 28 pg (27-31); Mean Corpuscular Volume 88 fL (80-94); Mean Platelet Volume 7.9 um3 (7.4-10.4); Nucleated Red Blood Cells % 0.1; Platelet Count 229 10^3/ul (150-450); Red Blood Count 3.08 10^6/ul (4.00-5.40); Red Cell Distribution Width 17 % (10.5-15); White Blood Count 11.4 10^3/ul (3.5-10.8)
[2017-12-19 06:07] LABS: INR 1.17 (0.77-1.02)
[2017-12-19 06:19] LABS: EGFR Non-African American 59.3 (>60)
[2017-12-19] MEDS: Sucralfate TAB* 1 GM PO SCH ×2 (07:38→21:18)
--- NOTE | 2017-12-19 08:37 | PN ---
Progress Note - Progress Note Date of Service: 12/19/17 SOAP: Subjective: Sleeping but arousable. Offers no c/o. States hungry. Having BM/flatus. Objective: Vital Signs Temp 97.7 F 12/19/17 07:21 Pulse 75 12/19/17 07:21 Resp 16 12/19/17 07:21 BP 155/64 12/19/17 07:21 Pulse Ox 98 12/19/17 07:21 Abd: incisions c/d/i; no erythema; tender fullness in RLQ Intake & Output 12/18/17 12/19/17 12/19/17 18:59 06:59 18:59 Intake Total 1460 1340 Output Total 1050 400 Balance 410 940 Weight 221 lb 4.8 oz Intake: IV Fluids 990 980 NS (0.9%) 990 980 IVPB 200 Potassium Chloride 200 Oral 270 360 Output: NG Tube Drainage Amount 50 Urine 1000 400 Other: Estimated Void Small # Bowel Movements 1 1 Estimated Stool Amount Large Medium # Voids 1 Laboratory Results - last 24 hr 12/19/17 12/19/17 12/19/17 05:37 05:37 05:37 WBC 11.4 H RBC 3.08 L Hgb 8.8 L Hct 27 L MCV 88 MCH 28 MCHC 32 RDW 17 H Plt Count 229 MPV 7.9 Neut % (Auto) 66.0 Lymph % (Auto) 23.5 L [place] % (Auto) 6.8 Eos % (Auto) 3.2 Baso % (Auto) 0.5 Absolute Neuts (auto) 7.5 Absolute Lymphs (auto) 2.7 Absolute Monos (auto) 0.8 Absolute Eos (auto) 0.4 Absolute Basos (auto) 0.1 Absolute Nucleated RBC 0 Nucleated RBC % 0.1 INR (Anticoag Therapy) 1.17 H Sodium 143 Potassium 3.6 Chloride 110 Carbon Dioxide 27 Anion Gap 6 BUN 20 Creatinine 1.20 H Est GFR ( Amer) 71.8 Est GFR (Non-Af Amer) 59.3 BUN/Creatinine Ratio 16.7 Glucose 84 Calcium 7.7 L Phosphorus 2.0 L Magnesium 1.9 Total Bilirubin 0.70 AST 107 H ALT 72 H Alkaline Phosphatase 76 Total Protein 5.7 L Albumin 2.6 L Globulin 3.1 Albumin/Globulin Ratio 0.8 L Assessment: POD#10 s/p lap appy for perf'd appendicitis. Elevated WBCs today. Plan: Advance diet. If cont to incr WBCs then CT abd/pelvis as at risk for abscess.
[2017-12-19] MEDS ORDERED: Zosyn per Pharmacy* NOTE FOLLOW UP SCH (09:00)
--- NOTE | 2017-12-19 09:24 | PN ---
Subjective Date of Service: 12/19/17 Interval History: Pt had several loose BM's last night. diet advanced to sips of clears. NG pulled out. Pt is sleeping when room entered, wakes up easily, c/o feeling tired , drifts off to sleep during eval Objective Active Medications: Albuterol (Ventolin 2.5 Mg/3 Ml Neb.Danielle*) 2.5 mg INH Q4H PRN PRN Reason: SOB/WHEEZING Last Admin: 12/15/17 21:51 Dose: 2.5 mg Bismuth Subsalicylate (Peptic Relief*) 30 ml PO Q4HR PRN PRN Reason: DYSPEPSIA Last Admin: 12/19/17 07:38 Dose: 30 ml Haloperidol Lactate (Haldol Inj Iv/Im*) 2 mg IV SLOW PU Q6H PRN PRN Reason: AGITATION Last Admin: 12/15/17 04:16 Dose: 2 mg Heparin Sodium (Porcine) (Heparin Flush Picc/Ml/Cvc(*)) 1 - 3 ml FLUSH 0600, 1800 CELY; Protocol Last Admin: 12/19/17 05:41 Dose: 2 ml Heparin Sodium (Porcine) (Heparin Vial(*)) 5,000 units SUBCUT Q8HR CELY Last Admin: 12/19/17 05:41 Dose: 5,000 units Hydromorphone HCl (Dilaudid Inj*) 0.5 mg IV Q2H PRN PRN Reason: PAIN Last Admin: 12/18/17 22:35 Dose: 0.5 mg Sodium Chloride (Ns 0.9% 1000 Ml*) 1,000 mls @ 75 mls/hr IV PER RATE [facility] Last Admin: 12/19/17 04:03 Dose: 75 mls/hr Piperacillin Sod/Tazobactam (Sod 3.375 gm/ Sodium Chloride) 100 mls @ 200 mls/ hr IVPB ONCE ONE Stop: 12/19/17 09:59 Potassium Phosphate 10 mmole/ (Sodium Chloride) 253.3333 mls @ 42 mls/hr IVPB ONCE ONE Stop: 12/19/17 16:01 Calcium Gluconate 1 gm/ Sodium (Chloride) 60 mls @ 60 mls/hr IVPB ONCE ONE Stop: 12/19/17 10:29 Metoprolol Tartrate (Lopressor Iv*) 5 mg IV Q6H [facility] Last Admin: 12/19/17 07:38 Dose: 5 mg Ondansetron HCl (Zofran Inj*) 4 mg IV Q4H PRN PRN Reason: NAUSEA/VOMITING Last Admin: 12/14/17 16:43 Dose: 4 mg Pharmacy Consult (Zosyn Per Pharmacy*) 1 note FOLLOW UP .ZOSYN PER PHARMACY [facility] Sucralfate (Carafate*) 1 gm PO BID CELY Last Admin: 12/19/17 07:38 Dose: 1 gm Throat Lozenges (Chloraseptic Felipe*) 1 felipe MT Q6H PRN PRN Reason: SORE THROAT Last Admin: 12/18/17 02:20 Dose: 1 felipe Vital Signs - 8 hr 12/19/17 12/19/17 12/19/17 03:08 04:24 07:21 Temperature 98.6 F 97.7 F Pulse Rate 74 74 75 Respiratory 16 16 16 Rate Blood Pressure 159/67 155/64 (mmHg) O2 Sat by Pulse 97 96 98 Oximetry Oxygen Devices in Use Now: None Appearance: 72 yo M in NAD, appears fatigued, falls asleep during eval Eyes: No Scleral Icterus, PERRLA Ears/Nose/Mouth/Throat: NL Teeth, Lips, Gums, Mucous Membranes Moist Neck: NL Appearance and Movements; NL JVP, Trachea Midline Respiratory: Symmetrical Chest Expansion and Respiratory Effort, - - faint bibasiliar crackles Cardiovascular: NL Sounds; No Murmurs; No JVD, RRR Abdominal: - - mildly distended, mildly tender in the hosea-midline incision region, no rebound, no guarding, BS+ Extremities: No Edema, No Clubbing, Cyanosis Skin: No Rash or Ulcers, No Nodules or Sclerosis Neurological: Alert and Oriented x 3, NL Muscle Strength and Tone Result Diagrams: 12/19/17 05:37 12/19/17 05:37 Additional Lab and Data: Lab Results 12/09/17 Range/Units 10:27 WBC 17.3 H (3.5-10.8) 10^3/ul RBC 4.40 (4.00-5.40) 10^6/ul Hgb 12.4 L (14.0-18.0) g/dl Hct 37 L (42-52) % MCV 84 (80-94) fL MCH 28 (27-31) pg MCHC 33 (31-36) g/dl RDW 16 H (10.5-15) % Plt Count 122 L (150-450) 10^3/ul MPV 7.8 (7.4-10.4) um3 Neut % (Auto) 84.6 H (38-83) % Lymph % (Auto) 7.9 L (25-47) % [place] % (Auto) 7.2 H (0-7) % Eos % (Auto) 0 (0-6) % Baso % (Auto) 0.3 (0-2) % Absolute Neuts (auto) 14.7 H (1.5-7.7) 10^3/ul Absolute Lymphs (auto) 1.4 (1.0-4.8) 10^3/ul Absolute Monos (auto) 1.3 H (0-0.8) 10^3/ul Absolute Eos (auto) 0 (0-0.6) 10^3/ul Absolute Basos (auto) 0 (0-0.2) 10^3/ul Absolute Nucleated RBC 0 10^3/ul Nucleated RBC % 0 Microbiology and Other Data: Microbiology 12/09/17 11:54 Aerobic Blood Culture - Final Blood Venous No Growth Day 5 Anaerobic Blood Culture - Final No Growth Day 5 12/09/17 10:55 Aerobic Blood Culture - Final Blood Venous No Growth Day 5 Anaerobic Blood Culture - Final No Growth Day 5 12/09/17 23:05 Nasal Screen MRSA (PCR) - Final Nasal Mrsa Not Detected Diagnostic Imaging: Patient Name: GOKUL PINEDA Medical Record#: [id number] Ordering Physician: Ad Ashraf DO Acct.#: [id number] : 1945 Age: 72 Sex: M Location: [facility] Exam Date: 12/14/17 0843 ADM Status: ADM IN Order Information: CT ABD/PEL W/O Accession Number: [id number] CPT: 68976 INDICATION: Post appendectomy. Assess for abscess and bowel injury. Renal failure. COMPARISON: December 09, 2017 CT TECHNIQUE: Multidetector CT images were obtained from the lung bases to the ischial tuberosities. Oral contrast administered. Assessment of the visceral limited without IV contrast. REPORT: Arms down position results in beam hardening artifact limiting image quality. VISUALIZED INFERIOR THORAX: Moderate bilateral dependent pleural effusions. Gross complete atelectasis of the RIGHT lower lobe with partial atelectasis of the LEFT lower lobe. Negative for cardiomegaly or pericardial effusion. Coronary artery calcifications. LIVER / GALLBLADDER / PANCREAS / SPLEEN: 13.7 cm cephalocaudal liver with nodular surface contour. No conspicuous focal liver lesions. Post cholecystectomy. No biliary dilatation evident. Moderately atrophic pancreas without suspicious finding. Unremarkable spleen. ALIMENTARY TRACT: Enteric contrast from the current contrast ingestion extends to the proximal ileum. Long segment mild dilatation of the proximal small bowel loops measuring up to 3.5 cm diameter. The mid through distal and terminal ilium are decompressed. No discrete transition point identified. Denser enteric contrast likely from previous contrast menstruation is noted in the colon. Postsurgical change of appendectomy. Surgical drain in place with the tip at the appendectomy bed. No perienteric abscess collection evident. Small volume of ascites predominant perihepatic and extending down the RIGHT paracolic gutter to the RIGHT lower quadrant and pelvis. No loculated peritoneal fluid collection evident. Negative for free air. Negative for significant hernias. MESENTERIC: Diffuse mild mesenteric edema. ADRENAL / GENITOURINARY: Normal adrenal glands. Mildly atrophic kidneys. Negative for urolithiasis, hydronephrosis, or suspicious focal renal lesions. The RIGHT ureter courses through the region of post appendectomy edema at the RIGHT lower quadrant. Negative for ureteral dilatation. Catheterized decompressed urinary bladder. RETROPERITONEAL: Negative for lymphadenopathy. VASCULAR: Atherosclerotic calcification of normal diameter abdominal aorta and iliac arteries. Partially decompressed IVC. 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 SOFT TISSUE: Diffuse soft tissue edema most prominent at the dependent portions. Mild bilateral gynecomastia noted. IMPRESSION: #. Postsurgical change of appendectomy. Surgical drain in place at the appendectomy bed. Small volume of ascites including at the RIGHT lower quadrant December 09, 2017 CT. No This report is only to be considered final once signed by the Provider(s) as displayed in the "<Electronically Signed by >" field (s). Absence of a signature indicates the report is in a draft status and still needs to be finalized. In the event this document was created by someone other than the signing Provider, the individual initiating the document will be listed in the "Entered by:" or "Dictated by:" wells. [facility] Patient Name:GOKUL PINEDA MR: [id number] : 1945 loculated RIGHT lower quadrant fluid collection to indicate abscess. #. Probable postoperative small bowel ileus. Negative for free air to indicate bowel perforation. #. Cirrhotic liver morphology. #. Moderate bilateral dependent pleural effusions with lower lobe atelectasis new compared with the December 09, 2017 CT. <Electronically signed by Jarett Casanova MD in [place]> 12/14/17 1206 Dictated By: Jarett Casanova MD Dictated Date/Time: 12/14/17 1206 Transcribed Date/Time: 12/14/17 1148 Copy to: Assess/Plan/Problems-Billing Assessment: Mr. Pineda is a 72yo M with PMH of RA, HTN, Gout, CKD, BPH, non ischemic CMP in the setting of sepsis in 2013 (with LV function recovery) who presented to ED with c/o abdominal pain, found to have appendicitis, complicated by Septic shock, ileus and high output from NGT. Recently downgraded from ICU. - Patient Problems (1) Adynamic ileus Comment: - NG tube discontinued by surgery - Replete lytes - Encourage mobilization(PT/OT ordered) (2) Appendicitis Comment: - Complicated by septic shock resolved - zosyn was discontinued on 12/16/17, pt had been afebrile , slowly improving as expected, but today with mild leukocytosis.Will restart Zosyn. - Management per surgery (3) Cardiomyopathy Comment: - EF 65%, stable (4) Delirium Comment: - Toxic metabolic encephalopathy 2/2 sepsis and infection - Continue with supportive care - appears to have resolved (5) Electrolyte abnormality Comment: -replacing hypophosphatemia and hypocalcemia IV (6) Rheumatoid arthritis Comment: - humira on hold, restart at discharge (7) CKD (chronic kidney disease) stage 3, GFR 30-59 ml/min Comment: creat at baseline (8) DVT prophylaxis Comment: HSQ Status and Disposition: medicine consult, will follow daily
[2017-12-19] MEDS ORDERED: Piperacillin/Tazobac ADVAN(*) 3.375 GM in NS 0.9% 100 ML* 100 ML IVPB ONE (09:30)
[2017-12-19] MEDS ORDERED: Calcium Gluconate INJ* 1 GM in NS 0.9% 50 ML* 50 ML IVPB ONE (09:30)
[2017-12-19] MEDS ORDERED: Potassium Phosphate IV* 10 MMOLE in NS 0.9% 250 ML* 250 ML IVPB ONE (10:00)
[2017-12-19] MEDS: ZOSYN 3.375 GM Q8H per EXTENDED INFUSION IVPB SCH ×4 (13:26→21:18)
[2017-12-19] MEDS: Ondansetron INJ* 2 MG/ML VIAL IV PRN (14:04)
[2017-12-19] MEDS: D5W 1/2 NS 1000 ML BAG* 1,000 ML IV SCH (17:31)
[2017-12-20] MEDS: Bismuth Subsalicylate* 30 ML/527 MG ML PO PRN ×2 (03:17→07:30)
[2017-12-20] MEDS: Metoprolol Tartrate IV* 1 MG/ML 5 ML VIAL IV SCH ×4 (03:17→20:05)
[2017-12-20] MEDS: Heparin VIAL(*) 5000 UNITS/ML VIAL (FIVE THOUSAND) SUBCUT SCH ×3 (05:41→22:18)
[2017-12-20] MEDS: ZOSYN 3.375 GM Q8H per EXTENDED INFUSION IVPB SCH ×6 (05:41→21:21)
[2017-12-20 06:15] LABS: ABS Basophils 0.1 10^3/ul (0-0.2); ABS Eosinophils 0.4 10^3/ul (0-0.6); ABS Lymphocytes 1.6 10^3/ul (1.0-4.8); ABS Monocytes 0.9 10^3/ul (0-0.8); ABS Neutrophils 7.4 10^3/ul (1.5-7.7); ABS Nucleated RBC 0 10^3/ul; Eosinophil % 4.2 % (0-6); Hematocrit 25 % (42-52); Hemoglobin 8.3 g/dl (14.0-18.0); Lymphocyte % 15.4 % (25-47); Mean Corpuscular HGB Conc 33 g/dl (31-36); Mean Corpuscular Hemoglobin 29 pg (27-31); Mean Corpuscular Volume 89 fL (80-94); Nucleated Red Blood Cells % 0; Platelet Count 233 10^3/ul (150-450); Red Blood Count 2.87 10^6/ul (4.00-5.40); Red Cell Distribution Width 17 % (10.5-15); White Blood Count 10.4 10^3/ul (3.5-10.8)
--- NOTE | 2017-12-20 07:37 | PN ---
Progress Note - Progress Note Date of Service: 12/20/17 Note: POD#11 s/perf appy, sepsis, ileus Afeb, VS noted Voiding well, lidia liqs, No N/V Passing loose stool (not watery) Denies pain Alert and coherent Color good Breathing easy, unlabored Abd soft, tender right side, no peritonitis, incis w/o infection WBC better today Lytes noted Try full liqs Electrolyte replacement per hospitalist
[2017-12-20] MEDS: Tamsulosin CAP* 0.4 MG PO SCH (08:37)
[2017-12-20] MEDS: Sucralfate TAB* 1 GM PO SCH ×2 (08:37→21:25)
[2017-12-20] MEDS: prednisoLONE 1% OPHTH.SUSP* 5 ML OPHTH.SUSP LEFT EYE SCH (10:58)
[2017-12-20] MEDS: Lactobacillus Acidophilus* 1 TAB PO SCH ×2 (10:59→21:25)
[2017-12-20] MEDS: HYDROmorphone INJ* 0.5 MG/0.5 ML SYRINGE IV PRN ×4 (11:31→21:18)
--- NOTE | 2017-12-20 15:28 | PN ---
Subjective Date of Service: 12/20/17 Interval History: Pt feels much better. Stated that his abd was very tender when surgeons were examining him today. Pain was mostly in RLQ tolerating full liquid diet. C/o diarrhea Objective Active Medications: Albuterol (Ventolin 2.5 Mg/3 Ml Neb.Danielle*) 2.5 mg INH Q4H PRN PRN Reason: SOB/WHEEZING Last Admin: 12/15/17 21:51 Dose: 2.5 mg Bismuth Subsalicylate (Peptic Relief*) 30 ml PO Q4HR PRN PRN Reason: DYSPEPSIA Last Admin: 12/20/17 07:30 Dose: 30 ml Finasteride (Proscar Tab*) 5 mg PO QAM [facility]ELY Haloperidol Lactate (Haldol Inj Iv/Im*) 2 mg IV SLOW PU Q6H PRN PRN Reason: AGITATION Last Admin: 12/15/17 04:16 Dose: 2 mg Heparin Sodium (Porcine) (Heparin Flush Picc/Ml/Cvc(*)) 1 - 3 ml FLUSH 0600, 1800 CELY; Protocol Last Admin: 12/20/17 05:41 Dose: 2 ml Heparin Sodium (Porcine) (Heparin Vial(*)) 5,000 units SUBCUT Q8HR [facility] Last Admin: 12/20/17 13:52 Dose: 5,000 units Hydromorphone HCl (Dilaudid Inj*) 0.5 mg IV Q2H PRN PRN Reason: PAIN Last Admin: 12/20/17 13:50 Dose: 0.5 mg Piperacillin Sod/Tazobactam (Sod 3.375 gm/ Sodium Chloride) 100 mls @ 25 mls/ hr IVPB Q8H [facility] Last Admin: 12/20/17 15:01 Dose: 25 mls/hr Dextrose/Sodium Chloride (D5w 1/2 Ns 1000 Ml Bag*) 1,000 mls @ 75 mls/hr IV PER RATE [facility] Last Admin: 12/19/17 17:31 Dose: 75 mls/hr Lactobacillus Rhamnosus (Lactobacillus Acidophilus*) 1 tab PO BID [facility] Last Admin: 12/20/17 10:59 Dose: 1 tab Metoprolol Tartrate (Lopressor Iv*) 5 mg IV Q6H [facility] Last Admin: 12/20/17 14:20 Dose: Not Given Ondansetron HCl (Zofran Inj*) 4 mg IV Q4H PRN PRN Reason: NAUSEA/VOMITING Last Admin: 12/19/17 14:04 Dose: 4 mg Pharmacy Consult (Zosyn Per Pharmacy*) 1 note FOLLOW UP .ZOSYN PER PHARMACY [facility] Prednisolone Acetate (Pred Forte 1%*) 1 drop LEFT EYE DAILY [facility] Last Admin: 12/20/17 10:58 Dose: 1 drop Sucralfate (Carafate*) 1 gm PO BID [facility] Last Admin: 12/20/17 08:37 Dose: 1 gm Tamsulosin HCl (Flomax Cap*) 0.8 mg PO DAILY [facility] Last Admin: 12/20/17 08:37 Dose: 0.8 mg Throat Lozenges (Chloraseptic Felipe*) 1 felipe MT Q6H PRN PRN Reason: SORE THROAT Last Admin: 12/18/17 02:20 Dose: 1 felipe Vital Signs - 8 hr 12/20/17 12/20/17 12/20/17 07:27 08:00 08:45 Temperature 98.7 F Pulse Rate 66 Respiratory 16 18 Rate Blood Pressure 101/53 112/53 (mmHg) O2 Sat by Pulse 96 96 Oximetry 12/20/17 12/20/17 12/20/17 11:14 11:31 13:47 Temperature 98.4 F Pulse Rate 60 Respiratory 18 18 18 Rate Blood Pressure 120/54 (mmHg) O2 Sat by Pulse 97 Oximetry 12/20/17 12/20/17 13:50 14:19 Temperature Pulse Rate 74 Respiratory 18 Rate Blood Pressure 108/52 (mmHg) O2 Sat by Pulse 96 Oximetry Oxygen Devices in Use Now: None Appearance: 72 yo m in nAD, AAOx3 Eyes: No Scleral Icterus, PERRLA Ears/Nose/Mouth/Throat: NL Teeth, Lips, Gums, Mucous Membranes Moist Neck: NL Appearance and Movements; NL JVP, Trachea Midline Respiratory: Symmetrical Chest Expansion and Respiratory Effort, - - fine bibasiliar crackles Cardiovascular: NL Sounds; No Murmurs; No JVD, RRR Abdominal: - - tender in R mid abd with no rebound, ne guarding, BS+. post op incisions steri stipped-no dehiscence Extremities: No Clubbing, Cyanosis, - - trace pedal edema b/l Skin: No Rash or Ulcers, No Nodules or Sclerosis Neurological: Alert and Oriented x 3, NL Muscle Strength and Tone Result Diagrams: 12/20/17 05:54 12/20/17 05:54 Additional Lab and Data: Lab Results 12/09/17 Range/Units 10:27 WBC 17.3 H (3.5-10.8) 10^3/ul RBC 4.40 (4.00-5.40) 10^6/ul Hgb 12.4 L (14.0-18.0) g/dl Hct 37 L (42-52) % MCV 84 (80-94) fL MCH 28 (27-31) pg MCHC 33 (31-36) g/dl RDW 16 H (10.5-15) % Plt Count 122 L (150-450) 10^3/ul MPV 7.8 (7.4-10.4) um3 Neut % (Auto) 84.6 H (38-83) % Lymph % (Auto) 7.9 L (25-47) % [place] % (Auto) 7.2 H (0-7) % Eos % (Auto) 0 (0-6) % Baso % (Auto) 0.3 (0-2) % Absolute Neuts (auto) 14.7 H (1.5-7.7) 10^3/ul Absolute Lymphs (auto) 1.4 (1.0-4.8) 10^3/ul Absolute Monos (auto) 1.3 H (0-0.8) 10^3/ul Absolute Eos (auto) 0 (0-0.6) 10^3/ul Absolute Basos (auto) 0 (0-0.2) 10^3/ul Absolute Nucleated RBC 0 10^3/ul Nucleated RBC % 0 Microbiology and Other Data: Microbiology 12/09/17 11:54 Aerobic Blood Culture - Final Blood Venous No Growth Day 5 Anaerobic Blood Culture - Final No Growth Day 5 12/09/17 10:55 Aerobic Blood Culture - Final Blood Venous No Growth Day 5 Anaerobic Blood Culture - Final No Growth Day 5 12/09/17 23:05 Nasal Screen MRSA (PCR) - Final Nasal Mrsa Not Detected Diagnostic Imaging: Patient Name: GOKUL PINEDA Medical Record#: [id number] Ordering Physician: Ad Ashraf DO Acct.#: [id number] : 1945 Age: 72 Sex: M Location: [facility] Exam Date: 12/14/17 0843 ADM Status: ADM IN Order Information: CT ABD/PEL W/O Accession Number: [id number] CPT: 59993 INDICATION: Post appendectomy. Assess for abscess and bowel injury. Renal failure. COMPARISON: December 09, 2017 CT TECHNIQUE: Multidetector CT images were obtained from the lung bases to the ischial tuberosities. Oral contrast administered. Assessment of the visceral limited without IV contrast. REPORT: Arms down position results in beam hardening artifact limiting image quality. VISUALIZED INFERIOR THORAX: Moderate bilateral dependent pleural effusions. Gross complete atelectasis of the RIGHT lower lobe with partial atelectasis of the LEFT lower lobe. Negative for cardiomegaly or pericardial effusion. Coronary artery calcifications. LIVER / GALLBLADDER / PANCREAS / SPLEEN: 13.7 cm cephalocaudal liver with nodular surface contour. No conspicuous focal liver lesions. Post cholecystectomy. No biliary dilatation evident. Moderately atrophic pancreas without suspicious finding. Unremarkable spleen. ALIMENTARY TRACT: Enteric contrast from the current contrast ingestion extends to the proximal ileum. Long segment mild dilatation of the proximal small bowel loops measuring up to 3.5 cm diameter. The mid through distal and terminal ilium are decompressed. No discrete transition point identified. Denser enteric contrast likely from previous contrast menstruation is noted in the colon. Postsurgical change of appendectomy. Surgical drain in place with the tip at the appendectomy bed. No perienteric abscess collection evident. Small volume of ascites predominant perihepatic and extending down the RIGHT paracolic gutter to the RIGHT lower quadrant and pelvis. No loculated peritoneal fluid collection evident. Negative for free air. Negative for significant hernias. MESENTERIC: Diffuse mild mesenteric edema. ADRENAL / GENITOURINARY: Normal adrenal glands. Mildly atrophic kidneys. Negative for urolithiasis, hydronephrosis, or suspicious focal renal lesions. The RIGHT ureter courses through the region of post appendectomy edema at the RIGHT lower quadrant. Negative for ureteral dilatation. Catheterized decompressed urinary bladder. RETROPERITONEAL: Negative for lymphadenopathy. VASCULAR: Atherosclerotic calcification of normal diameter abdominal aorta and iliac arteries. Partially decompressed IVC. 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 SOFT TISSUE: Diffuse soft tissue edema most prominent at the dependent portions. Mild bilateral gynecomastia noted. IMPRESSION: #. Postsurgical change of appendectomy. Surgical drain in place at the appendectomy bed. Small volume of ascites including at the RIGHT lower quadrant December 09, 2017 CT. No This report is only to be considered final once signed by the Provider(s) as displayed in the "<Electronically Signed by >" field (s). Absence of a signature indicates the report is in a draft status and still needs to be finalized. In the event this document was created by someone other than the signing Provider, the individual initiating the document will be listed in the "Entered by:" or "Dictated by:" wells. [facility] Patient Name:GOKUL PINEDA MR: [id number] : 1945 loculated RIGHT lower quadrant fluid collection to indicate abscess. #. Probable postoperative small bowel ileus. Negative for free air to indicate bowel perforation. #. Cirrhotic liver morphology. #. Moderate bilateral dependent pleural effusions with lower lobe atelectasis new compared with the December 09, 2017 CT. <Electronically signed by Jarett Casanova MD in [place]> 12/14/17 1206 Dictated By: Jarett Casanova MD Dictated Date/Time: 12/14/17 1206 Transcribed Date/Time: 12/14/17 1148 Copy to: Assess/Plan/Problems-Billing Assessment: Mr. Pineda is a 72yo M with PMH of RA, HTN, Gout, CKD, BPH, non ischemic CMP in the setting of sepsis in 2013 (with LV function recovery) who presented to ED with c/o abdominal pain, found to have appendicitis, complicated by Septic shock, ileus and high output from NGT. Recently downgraded from ICU. - Patient Problems (1) Adynamic ileus Comment: diet advanced by surgery Replete lytes (2) Appendicitis Comment: - Complicated by septic shock resolved - zosyn was discontinued on 12/16/17, pt had been afebrile , slowly improving as expected, but on 12/19/17 with mild leukocytosis-Zosyn was restarted. - Management per surgery (3) Cardiomyopathy Comment: - EF 65%, stable (4) Delirium Comment: - Toxic metabolic encephalopathy 2/2 sepsis and infection - Continue with supportive care - resolved (5) Electrolyte abnormality Comment: -replacing hypophosphatemia and hypocalcemia IV (6) Rheumatoid arthritis Comment: - humira on hold, restart at discharge (7) CKD (chronic kidney disease) stage 3, GFR 30-59 ml/min Comment: creat at baseline (8) DVT prophylaxis Comment: HSQ Status and Disposition: medicine consult, will follow daily
[2017-12-20] MEDS ORDERED: Potassium Phosphate IV* 15 MMOLE in NS 0.9% 250 ML* 250 ML IVPB ONE (16:00)
[2017-12-20] MEDS: Ondansetron INJ* 2 MG/ML VIAL IV PRN (17:39)
[2017-12-20] MEDS: D5W 1/2 NS 1000 ML BAG* 1,000 ML IV SCH (19:21)
[2017-12-21] MEDS: Bismuth Subsalicylate* 30 ML/527 MG ML PO PRN ×2 (00:59→23:38)
[2017-12-21] MEDS: HYDROmorphone INJ* 0.5 MG/0.5 ML SYRINGE IV PRN ×6 (01:00→23:42)
[2017-12-21] MEDS: Metoprolol Tartrate IV* 1 MG/ML 5 ML VIAL IV SCH ×4 (02:34→21:24)
[2017-12-21] MEDS: ZOSYN 3.375 GM Q8H per EXTENDED INFUSION IVPB SCH ×6 (06:12→21:24)
[2017-12-21] MEDS: Heparin VIAL(*) 5000 UNITS/ML VIAL (FIVE THOUSAND) SUBCUT SCH ×3 (06:15→21:25)
[2017-12-21] MEDS: Lactobacillus Acidophilus* 1 TAB PO SCH ×2 (09:00→21:24)
[2017-12-21] MEDS: Tamsulosin CAP* 0.4 MG PO SCH (09:01)
[2017-12-21] MEDS: Finasteride TAB* 5 MG PO SCH (09:01)
[2017-12-21] MEDS: prednisoLONE 1% OPHTH.SUSP* 5 ML OPHTH.SUSP LEFT EYE SCH (09:02)
[2017-12-21] MEDS: Sucralfate TAB* 1 GM PO SCH ×2 (09:02→21:24)
[2017-12-21] MEDS: D5W 1/2 NS 1000 ML BAG* 1,000 ML IV SCH (12:43)
--- NOTE | 2017-12-21 14:52 | PN ---
Subjective Date of Service: 12/21/17 Interval History: Pt c/o worsening pain in RLQ. did not eat that much today. Last BM-loose ,this aM Objective Active Medications: Albuterol (Ventolin 2.5 Mg/3 Ml Neb.Danielle*) 2.5 mg INH Q4H PRN PRN Reason: SOB/WHEEZING Last Admin: 12/15/17 21:51 Dose: 2.5 mg Bismuth Subsalicylate (Peptic Relief*) 30 ml PO Q4HR PRN PRN Reason: DYSPEPSIA Last Admin: 12/21/17 00:59 Dose: 30 ml Finasteride (Proscar Tab*) 5 mg PO QAM [facility] Last Admin: 12/21/17 09:01 Dose: 5 mg Haloperidol Lactate (Haldol Inj Iv/Im*) 2 mg IV SLOW PU Q6H PRN PRN Reason: AGITATION Last Admin: 12/15/17 04:16 Dose: 2 mg Heparin Sodium (Porcine) (Heparin Flush Picc/Ml/Cvc(*)) 1 - 3 ml FLUSH 0600, 1800 [facility]; Protocol Last Admin: 12/21/17 06:17 Dose: 2 ml Heparin Sodium (Porcine) (Heparin Vial(*)) 5,000 units SUBCUT Q8HR [facility] Last Admin: 12/21/17 13:36 Dose: 5,000 units Hydromorphone HCl (Dilaudid Inj*) 0.5 mg IV Q2H PRN PRN Reason: PAIN Last Admin: 12/21/17 13:33 Dose: 0.5 mg Piperacillin Sod/Tazobactam (Sod 3.375 gm/ Sodium Chloride) 100 mls @ 25 mls/ hr IVPB Q8H [facility] Last Admin: 12/21/17 12:44 Dose: 25 mls/hr Dextrose/Sodium Chloride (D5w 1/2 Ns 1000 Ml Bag*) 1,000 mls @ 75 mls/hr IV PER RATE [facility] Last Admin: 12/21/17 12:43 Dose: 75 mls/hr Lactobacillus Rhamnosus (Lactobacillus Acidophilus*) 1 tab PO BID [facility] Last Admin: 12/21/17 09:00 Dose: 1 tab Metoprolol Tartrate (Lopressor Iv*) 5 mg IV Q6H [facility] Last Admin: 12/21/17 08:56 Dose: 5 mg Ondansetron HCl (Zofran Inj*) 4 mg IV Q4H PRN PRN Reason: NAUSEA/VOMITING Last Admin: 12/20/17 17:39 Dose: 4 mg Pharmacy Consult (Zosyn Per Pharmacy*) 1 note FOLLOW UP .ZOSYN PER PHARMACY [facility] Prednisolone Acetate (Pred Forte 1%*) 1 drop LEFT EYE DAILY [facility] Last Admin: 12/21/17 09:02 Dose: 1 drop Sucralfate (Carafate*) 1 gm PO BID [facility] Last Admin: 12/21/17 09:02 Dose: 1 gm Tamsulosin HCl (Flomax Cap*) 0.8 mg PO DAILY [facility] Last Admin: 12/21/17 09:01 Dose: 0.8 mg Throat Lozenges (Chloraseptic Felipe*) 1 felipe MT Q6H PRN PRN Reason: SORE THROAT Last Admin: 12/18/17 02:20 Dose: 1 felipe Vital Signs - 8 hr 12/21/17 12/21/17 12/21/17 07:18 09:00 11:15 Temperature 98.8 F 98.2 F Pulse Rate 65 81 Respiratory 16 18 16 Rate Blood Pressure 122/53 123/51 (mmHg) O2 Sat by Pulse 96 96 94 Oximetry 12/21/17 13:33 Temperature Pulse Rate Respiratory 18 Rate Blood Pressure (mmHg) O2 Sat by Pulse Oximetry Oxygen Devices in Use Now: None Appearance: 72 yo M in nAD, aAOx3 Eyes: No Scleral Icterus, PERRLA Ears/Nose/Mouth/Throat: NL Teeth, Lips, Gums, Mucous Membranes Moist Neck: NL Appearance and Movements; NL JVP, Trachea Midline Respiratory: Symmetrical Chest Expansion and Respiratory Effort, - - faint bibasiliar crackles Cardiovascular: NL Sounds; No Murmurs; No JVD, RRR Abdominal: - - tender in RLQ, no rebound, no guarding, BS hypoactive Lymphatic: No Cervical Adenopathy Extremities: No Clubbing, Cyanosis Skin: No Nodules or Sclerosis, - - post op incisions steri stripped, no evidence of dehiscence Neurological: Alert and Oriented x 3, NL Muscle Strength and Tone Result Diagrams: 12/20/17 05:54 12/20/17 05:54 Additional Lab and Data: Lab Results 12/09/17 Range/Units 10:27 WBC 17.3 H (3.5-10.8) 10^3/ul RBC 4.40 (4.00-5.40) 10^6/ul Hgb 12.4 L (14.0-18.0) g/dl Hct 37 L (42-52) % MCV 84 (80-94) fL MCH 28 (27-31) pg MCHC 33 (31-36) g/dl RDW 16 H (10.5-15) % Plt Count 122 L (150-450) 10^3/ul MPV 7.8 (7.4-10.4) um3 Neut % (Auto) 84.6 H (38-83) % Lymph % (Auto) 7.9 L (25-47) % [place] % (Auto) 7.2 H (0-7) % Eos % (Auto) 0 (0-6) % Baso % (Auto) 0.3 (0-2) % Absolute Neuts (auto) 14.7 H (1.5-7.7) 10^3/ul Absolute Lymphs (auto) 1.4 (1.0-4.8) 10^3/ul Absolute Monos (auto) 1.3 H (0-0.8) 10^3/ul Absolute Eos (auto) 0 (0-0.6) 10^3/ul Absolute Basos (auto) 0 (0-0.2) 10^3/ul Absolute Nucleated RBC 0 10^3/ul Nucleated RBC % 0 Microbiology and Other Data: Microbiology 12/09/17 11:54 Aerobic Blood Culture - Final Blood Venous No Growth Day 5 Anaerobic Blood Culture - Final No Growth Day 5 12/09/17 10:55 Aerobic Blood Culture - Final Blood Venous No Growth Day 5 Anaerobic Blood Culture - Final No Growth Day 5 12/09/17 23:05 Nasal Screen MRSA (PCR) - Final Nasal Mrsa Not Detected Diagnostic Imaging: Patient Name: GOKUL PINEDA Medical Record#: [id number] Ordering Physician: Ad Ashraf DO Acct.#: [id number] : 1945 Age: 72 Sex: M Location: [facility] Exam Date: 12/14/17 0843 ADM Status: ADM IN Order Information: CT ABD/PEL W/O Accession Number: [id number] CPT: 55128 INDICATION: Post appendectomy. Assess for abscess and bowel injury. Renal failure. COMPARISON: December 09, 2017 CT TECHNIQUE: Multidetector CT images were obtained from the lung bases to the ischial tuberosities. Oral contrast administered. Assessment of the visceral limited without IV contrast. REPORT: Arms down position results in beam hardening artifact limiting image quality. VISUALIZED INFERIOR THORAX: Moderate bilateral dependent pleural effusions. Gross complete atelectasis of the RIGHT lower lobe with partial atelectasis of the LEFT lower lobe. Negative for cardiomegaly or pericardial effusion. Coronary artery calcifications. LIVER / GALLBLADDER / PANCREAS / SPLEEN: 13.7 cm cephalocaudal liver with nodular surface contour. No conspicuous focal liver lesions. Post cholecystectomy. No biliary dilatation evident. Moderately atrophic pancreas without suspicious finding. Unremarkable spleen. ALIMENTARY TRACT: Enteric contrast from the current contrast ingestion extends to the proximal ileum. Long segment mild dilatation of the proximal small bowel loops measuring up to 3.5 cm diameter. The mid through distal and terminal ilium are decompressed. No discrete transition point identified. Denser enteric contrast likely from previous contrast menstruation is noted in the colon. Postsurgical change of appendectomy. Surgical drain in place with the tip at the appendectomy bed. No perienteric abscess collection evident. Small volume of ascites predominant perihepatic and extending down the RIGHT paracolic gutter to the RIGHT lower quadrant and pelvis. No loculated peritoneal fluid collection evident. Negative for free air. Negative for significant hernias. MESENTERIC: Diffuse mild mesenteric edema. ADRENAL / GENITOURINARY: Normal adrenal glands. Mildly atrophic kidneys. Negative for urolithiasis, hydronephrosis, or suspicious focal renal lesions. The RIGHT ureter courses through the region of post appendectomy edema at the RIGHT lower quadrant. Negative for ureteral dilatation. Catheterized decompressed urinary bladder. RETROPERITONEAL: Negative for lymphadenopathy. VASCULAR: Atherosclerotic calcification of normal diameter abdominal aorta and iliac arteries. Partially decompressed IVC. 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 SOFT TISSUE: Diffuse soft tissue edema most prominent at the dependent portions. Mild bilateral gynecomastia noted. IMPRESSION: #. Postsurgical change of appendectomy. Surgical drain in place at the appendectomy bed. Small volume of ascites including at the RIGHT lower quadrant December 09, 2017 CT. No This report is only to be considered final once signed by the Provider(s) as displayed in the "<Electronically Signed by >" field (s). Absence of a signature indicates the report is in a draft status and still needs to be finalized. In the event this document was created by someone other than the signing Provider, the individual initiating the document will be listed in the "Entered by:" or "Dictated by:" wells. [facility] Patient Name:GOKUL PINEDA MR: [id number] : 1945 loculated RIGHT lower quadrant fluid collection to indicate abscess. #. Probable postoperative small bowel ileus. Negative for free air to indicate bowel perforation. #. Cirrhotic liver morphology. #. Moderate bilateral dependent pleural effusions with lower lobe atelectasis new compared with the December 09, 2017 CT. <Electronically signed by Jarett Casanova MD in [place]> 12/14/17 1206 Dictated By: Jarett Casanova MD Dictated Date/Time: 12/14/17 1206 Transcribed Date/Time: 12/14/17 1148 Copy to: Assess/Plan/Problems-Billing Assessment: Mr. Pineda is a 72yo M with PMH of RA, HTN, Gout, CKD, BPH, non ischemic CMP in the setting of sepsis in 2013 (with LV function recovery) who presented to ED with c/o abdominal pain, found to have appendicitis, complicated by Septic shock, ileus and high output from NGT. Recently downgraded from ICU. - Patient Problems (1) Adynamic ileus Comment: diet advanced by surgery appears to have resolved (2) Appendicitis Comment: - Complicated by septic shock resolved - zosyn was discontinued on 12/16/17, pt had been afebrile , slowly improving as expected, but on 12/19/17 with mild leukocytosis-Zosyn was restarted. - Management per surgery-today more abd pain-will d/w Dr. Felix. CBC pending (3) Cardiomyopathy Comment: - EF 65%, stable (4) Delirium Comment: - Toxic metabolic encephalopathy 2/2 sepsis and infection - Continue with supportive care - resolved (5) Electrolyte abnormality Comment: -cont to monitor (6) Rheumatoid arthritis Comment: - humira on hold, restart at discharge (7) CKD (chronic kidney disease) stage 3, GFR 30-59 ml/min Comment: creat at baseline (8) DVT prophylaxis Comment: HSQ Status and Disposition: medicine consult, will follow daily
[2017-12-21 16:17] LABS: ABS Basophils 0.1 10^3/ul (0-0.2); ABS Eosinophils 0.3 10^3/ul (0-0.6); ABS Lymphocytes 1.2 10^3/ul (1.0-4.8); ABS Monocytes 0.9 10^3/ul (0-0.8); ABS Nucleated RBC 0 10^3/ul; Eosinophil % 3.2 % (0-6); Hematocrit 25 % (42-52); Hemoglobin 8.1 g/dl (14.0-18.0); Lymphocyte % 12.3 % (25-47); Mean Corpuscular HGB Conc 33 g/dl (31-36); Mean Corpuscular Hemoglobin 29 pg (27-31); Mean Corpuscular Volume 89 fL (80-94); Mean Platelet Volume 8.1 um3 (7.4-10.4); Nucleated Red Blood Cells % 0; Platelet Count 215 10^3/ul (150-450); Red Blood Count 2.76 10^6/ul (4.00-5.40); Red Cell Distribution Width 17 % (10.5-15); White Blood Count 9.5 10^3/ul (3.5-10.8)
--- NOTE | 2017-12-21 16:18 | PN ---
Progress Note - Progress Note Date of Service: 12/21/17 SOAP: Subjective:POD#12;S/P PERF APPY,SEPSIS,ILEUS no appetite today;frustrated with frequent loose stools that he said he can' t control;reports increased RLQ pain;no n/v;voided only 50ml this am and then had to be straight cathed for 300ml;didnot get OOB today [] Objective:afeb;VSS;O2sat 94% RA;lungs:bibas crackles;heart:RRR;Abd:+bs;tender RLQ;firm;mild distention;Ext:SCDS [] Assessment:increased RLQ pain and decreased appetite [] Plan:check CBC,CMP,CRP,PHOS per Dr Pittman await lab results;?CT ABD/Pelvis;?D/C central line;?D/C Zosyn;discuss with Dr Pittman and Dr Felix []
--- NOTE | 2017-12-21 19:52 | RAD ---
INDICATION: Increased right lower quadrant pain. Anorexia. Recent appendectomy. COMPARISON: CT December 14, 2017 TECHNIQUE: Noncontrast axial source images were obtained from the hemidiaphragms to the symphysis pubis. This examination was ordered without oral or intravenous contrast and therefore has inherent limitations when used to evaluate other intra-abdominal or intrapelvic pathology. Consider conventional contrast enhanced imaging if clinically indicated. Lung bases: There are moderate-sized bilateral pleural effusions and there is bibasilar airspace disease, likely compression atelectasis. Liver: There is cirrhotic liver morphology. There is no mass on noncontrast evaluation. Gallbladder: Cholecystectomy. Spleen: The spleen is normal in size. The noncontrast CT appearance is normal. Pancreas: Noncontrast imaging shows no pancreatic mass or ductal dilitation. There is mild pancreatic atrophy Adrenal glands: No masses are identified. Kidneys/Bladder: There is no evidence of nephrolithiasis or CT evidence of hydronephrosis. Noncontrast imaging shows no evidence of a renal mass. The bladder is unremarkable.. Adenopathy: There is no evidence of intraperitoneal or retroperitoneal adenopathy. Evaluation is limited without oral contrast. Fluid collections: There is a moderate ascites around the liver, in the right paracolic gutter and in the dependent portion of the pelvis. There is no localized collection to suggest abscess Vessels: The aorta and iliac vessels are normal in caliber. There are mild atherosclerotic changes. The IVC appears normal Pelvic organs: The prostate and seminal vesicles appear normal GI tract: Evaluation of the bowel is limited without oral contrast. The upper GI tract is grossly normal. There are clips in the periappendiceal region consistent with appendectomy. The fluid does not appear loculated to suggest an abscess Soft tissues: The drainage catheters been removed. There are small amount of subcutaneous edema the dependent soft tissues. Osseous structures: There is advanced osteoarthritic change of the hips. There is osteoarthritis lumbar spine. There is no acute change. IMPRESSION: 1. Bibasilar airspace disease and pleural effusions, unchanged. 2. Appendectomy. No localized fluid collection to suggest developing abscess. There is moderate ascites. 3. Cirrhotic liver morphology.
[2017-12-22] MEDS: HYDROmorphone INJ* 0.5 MG/0.5 ML SYRINGE IV PRN ×5 (01:42→20:22)
[2017-12-22] MEDS: D5W 1/2 NS 1000 ML BAG* 1,000 ML IV SCH (03:10)
[2017-12-22] MEDS: ZOSYN 3.375 GM Q8H per EXTENDED INFUSION IVPB SCH ×2 (04:54)
[2017-12-22] MEDS: Heparin VIAL(*) 5000 UNITS/ML VIAL (FIVE THOUSAND) SUBCUT SCH ×3 (05:18→22:54)
[2017-12-22 06:20] LABS: EGFR Non-African American 48.1 (>60)
[2017-12-22] MEDS: Lactobacillus Acidophilus* 1 TAB PO SCH ×2 (09:26→20:25)
[2017-12-22] MEDS: Sucralfate TAB* 1 GM PO SCH ×2 (09:27→20:25)
[2017-12-22] MEDS: Metoprolol Succinate XL TAB* 25 MG PO SCH (09:27)
[2017-12-22] MEDS: Tamsulosin CAP* 0.4 MG PO SCH (09:27)
[2017-12-22] MEDS: prednisoLONE 1% OPHTH.SUSP* 5 ML OPHTH.SUSP LEFT EYE SCH (09:27)
[2017-12-22] MEDS: Finasteride TAB* 5 MG PO SCH (09:27)
--- NOTE | 2017-12-22 10:50 | PN ---
Subjective Date of Service: 12/22/17 Interval History: Pt c/o RLQ abd pain that is improved from yesterday. BM's liquid, but frequency decreased. Pt requests for his pain to be controlled and stated that this is the main reason he had been refusing to get OOB. He is refusing STR and stated that he can go home with a help of a friend whose is an RN, but when I asked pt to call his friend to and maybe meet us at [facility] to discuss everything- he stated that the fried is not available. Objective Active Medications: Albuterol (Ventolin 2.5 Mg/3 Ml Neb.Danielle*) 2.5 mg INH Q4H PRN PRN Reason: SOB/WHEEZING Last Admin: 12/15/17 21:51 Dose: 2.5 mg Bismuth Subsalicylate (Peptic Relief*) 30 ml PO Q4HR PRN PRN Reason: DYSPEPSIA Last Admin: 12/21/17 23:38 Dose: 30 ml Finasteride (Proscar Tab*) 5 mg PO QAM [facility] Last Admin: 12/22/17 09:27 Dose: 5 mg Heparin Sodium (Porcine) (Heparin Flush Picc/Ml/Cvc(*)) 1 - 3 ml FLUSH 0600, 1800 [facility]; Protocol Last Admin: 12/22/17 05:17 Dose: 2 ml Heparin Sodium (Porcine) (Heparin Vial(*)) 5,000 units SUBCUT Q8HR [facility] Last Admin: 12/22/17 05:18 Dose: 5,000 units Hydromorphone HCl (Dilaudid Inj*) 0.5 mg IV Q2H PRN PRN Reason: PAIN Last Admin: 12/22/17 07:28 Dose: 0.5 mg Lactobacillus Rhamnosus (Lactobacillus Acidophilus*) 1 tab PO BID [facility] Last Admin: 12/22/17 09:26 Dose: 1 tab Metoprolol Succinate (Toprol Xl Tab*) 75 mg PO DAILY [facility] Last Admin: 12/22/17 09:27 Dose: 75 mg Ondansetron HCl (Zofran Inj*) 4 mg IV Q4H PRN PRN Reason: NAUSEA/VOMITING Last Admin: 12/20/17 17:39 Dose: 4 mg Prednisolone Acetate (Pred Forte 1%*) 1 drop LEFT EYE DAILY [facility] Last Admin: 12/22/17 09:27 Dose: 1 drop Sucralfate (Carafate*) 1 gm PO BID [facility] Last Admin: 12/22/17 09:27 Dose: 1 gm Tamsulosin HCl (Flomax Cap*) 0.8 mg PO DAILY [facility] Last Admin: 12/22/17 09:27 Dose: 0.8 mg Throat Lozenges (Chloraseptic Ashleigh*) 1 ashleigh MT Q6H PRN PRN Reason: SORE THROAT Last Admin: 12/18/17 02:20 Dose: 1 ashleigh Vital Signs - 8 hr 12/22/17 12/22/17 12/22/17 03:12 03:52 04:54 Temperature 98.7 F Pulse Rate 61 Respiratory 18 16 19 Rate Blood Pressure 118/56 (mmHg) O2 Sat by Pulse 98 Oximetry 12/22/17 12/22/17 12/22/17 06:39 07:25 07:28 Temperature 98.8 F Pulse Rate 66 Respiratory 20 16 16 Rate Blood Pressure 133/48 (mmHg) O2 Sat by Pulse 98 Oximetry 12/22/17 12/22/17 08:00 09:32 Temperature Pulse Rate Respiratory 18 18 Rate Blood Pressure (mmHg) O2 Sat by Pulse 98 Oximetry Oxygen Devices in Use Now: None Appearance: 72 yo M in nAD, aAOx3 Eyes: No Scleral Icterus, PERRLA Ears/Nose/Mouth/Throat: NL Teeth, Lips, Gums, Mucous Membranes Moist Neck: NL Appearance and Movements; NL JVP, Trachea Midline Respiratory: Symmetrical Chest Expansion and Respiratory Effort, - - bibasiliar carckles Cardiovascular: NL Sounds; No Murmurs; No JVD, - - irregular HR Abdominal: - - distended, soft, tender in RLQ, no rebound, no guarding, BS+ Lymphatic: No Cervical Adenopathy Extremities: No Edema, No Clubbing, Cyanosis Skin: No Nodules or Sclerosis, - - post op incisons on abd steri-stripped, no dehiscence Neurological: Alert and Oriented x 3, NL Muscle Strength and Tone Result Diagrams: 12/21/17 15:53 12/22/17 05:50 Additional Lab and Data: Lab Results 12/09/17 Range/Units 10:27 WBC 17.3 H (3.5-10.8) 10^3/ul RBC 4.40 (4.00-5.40) 10^6/ul Hgb 12.4 L (14.0-18.0) g/dl Hct 37 L (42-52) % MCV 84 (80-94) fL MCH 28 (27-31) pg MCHC 33 (31-36) g/dl RDW 16 H (10.5-15) % Plt Count 122 L (150-450) 10^3/ul MPV 7.8 (7.4-10.4) um3 Neut % (Auto) 84.6 H (38-83) % Lymph % (Auto) 7.9 L (25-47) % [place] % (Auto) 7.2 H (0-7) % Eos % (Auto) 0 (0-6) % Baso % (Auto) 0.3 (0-2) % Absolute Neuts (auto) 14.7 H (1.5-7.7) 10^3/ul Absolute Lymphs (auto) 1.4 (1.0-4.8) 10^3/ul Absolute Monos (auto) 1.3 H (0-0.8) 10^3/ul Absolute Eos (auto) 0 (0-0.6) 10^3/ul Absolute Basos (auto) 0 (0-0.2) 10^3/ul Absolute Nucleated RBC 0 10^3/ul Nucleated RBC % 0 Microbiology and Other Data: Microbiology 12/09/17 11:54 Aerobic Blood Culture - Final Blood Venous No Growth Day 5 Anaerobic Blood Culture - Final No Growth Day 5 12/09/17 10:55 Aerobic Blood Culture - Final Blood Venous No Growth Day 5 Anaerobic Blood Culture - Final No Growth Day 5 12/09/17 23:05 Nasal Screen MRSA (PCR) - Final Nasal Mrsa Not Detected Assess/Plan/Problems-Billing Assessment: Mr. Pineda is a 72yo M with PMH of RA, HTN, Gout, CKD, BPH, non ischemic CMP in the setting of sepsis in 2013 (with LV function recovery) who presented to ED with c/o abdominal pain, found to have appendicitis, complicated by Septic shock, ileus and high output from NGT. Recently downgraded from ICU. - Patient Problems (1) Adynamic ileus Comment: diet advanced by surgery to regular today. D/w DR. Felix-although pt had more abd pain , CT shows no abd pathology. Will stop Zosyn will d/c IVF (2) Appendicitis Comment: - Complicated by septic shock- resolved - zosyn was discontinued on 12/16/17, pt had been afebrile , slowly improving as expected, but on 12/19/17 with mild leukocytosis-Zosyn was restarted.will d/c antibiotisc today as d/w Dr. Felix. (3) Cardiomyopathy Comment: - EF 65%, stable (4) Delirium Comment: - Toxic metabolic encephalopathy 2/2 sepsis and infection - Continue with supportive care - resolved (5) Rheumatoid arthritis Comment: - humira on hold, restart at discharge (6) CKD (chronic kidney disease) stage 3, GFR 30-59 ml/min Comment: creat at baseline (7) Irregular cardiac rhythm Comment: will get EKG to eval (8) Anemia Comment: acute post op and dilutional on chronic no evidence of acute bleed (9) Fluid overload Comment: b/l pleural effusions and ascites on CT due to IVF resuscitation periop. will tx with dose of IV Lasix (10) DVT prophylaxis Comment: HSQ Status and Disposition: medicine consult, will follow daily
[2017-12-22] MEDS ORDERED: Furosemide IV* 10 MG/ML 2 ML VIAL (20 MG) IV ONE (10:57)
[2017-12-22] MEDS: oxyCODONE/Acetamin 5/325 MG* TAB PO PRN ×2 (11:26→18:07)
--- NOTE | 2017-12-22 13:28 | PN ---
Progress Note - Progress Note Date of Service: 12/22/17 Note: S/P perf appy, sepsis, renal insufficiency, ileus Afeb, VS OK Ken po's , no N/V, passing loose stool, voiding Mild abd pain, no peritonitis Plan: D/W Dr Pittman D/C CVC D/C abx Reg diet Disch planning
--- NOTE | 2017-12-22 14:24 | CONSULT ---
Consult Consult: Consult for Medical Decision Making Capacity: S: Psychiatry is asked to evaluate capacity in this 72 y.o. , white male [employer] admitted to the Surgical unit for laproscopic appendectomy. According to the primary team the patient is very weak and requires 2-person assist in routine ADLs. Despite these obvious deficits he has demanded discharge to home rather than accepting the indicated placement in an [facility] setting. Attending physician, Dr. Pittman, indicates that he has limited support in the community, following the of his from cancer 1.5 years ago, and he cannot accommodate requests to discharge plan with friends or relatives to help him at home and assure his safety. On exam the patient is irritable and invites me to turn around and leave once I introduce myself and the purpose of my visit. 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 Pineda does acknowledge that subacute rehab is warranted and says "When they get the pain mediation under control I'm glad to go where they want me to go." Despite this, when asked multiple time about the risks of ignoring medical advice and returning home, he cannot specify the risks , which Dr. Pittman describes as falls, failure to thrive and possible . "I build that house with my own hands 47 years ago. You're gonna tell me I can't handle being there on my own?" He is alert and oriented throughout the examination. O: aging, tall white haired, white male dressed in a patient gown laying supine in bed with head on a pillow; superficially cooperative; mood appears depressed with a constricted, irritable affect; speech is fluent; thought process is sequential but tangential with occasional derailment into unrelated topics; denies SI or HI; denies AH/VH; insight and judgment impaired; cognitively awake and alert; oriented to person/time/situation/place A/P: the patient is unable to specify the risks involved with refusing indicated subacute rehab placement and therefor lacks capacity to do so. Psychiatry is signing off but can be reconsulted in the event of any changes in the patient's presentation.
[2017-12-23] MEDS: oxyCODONE/Acetamin 5/325 MG* TAB PO PRN ×4 (01:23→20:42)
[2017-12-23] MEDS: HYDROmorphone INJ* 0.5 MG/0.5 ML SYRINGE IV PRN ×4 (02:03→12:58)
[2017-12-23] MEDS: Heparin VIAL(*) 5000 UNITS/ML VIAL (FIVE THOUSAND) SUBCUT SCH ×3 (05:39→21:46)
[2017-12-23 06:27] LABS: EGFR Non-African American 54.1 (>60)
[2017-12-23] MEDS: prednisoLONE 1% OPHTH.SUSP* 5 ML OPHTH.SUSP LEFT EYE SCH (08:30)
[2017-12-23] MEDS: Lactobacillus Acidophilus* 1 TAB PO SCH ×2 (08:31→20:42)
[2017-12-23] MEDS: Finasteride TAB* 5 MG PO SCH (08:31)
[2017-12-23] MEDS: Tamsulosin CAP* 0.4 MG PO SCH (08:32)
[2017-12-23] MEDS: Sucralfate TAB* 1 GM PO SCH ×2 (08:32→20:42)
[2017-12-23] MEDS: Bismuth Subsalicylate* 30 ML/527 MG ML PO PRN (09:02)
[2017-12-23] MEDS: Metoprolol Succinate XL TAB* 25 MG PO SCH (09:12)
[2017-12-23] MEDS: Magnesium Oxide TAB* 400 MG PO SCH (09:46)
--- NOTE | 2017-12-23 10:21 | PN ---
Subjective Date of Service: 12/23/17 Interval History: Pt greeted me with : "get out of my room!" today. He refused to be examined and allowed me to stay long enough to communicate that he needs to cooperate with PT in order to have another PMRU eval. Refused to talk about anything else RN noted that pt got OOB by himself today without notifying the nurse Objective Active Medications: Albuterol (Ventolin 2.5 Mg/3 Ml Neb.Danielle*) 2.5 mg INH Q4H PRN PRN Reason: SOB/WHEEZING Last Admin: 12/15/17 21:51 Dose: 2.5 mg Bismuth Subsalicylate (Peptic Relief*) 30 ml PO Q4HR PRN PRN Reason: DYSPEPSIA Last Admin: 12/23/17 09:02 Dose: 30 ml Finasteride (Proscar Tab*) 5 mg PO QAM [facility] Last Admin: 12/23/17 08:31 Dose: 5 mg Heparin Sodium (Porcine) (Heparin Vial(*)) 5,000 units SUBCUT Q8HR [facility] Last Admin: 12/23/17 05:39 Dose: 5,000 units Hydromorphone HCl (Dilaudid Inj*) 0.5 mg IV Q2H PRN PRN Reason: PAIN Last Admin: 12/23/17 08:27 Dose: 0.5 mg Lactobacillus Rhamnosus (Lactobacillus Acidophilus*) 1 tab PO BID [facility] Last Admin: 12/23/17 08:31 Dose: 1 tab Magnesium Oxide (Magox 400 Tab*) 800 mg PO DAILY [facility] Last Admin: 12/23/17 09:46 Dose: 800 mg Metoprolol Succinate (Toprol Xl Tab*) 75 mg PO DAILY [facility] Last Admin: 12/23/17 09:12 Dose: 75 mg Ondansetron HCl (Zofran Inj*) 4 mg IV Q4H PRN PRN Reason: NAUSEA/VOMITING Last Admin: 12/20/17 17:39 Dose: 4 mg Oxycodone/Acetaminophen (Percocet 5/325 Tab*) 1 tab PO Q4H PRN PRN Reason: PAIN Last Admin: 12/23/17 09:50 Dose: 1 tab Prednisolone Acetate (Pred Forte 1%*) 1 drop LEFT EYE DAILY [facility] Last Admin: 12/23/17 08:30 Dose: 1 drop Sucralfate (Carafate*) 1 gm PO BID [facility] Last Admin: 12/23/17 08:32 Dose: 1 gm Tamsulosin HCl (Flomax Cap*) 0.8 mg PO DAILY [facility] Last Admin: 12/23/17 08:32 Dose: 0.8 mg Throat Lozenges (Chloraseptic Ashleigh*) 1 ashleigh MT Q6H PRN PRN Reason: SORE THROAT Last Admin: 12/18/17 02:20 Dose: 1 ashleigh Vital Signs - 8 hr 12/23/17 12/23/17 12/23/17 03:24 03:30 07:12 Temperature 99.0 F 97.7 F Pulse Rate 51 54 Respiratory 16 16 24 Rate Blood Pressure 141/64 151/62 (mmHg) O2 Sat by Pulse 99 99 Oximetry 12/23/17 12/23/17 08:27 09:50 Temperature Pulse Rate Respiratory 16 18 Rate Blood Pressure (mmHg) O2 Sat by Pulse Oximetry Oxygen Devices in Use Now: None Appearance: 72 yo M, lying in bed in NAD, upset , refusing to be examined Result Diagrams: 12/21/17 15:53 12/23/17 05:50 Additional Lab and Data: Lab Results 12/09/17 Range/Units 10:27 WBC 17.3 H (3.5-10.8) 10^3/ul RBC 4.40 (4.00-5.40) 10^6/ul Hgb 12.4 L (14.0-18.0) g/dl Hct 37 L (42-52) % MCV 84 (80-94) fL MCH 28 (27-31) pg MCHC 33 (31-36) g/dl RDW 16 H (10.5-15) % Plt Count 122 L (150-450) 10^3/ul MPV 7.8 (7.4-10.4) um3 Neut % (Auto) 84.6 H (38-83) % Lymph % (Auto) 7.9 L (25-47) % [place] % (Auto) 7.2 H (0-7) % Eos % (Auto) 0 (0-6) % Baso % (Auto) 0.3 (0-2) % Absolute Neuts (auto) 14.7 H (1.5-7.7) 10^3/ul Absolute Lymphs (auto) 1.4 (1.0-4.8) 10^3/ul Absolute Monos (auto) 1.3 H (0-0.8) 10^3/ul Absolute Eos (auto) 0 (0-0.6) 10^3/ul Absolute Basos (auto) 0 (0-0.2) 10^3/ul Absolute Nucleated RBC 0 10^3/ul Nucleated RBC % 0 Microbiology and Other Data: Microbiology 12/09/17 11:54 Aerobic Blood Culture - Final Blood Venous No Growth Day 5 Anaerobic Blood Culture - Final No Growth Day 5 12/09/17 10:55 Aerobic Blood Culture - Final Blood Venous No Growth Day 5 Anaerobic Blood Culture - Final No Growth Day 5 12/09/17 23:05 Nasal Screen MRSA (PCR) - Final Nasal Mrsa Not Detected Diagnostic Imaging: \\ Assess/Plan/Problems-Billing Assessment: Mr. Pineda is a 72yo M with PMH of RA, HTN, Gout, CKD, BPH, non ischemic CMP in the setting of sepsis in 2013 (with LV function recovery) who presented to ED with c/o abdominal pain, found to have appendicitis, complicated by Septic shock, ileus and high output from NGT. Recently downgraded from ICU. - Patient Problems (1) Adynamic ileus Comment: Resolved diet advanced by surgery to regular on 12/22/17 Zosyn stopped on 12/22/[address] shows ascites and pleural effusions but no abscess on 12/21/17 (2) Appendicitis Comment: - Complicated by septic shock- resolved (3) Cardiomyopathy Comment: - EF 65%, stable (4) Delirium Comment: - Toxic metabolic encephalopathy 2/2 sepsis and infection - Continue with supportive care - resolved (5) Rheumatoid arthritis Comment: - humira on hold, restart at discharge (6) CKD (chronic kidney disease) stage 3, GFR 30-59 ml/min Comment: creat at baseline (7) Irregular cardiac rhythm Comment: EKG showed NSR with PAC's (8) Anemia Comment: acute post op and dilutional on chronic no evidence of acute bleed (9) Fluid overload Comment: b/l pleural effusions and ascites on CT due to IVF resuscitation periop. treated with dose of IV Lasix on 12/22/17 (10) DVT prophylaxis Comment: HSQ (11) Discharge planning issues Comment: although pt is AAOx3, he is not able to comprehend consequences of being discharged home in current state and he has no alternative plan. Refuses STR. As per psychiatry eval pt is not competent to make decisions about his discharge. Pt himself is very upset about it, but agrees to be reevaluated for possible PMRU admission today Status and Disposition: medicine consult, will try to follow daily if pt agrees to be seen
--- NOTE | 2017-12-23 14:26 | PN ---
Progress Note - Progress Note Date of Service: 12/23/17 SOAP: Subjective:POD#14 s/p lap appy,perforated;cooperated with PT;sipping Ensure; less abd discomfort;passing flatus and stool;voiding [] Objective:afeb;VSS;lungs:clear anterior,decreased bs at bases;heart:RRR;abd: large,soft,minimally tender;+bs;Ext:nontender [] Assessment:stable,angry about need for subacute rehab placement but deemed incompetent by psych eval to make safe decisions [] Plan:Family meeting today with brother in law João,case packer and sealer and ; bed is available at [facility]; updated. Will d/c Dilaudid []
--- NOTE | 2017-12-23 16:11 | PN ---
Progress Note - Progress Note Date of Service: 12/23/17 Note: Had a family meeting with patient , Pt's brother in law and CALLI Murray. Pt is upset about going to STR. Pt's son in law agrees that this is the best option , since family is unable to provide pt with needed supervision at home and pt has no plans to hire someone to help him. Spoke with Dr. Felix that medically pt is ready for discharge ans STR in [place] is set by CALLI.
[2017-12-24] MEDS: oxyCODONE/Acetamin 5/325 MG* TAB PO PRN ×2 (04:32→09:36)
[2017-12-24] MEDS: Bismuth Subsalicylate* 30 ML/527 MG ML PO PRN (04:34)
[2017-12-24] MEDS: Heparin VIAL(*) 5000 UNITS/ML VIAL (FIVE THOUSAND) SUBCUT SCH (06:13)
[2017-12-24] MEDS: Lactobacillus Acidophilus* 1 TAB PO SCH (08:26)
[2017-12-24] MEDS: Magnesium Oxide TAB* 400 MG PO SCH (08:26)
[2017-12-24] MEDS: Metoprolol Succinate XL TAB* 25 MG PO SCH (08:26)
[2017-12-24] MEDS: Sucralfate TAB* 1 GM PO SCH (08:26)
[2017-12-24] MEDS: Tamsulosin CAP* 0.4 MG PO SCH (08:26)
[2017-12-24] MEDS: Finasteride TAB* 5 MG PO SCH (08:26)
[2017-12-24] MEDS: prednisoLONE 1% OPHTH.SUSP* 5 ML OPHTH.SUSP LEFT EYE SCH (08:27)
--- NOTE | 2017-12-24 09:54 | PN ---
Progress Note - Progress Note Date of Service: 12/24/17 SOAP: Subjective:POD#15 s/p lap appy;perf'd appendicitis []ate fair amt for breakfast;passing flatus and stool;voiding Objective:afeb;VSS;lungs:clear anterior,decreased at bases;heart:RRR;abd:large, soft;+bs;all steristrips removed;all incisions clean and dry,no infection;ext: nontender [] Assessment:stable [] Plan:Possible discharge today to custodial facility []
--- NOTE | 2017-12-24 12:19 | DS ---
CC: Dr. Felix; Dr. Jarett Barnett; [facility].* DISCHARGE SUMMARY: DATE OF ADMISSION: 12/09/17 DATE OF DISCHARGE: 12/24/17 PRINCIPAL ADMITTING DIAGNOSIS: Perforated appendicitis with sepsis. SECONDARY DIAGNOSES: Include: 1. Blood loss anemia. 2. Renal insufficiency. 3. Hyperkalemia. 4. Hypokalemia. 5. Hypernatremia. 6. Hypocalcemia. 7. Hypophosphatemia. 8. Hypomagnesemia. 9. Hypoalbuminemia. 10. Postoperative ileus. 11. Cognitive impairment. HOSPITAL COURSE: The patient is a 72-year-old male who came to the hospital, was taken to the operating room for laparoscopic appendectomy with a perforated appendicitis. He had signs of sepsis and blood loss anemia and was managed initially in intensive care unit. He responded to therapy and was improving and then had bloating and nausea and abdominal pain, was found to have an ileus. He had a CT scan, which did not show any evidence of abscess. He had a nasogastric tube for several days and had gradual improvement in his bowel function and eventually this was removed and he was able to tolerate oral diet. He again had low grade fever and concern was for an abscess again and another CT scan again was negative. Ultimately, he was able to tolerate oral intake. He was voiding adequately and was afebrile. His white blood count prior to discharge was 9500, hemoglobin 8.1 with normal electrolytes, creatinine of 1.3, calcium 8.3, magnesium 1.8, phosphorus 2.5, albumin was 2.3. He was too weak to be able to go home and it was recommended that he go to short-term rehab and he was unwilling to do this. He was seen in consultation by Psychiatry who confirmed that he was not competent to make such a decision. A conference was held with his family and they agreed that short-term rehab is warranted, so he will be transferred to a short-term rehab bed when available. [id number]/[facility] #: [id number] MTDD
[2017-12-24 13:09] VITALS: BP 103/75
== END 2017-12-24 13:42 | DRG 853 ==
LOC: ED 09:58 → OR 09:58 → ED 15:10 → OR 15:42 → ICU 23:04 → SSU 12-14 18:23
PROVIDERS: ADMIT Surgery; ATTEND Surgery
PROC: 0DTJ4ZZ Resection of Appendix, Percutaneous Endoscopic Approach (ICD-10-PCS; 2017-12-09)
PROC: 05H633Z Insertion of Infusion Device into Left Subclavian Vein, Percutaneous Approach (ICD-10-PCS; 2017-12-09)
PROC: 30233N1 Transfusion of Nonautologous Red Blood Cells into Peripheral Vein, Percutaneous Approach (ICD-10-PCS; 2017-12-09)
PROC: 3E033XZ Introduction of Vasopressor into Peripheral Vein, Percutaneous Approach (ICD-10-PCS; principal; 2017-12-09 16:00)
DX: A41.9 Sepsis, unspecified organism (principal); R65.21 Severe sepsis with septic shock; G92 Toxic encephalopathy; K35.3 Acute appendicitis with localized peritonitis; D62 Acute posthemorrhagic anemia; E87.0 Hyperosmolality and hypernatremia; K56.7 Ileus, unspecified; I42.8 Other cardiomyopathies; I13.0 Hypertensive heart and chronic kidney disease with heart failure and stage 1 through stage 4 chronic kidney disease, or unspecified chronic kidney disease; K91.840 Postprocedural hemorrhage of a digestive system organ or structure following a digestive system procedure; M02.35 Reiter's disease, hip; R18.8 Other ascites; N17.9 Acute kidney failure, unspecified; E87.5 Hyperkalemia; E87.6 Hypokalemia; E83.51 Hypocalcemia; E83.39 Other disorders of phosphorus metabolism; E83.42 Hypomagnesemia; E88.09 Other disorders of plasma-protein metabolism, not elsewhere classified; G31.84 Mild cognitive impairment of uncertain or unknown etiology; M10.9 Gout, unspecified; N40.0 Benign prostatic hyperplasia without lower urinary tract symptoms; M06.9 Rheumatoid arthritis, unspecified; F17.200 Nicotine dependence, unspecified, uncomplicated; I50.9 Heart failure, unspecified; M19.90 Unspecified osteoarthritis, unspecified site; H91.90 Unspecified hearing loss, unspecified ear; N18.9 Chronic kidney disease, unspecified; F41.9 Anxiety disorder, unspecified; R06.1 Stridor; R00.9 Unspecified abnormalities of heart beat; E87.70 Fluid overload, unspecified; I95.81 Postprocedural hypotension; E66.9 Obesity, unspecified; G25.81 Restless legs syndrome; Z88.0 Allergy status to penicillin; Z72.89 Other problems related to lifestyle; Z98.42 Cataract extraction status, left eye; Z90.49 Acquired absence of other specified parts of digestive tract; Z87.01 Personal history of pneumonia (recurrent); Z82.49 Family history of ischemic heart disease and other diseases of the circulatory system; Z68.33 Body mass index [BMI] 33.0-33.9, adult
CPT/HCPCS: 36415; 71045; 74176; 74177; 80048; 80053; 81003; 82570; 83540; 83605; 83690; 83735; 84100; 84134; 84300; 85025; 85027; 85060; 85610; 85730; 86140; 86850; 86900; 86901; 86922; 87040; 87641; 88304; 93005; 93306; 94640; 99284; 99406; A9270-GY; C1776; G8978-GP-CL; G8979-GP-CI; G8987-GO-CL; G8988-GO-CL; G8989-GO-CL; J0330; J0610; J0692; J0694; J1170; J1630; J1644; J1940; J2250; J2270; J2405; J2543; J2704; J2710; J2920; J2997; J3010; J3475; J3480; J3490; P9040; Q9967